=== PATIENT | male | born 1950 | race Caucasian/White ===

== ENCOUNTER 2023-02-21 09:41 | Outpatient (OUT) | payer MEDICARE, SELFPAY ==
--- NOTE | 2023-02-21 09:57 | CT_ITS ---
[address] [address] Patient Name: BLU KUO MRN: [id number] date: 1950 Sex: M Assigned Patient Location: CT Current Patient Location: Accession/Order Number: [id number] Exam Date: 02/21/2023 10:05 Report Date: 02/22/2023 01:35 At the request of: KATALINA VAUGHAN Procedure: CT lung screening low-dose EXAMINATION: CT lung screening low-dose HISTORY: Nicotine Dependence F17.210 COMPARISON: CT chest 10/20/2021 TECHNIQUE: Axial, Coronal, and Sagittal images were created without the administration of IV contrast material. Dose reduction techniques were achieved by using automated exposure control and/or adjustment of mA and/or kV according to patient size and/or use of iterative reconstruction technique. FINDINGS: LUNGS: No visible pulmonary disease. PLEURA: No mass, effusion, or pneumothorax. VASCULATURE: No abnormality. FRANCISCO: No mass or pathologic adenopathy. MEDIASTINUM: No mass or pathologic adenopathy. CARDIAC: No enlargement, pericardial thickening, or significant calcification. AORTA: No aneurysm or dissection. CHEST WALL: No mass or axillary adenopathy BONES: No bone lesion or fracture. LIMITED ABDOMEN: No suspicious findings. Limited images of the upper abdomen. OTHER: Negative. CT/CT lung screening low-dose IMPRESSION: 1. Lung-RADS Category 1 Negative. No nodules and definitely benign nodules. Continue annual screening with LDCT in 12 months. Electronically authenticated by: JACKLYN LUIS Date: 02/22/2023 01:35
[2023-02-21 10:28] LABS: Basophils Absolute Auto 0.1 10^3/uL (0.0-0.1); Basophils Percent Auto 0.9 % (0.2-2.0); Eosinophils Absolute Auto 0.5 10^3/uL (0.0-0.7); Eosinophils Percent Auto 7.2 % (0.9-7.0); Hematocrit 45.5 % (42.0-54.0); Hemoglobin 15.7 g/dL (14.0-18.0); Immature Granulocytes Abs Auto 0.01 10^3/uL (0.00-0.03); Immature Granulocytes Pct Auto 0.2 % (0.0-0.5); Lymphocytes Absolute Auto 2.2 10^3/uL (1.2-3.8); Mean Corpuscular HGB Conc 34.5 g/dL (29.9-35.2); Mean Corpuscular Hemoglobin 34.7 pg (25.9-34.0); Mean Corpuscular Volume 100.4 fL (80.0-94.0); Mean Platelet Volume 8.3 fL (9.5-13.5); Monocytes Absolute Auto 0.4 10^3/uL (0.3-0.8); Monocytes Percent Auto 6.6 % (1.7-12.0); Neutrophils Absolute Auto 3.5 10^3/uL (1.4-6.5); Neutrophils Percent Auto 52.1 % (43.0-75.0); Platelet Count 277 10^3/uL (150-450); Red Blood Count 4.53 10^6/uL (4.70-6.10); Red Cell Distribution Width 13.4 % (11.0-15.0); White Blood Count 6.6 10^3/uL (4.0-11.0)
[2023-02-21 10:50] LABS: Alanine Aminotransferase 27 U/L (16-63); Anion Gap 12.6; BUN Creatinine Ratio 10.9; Calcium 9.2 mg/dL (8.5-10.1); Carbon Dioxide 29.9 mmol/L (21.0-32.0); Chloride 100 mmol/L (98-107); Chol HDL Ratio 2.6; Cholesterol 181 mg/dL (<=200); Estimated GFR (African America >60 (>=60); Estimated GFR (Non-African Ame >60 (>=60); Glucose 84 mg/dL (74-106); HDL Cholesterol 70 mg/dL (40-60); Potassium 4.5 mmol/L (3.5-5.1); Sodium 138 mmol/L (136-145); Triglycerides 73 mg/dL (<=150); VLDL CHOLESTEROL 14.6 mg/dL
== END 2023-02-21 09:42 | disposition home or self-care (01) ==
PROVIDERS: PCP Internal Medicine; Visit Provider Internal Medicine
DX: F17.210 Nicotine dependence, cigarettes, uncomplicated (principal); E78.00 Pure hypercholesterolemia, unspecified; I10 Essential (primary) hypertension; Z79.899 Other long term (current) drug therapy; R97.20 Elevated prostate specific antigen [PSA]
CPT/HCPCS: 36415; 71271; 80048; 80061; 84153; 84460; 85025

== ENCOUNTER 2023-11-30 09:08 | Outpatient (OUT) | payer MEDICARE, SELFPAY ==
[2023-11-30 09:31] LABS: Basophils Percent Auto 0.7 % (0.2-2.0); Eosinophils Absolute Auto 0.3 10^3/uL (0.0-0.7); Eosinophils Percent Auto 6.9 % (0.9-7.0); Hematocrit 45.1 % (42.0-54.0); Hemoglobin 15.6 g/dL (14.0-18.0); Immature Granulocytes Abs Auto 0.01 10^3/uL (0.00-0.03); Immature Granulocytes Pct Auto 0.2 % (0.0-0.5); Lymphocytes Absolute Auto 1.7 10^3/uL (1.2-3.8); Lymphocytes Percent Auto 38.6 % (20.5-60.0); Mean Corpuscular HGB Conc 34.6 g/dL (29.9-35.2); Mean Corpuscular Hemoglobin 33.9 pg (25.9-34.0); Mean Platelet Volume 8.6 fL (9.5-13.5); Monocytes Absolute Auto 0.5 10^3/uL (0.3-0.8); Monocytes Percent Auto 10.3 % (1.7-12.0); Neutrophils Absolute Auto 1.9 10^3/uL (1.4-6.5); Neutrophils Percent Auto 43.3 % (43.0-75.0); Platelet Count 211 10^3/uL (150-450); Red Cell Distribution Width 13.6 % (11.0-15.0); White Blood Count 4.5 10^3/uL (4.0-11.0)
[2023-11-30 10:43] LABS: Alanine Aminotransferase 37 U/L (16-63); Albumin Globulin Ratio 1.2; Albumin Level 3.7 g/dL (3.4-5.0); Alkaline Phosphatase 88 U/L (46-116); Anion Gap 12.8; Aspartate Amino Transferase 26 U/L (15-37); BUN Creatinine Ratio 9.6; Bilirubin Total 1.9 mg/dL (0.2-1.0); Calcium 9.2 mg/dL (8.5-10.1); Carbon Dioxide 28.2 mmol/L (21.0-32.0); Chloride 105 mmol/L (98-107); Chol HDL Ratio 1.8; Cholesterol 120 mg/dL (<=200); Estimated GFR (African America >60 (>=60); Estimated GFR (Non-African Ame >60 (>=60); Glucose 103 mg/dL (74-106); HDL Cholesterol 67 mg/dL (40-60); Sodium 142 mmol/L (136-145); Total Protein 6.7 g/dL (6.4-8.2); Triglycerides 92 mg/dL (<=150); VLDL CHOLESTEROL 18.4 mg/dL
== END 2023-11-30 09:09 | disposition home or self-care (01) ==
LOC: LAB 09:10
PROVIDERS: PCP Internal Medicine; Visit Provider Internal Medicine
DX: I67.2 Cerebral atherosclerosis (principal); I10 Essential (primary) hypertension; E78.00 Pure hypercholesterolemia, unspecified; Z86.73 Personal history of transient ischemic attack (TIA), and cerebral infarction without residual deficits
CPT/HCPCS: 36415; 80053; 80061; 85025

== ENCOUNTER 2024-02-23 09:21 | Outpatient (OUT) | payer MEDICARE, SELFPAY ==
--- NOTE | 2024-02-23 09:23 | CT_ITS ---
[address] [address] Patient Name: BLU KUO MRN: [id number] date: 1950 Sex: M Assigned Patient Location: CT Current Patient Location: Accession/Order Number: [id number] Exam Date: 02/23/2024 09:30 Report Date: 02/26/2024 14:04 At the request of: KATALINA VAUGHAN Procedure: CT lung screening low-dose EXAMINATION: CT lung screening low-dose HISTORY: Nicotine Dependence COMPARISON: 02/21/2023 TECHNIQUE: Axial, Coronal, and Sagittal images were created without the administration of IV contrast material. Dose reduction techniques were achieved by using automated exposure control and/or adjustment of mA and/or kV according to patient size and/or use of iterative reconstruction technique. FINDINGS: LUNGS: Calcified tracheobronchial tree. No new significant pulmonary nodule or mass PLEURA: No mass, effusion, or pneumothorax. VASCULATURE: No abnormality. FRANCISCO: No mass or pathologic adenopathy. MEDIASTINUM: No mass or pathologic adenopathy. CARDIAC: No enlargement or pericardial effusion CORONARY ARTERIES: Coronary calcifications are moderate. AORTA: No aortic aneurysm. Mild calcific atherosclerosis CHEST WALL: No mass or axillary adenopathy BONES: No bone lesion or fracture. LIMITED ABDOMEN: No suspicious findings. Limited images of the upper abdomen. OTHER: Negative. CT/CT lung screening low-dose IMPRESSION: LUNG SCREENING: Lung-RADS Category 1 Negative. No nodules and definitely benign nodules. Continue annual screening with LDCT in 12 months. Electronically authenticated by: MARIUSZ STANLEY Date: 02/26/2024 14:04
--- OUTSIDE RECORDS SUMMARY | 2024-02-23 09:26 | XMS_ITS | CCD ---
Author Organization [facility] Care Team Providers Care Rn First Assistant Name Role Phone DR MITCH VAUGHAN Attending Unavailable BALL, DR DARDEN Consulting Unavailable BALL, DR DARDEN Primary Care Unavailable BALL, DR DARDEN Admitting Unavailable BALL, DR DARDEN Attending Unavailable BALL, DR DARDEN Consulting Unavailable BALL, DR DARDEN Primary Care Unavailable BALL, DR DARDEN Admitting Unavailable ZIEBER, DR JACKLYN Joshua Consulting Unavailable BALL, DR DARDEN Attending Unavailable BALL, DR DARDEN Consulting Unavailable BALL, DR DARDEN Primary Care Unavailable BALL, DR DARDEN Admitting Unavailable NADERER, DR AMIRA Julio Attending Unavailable NADERER, DR AMIRA Julio Consulting Unavailable NADERER, DR AMIRA Julio Admitting Unavailable BALL, DR DARDEN Primary Care Unavailable Deluca, Eim Consulting Unavailable HIWOT, TESSA Consulting Unavailable Mitch Vaughan Unavailable Olelara, Amando Unavailable Tammy Rivas Unavailable DO Mitch Vaughan Primary Care Provider MD Amando Torres Jr Emergency Provider MD Amando Thompson Attending Provider Mitch Vaughan DO Primary Care Provider DO Micth Vaughan Primary Care Provider MD Amando Thompson Attending Provider [phone] Amando Torres Jr Attending Unavailable Amando Torres Jr Admitting Unavailable Mitch Vaughan Primary Care Unavailable Olexa, Amando Attending Unavailable Clement, Mitch Primary Care Unavailable Olexa, Amando Admitting Unavailable Mitch Vaughan Primary Care Unavailable Olexa, Amando Admitting Unavailable Olexa, Amando Attending Unavailable Olexa, Amando Admitting Unavailable Mitch Vaughan Primary Care Unavailable Olexa, Amando Attending Unavailable Olexa, Amando Admitting Unavailable Mitch Vaughan Primary Care Unavailable Olexa, Amando Attending Unavailable Olexa, Amando Attending Unavailable Mitch Vaughan Primary Care Unavailable Olexa, Amando Admitting Unavailable Ball, Mitch Primary Care Unavailable Olexa, Amando Admitting Unavailable Olexa, Amando Attending Unavailable Ball DO, Mitch E Primary Care Provider ARNAV MARTI Attending Unavailable ARNAV MARTI Admitting Unavailable BALL, MITCH E Primary Care Unavailable Ball DO, Mitch E Primary Care Provider BALL, MITCH E Primary Care Unavailable BALL, MITCH E Primary Care Unavailable ENGELER G EVA Referring Unavailable CIEZCOLEMAN, CAIN P Attending Unavailable DARLINE LECHUGA Attending Unavailable BALL, MITCH E Primary Care Unavailable ENGELER G EVA Referring Unavailable BALL, MITCH E Primary Care Unavailable BALL, MITCH E Primary Care Unavailable ENGELER, G EVA Attending Unavailable RAMAKRISHNA MATUTE Referring Unavailable BALL, MITCH E Primary Care Unavailable CIEZKI, CAIN P Referring Unavailable HELGA BUNDY Attending Unavailable CIEZKI, CAIN P Referring Unavailable BALL, MITCH E Primary Care Unavailable CIEZKI, CAIN P Referring Unavailable BALL, MITCH E Primary Care Unavailable CIEZKI, CAIN P Attending Unavailable BALL, MITCH E Primary Care Unavailable CIEZKI, CAIN P Referring Unavailable BALL, MITCH E Primary Care Unavailable ARNAV MARTI Referring Unavailable Allergies Allergy Classification Reported Allergen(s) Allergy Type Date of Onset Reaction(s) Facility (20 sources) Penicillin Drug Allergy Unknown [facility] (1 source) Sulfamethoxazole / Trimethoprim Drug Allergy 11-18-19 21 [facility] (20 sources) Sulfamethoxazole / Trimethoprim Drug Allergy 01-20-20 22 [facility] Other (11 sources) patient allergy list reviewed by nurse or physicia Propensity to adverse reactions 05-28-19 19 Comment:Done [facility] Other (11 sources) Substance with penicillin structure and antibacterial mechanism of action (substance) Drug allergy Unknown [facility] Other (20 sources) Penicillins; Translations: [Penicillins] Propensity to adverse reactions 01-20-20 22 [facility] (19 sources) Sulfamethoxazole; Translations: [sulfamethoxazole] Drug Allergy 11-30-[address] [facility] (19 sources) Trimethoprim; Translations: [trimethoprim] Drug Allergy 11-30-[address] [facility] Medications Current Medications Medication Drug Class(es) Dates Sig (Normalized) Sig (Original) aspirin 81 mg oral tablet (20 sources) Platelet Aggregation Inhibitor, Nonsteroidal Anti-inflammatory Drug Start: 11-29-2022 take 81 mg by mouth once daily Aspirin Active 81 MG PO Daily November 29, 2022 12:00am aspirin, enteric coated (ASPIRIN, ENTERIC COATED) 81 mg EC tablet Take 81 mg by mouth. Active Comment on above: Take 81 mg by mouth. clopidogrel 75 mg oral tablet (20 sources) P2Y12 Platelet Inhibitor Start: 2 take 75 mg by mouth once daily in the morning Clopidogrel Active 75 MG PO Every morning November 29, 2022 12:00am Comment on above: Take 1 tablet by cesilia th once daily. colchicine 0.6 mg oral capsule (20 sources) Start: End: 4 take 0.6 mg by mouth twice daily Colchicine Active 0.6 MG PO Twice daily 14 7 August 09, 2023 10:38am Start: 11-29-2022 End: 08-09-2023 Colchicine Discontinued 0 .R OUTE .COMPLEX November 29, 2022 12:00am August 09, 2023 10:38am take 2 a day if needed for gout colchicine 0.6 m g tablet Take 0.6 mg by mouth. Active Comment on above: Take 0.6 mg by mouth . Nicoderm CQ (20 sources) Nicoderm CQ Acti ve tamsulosin hydrochloride 0.4 mg oral capsule (12 sources) alpha-Adrenergic Dae Start: End: 4 take 2 capsules by mouth once daily at bedtime Tamsulosin (Flomax) 0.4 mg capsule Active 0.8 MG PO Daily at bedtime August 09, 2023 12:00am Comment on above: Take 2 capsules by m outh daily at bedtime. Completed/Discontinued Medications Medication Drug Class(es) Dates Sig (Normalized) Sig (Original) acetaminophen 325 mg / HYDROcodone bitartrate 5 mg oral tablet (20 sources) Opioid Agonist Start: 11-29-2022 take 1 tablet by mouth every four hours as needed for pain HYDROcodone-Aceta minophen 5-325 MG 1 tablet as needed for pain Orally up to every 4 hrs for 5 days JULIO: [id number] Nov, Not-Taking/PRN Start: 05-17-2021 End: 01-22-2024 take 1 tablet by mouth every six hours Hydrocodone-Acetaminophen Discontinued 1 TAB PO Q6H 120 July 17, 2023 August 17, 2023 7:51pm Rx start 07/17/23 Comment on above: Refill(s) 0, 120 EA, TAKE 1 TABLET BY MOUTH EVERY 6 HOURS acetaminophen 325 mg / oxyCODONE hydrochloride 5 mg oral tablet (20 sources) Opioid Agonist Start: End: take 1 tablet by mouth every six hours Oxycodone-Acetaminop hen (Percocet) 5-325 mg tablet Discontinued 1 - 2 TAB PO Every 6 hours 20 07November 29, 2022 November 29, 2022 11:33am Start: 11-29-2022 End: 11-29-2022 take 1 tablet by mouth every six hours Oxycodone-Acetaminophen (Percocet) 5-325 mg tablet Discontinued 1 - 2 TAB PO Every 6 hours 20 07November 29, 2022 November 29, 2022 11:33am Start: 11-29-2022 End: 11-29-2022 take 1 tablet by mouth every six hours Oxycodone-Acetaminophen (Percocet) 5-325 mg tablet Discontinued 1 - 2 TAB PO Every 6 hours 20 07November 29, 2022 November 29, 2022 11:33am Start: 11-29-2022 End: 11-29-2022 take 1 tablet by mouth every six hours Oxycodone-Acetaminophen (Percocet) 5-325 mg tablet Discontinued 1 - 2 TAB PO Every 6 hours 20 07November 29, 2022 November 29, 2022 10:33am Start: 11-29-2022 End: 11-29-2022 take 1 tablet by mouth every six hours Oxycodone-Acetaminophen (Percocet) 5-325 mg tablet Discontinued 1 - 2 TAB PO Every 6 hours 20 07November 29, 2022 November 29, 2022 11:33am Start: 11-29-2022 End: 11-29-2022 take 1 tablet by mouth every six hours Oxycodone-Acetaminophen (Percocet) 5-325 mg tablet Discontinued 1 - 2 TAB PO Every 6 hours 20 07November 29, 2022 November 29, 2022 11:33am Start: 11-29-2022 End: 11-29-2022 take 1 tablet by mouth every six hours Oxycodone-Acetaminophen (Percocet) 5-325 mg tablet Discontinued 1 - 2 TAB PO Every 6 hours 15 November 29, 2022 November 29, 2022 11:33am take 1 tablet by cesilia th every six hours oxyCODONE-Acetaminophen 5-325 MG 1 table t as needed Orally every 6 hrs Not-Taking/PRN amLODIPine 5 mg oral tablet (20 sources) Dihydropyridine Calcium Channel Dae Start: 05-17-2021 End: 01-11-2024 take 5 mg by mouth once daily in the morning Amlodipine Discontinued 5 MG PO Every morning November 29, 2022 12:00am January 11, 2024 2:58pm Comment on above: 30 EA, Take 1 (ONE) tablet by mouth daily, Refills(s) 0 atorvastatin 40 mg oral tablet (20 sources) HMG-CoA Reductase Inhibitor Start: 01-11-2022 End: 08-21-2023 take 40 mg by mouth once daily Atorvastatin Discontinued 40 MG PO Daily November 29, 2022 12:00am August 21, 2023 6:10pm Comment on above: TAKE 1 TABLET DAILY in evening ciprofloxacin 500 mg oral tablet (20 sources) Quinolone Antimicrobial Start: 06-19-2023 End: 07-24-2023 take 1 tablet by mouth twice daily ciprofloxacin HCl (CIPRO) 500 mg tablet Take 1 tablet by mouth two times a day. 20 tablet 0 06/19/2023 07/24/2023 Discontinued (Course of therapy completed) Start: 11-29-2022 take 1 tablet by cesilia th every twelve hours Cipro 500 MG 1 tablet Orally every 12 hrs for 2 days Nov, Not-Taking/PRN Comment on above: Take 1 tablet by cesilia th two times a day. lisinopril 40 mg oral tablet (20 sources) Angiotensin Converting Enzyme Inhibitor Start: End: take 40 mg by mouth once daily Lisinopril Discontinued 40 MG PO Daily November 29, 2022 12:00am January 09, 2024 1:37pm Comment on above: 30 EA, Take 1 (ONE) tablet by mouth daily, Refills(s) 0 Problems Active Problems Problem Classification Problem Date Documented Da te Episodic/Chronic Abdominal hernia (3 sources) Hiatal hernia; Translations: [Diaphragmatic hernia without obstruction or gangrene] 05-17-2022 Episodic Abdominal pain (1 source) Lower abdominal pain, unspecified; Translations: [LOWER ABDOMINAL PAIN UNSPECIFIED] Onset: 2 Episodic Acute cerebrovascular disease (20 sources) Cerebral infarction; Translations: [Cerebral infarction, unspecified] Onset: 4 06-02-2023 Chronic Anxiety disorders (11 sources) Generalized anxiety disorder; Translations: [Generalized anxiety disorder] Chronic Asthma (11 sources) Uncomplicated asthma; Translations: [Unspecified asthma, uncomplicated] Chronic Cancer of prostate (20 sources) Malignant tumor of prostate; Translations: [Malignant neoplasm of prostate] Onset: 3 Chronic Cancer of prostate (1 source) Personal history of malignant neoplasm of prostate; Translations: [Encounter for follow-up surveillance of prostate cancer] Onset: 4 Episodic Chronic obstructive pulmonary disease and bronchiectasis (20 sources) Mucopurulent chronic bronchitis; Translations: [Mucopurulent chronic bronchitis] Onset: 3 Chronic Disorders of lipid metabolism (20 sources) Familial hypercholesterolemia; Translations: [Hypercholesterolemia] Onset: 6 Chronic Disorders of teeth and jaw (3 sources) Tooth disorder; Translations: [Disorder of teeth and supporting structures, unspecified] 05-17-2022 Episodic E Codes: Struck by; against (7 sources) Striking against other object with subsequent fall, initial encounter; Translations: [Fall due to tripping on loose carpet] 12-07-2022 Episodic Esophageal disorders (11 sources) Esophageal disorders; Translations: [Gastro-esophageal reflux disease with esophagitis, without bleeding] Essential hypertension (20 sources) Essential (primary) hypertension; Translations: [Essential hypertension] Onset: 2 Chronic Fluid and electrolyte disorders (1 source) Dehydration; Translations: [DEHYDRATION] Onset: 2 Episodic Fracture of upper limb (13 sources) Other fractures of lower end of left radius, initial encounter for closed fracture; Translations: [Closed fracture of distal end of radius] Episodic Gastrointestinal hemorrhage (20 sources) Gastrointestinal hemorrhage, unspecified; Translations: [Melena] Onset: 2 Episodic Gout and other crystal arthropathies (20 sources) Gout; Translations: [Gout, unspecified] Chronic Hyperplasia of prostate (20 sources) Prostate nodule; Translations: [Nodular prostate without lower urinary tract symptoms] Chronic Immunizations and screening for infectious disease (11 sources) Vaccination given; Translations: [Encounter for immunization] Episodic Late effects of cerebrovascular disease (20 sources) Dysarthria; Translations: [Dysarthria following other cerebrovascular disease] Onset: 9 Chronic Nausea and vomiting (1 source) Nausea with vomiting, unspecified; Translations: [NAUSEA WITH VOMITING UNSPECIFIED] Onset: 2 Episodic Noninfectious gastroenteritis (12 sources) Noninfective gastroenteritis and colitis, unspecified; Translations: [Non-infective enteritis and colitis] Onset: 2 Episodic Osteoporosis (11 sources) Primary osteoporosis; Translations: [Age-related osteoporosis without current pathological fracture] Chronic Other aftercare (1 source) Other clinical informaticist (current) drug therapy; Translations: [OTH INCIDENT COORDINATOR CURRENT DRUG THERAPY] Onset: 2 Episodic Other aftercare (1 source) vending service technician (current) use of antithrombotics/antipl atelets; Translations: [INCIDENT COORDINATOR ANTITHROMBOT/ANTIPLATL ETS] Onset: 2 Episodic Other aftercare (11 sources) Long-term current use of drug therapy; Translations: [Other correction (current) drug therapy] Episodic Other aftercare (2 sources) Drug therapy finding; Translations: [alf (current) use of opiate analgesic] 11-13-2023 Episodic Other aftercare (2 sources) alf (current) use of opiate analgesic; Translations: [Long-term (current) use of other medications] 11-13-2023 Episodic Other aftercare (1 source) History of malignant neoplasm of prostate; Translations: [Encounter for follow-up examination after completed treatment for malignant neoplasm] 01-24-2024 Episodic Other aftercare (1 source) Encounter for follow-up examination after completed treatment for malignant neoplasm; Translations: [Encounter for follow-up surveillance of prostate cancer] Onset: 4 Episodic Other and ill-defined cerebrovascular disease (1 source) Cerebrovascular disease, unspecified; Translations: [CEREBROVASCULAR DISEASE UNSPECIFIED] Onset: 2 Chronic Other and ill-defined cerebrovascular disease (20 sources) Cerebral atherosclerosis; Translations: [Cerebral atherosclerosis] 08-06-2023 Chronic Other and ill-defined cerebrovascular disease (7 sources) Cerebral atherosclerosis; Translations: [Cerebral atherosclerosis] Chronic Other circulatory disease (20 sources) History of cerebrovascular disease; Translations: [Personal history of transient ischemic attack (TIA), and cerebral infarction without residual deficits] 08-08-2023 Episodic Other circulatory disease (6 sources) Personal history of transient ischemic attack (TIA), and cerebral infarction without residual deficits; Translations: [Personal history of transient ischemic attack (TIA), and cerebral infarction without residual deficits] Episodic Other circulatory disease (11 sources) History of cerebrovascular accident without residual deficits; Translations: [Personal history of transient ischemic attack (TIA), and cerebral infarction without residual deficits] Episodic Other ear and sense organ disorders (3 sources) Hearing loss; Translations: [Unspecified hearing loss, unspecified ear] 05-17-2022 Chronic Other ear and sense organ disorders (11 sources) Bilateral tinnitus; Translations: [Tinnitus, bilateral] Episodic Other gastrointestinal disorders (1 source) Personal history of other diseases of the digestive system Episodic Other injuries and conditions due to external causes (11 sources) History of fall; Translations: [History of falling] Episodic Other liver diseases (3 sources) Liver cyst; Translations: [Other specified diseases of liver] 05-17-2022 Chronic Other screening for suspected conditions (not mental disorders or infectious disease) (3 sources) MRI scan abnormal; Translations: [Abnormal findings on diagnostic imaging of other specified body structures] Onset: 2 05-31-2022 Chronic Other screening for suspected conditions (not mental disorders or infectious disease) (12 sources) Encounter for screening for malignant neoplasm of prostate; Translations: [Raised prostate specific antigen] Onset: 2 Episodic Other upper respiratory disease (11 sources) Allergic rhinitis due to pollen; Translations: [Allergic rhinitis due to pollen] Chronic Residual codes; unclassified (20 sources) Tobacco user; Translations: [Tobacco use] Onset: 6 Episodic Residual codes; unclassified (3 sources) Other specified postprocedural states Episodic Residual codes; unclassified (1 source) Other specified postprocedural states; Translations: [Other specified postprocedural states] Onset: 3 Episodic Spondylosis; intervertebral disc disorders; other back problems (20 sources) Lumbar spondylosis; Translations: [Spondylosis without myelopathy or radiculopathy, lumbar region] Chronic Substance-related disorders (20 sources) Nicotine dependence, cigarettes, uncomplicated; Translations: [Nicotine dependence] Onset: 6 Chronic Superficial injury; contusion (7 sources) Abrasion of left knee; Translations: [Abrasion, left knee, initial encounter] 12-07-2022 Episodic Syncope (1 source) Syncope and collapse; Translations: [SYNCOPE AND COLLAPSE] Onset: 2 Episodic Thyroid disorders (11 sources) Hypothyroidism; Translations: [Hypothyroidism, unspecified] Chronic Unclassified (1 source) CONTACT W/AND (SUSP) EXPOS COVID-19; Translations: [CONTACT W/AND (SUSP) EXPOS COVID-19] Onset: 2 Unclassified (11 sources) Long-term current use of drug therapy; Translations: [Long-term (current) use of other medications] Onset: 9 Unclassified (1 source) Other fractures of lower end of left radius, subsequent encounter for closed fracture with routine healing; Translations: [Other fractures of lower end of left radius, subsequent encounter for closed fracture with routine healing] Onset: 3 Unclassified (1 source) Unspecified fracture of the lower end of left radius, initial encounter for closed fracture; Translations: [Unspecified fracture of the lower end of left radius, initial encounter for closed fracture] Onset: 3 Unclassified (1 source) Encounter for preprocedural cardiovascular examination; Translations: [Encounter for preprocedural cardiovascular examination] Onset: 3 Unclassified (1 source) Unspecified injury of left wrist, hand and finger(s), initial encounter; Translations: [Unspecified injury of left wrist, hand and finger(s), initial encounter] Onset: 3 Past or Other Problems Problem Classification Problem Date Documented Da te Episodic/Chronic Acute and unspecified renal failure (11 sources) Acute renal failure syndrome; Translations: [Acute kidney failure, unspecified] Onset: 04-15-2022 Episodic Cardiac dysrhythmias (11 sources) Palpitations; Translations: [Palpitations] Onset: 09-17-2018 Episodic Conditions associated with dizziness or vertigo (11 sources) Labyrinthitis; Translations: [Unspecified labyrinthitis] Onset: 2014 Episodic Genitourinary symptoms and ill-defined conditions (11 sources) Microscopic hematuria; Translations: [Other microscopic hematuria] Onset: 05-17-2021 Episodic Inflammation; infection of eye (except that caused by tuberculosis or sexually transmitteddisease) (11 sources) Acute conjunctivitis; Translations: [Unspecified acute conjunctivitis] Onset: 06-15-2016 Episodic Malaise and fatigue (11 sources) Malaise and fatigue; Translations: [Other malaise and fatigue] Onset: 08-25-2016 Episodic Other aftercare (11 sources) High risk drug monitoring status; Translations: [alf (current) use of opiate analgesic] Onset: 11-29-2017 Episodic Other connective tissue disease (11 sources) Olecranon bursitis; Translations: [Olecranon bursitis] Onset: 04-30-2018 Episodic Other nutritional; endocrine; and metabolic disorders (11 sources) Overweight; Translations: [Overweight] Onset: 09-06-2018 Episodic Other nutritional; endocrine; and metabolic disorders (11 sources) Body mass index 25-29 - overweight; Translations: [Body mass index 26.0-26.9, adult] Onset: 09-06-2018 Episodic Other upper respiratory infections (11 sources) Acute maxillary sinusitis; Translations: [Acute maxillary sinusitis, unspecified] Onset: 06-15-2016 Episodic Screening and history of mental health and substance abuse codes (11 sources) History of tobacco use; Translations: [Personal history of tobacco use, presenting hazards to health] Onset: 07-08-2015 Episodic Viral infection (11 sources) Disease due to Adenovirus; Translations: [Adenovirus infection in conditions classified elsewhere and of unspecified site] Onset: 06-15-2016 Episodic Results Test Name Value Interpretation Reference Range Facility CNOVon 01-24-2024 CNOV Office Visit (RADTMN ) ----- BLU KUO ([id number]) 1950 M Date Time Provider Department 01/24/24 9:00 AM HELGA BUNDY During your visit today, we recorded the following information about you: Pulse Respiration Blood pressure Weight 66/minute 18/minute 148/73 75.1 kg Helga Bundy APRN.NURSERY HELPER 01/24/2024 9:42 AM Signed Radiation Oncology - Follow Up Note PATIENT NAME: Blu Kuo PATIENT DIAGNOSIS: 73 yo gentleman with hx of adenocarcinoma of the prostate, initial PSA of 9.3 ng/mL, Carmela of 3+3=6. Status post I-125 seed implantation on 06/20/2023 INTERVAL HISTORY: Blu presents for routine surveillance of prostate cancer follow-up 6 months after having last been seen. He continues to experience minor LUTS on tamsulosin 2 capsules at dinnertime. He denies any new health issues since his last follow up visit PSA HISTORY: PSA (ng/mL) Date Value 01/17/2024 0.55 ALLERGIES Allergen Reactions Penicillins Unknown Sulfamethoxazole Hives Trimethoprim Hives tamsulosin (FLOMAX) 0.4 mg Take 2 capsules by mouth daily at bedtime. amLODIPine (NORVASC) 5 mg tablet 30 EA, Take 1 (ONE) tablet by mouth daily, Refills(s) 0 aspirin, enteric coated (ASPIRIN, ENTERIC COATED) 81 mg EC tablet Take 81 mg by mouth. atorvastatin (LIPITOR) 40 mg tablet TAKE 1 TABLET DAILY in evening clopidogrel (PLAVIX) 75 mg tablet Take 1 tablet by mouth once daily. colchicine 0.6 mg tablet Take 0.6 mg by mouth. lisinopril (ZESTRIL) 40 mg tablet 30 EA, Take 1 (ONE) tablet by mouth daily, Refills(s) 0 HYDROcodone-acetaminophen (NORCO) 5-325 mg per tablet Refill(s) 0, 120 EA, TAKE 1 TABLET BY MOUTH EVERY 6 HOURS REVIEW OF SYSTEMS: D/N = 5-6/0-1 Hematuria: No Dysuria: Yes Incontinence: No Urgency: mild Catheter use: No Medications to aid urination: Tamsulosin2 - AUA Questionnaire (symptoms within the past 1 month) Incomplete emptyin (not at all) Frequency (within 2 hours): 0 (not at all) Intermittency: 0 (not at all) Urgency: 3 (about half the time) Weak stream: 0 (not at all) Strainin (less than 1 time in 5) Nocturia: 1x per night - Total AUA Score: 5 Bowel movement frequency: 2x/day Bowel movement quality: normal Blood per rectum: No Last colonoscopy: none Sexual activity: Fully potent Androgen deprivation: Never. PHYSICAL EXAM: BP 148/73 Pulse 66 Resp 18 Wt 75.1 kg (165 lb 9.6 oz) SpO2 100% BMI 23.76 kg/m? KPS: 90 General Appearance: Alert and oriented. No acute distress. Rectal exam is deferred. ASSESSMENT Blu continues to experience nocturia 1x minor LUTS on medication. His PSA dropped nicely. I spent a total of 20 minutes on the date of the service which included preparing to see the patient, [id number] patient care, completing clinical documentation, obtaining and/or reviewing separately obtained history, counseling and educating the patient/family/caregiver, ordering medications, tests, or procedures, and communicating results to the patient/family/caregiver. and discussion of his ongoing post radiation follow up. We reviewed current medications for update. We discussed exercise/diet recommendations for increased aerobic fitness and weight control. He does smoke cigarettes and does drink alcohol. All questions answered at this appointment. Parts of Progress Note were copied from Progress note dated 07/24/2023 but woods elements reviewed, confirmed, andor updated by me (Miles Bundy CNP/KASSANDRA ) on January 24, 2024 PLAN: F/U in August 2024 with a PSA Signed by: Helga Bundy APRN.NURSERY HELPER cc: Mitch Vaughan ([facility]) [address] [place] [address] [address] [facility] [id number] Referring Provider: CAIN NOVA [[id number]] Allergies As of Date: 01/24/2024 Noted Allergy Reaction PENICILLINS 03/03/2023 16 - Unknown SULFAMETHOXAZOLE 11/29/2022 4 - Hives TRIMETHOPRIM 11/29/2022 4 - Hives Date Reviewed: 01/24/2024 Reviewed by: Diann Cardoso OCCA - Fully Assessed Reason for Visit: Established Patient [175] Primary Visit Diagnosis:Encounter for follow-up surveillance of prostate cancer [Z08, Z85.46] Order(s):PROSTATE-SPECIFI C ANTIGEN DIAGNOSTIC [SQPSA] Order #: [id number] FUTURE Prescriptions as of 01/24/2024 - tamsulosin (FLOMAX) 0.4 mg Take 2 capsules by mouth daily at bedtime. - amLODIPine (NORVASC) 5 mg tablet 30 EA, Take 1 (ONE) tablet by mouth daily, Refills(s) 0 - aspirin, enteric coated (ASPIRIN, ENTERIC COATED) 81 mg EC tablet Take 81 mg by mouth. - atorvastatin (LIPITOR) 40 mg tablet TAKE 1 TABLET DAILY in evening - clopidogrel (PLAVIX) 75 mg tablet Take 1 tablet by mouth once daily. - colchicine 0.6 mg tablet Take 0.6 mg by mouth. - lisinopril (ZESTRIL) 40 mg tablet 30 EA, Take 1 (ONE) tablet by mouth daily, Refills(s) (more content not included)... Normal [facility] No Panel Informationon 01-16 Prostate Specific Antigen 0.55 ng/mL <2.60 [facility] Comment on above: Total PSA test metho dology used is the Electrochemiluminescence Immunoassay by [employer]. Total PSA values by differing methodologies cannot be interchanged. PSA SerPl-mCncon 01-17-2024 Prostate specific Ag [Mass/Vol] 0.55 ng/mL Normal <2.60 [facility] Comment on above: Order Comment: Speci men Type: BLOOD SPECIMENOrdering Facility: [facility] Address: [address] [place] [address] Result Comment: Tota l PSA test methodology used is the Electrochemiluminescence Immunoassay by [employer]. Total PSA values by differing methodologies cannot be interchanged. Performed By: #### 2 [id number] ####[facility] LABCLIA [id number] [place] [address] [place] Basophils Auto (Bld) [#/Vol] on 11-30-2023 Basophils (Bld) [#/Vol] 0.0 10 3/uL 0.0-0.1 [facility] Basophils/100 WBC Auto (Bld) on 11-30-2023 Basophils/100 WBC (Bld) 0.7 % 0.2-2.0 [facility] Cholesterol in LDL Calc [Mas s/Vol]on 11-30-2023 Cholesterol in LDL [Mass/Vol] 35.0 mg/dL [facility] Comment on above: <100 mg/dl [id number] 0-129 mg/dl NEAR OR ABOVE [id number] mg/dl BORDERLINE [id number] mg/dl HIGH>190 mg/dl VERY HIGH Cholesterol in VLDL Calc [Ma ss/Vol]on 11-30-2023 Cholesterol in VLDL [Mass/Vol] 18.4 mg/dL [facility] Eosinophils/100 WBC Auto (Bl d)on 11-30-2023 Eosinophils/100 WBC (Bld) 6.9 % 0.9-7.0 [facility] Erythrocyte distribution wid th Auto (RBC) [Ratio]on 11-30-2023 Erythrocyte distribution width (RBC) [Ratio] 13.6 % 11.0-15.0 [facility] Estimated glomerular filtrat ion rate (GFR) non- Americanon 11-30-2023 GFR/1.73 sq M.predicted among non-blacks MDRD (S/P/Bld) [Vol rate/Area] mL/min/{1.73_m2} >=60 [facility] Globulin Calc (S) [Mass/Vol] on 11-30-2023 Globulin (S) [Mass/Vol] 3.0 g/dL [facility] Hematocrit Auto (Bld) [Volum e fraction]on 11-30-2023 Hematocrit (Bld) [Volume fraction] 45.1 % 42.0-54.0 [facility] Hemoglobin [Mass/volume] in Bloodon 11-30-2023 Hemoglobin (Bld) [Mass/Vol] 15.6 g/dL 14.0-18.0 [facility] Laboratory - Chemistry and C hemistry - challengeon 11-30-2023 Albumin [Mass/Vol] 3.7 g/dL 3.4-5.0 [facility] ALP [Catalytic activity/Vol] 88 U/L 46-116 [facility] ALT [Catalytic activity/Vol] 37 U/L 16-63 [facility] AST [Catalytic activity/Vol] 26 U/L 15-37 [facility] Bilirubin [Mass/Vol] 1.9 mg/dL High 0.2-1.0 [facility] Calcium [Mass/Vol] 9.2 mg/dL 8.5-10.1 [facility] Chloride [Moles/Vol] 105 mmol/L 98-107 [facility] Cholesterol [Mass/Vol] 120 mg/dL <=200 [facility] Cholesterol in HDL [Mass/Vol] 67 mg/dL High 40-60 [facility] Comment on above: > or =60 mg/dl - LOW CARDIOVASCULAR RISK<40 mg/dl - HIGH CARDIOVASCULAR RISK CO2 [Moles/Vol] 28.2 mmol/L 21.0-32.0 [facility] Creatinine [Mass/Vol] 0.94 mg/dL 0.70-1.30 [facility] GFR/1.73 sq M.predicted MDRD (S/P/Bld) [Vol rate/Area] mL/min/{1.73_m2} >=60 [facility] Glucose [Mass/Vol] 103 mg/dL 74-106 [facility] Potassium [Moles/Vol] 4.0 mmol/L 3.5-5.1 [facility] Protein [Mass/Vol] 6.7 g/dL 6.4-8.2 [facility] Sodium [Moles/Vol] 142 mmol/L 136-145 [facility] Triglyceride [Mass/Vol] 92 mg/dL <=150 [facility] Urea nitrogen [Mass/Vol] 9.0 mg/dL 7.0-18.0 [facility] Urea nitrogen/Creatinine [Mass ratio] 9.6 mg/mg [facility] Laboratory - Hematology and Cell countson 11-30-2023 Immature granulocytes/100 WBC (Bld) 0.2 % 0.0-0.5 [facility] Leukocytes [#/volume] correc alok for nucleated erythrocytes in Blood by Automated counon 11-30-2023 WBC corrected for nucl RBC Auto (Bld) [#/Vol] 4.5 10 3/uL 4.0-11.0 [facility] Lymphocytes Auto (Bld) [#/Vo l]on 11-30-2023 Lymphocytes (Bld) [#/Vol] 1.7 10 3/uL 1.2-3.8 [facility] Lymphocytes/100 WBC Auto (Bl d)on 11-30-2023 Lymphocytes/100 WBC (Bld) 38.6 % 20.5-60.0 [facility] MCH Auto (RBC) [Entitic mass ]on 11-30-2023 MCH (RBC) [Entitic mass] 33.9 pg 25.9-34.0 [facility] MCHC Auto (RBC) [Mass/Vol]on 11-30-2023 MCHC (RBC) [Mass/Vol] 34.6 g/dL 29.9-35.2 [facility] MCV Auto (RBC) [Entitic vol] on 11-30-2023 MCV (RBC) [Entitic vol] 98.0 fL High 80.0-94.0 [facility] Monocytes Auto (Bld) [#/Vol] on 11-30-2023 Monocytes (Bld) [#/Vol] 0.5 10 3/uL 0.3-0.8 [facility] Monocytes/100 WBC Auto (Bld) on 11-30-2023 Monocytes/100 WBC (Bld) 10.3 % 1.7-12.0 [facility] Neutrophils Auto (Bld) [#/Vo l]on 11-30-2023 Neutrophils (Bld) [#/Vol] 1.9 10 3/uL 1.4-6.5 [facility] Neutrophils/100 WBC Auto (Bl d)on 11-30-2023 Neutrophils/100 WBC (Bld) 43.3 % 43.0-75.0 [facility] No Panel Informationon 11-29 Eosinophils # (Auto) 0.3 10 3/uL 0.0-0.7 [facility] Immature Granulocyte # (Auto) 0.01 10 3/uL 0.00-0.03 [facility] Platelet mean volume Auto (B ld) [Entitic vol]on 11-30-2023 Platelet mean volume (Bld) [Entitic vol] 8.6 fL Low 9.5-13.5 [facility] Platelets Auto (Bld) [#/Vol] on 11-30-2023 Platelets (Bld) [#/Vol] 211 10 3/uL 150-450 [facility] RBC Auto (Bld) [#/Vol]on RBC (Bld) [#/Vol] 4.60 10 6/uL Low 4.70-6.10 [facility] Serum or plasma albumin/glob ulin mass ratioon 11-30-2023 Albumin/Globulin [Mass ratio] 1.2 {ratio} [facility] Serum or plasma anion gap de terminationon 11-30-2023 Anion gap [Moles/Vol] 12.8 mmol/L [facility] Serum or plasma total choles terol/high density lipoprotein (HDL) cholesterol mass sarah beth 11-30-2023 Cholesterol.total/Chol esterol in HDL [Mass ratio] 1.8 {ratio} [facility] Comment on above: 3.3 - 4.4 LOW RISK4. 4 - 7.1 AVERAGE RISK7.1 - 11.0 MODERATE RISK>11.0 HIGH RISK CNOVon 07-24-2023 CNOV Office Visit (RADTMN ) ----- BLU KUO ([id number]) 1950 M Date Time Provider Department 07/24/23 9:45 AM CAIN NOVA RADMONY During your visit today, we recorded the following information about you: Pulse Respiration Blood pressure Weight 74/minute 16/minute 137/75 73.5 kg Cain Nova MD 07/24/2023 9:57 AM Signed [facility] CLINICAL NOTE Radiation Oncology PATIENT NAME: Blu Kuo CLINIC NO.: [id number] ATTENDING PHYSICIAN: Cain Nova M.D. DATE OF SERVICE: July 24, 2023 HPI: Blu Kuo is a gentleman with adenocarcinoma of the prostate, initial PSA of 9.3 ng/mL, Carmela of 3+3=6. Status post I-125 seed implantation on 06/20/2023. D/N = 15-20/5-6 (started gout medication 2 weeks ago); bowel movements 1-2 per day; mild dysuria ; no hematuria; no hematochezia ; variable force of stream; he is potent. Physical exam of the prostate deferred, however, examination of his postoperative CAT scan demonstrates adequate seed positioning without evidence for periprostatic abscess formation or urinary retention. ASSESSMENT: Expected toxicity. PLAN: Please schedule F/U with Miles Bundy CNP in 6 months for survivorship visit, and with Dr. Leonard in 1 year, with PSA prior to each visit. This note has been electronically signed. July 24, 2023 Cain Nova M.D. cc: Mitch Vaughan, [address] [facility] [address] Referring Provider: CAIN NOVA [[id number]] Allergies As of Date: 07/24/2023 Noted Allergy Reaction PENICILLINS 03/03/2023 16 - Unknown SULFAMETHOXAZOLE 11/29/2022 4 - Hives TRIMETHOPRIM 11/29/2022 4 - Hives Date Reviewed: 07/24/2023 Reviewed by: Josy Abdi MA - Fully Assessed Reason for Visit: Established Patient [175] Primary Visit Diagnosis:Prostate cancer (HCC) [C61] Order(s):PSA/PROSTSPECAG DIAG [SQPSA] Order #: [id number] STANDING Prescriptions as of 07/24/2023 - tamsulosin (FLOMAX) 0.4 mg Take 2 capsules by mouth daily at bedtime. - amLODIPine (NORVASC) 5 mg tablet 30 EA, Take 1 (ONE) tablet by mouth daily, Refills(s) 0 - aspirin, enteric coated (ASPIRIN, ENTERIC COATED) 81 mg EC tablet Take 81 mg by mouth. - atorvastatin (LIPITOR) 40 mg tablet TAKE 1 TABLET DAILY in evening - clopidogrel (PLAVIX) 75 mg tablet Take 1 tablet by mouth once daily. - colchicine 0.6 mg tablet Take 0.6 mg by mouth. - lisinopril (ZESTRIL) 40 mg tablet 30 EA, Take 1 (ONE) tablet by mouth daily, Refills(s) 0 - HYDROcodone-acetaminophen (NORCO) 5-325 mg per tablet Refill(s) 0, 120 EA, TAKE 1 TABLET BY MOUTH EVERY 6 HOURS Problem List As Of Date 07/24/2023 Noted Resolved Mucopurulent chronic bronchitis (HCC) [J41.1] 05/03/2023 HTN (hypertension) [I10] 06/02/2023 Hypercholesteremia [E78.00] 06/02/2023 Stroke (HCC) [I63.9] 06/02/2023 Medications Discontinued During This Encounter Prescriptions - ciprofloxacin HCl (CIPRO) 500 mg tablet (Discontinued) Take 1 tablet by mouth two times a day. Disposition: Return in about 6 months (around 01/24/2024) for survivirship visit. Follow-up and Disposition History for Encounter Date Provider Department Center 07/24/2023 [id number] [place] Bldg Encounter Status:Closed by CAIN NOVA on 07/24/23 [facility] 06-20-2023 ALLIED HEALTH HNO ID: [id number] Author: VALENTINA HALL RT(R) Service: Radiology Author Type: Technologist Type: Allied Health Filed: 06/20/2023 13:34 Note Text: Radiology Service Progress Note PATIENT NAME: Blu Kuo DATE OF SERVICE: June 20, 2023 TIME: 1:34 PM PATIENT IDENTITY VERIFICATION COMPLETED USING TWO (2) IDENTIFIERS: Name and Date of confirmed by patient verbally. FALL SCREENING: Has the patient had 2 falls in the last year or 1 fall with injury or currently using an Ambulatory Assistive Device (Walker, Cane, Wheelchair, Crutches, etc.)? No PATIENT GENDER DATA: Male PATIENT RELEVANT IMPLANT DATA REVIEWED: Not Applicable PATIENT PRESENTS WITH AN IMPLANTABLE OR ATTACHED DIRECTOR OF SALES AND MARKETING: No RADIOLOGY DEPARTMENT: General X-ray: Exam(s) Completed: Pelvis X-Ray: Pelvis General AP PERIPHERAL IV DATA: Not applicable SIGNED BY: RT Mary(R) June 20, 2023 1:34 PM [facility] ANES POSTPROC EVALon 024 ANES POSTPROC EVAL HNO ID: [id number] Author: CHERIE PETERSEN MD Service: Critical Care Author Type: Anesthesiologist Type: Anesthesia Postprocedure Evaluation Filed: 06/20/2023 14:15 Note Text: POST ANESTHESIA EVALUATION NOTE : 1950 Procedure Summary Date: 06/20/23 Room / Location: OR01 / SP OR Anesthesia Start: 1218 Anesthesia Stop: 1318 Procedures: INSERTION TRANSPERINEAL NEEDLES OR CATHETERS PROSTATE FOR INTERSTITIAL RADIOELEMENT APPLICATION (Prostate) ULTRASOUND TRANSRECTAL PROSTATE (Prostate) APPLICATION INTERSTITIAL RADIATION SOURCE COMPLEX (Prostate) ULTRASONIC GUIDANCE FOR INTERSTITIAL RADIO ELEMENT APPLICATION (Prostate) Diagnosis: Malignant neoplasm of prostate (HCC) (Malignant neoplasm of prostate (HCC) [C61]) Surgeons: Arnav Marti MD Responsible Provider: Cherie Petersen MD Anesthesia Type: general ASA Status: 3 Anesthesia Type: general Airway Type: LMA Last Vitals Vitals Value Taken Time BP 125/73 06/20/23 1345 Temp 36.6 ?C (97.9 ?F) 06/20/23 1330 HR SpO2 65 06/20/23 1357 Resp 17 06/20/23 1357 SpO2 97 % 06/20/23 1357 Vitals shown include unfiled device data. Post Anesthesia Patient Status Patient Evaluation: PACU. Anticipated Disposition: phase 2 then home. Pulmonary Status: breathing comfortably on room air Airway Control: returned to baseline unsupported. Cardiovascular Status: stable. Pain Management: clinically adequate Postoperative Hydration: acceptable. Intraoperative Events: no significant anesthesia events Post Operative Nausea/Vomiting Status: no significant post operative nausea or vomiting Recommendation: continue current plan of care and further care per PACU/ICU/floor team. Anesthesia Observations No Documentation SIGNATURE: Cherie Petersen MD, MD PATIENT NAME: Blu Kuo DATE: June 20, 2023 TIME: 2:15 PM CSN: [id number] [facility] ANES PRE-OPon 06-20-2023 ANES PRE-OP HNO ID: [id number] Author: CHERIE PETERSEN MD Service: Critical Care Author Type: Anesthesiologist Type: Anesthesia Preprocedure Evaluation Filed: 06/20/2023 11:59 Note Text: ANESTHESIOLOGY DAY OF SURGERY NOTE : 1950 Procedure Information Date/Time: 06/20/23 1205 Procedures: INSERTION TRANSPERINEAL NEEDLES OR CATHETERS PROSTATE FOR INTERSTITIAL RADIOELEMENT APPLICATION (Pelvis) ULTRASOUND TRANSRECTAL PROSTATE (Pelvis) CYSTOSCOPY FLEXIBLE (Pelvis) APPLICATION INTERSTITIAL RADIATION SOURCE COMPLEX (Pelvis) ULTRASONIC GUIDANCE FOR INTERSTITIAL RADIO ELEMENT APPLICATION (Pelvis) Location: SP OR01 / SP OR Surgeons: Arnav Marti MD Estimated body mass index is 23.39 kg/m? as calculated from the following: Height as of this encounter: 177.8 cm (5' 10 ). Weight as of this encounter: 73.9 kg (163 lb). Most recent hematocrit and potassium results: No results found for this basename: HCT,HEMATOCRIT,K,POTASSIU M Relevant Problems CARDIO (+) HTN (hypertension) NEURO-PSYCH (+) Stroke (HCC) PULMONARY (+) Mucopurulent chronic bronchitis (HCC) I - PHYSICAL EVALUATION AIRWAY Patient intubated: No. Tracheostomy tube not present Mallampati: II. TM distance: >3 FB. Neck ROM: full ROM without neurological symptoms. Mouth opening: adequate. Short neck: no. Thick neck: no Ramesh present: no DENTAL Dental findings: poor dentition and missing tooth/teeth. II - ANESTHESIA PLAN ASA Score: 3 Anesthetic Plan: general Airway type: LMA The patient is not a current smoker. NPO Status: adequate Beta Dae Administration of chronic beta dae medication not planned. Reasons for not administering beta dae perioperatively: other Monitoring Plan Monitoring plan: standard ASA. Post Procedure Analgesic Plan Postoperative analgesic plan: multimodal analgesia. Informed Consent Anesthetic risks, benefits, alternatives, personnel and consent discussed: yes. Patient / Responsible Constitution Party agrees to proceed: yes Patient / Surrogate agrees to blood products: Yes DNR status not reviewed with patient and/or family prior to surgery. Significant changes in the patient condition since the History and Physical, not otherwise documented in primary service progress note: no. Potential Anesthesia issues that may suggest increased risk of complications or contraindication to planned procedure: none. Vitals Value Taken Time BP 174/89 06/20/23 1052 Pulse 72 06/20/23 1052 Resp 16 06/20/23 1052 Temp 36.8 ?C (98.2 ?F) 06/20/23 1052 SpO2 98 % 06/20/23 1052 Facility-Administered Medications as of 06/20/2023 Medication Dose Route Frequency - lidocaine 10 mg/mL (1 %) 1-2 mg injection (XYLOCAINE) 0.1-0.2 mL INTRADERMAL PRN - lactated ringers iv infusion 5-30 mL/hr INTRAVENOUS CONTINUOUS - NaCl 0.9% iv flush bag 20 mL INTRAVENOUS PRN - clindamycin iv piggyback 900 mg in D5W 50 mL (CLEOCIN) 900 mg INTRAVENOUS Pre-Op Once - sodium phosphate-sodium bisphosphate 133 mL enema (FLEET) 133 mL RECTAL ONCE Outpatient Medications as of 06/20/2023 Medication Sig - amLODIPine (NORVASC) 5 mg tablet 30 EA, Take 1 (ONE) tablet by mouth daily, Refills(s) 0 - aspirin, enteric coated (ASPIRIN, ENTERIC COATED) 81 mg EC tablet Take 81 mg by mouth. - atorvastatin (LIPITOR) 40 mg tablet TAKE 1 TABLET DAILY in evening - clopidogrel (PLAVIX) 75 mg tablet Take 1 tablet by mouth once daily. - colchicine 0.6 mg tablet Take 0.6 mg by mouth. - lisinopril (ZESTRIL) 40 mg tablet 30 EA, Take 1 (ONE) tablet by mouth daily, Refills(s) 0 - HYDROcodone-acetaminophen (NORCO) 5-325 mg per tablet Refill(s) 0, 120 EA, TAKE 1 TABLET BY MOUTH EVERY 6 HOURS I have interviewed and examined the patient. I have reviewed the medical record and/or the pre-anesthesia evaluation, pertinent labs, and test results. This contains updated information obtained within 48 hours of Surgery/Procedure. SIGNATURE: Cherie Petersen MD, MD PATIENT NAME: Bul Kuo DATE: June 20, 2023 TIME: 11:58 AM CSN: [id number] [facility] HISTORY PHYSICALon HISTORY PHYSICAL HNO ID: [id number] Author: LIU HILL PA-C Service: Urology Author Type: Physician Supervisor Road Administrator Type: H&P Filed: 06/20/2023 10:56 Note Text: UPDATED HISTORY AND PHYSICAL EXAMINATION SERVICE DATE: 06/20/2023 SERVICE TIME: 10:18 AM SERVICE: Urology PHYSICAL EXAM MUST BE COMPLETED ON ADMISSION The History and Physical (completed in the past 30 days) has been reviewed and the patient has been examined. The contents accurately reflect the patient's condition with the following additions or revisions since the HANDP was completed. Patient denies any changes to health since last examination. Planned procedure for today is NSERTION TRANSPERINEAL NEEDLES OR CATHETERS PROSTATE FOR INTERSTITIAL RADIOELEMENT APPLICATION Medication reconciliation list reviewed in [facility]. Past medical history, past surgical history, social history and family history reviewed and updated in [facility]. ALLERGIES Allergen Reactions Penicillins Unknown Sulfamethoxazole Hives Trimethoprim Hives BP 174/89 Pulse 72 Temp 36.8 ?C (98.2 ?F) (Temporal Artery) Resp 16 Ht 177.8 cm (5' 10 ) Wt 73.9 kg (163 lb) SpO2 98% BMI 23.39 kg/m? Examination indicates no changes. On examination today: Lungs: Clear to auscultation bilaterally. Heart: RRR, Normal S1/S2, No murmurs, rubs, gallops or thrills appreciated. Abdomen: BS+ in all quadrants, abdomen is soft, non tender, and without guarding. Assessment: Malignant neoplasm of prostate HCC C61 Plan: INSERTION TRANSPERINEAL NEEDLES OR CATHETERS PROSTATE FOR INTERSTITIAL RADIOELEMENT APPLICATION This HANDP can be found in the Electronic Medical Record dated 06/02/2023 Nataliya Leija PA SIGNATURE: Liu Hill PA-C PATIENT NAME: Blu Kuo DATE: June 20, 2023 TIME: 10:18 AM [facility] OPERATIVE NOon 06-20-2023 OPERATIVE NO HNO ID: [id number] Author: CAIN NOVA MD Service: Radiation Oncology Author Type: Physician Type: Operative Report Filed: 06/20/2023 13:05 Note Text: [place] [address] [place] OUTPATIENT OPERATIVE REPORT NAME: Blu Kuo [facility] #: [id number] DATE: June 20, 2023 AGE: [age] year old SURGEON 1: Cain Nova M.D. SURGEON 2: Arnav Marti M.D. START TIME: 1228 FINISH TIME: 1:03 PM OPERATION: I-125 seed implant of the prostate. ANESTHESIA: General PREOPERATIVE DIAGNOSIS: Adenocarcinoma of the prostate, initial PSA of 9.3 ng/mL, [place] of 3+3=6. POSTOPERATIVE DIAGNOSIS: same OPERATIVE INDICATIONS: Prostate Cancer OPERATIVE FINDINGS: Proper anatomy exists for the execution of the implant. OPERATIVE PROCEDURE: Patient was brought to the operating room and general anesthesia was induced. Following this, the patient was placed in exaggerated dorsal lithotomy position, the scrotum was retracted from the perineal skin using foam tape, the perineal skin was shaved, the rectum was irrigated with sterile saline, 20 cc of ultrasound-conducting gel was given as a rectal suppository, and the perineal skin was prepared using iodine scrub solution. Following this, the patient received a transrectal ultrasound probe transrectally and satisfactory images of the prostate were obtained. These images were then imported into a treatment-planning computer and a customized treatment plan was generated, calling for 92 sources (16 were loose and 76 were linked/stranded). These sources that were loaded into needles according to the treatment plan were then inserted and deployed with urology participation. Total activity in the patient was, therefore, 38.18 U. Following insertion of sources, the patient was not noted to require a cystoscopy. He was therefore taken out of exaggerated dorsal lithotomy position to the recovery room in satisfactory condition. Considerable time and effort was spent to accomplish the above described procedure. Based on published results from our institution (Int J Radiat Oncol Biol Phys, 2000 Nov 1:48(4):1241-4) that there is a significant improvement in dose coverage of the prostate when both the ultrasound study and treatment planning are combined in the same procedure as opposed to the traditional approach of pre-planning followed several weeks by seed implantation, I elected to perform the single step method. This method required coordination and substantial interaction among myself, the urologist, physicist and special procedure brachytherapy waste handling technician for: volume determination, needle placement, treatment planning, seed preparation (stranded and single) and seed insertion. ESTIMATED BLOOD LOSS: 10 cc. DRAINS: None. SPECIMENS: None. COMPLICATIONS: None. ATTESTATION: I was present and involved in all aspects of the treatment planning and execution of the treatment plan. Electronically signed on June 20, 2023 at 1:04 PM by Cain Nova M.D. [facility] OPERATIVE NO HNO ID: [id number] Author: ARNAV MARTI MD Service: Urology Author Type: Physician Type: Operative Report Filed: 06/20/2023 13:12 Note Text: June 20, 2023 Preoperative diagnosis: Prostate cancer Postop diagnosis: Same Operation: Prostate brachytherapy with I-125 seeds under ultrasound guidance Surgeon:Arnav Marti MD Radiation oncologist:Dr. Nova General anesthesia Estimated blood loss: minimal Operative procedure: After the timeout was performed Mr..Gary Rosita Kuo was placed in lithotomy position where his genitalia and perineum were prepped and draped in usual manner. An ultrasound probe was inserted transrectally ultrasound picture of the prostate gland was taken and transmitted to the computer where the radiation oncologist and radiation waste handling technician calculated location of each seed within the prostate gland. I assisted the radiation oncologist in placing the needles and seeds. Ultrasound probe was removed the patient tolerated the procedure well and left the operating in satisfactory condition. [facility] XR PELVIS 1V APon 06-20-2023 XR PELVIS 1V AP * * *Final Report* * * DATE OF EXAM: Jun 20 2023 1:33PM [facility] [id number] - XR PELVIS 1V AP / PROCEDURE REASON: Post-operative / post-procedure assessment * * * * Physician Interpretation * * * * RESULT: EXAMINATION: XR PELVIS 1V AP HISTORY: PACU PORT POST BRACHYTHERAPY Post-operative / post-procedure assessment. TECHNIQUE: XR PELVIS 1V AP Laterality: NOT APPLICABLE Number of different views (projections): 1 M: XB_1 RESULT: There are multiple prostate brachytherapy seeds, which appear confined to the prostate gland. Phleboliths are seen within the pelvis. Hip and sacroiliac joint spaces are grossly preserved. IMPRESSION: Prostate brachytherapy seeds. Transcribed Using Voice Recognition Transcribe Date/Time: Jun 20 2023 1:43P Dictated by: NYLA ZHANG MD This examination was interpreted and the report reviewed and electronically signed by: NYLA ZHANG MD on Jun 20 2023 1:44PM EST [id number] [facility] HISTORY PHYSICALon HISTORY PHYSICAL HNO ID: [id number] Author: NATALIYA LEIJA PA Service: ? Author Type: Physician Supervisor Road Administrator Type: H&P Filed: 06/05/2023 09:24 Note Text: HISTORY AND PHYSICAL EXAMINATION SERVICE DATE: 06/02/2023 SERVICE TIME: 9:24 AM PRIMARY CARE PHYSICIAN: Mitch Vaughan DO Assessment Patient has the following medical conditions which may affect clau-operative course: Hypercholesteremia Assessment: Takes Lipitor, Plavix, and aspirin. Follows with his PCP. H/o stroke in 2019. H/o smoking. HTN (hypertension) Assessment: BP 148/76 in PACC. Takes amlodipine and lisinopril. Follows with his PCP. Stroke (HCC) Assessment: h/o stroke in 2019. Evaluated by neurology in the past, now only follows with his PCP. Takes Plavix, aspirin and Lipitor. No carotid bruits on exam. Mucopurulent chronic bronchitis (HCC) Assessment: Smokes daily. Denies CP, SOB, or cough. Does not use inhalers. [place]in[place]re Activity Status Index: METS: Climb a flight of stairs or walk up a hill (5.50 METs) DASI Score: 5.5 Patient denies any chest pain or undue shortness of breath with the above physical activity. STOP-Bang Score: Patient over 50 years old Male patient Denies snoring loudly Denies feeling tired, fatigued, or sleepy during the daytime Has not been observed to stop breathing or choking/gasping during sleep Denies having high blood pressure BMI less than or equal to 35 kg/m2 STOP-Bang Score: 2 [id number] Score: Age: 65-74 Sex: male CHF history: No Hypertension history: Yes Stroke/TIA/thromboembolis m history: Yes Vascular disease history: No Diabetes history: No [id number] Score: 4 ARISCAT Score: Age: 51-80 Preoperative SpO2: >=96% Respiratory infection in the last month: No Preoperative anemia: Yes Surgical incision: peripheral Duration of surgery: <2 hrs Emergency procedure: No ARISCAT Score: 14 ANESTHESIA FINDINGS: Intubation History: No history of difficult intubation Significant Anesthesia Considerations: none Airway History: No history of difficult airway I - PHYSICAL EVALUATION AIRWAY Patient intubated: No. Tracheostomy tube not present Mallampati: II. TM distance: >3 FB. Neck ROM: full ROM without neurological symptoms. Mouth opening: adequate. Short neck: no. Thick neck: no Ramesh present: no Upper lip bite test: unable to perform. Microretrognathia/Microna gthia/Recessed Chin: No DENTAL Dental findings: missing tooth/teeth. II - ANESTHESIA PLAN Anesthetic plan additional comments: *PACC/TCI - anesthesia choice. Beta Dae Monitoring Plan Post Procedure Analgesic Plan Prepared for Surgery: optimally prepared for surgery. Letter sent to patient's PCP for OK to hold Plavix 5 days prior to surgery. Advised pt to continue aspirin as he has h/o stroke in 2019. Addendum 06/05/23: OK to hold Plavix 5 days prior to surgery per letter from Dr. Vaughan. Called patient and left a VM informing him of these instructions. CONSULTS: Patient does not require consults for optimization at this time Planned Anesthetic: anesthesia choice The Following Tests/Procedures Have Been Initiated: No orders of the defined types were placed in this encounter. LABS AND EKG not indicated per PACC protocol. REASON FOR VISIT: Blu Kuo is a 72 year old male who is scheduled for Procedure(s): INSERTION TRANSPERINEAL NEEDLES OR CATHETERS PROSTATE FOR INTERSTITIAL RADIOELEMENT APPLICATION (N/A) ULTRASOUND TRANSRECTAL PROSTATE (N/A) CYSTOSCOPY FLEXIBLE (N/A) APPLICATION INTERSTITIAL RADIATION SOURCE COMPLEX (N/A) ULTRASONIC GUIDANCE FOR INTERSTITIAL RADIO ELEMENT APPLICATION (N/A) at the request of Dr. Arnav Marti for consultation. My final recommendation will be communicated back to the requesting physician by way of shared medical record or letter. Subjective The patient has the following: ACTIVE PROBLEM LIST Mucopurulent Chronic Bronchitis (Hcc) Htn (Hypertension) Hypercholesteremia Stroke (Hcc) COVID-19 Immunization Status Overdue - Covid-19 Vaccine (1) Never done No completion, postpone, frequency change, or communication history exists for this topic. CHIEF COMPLAINT: Pre-anesthesia consultation HPI: 72 year old year old male presents today for a pre-anesthesia consultation for the above procedure. Patient was diagnosed with prostate cancer and is scheduled for surgery. He denies any dysuria, gross hematuria, fever, or chills. REVIEW OF SYSTEMS: General: No weight loss, malaise or fevers. Neurological: Positive for: strokes. Patient's stroke is without residual deficits. Negative for: seizures. Respiratory: Chronic bronchitis Positive for: COPD. Negative for: current cough and dyspnea. Cardiovascular: Positive for: hyperlipidemia and hypertension Negative for: angina. GI: No history of GI symptoms or problems. No history of esophageal varices, recent ascites, or ETOH greater than 2 drinks per day. : (more content not included)... Normal [facility] OUTSIDE SURG PATH SLIDE REVI EWon 06-02-2023 CASE REPORT Normal [facility] Comment on above: Order Comment: Speci men Type: FORMALIN-FIXED PARAFFIN-EMBEDDED TISSUE SPECIMENOrdering Facility: AP Outside Review Address: , , Result Comment: Surg ica Pathology Report Case: [id number] Authorizing Provider: Cain Nova MD Collected: 06/02/2023 04:29 PM Ordering Location: [facility] Received: 06/02/2023 04:28 PM [facility] Pathologist: Cliff Geronimo MD Specimen: SLIDE(S), 78 SLIDES, [id number] Performed By: #### L [id number] ####[facility] [id number] DIAGNOSIS COMMENT Parts C, F, I, K, an d L were reviewed with Dr. Favio Pierce, who concurs. Normal [facility] Comment on above: Order Comment: Speci men Type: FORMALIN-FIXED PARAFFIN-EMBEDDED TISSUE SPECIMENOrdering Facility: AP Outside Review Address: , , Performed By: #### L [id number] ####[facility] [id number] FINAL DIAGNOSIS Normal [facility] Comment on above: Order Comment: Speci men Type: FORMALIN-FIXED PARAFFIN-EMBEDDED TISSUE SPECIMENOrdering Facility: AP Outside Review Address: , , Result Comment: A. P rostate, left lateral base, biopsy ([id number], 05/31/2022, 1A): - Benign prostatic tissue. B. Prostate, left lateral mid, biopsy (2A): - Atypical intraductal proliferation. C. Prostate, left lateral apex, biopsy (3A): - Intraductal carcinoma of the prostate. D. Prostate, left medial base, biopsy (4A): - High-grade prostatic intraepithelial neoplasia. E. Prostate, left medial mid, biopsy (5A): - Small focus of atypical glands (atypical small acinar proliferation). F. Prostate, left medial apex, biopsy (6A): - Prostatic adenocarcinoma, Carmela score 3+3=6 (Grade Group 1), involving 1 of 1 core (5%, less than 1 mm). G. Prostate, right medial base, biopsy (7A): - Benign prostatic tissue. H. Prostate, right medial mid, biopsy (8A): - Benign prostatic tissue. I. Prostate, right medial apex, biopsy (9A): - Small focus of atypical glands (atypical small acinar proliferation). J. Prostate, right lateral base, biopsy (10 A): - Benign prostatic tissue. K. Prostate, right lateral mid, biopsy (11 A): - Prostatic adenocarcinoma, Rusk score 3+3=6 (Grade Group 1), involving 1 of 1 core (discontinuous 60%, 4 mm). L. Prostate, right lateral apex, biopsy (12 A): - Benign prostatic tissue. M. Prostate, LXPZpl, biopsy (13 A, 13 B): - Small focus of atypical glands (atypical small acinar proliferation). - Separate high-grade prostatic intraepithelial neoplasia. Prostate Cancer Biopsy Summary Number of cores examined: 16 Number of cores positive: 2 Highest Grade Group: 1 Highest % of core involvement: Discontinuous 60% (4 mm) Unfavorable histology: Present (26-50%) Borderline histology: Not applicable Large cribriform pattern 4: Present Intraductal carcinoma: Present Block for additional biomarkers/molecular studies: F1 Performed By: #### L [id number] ####[facility] LABCLIA [id number] [place] [address] [place] FINAL PERFORMING LAB Normal [facility] Comment on above: Order Comment: Speci men Type: FORMALIN-FIXED PARAFFIN-EMBEDDED TISSUE SPECIMENOrdering Facility: Outside Review Address: , , Result Comment: Diag nostic interpretation performed at [facility], [facility] [place] [address] CLIA# [id number] Long Term Care Pharmacist: Elton Mccarty M.D. Performed By: #### L [id number] ####[facility] LABCLIA [id number] [place] [address] [place] CNOVon 05-03-2023 CNOV Office Visit (NONIMN ) ----- BLU KUO ([id number]) 1950 M Date Time Provider Department 05/03/23 3:00 PM CAIN NOVA During your visit today, we recorded the following information about you: Pulse Blood pressure Weight Height 78/minute 154/89 72.9 kg 1.778 m Cain Nova MD 06/12/2023 1:40 PM Addendum PROSTATE CANCER INITIAL VISIT SERVICE DATE: May 03, 2023 PRIMARY CARE PROVIDER: Mitch Vaughan DO REFERRING PROVIDER: Kerri Leonard [address] [place] [address] [place] [id number] Consult requested for an opinion regarding the evaluation and treatment of prostate cancer. My final impression and recommendations will be communicated back to the requesting physician by way of the shared medical record or letter via US mail. I spent 60 minutes in the visit, with more than 50% of the total dkbs-df-zhiz time of the visit in counseling / coordination of care. SUBJECTIVE HISTORY OF PRESENT ILLNESS: Mr. Kuo is a 72 year old and presents alone. CaP on with PSA progression (PSA was 6.81 ng/mL in 10/2021). NCCN CRITERIA VALUES Clinical Stage (AJCC 7th Edition) T1c, N0, M0 = stage I [cT1a-c/T2a, N0, M0, PSA <10, GG 1] (AJCC 8th ed.) Previous PSA Score(s) (PSA Should Be Within 3 Months of Biopsy) Outside Result: 9.3 ng/mL Result Date: February 21, 2023 Date of Biopsy May 31, 2022 Type of Biopsy MR Targeted Biopsy Rusk/ISUP Group 3 + 3 = 6 (Grade Group 1) Total # of Biopsy Cores 16 Total # of Positive Biopsy Cores 2 Greatest % Cancer in Any Single Core 60% PSA Density Result: 0.31 2016 NCCN Risk Group Low Risk Group PERTINENT HISTORY: Urinary frequency (D/N): 6-8/0 Dysuria: No Incontinence: No Hematuria: No Baseline Urinary Function: 1- No pads AUA QUESTIONNAIRE (Symptoms Prior to Biopsy): Incomplete Emptyin (not at all) Frequency (within 2 hours of previous void): 0 (not at all) Intermittency: 0 (not at all) Urgency (difficulty postponing urination): 1 (less than 1 time in 5) Weak Stream: 1 (less than 1 time in 5) Strainin (not at all) Nocturia: 0 (none) - Total AUA Score: 2 BASELINE ERECTILE FUNCTION: 2- Diminished but usually satisfactory for intercourse PREVIOUS TREATMENTS: None TESTING TO DATE: MR Results: PIRADS 4 lesion, 30 cc prostate. GENOMIC TESTING: None PAST MEDICAL HISTORY Diagnosis Date HTN (hypertension) Hypercholesteremia Stroke (HCC) 2018 PAST SURGICAL HISTORY Procedure Laterality Date CATARACT EXTRACTION HX Bilateral HERNIA REPAIR HX umbilical PAST SURGICAL HISTORY OF Left wrist d/t fall PAST SURGICAL HISTORY OF lumbar spine-ruptured disc PAST SURGICAL HISTORY OF Left foot-plantar fasciaitis FAMILY HISTORY Problem Relation Age of Onset Cancer Brother Cancer Brother KNOWN FAMILIAL HISTORY: None Social History Tobacco Use Smoking status: Every Day Packs/day: 1.50 Years: 50.00 Additional pack years: 0.00 Total pack years: 75.00 Types: Cigarettes Smokeless tobacco: Never Substance Use Topics Alcohol use: Yes Comment: occ Drug use: Not Currently ALLERGIES Allergen Reactions Penicillins Unknown Sulfamethoxazole Hives Trimethoprim Hives MEDICATIONS: amLODIPine (NORVASC) 5 mg tablet 30 EA, Take 1 (ONE) tablet by mouth daily, Refills(s) 0 aspirin, enteric coated (ASPIRIN, ENTERIC COATED) 81 mg EC tablet Take 81 mg by mouth. atorvastatin (LIPITOR) 40 mg tablet TAKE 1 TABLET DAILY in evening clopidogrel (PLAVIX) 75 mg tablet Take 1 tablet by mouth once daily. colchicine 0.6 mg tablet Take 0.6 mg by mouth. lisinopril (ZESTRIL) 40 mg tablet 30 EA, Take 1 (ONE) tablet by mouth daily, Refills(s) 0 HYDROcodone-acetaminophen (NORCO) 5-325 mg per tablet Refill(s) 0, 120 EA, TAKE 1 TABLET BY MOUTH EVERY 6 HOURS OBJECTIVE REVIEW OF SYSTEMS: GENERAL: Negative for fevers, chills, or night sweats. HEENT: Negative for sudden vision or hearing changes. RESPIRATORY: Negative for cough or shortness of breath. CARDIAC: Negative for chest pain, palpitations, murmurs, or syncopal episodes. GASTROINTESTINAL: Negative for diarrhea, constipation, abdominal pain and poor appetite. GENITOURINARY: See HPI. MUSCULOSKELETAL: See HPI. NEUROLOGIC: Negative for dizziness, headache, weakness or numbness. HEMATOLOGIC: Negative for bleeding or easy bruising. SKIN: Negative for rashes or other skin changes. LYMPHATIC: No masses noted. EXTREMITIES: No swelling of extremities. ASSESSMENT PHYSICAL EXAM: There were no vitals taken for this visit. [facility]: 0- Fully active, able to carry on all pre-disease performance w/o restriction. GENERAL APPEARANCE: Alert and oriented. NECK: Normal ROM. No palpable cervical or supraclavicular adenopathy. LUNGS: Normal breath sounds, no wheezes or crackles. CARDIAC: Regular rate and rhythm. ABDOMEN: Soft, non (more content not included)... Normal [facility] 04-13-2023 [facility] Telephone ([facility]) ----- BLU KUO ([id number]) 1950 Date Time Provider Department 04/13/23 Kerri LEONARD During your visit today, we recorded the following information about you: Roxi Dye LPN 04/13/2023 4:01 PM Signed lBu called stating he has decided he would like to have radiation seed implant. He states he was referred for a surgical opinion but was told patients with a carmela score of 6 don't typically have a prostatectomy. He would like to know if Dr. Leonard can treat him with prostate seed implant. I explained that Dr. Leonard does treat prostate cancer with radiation seeds. I notified Blu that one of the local urologists assist with the seed implant. He said he is a former patient of Dr. Stahl's with [facility] but does not want to work that group of physicians. Blu said he will just work with [facility] and the team in [place] to have a seed implant scheduled. 04/04/23 He saw Darline Lechuga CNP, [facility] urology, who referred patient to Dr. Neves to discuss RALP. MRI prostate order also placed. Blu has a consult with Dr. Neves 05/02/23. He denies further questions at this time. I encouraged him to call back if he needs help facilitating future appointments. DANE Templeton Ariana, LPN 04/20/2023 2:07 PM Signed Lyly: Will you please schedule a consult with Dr. Nova for prostate brachytherapy per previous message? Dr. Leonard rad onc consult pending your approval. Thanks DANE Templeton Tiffany 04/20/2023 2:13 PM Signed Can anyone help with getting him scheduled? Or direct me in the right direction. Lyly Johns 04/20/2023 2:55 PM Signed Hi, thank you! Patient Is scheduled 05/03 I called left message and mailed appt to patient. Allergies As of Date: 04/13/2023 Noted Allergy Reaction PENICILLINS 03/03/2023 16 - Unknown SULFAMETHOXAZOLE 11/29/2022 4 - Hives TRIMETHOPRIM 11/29/2022 4 - Hives Date Reviewed: 04/04/2023 Reviewed by: Haim Cordova MA - Fully Assessed Reason for Visit: Patient Update [1234] Primary Visit Diagnosis:Prostate cancer (HCC) [C61] Order(s):RAD/ONC CONSULT [9037] Order #: [id number]: 1 FUTURE Prescriptions as of 04/20/2023 - amLODIPine (NORVASC) 5 mg tablet 30 EA, Take 1 (ONE) tablet by mouth daily, Refills(s) 0 - aspirin, enteric coated (ASPIRIN, ENTERIC COATED) 81 mg EC tablet Take 81 mg by mouth. - atorvastatin (LIPITOR) 40 mg tablet TAKE 1 TABLET DAILY in evening - clopidogrel (PLAVIX) 75 mg tablet Take 1 tablet by mouth once daily. - colchicine 0.6 mg tablet Take 0.6 mg by mouth. - lisinopril (ZESTRIL) 40 mg tablet 30 EA, Take 1 (ONE) tablet by mouth daily, Refills(s) 0 - HYDROcodone-acetaminophen (NORCO) 5-325 mg per tablet Refill(s) 0, 120 EA, TAKE 1 TABLET BY MOUTH EVERY 6 HOURS Problem List As Of Date: 04/13/2023 (None) Encounter Status:Closed by Kerri LEONARD on 04/20/23 [facility] CNOVon 04-04-2023 CNOV Office Visit (UROLCC ) ----- BLU KUO ([id number]) 1950 M Date Time Provider Department 04/04/23 1:00 PM DARLINE LECHUGA UROLCC During your visit today, we recorded the following information about you: Pulse Weight 83/minute 72.3 kg Darline Lechuga, BALE STACKER.NURSERY HELPER 04/04/2023 5:27 PM Signed [facility] NEW PATIENT HISTORY AND PHYSICAL EXAM PATIENT INFO: Blu Kuo REFERRING M.D.: Kerri Leonard [address] [place] [address] [place] [id number] PCP: Mitch Vaughan, DO Consultation requested by Kerri Leonard and my final recommendations will be communicated back to the requesting physician by way of shared medical record or letter via US mail. CHIEF COMPLAINT: Adenocarcinoma of Prostate HPI This is a 72 year old male here for adenocarcinoma of the prostate he is followed by [facility] in [place] thru the [facility] system. He met with rad/onc locally. :Pt was most concerned that he would not be able to hold his bladder during the treatments and canceled the simulation to move forward. Feels that he wants to have radical prostatectomy. He has not met with a surgeon and wants to hear the risks. BMI 22 hx of HTN and CVA 4 yrs ago- completed speech tx remains on daily ASA and Plavix. . active daily smoker x 42 yrs. +lap umbilical hernia repair ~20 yrs ago no fam hx of CAP. +hx of CAD prostate adenocarcinoma, initial PSA 9.3, biopsy Carmela score 3 + 3 = 6 (grade group 1), clinical stage T1c, N0, M0, stage I [pT2, N0, M0, PSA <10, GG 1] (AJCC 8th ed.), s/p TRUS Random and MR Targeted biopsy. PSA history: 02/21/2023 9.3. 10/27 6.81 10/26 5.58 03/28 4.92 MRI 02/28/2022 30 cc gland, PI-RADS 4 lesion measuring 1.2 cm in the left peripheral zone apex, no definite extracapsular extension. Prostate fusion biopsy on May 31, 2022 28.3 cc volume. Rusk 6 (3, 3) involving left lateral apex left medial mid left medial apex right medial apex right lateral mid and right lateral apex cores. High-grade PIN and minute focus of atypical small acini suspicious for prostatic carcinoma from the region of interest. Total # of positive biopsy cores: 6 Total # of biopsy cores sampled: 13 Greatest % cancer in any single core: 25-50% International Prostate Symptom Score (I-PSS) In the last month: Incomplete Emptying -How often have you had the sensation of not emptying your bladder? 0 Frequency -How often have you had to urinate less than every two hours? 3 Intermittency -How often have you found you stopped and started again several times when you urinated? 1 Urgency -How often have you found it difficult to postpone urination? 3 Weak Stream -How often have you had a weak urinary stream? 1 Straining -How often have you had to strain to start urination? 0 Nocturia -How many times did you typically get up at night to urinate? 0 Final Score: 1-7 Mild Quality of Life Due to Urinary Symptoms- 1- Pleased ED: The IIEF-5 Questionnaire (ERNA) Over the past 6 months: How do you rate your confidence that you can get and keep an erection? Moderate - 3 When you had erections with sexual stimulation, how often where your erections hard enough for penetration? Almost always or always - 5 During sexual intercourse, how often were you able to maintain your erection after you penetrated your partner? Most times (much more than half the time) - 4 During sexual intercourse, how difficult was it to maintain your erection to completion of intercourse? Slightly difficult - 4 When you attempted sexual intercourse, how often was it satisfactory for you? Not difficult - 5 Total Score: 22-25: No ED ALLERGIES: ALLERGIES Allergen Reactions Penicillins Unknown MEDICATIONS: Current Outpatient Medications Medication Sig amLODIPine (NORVASC) 5 mg tablet 30 EA, Take 1 (ONE) tablet by mouth daily, Refills(s) 0 aspirin, enteric coated (ASPIRIN, ENTERIC COATED) 81 mg EC tablet Take 81 mg by mouth. atorvastatin (LIPITOR) 40 mg tablet TAKE 1 TABLET DAILY in evening clopidogrel (PLAVIX) 75 mg tablet Take 1 tablet by mouth once daily. colchicine 0.6 mg tablet Take 0.6 mg by mouth. lisinopril (ZESTRIL) 40 mg tablet 30 EA, Take 1 (ONE) tablet by mouth daily, Refills(s) 0 HYDROcodone-acetaminophen (NORCO) 5-325 mg per tablet Refill(s) 0, 120 EA, TAKE 1 TABLET BY MOUTH EVERY 6 HOURS No current facility-administered medications for this visit. HISTORIES PAST MEDICAL HISTORY Diagnosis Date HTN (hypertension) Hypercholesteremia Stroke (HCC) 2018 PAST SURGICAL HISTORY Procedure Laterality Date CATARACT EXTRACTION HX Bilateral HERNIA REPAIR HX umbilical PAST SURGICAL HISTORY OF Left wrist d/t fall PAST SURGICAL HISTORY OF lumbar spine-ruptured disc PAST SURGICAL HISTORY OF Left foot-plantar fasciaitis Social History Tobacco Use (more content not included)... Normal [facility] XR wrist LT 2Von 03-14-2023 XR wrist LT 2V [facility] [address] [place] [address] XRay Report Signed Patient: Blu Kuo MR#: [id number] 1 : 1950 Acct:[id number] Age/Sex: 72 / M ADM Date: 03/14/23 Loc: [facility] [place] Room: Type: [facility] Attending Dr: Amando Thompson MD Copies to: Amando Thompson MD Ordering Provider: Amando Thompson MD Date of Service: 03/14/23 XR/XR wrist LT 2V: Other fractures of lower end of left radius, subsequent enco 2 views left wrist plain film COMPARISON: 01/24/2023 HISTORY: Status post ORIF left distal radius fracture ACUTE FINDINGS: Healing fractures. Stable alignment. DEGENERATIVE CHANGE: Unremarkable SOFT TISSUE FINDINGS: Unremarkable JOINT EFFUSION: None POSTOP CHANGES: Stable hardware BONE MINERALIZATION: Adequate XR/XR wrist LT 2V IMPRESSION: Healing of fractures with stable alignment and intact hardware. Impression dictated by: Arnav Cleveland M.D.03/14/2023 2:19 PM Dictation Location: [facility]--12 Transcribed By: SILVINO 03/14/231418 Dictated By: Arnav Cleveland DO 03/14/231416 Signed By: 03/14/23 [facility] C[facility] Tele[facility] ([facility]) ----- BLU KUO ([id number]) 1950 M Date Time Provider Department 03/07/23 Kerri LEONARD During your visit today, we recorded the following information about you: Roxi Dye LPN 03/07/2023 9:53 AM Signed Blu called stating he would like to cancel his SIM appointment and has decided to have prostatectomy instead. He has not had a surgical consult and is wondering if Dr. Leonard will make the referral. Blu would like to see a local surgeon if possible. Please advise. Lyly: Please cancel Blu's upcoming SIM appt's. Thanks DANE Templeton, Lyly 03/07/2023 10:02 AM Signed Cxed appts Roxi Dye LPN 03/08/2023 2:15 PM Signed I notified Blu that Dr. Leonard recommends he talk with Dr. Matute to see who he recommends. Blu said he is not happy with Dr. Matute and doesn't want anything to do with him. He would like to stay within [facility]. Lyly will you please schedule a consult with [facility] urology-as close to [place] as possible? Dr. Leonard: Please sign pended order. Thanks DANE Templeton, Lyly 03/13/2023 9:45 AM Signed Sent message to cancer answer line for scheduling patient, thank you. Peng Lyly Harris 03/13/2023 10:48 AM Signed Hemanth Velarde Tiffany I left a message with the patient and gave him both the main campus number and the regional number. Thanks, Hemanth Peng Lyly Harris 03/13/2023 1:48 PM Signed Patient is called and scheduled for 04/04 for Urology. Allergies As of Date: 03/07/2023 Noted Allergy Reaction PENICILLINS 03/03/2023 16 - Unknown Date Reviewed: 03/03/2023 Reviewed by: Roxi Dye LPN - Fully Assessed Reason for Visit: Appointment [186] Patient Update [1234] Primary Visit Diagnosis:Prostate cancer (HCC) [C61] Order(s):CONSULT TO UROLOGY [9041] Order #: [id number]: 1 FUTURE Prescriptions as of 03/15/2023 - amLODIPine (NORVASC) 5 mg tablet 30 EA, Take 1 (ONE) tablet by mouth daily, Refills(s) 0 - aspirin, enteric coated (ASPIRIN, ENTERIC COATED) 81 mg EC tablet Take 81 mg by mouth. - atorvastatin (LIPITOR) 40 mg tablet TAKE 1 TABLET DAILY in evening - clopidogrel (PLAVIX) 75 mg tablet Take 1 tablet by mouth once daily. - colchicine 0.6 mg tablet Take 0.6 mg by mouth. - lisinopril (ZESTRIL) 40 mg tablet 30 EA, Take 1 (ONE) tablet by mouth daily, Refills(s) 0 - HYDROcodone-acetaminophen (NORCO) 5-325 mg per tablet Refill(s) 0, 120 EA, TAKE 1 TABLET BY MOUTH EVERY 6 HOURS Problem List As Of Date: 03/07/2023 (None) Encounter Status:Closed by ROXI DYE on 03/15/23 [facility] CNSamir 03-03-2023 CNOV Office Visit (RADTSA ) ----- BLU KUO ([id number]) 1950 M Date Time Provider Department 03/03/23 9:00 AM Kerri LEONARD During your visit today, we recorded the following information about you: Temperature Pulse Respiration Blood pressure 98 degrees 64/minute 16/minute 162/82 Weight Height 70.3 kg 1.778 m Roxi Dye LPN 03/08/2023 2:17 PM Signed AUA= 4 Kerri Leonard MD 03/08/2023 2:17 PM Signed Radiation Oncology - Prostate Cancer New Patient/Consult Note PATIENT NAME: Blu Kuo PATIENT REQUESTING PROVIDER: Dr. Matute DIAGNOSIS: 72 year old male with prostate adenocarcinoma, initial PSA 9.3, biopsy Carmela score 3 + 3 = 6 (grade group 1), clinical stage T1c, N0, M0, stage I [pT2, N0, M0, PSA <10, GG 1] (AJCC 8th ed.), s/p TRUS Random and MR Targeted biopsy. HPI: 72 year old male with prostate adenocarcinoma who presents for an opinion regarding the role of radiation therapy in the management of the patient's disease. Final recommendations will be communicated back to the requesting physician by way of the shared medical record, or letter to requesting physician via US mail. The patient was diagnosed with prostate cancer and comes in today to discuss treatment options. Patient presented with an elevated PSA . Most recent PSA 02/21/2023 9.3. PSA history: 10/26 5.58 03/28 4.92 10/27 6.81 Patient underwent MRI 02/28/2022 demonstrating 30 cc gland, PI-RADS 4 lesion measuring 1.2 cm in the left peripheral zone apex, no definite extracapsular extension. Prostate fusion biopsy on May 31, 2022 revealed: 28.3 cc volume. Pathology demonstrating adenocarcinoma, Carmela 6 (3, 3) involving left lateral apex left medial mid left medial apex right medial apex right lateral mid and right lateral apex cores. High-grade PIN and minute focus of atypical small acini suspicious for prostatic carcinoma from the region of interest. Total # of positive biopsy cores: 6 Total # of biopsy cores sampled: 13 Greatest % cancer in any single core: 25-50% Staging Studies: MR Results: See HPI CAT Scan Results: CT screening lung 02/21/2023 no nodules or other suspicious areas CT abdomen and pelvis 03/31/2022 thickening along the splenic flexure of the colon. No evidence of suspicious adenopathy or other findings Previous Treatment for Prostate Cancer: None Genomic Testing: Prolaris Results: 10-year metastasis risk 2.6% with active treatment, single modal treatment category The patient reports the following pertinent history: Urinary frequency (D/N): 4-6/1-2 Dysuria: No Incontinence: 1- No pads Hematuria: No - Total AUA Score: 4 Bowel Movement Frequency: 1/day Bowel Movement Quality: Normal Blood per Rectum: No Last Colonoscopy: na Androgen Deprivation: none Prior Radiation Therapy, Collagen Vascular Disease, or Inflammatory Bowel Disease: No Any implanted or external electric devices? No Currently on Anticoagulation: No History of Hip Replacement: No History of Prior TURP: No ALLERGIES Allergen Reactions Penicillins Unknown amLODIPine (NORVASC) 5 mg tablet 30 EA, Take 1 (ONE) tablet by mouth daily, Refills(s) 0 aspirin, enteric coated (ASPIRIN, ENTERIC COATED) 81 mg EC tablet Take 81 mg by mouth. atorvastatin (LIPITOR) 40 mg tablet TAKE 1 TABLET DAILY in evening clopidogrel (PLAVIX) 75 mg tablet Take 1 tablet by mouth once daily. colchicine 0.6 mg tablet Take 0.6 mg by mouth. lisinopril (ZESTRIL) 40 mg tablet 30 EA, Take 1 (ONE) tablet by mouth daily, Refills(s) 0 HYDROcodone-acetaminophen (NORCO) 5-325 mg per tablet Refill(s) 0, 120 EA, TAKE 1 TABLET BY MOUTH EVERY 6 HOURS PAST MEDICAL HISTORY Diagnosis Date HTN (hypertension) Hypercholesteremia Stroke (HCC) 2018 PAST SURGICAL HISTORY Procedure Laterality Date CATARACT EXTRACTION HX Bilateral HERNIA REPAIR HX umbilical PAST SURGICAL HISTORY OF Left wrist d/t fall PAST SURGICAL HISTORY OF lumbar spine-ruptured disc PAST SURGICAL HISTORY OF Left foot-plantar fasciaitis FAMILY HISTORY Problem Relation Age of Onset Cancer Brother Cancer Brother Social History Tobacco Use Smoking status: Every Day Packs/day: 1.50 Years: 50.00 Additional pack years: 0.00 Total pack years: 75.00 Types: Cigarettes Smokeless tobacco: Never Substance Use Topics Alcohol use: Yes Comment: occ Drug use: Not Currently REVIEW OF SYSTEMS: GENERAL: feeling well without fatigue, no recent change in weight NECK: denies swelling or pain in neck RESPIRATORY: no cough, no wheezing or shortness of breath MUSCULOSKELETAL: denies any painful or swollen joints, no muscle aches SKIN: no rash NEURO: no numbness or paresthesias and no weakness of the extremities As noted in HPI PHYSICAL EXAM: VS: BP 162/82 Pulse 64 Temp 36.7 ?C (98 ?F) Resp 16 Ht 177.8 (more content not included)... Normal [facility] XR wrist LT 2Von 01-24-2023 XR wrist LT 2V [facility] [place] [address] XRay Report Signed Patient: Blu Kuo MR#: [id number] 1 : 1950 Acct:[id number] Age/Sex: 72 / M ADM Date: 01/24/23 Loc: [facility] [place] Room: Type: [facility] Attending Dr: Amando Thompson MD Copies to: Amando Thompson MD Ordering Provider: Amando Thompson MD Date of Service: 01/24/23 XR/XR wrist LT 2V: Other fractures of lower end of left radius, subsequent enco XR wrist LT 2V 01/24/2023 10:03 AM SIGNS AND SYMPTOMS: Other fractures of lower end of left radius, subsequent enco PROTOCOL: Frontal and lateral radiograph of the left wrist COMPARISON: 01/03/2023 FINDINGS: There is volar plate and screw fixation of a distal radius fracture. There is also a transversely oriented minimally displaced ulnar side fracture. No hardware complication or malalignment. Healing remains incomplete. There is diffuse osteopenia. XR/XR wrist LT 2V IMPRESSION: Unchanged volar plate and screw fixation of a distal radius fracture. Unchanged distal radius and ulnar fractures with healing. Impression dictated by: Jam Osorio M.D.01/24/2023 1:42 PM Dictation Location: [place] [address] Transcribed By: [facility] 01/24/23 1342 Dictated By: Jam Osorio II, MD 01/24/23 1341 Signed By: 01/24/23 1342 [facility] XR wrist LT 2V [facility] [employer] Other XR wrist LT 2V [facility] [employer] Other XR wrist LT [address]V [address] [place] [address] [employer] Other XR wrist LT 2[place] [address] No rt [employer] Other XR wrist LT 2V XRay Report [email or web address] Other XR wrist LT 2V Signed [employer] Other XR wrist LT 2V Patient: Blu Kuo MR#: [id number] [employer] Other XR wrist LT 2V 1 [employer] Other XR wrist LT 2V : 1950 Acct:[id number] [employer] Other XR wrist LT 2V Age/Sex: 72 / M ADM Date: 01/24/23 [employer] Other XR wrist LT 2V Loc: [facility] [place] Room: Type : [facility] [employer] Other XR wrist LT 2V Attending Dr: Amando Thompson MD [employer] Other XR wrist LT 2V Copies to: Amando Thompson MD [employer] Other XR wrist LT 2V Ordering Provider: Bridgette Thompson MD [employer] Other XR wrist LT 2V Date of Service: 01/24/23 [employer] Other XR wrist LT 2V XR/XR wrist LT 2V: Other fractures of lower end of left radius, [employer] Other XR wrist LT 2V subsequent enco [employer] Other XR wrist LT 2V XR wrist LT 2V 2022 10:03 AM [employer] Other XR wrist LT 2V SIGNS AND SYMPTOMS: N [facility] [employer] Other XR wrist LT 2V Other fractures of l ower end of left radius, subsequent enco [employer] Other XR wrist LT 2V PROTOCOL: Frontal an d lateral radiograph of the left wrist [employer] Other XR wrist LT 2V COMPARISON: 01/03/2023 [employer] Other XR wrist LT 2V FINDINGS: [employer] Other XR wrist LT 2V There is volar plate and screw fixation of a distal radius fracture. There is also a transversely [employer] Other XR wrist LT 2V oriented minimally displaced ulnar side fracture. No hardware complication or malalignment. Healing [employer] Other XR wrist LT 2V remains incomplete. There is diffuse osteopenia. [employer] Other XR wrist LT 2V X R/XR wrist LT 2V [employer] Other XR wrist LT 2V IMPRESSION: [email or web address] Other XR wrist LT 2V Unchanged volar plat e and screw fixation of a distal radius fracture. [employer] Other XR wrist LT 2V Unchanged distal rad ius and ulnar fractures with healing. [employer] Other XR wrist LT 2V Impression dictated by: Jam Osorio M.D.01/24/2023 1:42 PM [employer] Other XR wrist LT 2V Dictation Location: [place] [address] [employer] Other XR wrist LT 2V Transcribed By: SILVINO 01/24/23 1342 [employer] Other XR wrist LT 2V Dictated By: Jam Osorio II, MD 01/24/23 1341 [employer] Other XR wrist LT 2V Signed By: [facility] [employer] Other XR wrist LT 2V 01/24/23 1342 [employer] Other XR wrist LT 2Von 01-03-2023 XR wrist LT 2V [facility] [place] [address] [address] XRay Report Signed Patient: Blu Kuo MR#: [id number] 1 : 1950 Acct:[id number] Age/Sex: 72 / M ADM Date: 01/03/23 Loc: [facility] [place] [facility]: [facility] Attending Dr: Amando Thompson MD Copies to: Amando Thompson MD Ordering Provider: Amando Thompson MD Date of Service: 01/03/23 XR/XR wrist LT 2V: Other specified postprocedural states 2 views left wrist plain film COMPARISON: 12/08/2022 HISTORY: Status post ORIF left distal radius fracture ACUTE FINDINGS: Continued healing. Unchanged bony alignment DEGENERATIVE CHANGE: Unremarkable SOFT TISSUE FINDINGS: Unremarkable JOINT EFFUSION: None POSTOP CHANGES: No hardware failure loosening. BONE MINERALIZATION: Decreased bony mineralization XR/XR wrist LT 2V IMPRESSION: Healing fracture. No hardware failure. Impression dictated by: Arnav Cleveland M.D.01/03/2023 2:46 PM Dictation Location: [place] [address] Transcribed By: [facility] 01/03/23 1446 Dictated By: Arnav Cleveland DO 01/03/23 1442 Signed By: 01/03/23 1446 Normal [facility] XR wrist LT 2Von 12-08-2022 XR wrist LT 2V [address] [address] XRay Report Signed Patient: Blu Kuo MR#: [id number] 1 : 1950 Acct:[id number] Age/Sex: 72 / M ADM Date: 12/08/22 Loc: [facility] [place] Room: Type: REG [facility] Attending Dr: Amando Thompson MD Copies to: Amando Thompson MD Ordering Provider: Amando Thompson MD Date of Service: 12/08/22 XR/XR wrist LT 2V: Other specified postprocedural states LEFT WRIST - 2 views CLINICAL HISTORY: ORIF distal radius follow-up COMPARISON: Left wrist 11/29/2022 FINDINGS: Hardware fixation of distal radius without evidence of hardware complication. Periosteal reaction is noted suggestive of healing response. Splint material is in place. XR/XR wrist LT 2V IMPRESSION: HEALING DISTAL RADIUS FRACTURE. Impression dictated by: Bienvenido Moe Jr., D.OSoto12/08/2022 12:18 PM Dictation Location: [place] [address] Transcribed By: [facility] 12/08/22 1218 Dictated By: Bienvenido Moe Jr, DO 12/08/22 1217 Signed By: 12/08/22 1218 Normal [facility] XR wrist LT min 3V*on 2022 XR wrist LT min 3V* [facility] [place] [address] XRay Report Signed Patient: Blu Kuo MR#: [id number] 1 : 1950 Acct:[id number] Age/Sex: 72 / M ADM Date: 11/30/22 Loc: [place] Room: Type: [facility] Attending Dr: Amando Thompson MD Copies to: Amando Thompson MD Ordering Provider: Amando Thompson MD Date of Service: 11/30/22 XR/XR wrist LT min 3V*: OR XR wrist LT min 3V* 11/30/2022 11:30 AM SIGNS AND SYMPTOMS: Hardware fixation of left wrist PROTOCOL: Intraoperative views of the left wrist COMPARISON: 11/29/2022 FINDINGS: Intraoperative views demonstrate volar plate and screw fixation of left distal radius. Cumulative [employer] Kerma in mGy: 1.66 mGy XR/XR wrist LT min 3V* IMPRESSION: Intraoperative views demonstrate volar plate and screw fixation of left distal radius. Impression dictated by: Jam Osorio M.D.11/30/2022 1:58 PM Dictation Location: [place] [address] Transcribed By: [facility] 11/30/22 1358 Dictated By: Jam Osorio II, MD 11/30/22 1357 Signed By: 11/30/22 1358 [facility] Basic Metabolic Panelon 07- Anion gap [Moles/Vol] 11.9 mmol/L Normal 6.0-15.0 [facility] Comment on above: Performed By: #### B MP, CBC #### [facility] [address] [place] [address] Calcium [Mass/Vol] 9.7 mg/dL Normal 8.6-10.3 [facility] Comment on above: Result Comment: PERF ORMED BY: [place] [address] PATHOLOGIST [employer] JULIANA BUI M.D. Performed By: #### B MP, CBC #### [facility] [address] [place] [address] Chloride [Moles/Vol] 102 mmol/L Normal 98-107 [facility] Comment on above: Performed By: #### B MP, CBC #### [facility] [address] [place] [address] [place] CO2 [Moles/Vol] 28.3 mmol/L Normal 21.0-31.0 [facility] Comment on above: Performed By: #### B MP, CBC #### [facility] [address] [place] [address] [place] Creatinine [Mass/Vol] 0.83 mg/dL Normal 0.70-1.30 [facility] Comment on above: Performed By: #### B MP, CBC #### [facility] [address] [place] [address] [place] GFR/1.73 sq M.predicted MDRD (S/P/Bld) [Vol rate/Area] mL/min/{1.73_m2} [facility] Comment on above: Performed By: #### B MP, CBC #### [place] [address] [place] Glucose [Mass/Vol] 98 mg/dL Normal 70-100 [facility] Comment on above: Result Comment: [facility] Glucose Reference Range is dependent on time and content of last meal. Glucose of more than 200 mg/dL in a nonstressed, ambulatory subject supports the diagnosis of Diabetes Mellitus. ADA recommended reference range Performed By: #### B MP, CBC #### [facility] [address] Potassium [Moles/Vol] 4.2 mmol/L Normal 3.5-5.1 [facility] Comment on above: Performed By: #### B MP, CBC #### [facility] [address] Sodium [Moles/Vol] 138 mmol/L Normal 136-145 [facility] Comment on above: Performed By: #### B MP, CBC #### [facility] [address] [place] [address] [place] Urea nitrogen [Mass/Vol] 10 mg/dL Normal 7-25 [facility] Comment on above: Performed By: #### B MP, CBC #### [facility] [address] [place] [address] [place] Basophils Auto (Bld) [#/Vol] Ordered By: Amando Thompson on 11-29-2022 Basophils (Bld) [#/Vol] 0.0 10*3/uL 0.0-0.2 [facility] Basophils/100 WBC Auto (Bld) Ordered By: Amando Thompson on 11-29-2022 Basophils/100 WBC (Bld) 0.3 % . [facility] Calcium [Mass/volume] in Ser um or PlasmaOrdered By: Amando Thompson on 11-29-2022 Calcium [Mass/Vol] 9.7 mg/dL 8.6-10.3 [facility] Carbon dioxide, total [Moles /volume] in Serum or PlasmaOrdered By: Amando Thompson on 11-29-2022 CO2 [Moles/Vol] 28.3 mmol/L 21.0-31.0 [facility] Chloride [Moles/volume] in S holley or PlasmaOrdered By: Amando Thompson on 11-29-2022 Chloride [Moles/Vol] 102 mmol/L 98-107 [facility] Complete Blood Count Auto Di ffon 11-29-2022 Basophils (Bld) [#/Vol] 0.0 10*3/uL Normal 0.0-0.2 [facility] Comment on above: Result Comment: PERF ORMED BY: [place] [address] PATHOLOGIST [employer] JULIANA BUI M.D. Performed By: #### B MP, CBC #### [address] Basophils/100 WBC (Bld) 0.3 % Normal . [facility] Comment on above: Performed By: #### B MP, CBC #### [facility] [address] Eosinophils (Bld) [#/Vol] 0.1 10*3/uL Normal 0.0-0.45 [facility] Comment on above: Performed By: #### B MP, CBC #### [facility] [address] Eosinophils/100 WBC (Bld) 0.7 % Normal . [facility] Comment on above: Performed By: #### B MP, CBC #### [facility] [address] [place] [address] Erythrocyte distribution width (RBC) [Ratio] 14.8 % Normal 12.0-14.8 [facility] Comment on above: Performed By: #### B MP, CBC #### [place] [address] [place] Hematocrit (Bld) [Volume fraction] 43.1 % Normal 38.8-50.0 [facility] Comment on above: Performed By: #### B MP, CBC #### [facility] [address] Hemoglobin (Bld) [Mass/Vol] 14.7 g/dL Normal 13.0-17.0 [facility] Comment on above: Performed By: #### B MP, CBC #### [facility] [address] [place] [address] [place] Lymphocytes (Bld) [#/Vol] 1.5 10*3/uL Normal 1.00-4.8 [facility] Comment on above: Performed By: #### B MP, CBC #### [facility] [address] Lymphocytes/100 WBC (Bld) 16.6 % Normal . [facility] Comment on above: Performed By: #### B MP, CBC #### [facility] [address] [place] [address] [place] MCH (RBC) [Entitic mass] 35.2 pg Normal 27.5-35.2 [facility] Comment on above: Performed By: #### B MP, CBC #### [address] MCV (RBC) [Entitic vol] 102.8 fL High 83.5-101 [facility] Comment on above: Performed By: #### B MP, CBC #### [address] Mean Corpuscular HGB Conc 34.2 g/dL Normal 32.5-35.6 [facility] Comment on above: Performed By: #### B MP, CBC #### [place] [address] [place] Monocytes (Bld) [#/Vol] 0.6 10*3/uL Normal 0.0-0.8 [facility] Comment on above: Performed By: #### B MP, CBC #### [place] [address] [place] Monocytes/100 WBC (Bld) 7.2 % Normal . [facility] Comment on above: Performed By: #### B MP, CBC #### [facility] [address] [place] [address] [place] Neutrophils (Bld) [#/Vol] 6.6 10*3/uL Normal 1.8-7.7 [facility] Comment on above: Performed By: #### B MP, CBC #### [address] [place] [address] [place] Neutrophils/100 WBC (Bld) 75.2 % Normal . [facility] Comment on above: Performed By: #### B MP, CBC #### [facility] [address] NRBC% 0.0 /100{WBC} Normal 0-0.5 [facility] Comment on above: Performed By: #### B MP, CBC #### [facility] [address] Platelet mean volume (Bld) [Entitic vol] 7.1 fL Normal 6.6-10.1 [facility] Comment on above: Performed By: #### B MP, CBC #### [address] Platelets (Bld) [#/Vol] 237 10*3/uL Normal 150-450 [facility] Comment on above: Performed By: #### B MP, CBC #### [address] RBC (Bld) [#/Vol] 4.19 10*6/uL Normal 3.90-5.60 [facility] Comment on above: Performed By: #### B MP, CBC #### [address] WBC (Bld) [#/Vol] 8.8 10*3/uL Normal 4.1-10.5 [facility] Comment on above: Performed By: #### B MP, CBC #### [address] Creatinine [Mass/volume] in Serum or PlasmaOrdered By: Amando Thompson on 11-29-2022 Creatinine [Mass/Vol] 0.83 mg/dL 0.70-1.30 [facility] ECG 12 lead ECGon 11-29-2022 ECG 12 lead ECG [facility] [place] [address] [place] [address] Electrocardiograph Report Signed Patient: Blu Kuo MR#: [id number] 1 : 1950 Acct:[id number] Age/Sex: 72 / M ADM Date: 11/29/22 Loc: [place] Room: Type: [facility] Attending Dr: Amando Thompson MD Ordering Provider: Amando Thompson MD Date of Service: 11/29/22 ECG/ECG 12 lead ECG: Pre op Copies to: Test Reason : Blood Pressure : / mmHG Vent. Rate : 066 BPM Atrial Rate : 066 BPM P-R Int : 172 ms QRS Dur : 078 ms QT Int : 390 ms P-R-T Axes : 077 066 058 degrees QTc Int : 408 ms Normal sinus rhythm Normal ECG When compared with ECG of 14-DEC-2015 02:32, No significant change was found Confirmed by COLE SIMPSON FACMAYCOL ([id number]) on 12/01/2022 11:54:09 AM Referred By: DR THOMPSON Electronically Signed By:MAYCOL MEDRANO MD FAC Transcribed By: MUS Signed By Ang Medrano MD 12/01/22 1154 Normal [facility] Eosinophils Auto (Bld) [#/Vo l]Ordered By: Amando Thompson on 11-29-2022 Eosinophils (Bld) [#/Vol] 0.1 10*3/uL 0.0-0.45 [facility] Eosinophils/100 WBC Auto (Bl d)Ordered By: Amando Thompson on 11-29-2022 Eosinophils/100 WBC (Bld) 0.7 % . [facility] Erythrocyte distribution wid th Auto (RBC) [Ratio]Ordered By: Amando Thompson on 11-29-2022 Erythrocyte distribution width (RBC) [Ratio] 14.8 % 12.0-14.8 [facility] Glucose [Mass/volume] in Ser um or PlasmaOrdered By: Amando Thompson on 11-29-2022 Glucose [Mass/Vol] 98 mg/dL 70-100 [facility] Comment on above: ADA recommended refe rence rangeRandom Glucose Reference Range is dependent on time and content of last meal. Glucose of more than 200 mg/dL in a nonstressed, ambulatory subject supports the diagnosis of Diabetes Mellitus. Hematocrit Auto (Bld) [Volum e fraction]Ordered By: Amando Thompson on 11-29-2022 Hematocrit (Bld) [Volume fraction] 43.1 % 38.8-50.0 [facility] Hemoglobin [Mass/volume] in BloodOrdered By: Amando Thompson on 11-29-2022 Hemoglobin (Bld) [Mass/Vol] 14.7 g/dL 13.0-17.0 [facility] Leukocytes [#/volume] correc alok for nucleated erythrocytes in Blood by Automated counOrdered By: Amando Thompson on 11-29-2022 WBC corrected for nucl RBC Auto (Bld) [#/Vol] 8.8 10*3/uL 4.1-10.5 [facility] Lymphocytes Auto (Bld) [#/Vo l]Ordered By: Amando Thompson on 11-29-2022 Lymphocytes (Bld) [#/Vol] 1.5 10*3/uL 1.00-4.8 [facility] Lymphocytes/100 WBC Auto (Bl d)Ordered By: Amando Thompson on 11-29-2022 Lymphocytes/100 WBC (Bld) 16.6 % . [facility] MCH Auto (RBC) [Entitic mass ]Ordered By: Amando Thompson on 11-29-2022 MCH (RBC) [Entitic mass] 35.2 pg 27.5-35.2 [facility] MCHC Auto (RBC) [Mass/Vol]Or dered By: Amando Thompson on 11-29-2022 MCHC (RBC) [Mass/Vol] 34.2 g/dL 32.5-35.6 [facility] MCV Auto (RBC) [Entitic vol] Ordered By: Amando Thompson on 11-29-2022 MCV (RBC) [Entitic vol] 102.8 fL 83.5-101 [facility] Monocytes Auto (Bld) [#/Vol] Ordered By: Amando Thompson on 11-29-2022 Monocytes (Bld) [#/Vol] 0.6 10*3/uL 0.0-0.8 [facility] Monocytes/100 WBC Auto (Bld) Ordered By: Amando Thompson on 11-29-2022 Monocytes/100 WBC (Bld) 7.2 % . [facility] Neutrophils Auto (Bld) [#/Vo l]Ordered By: Amando Thompson on 11-29-2022 Neutrophils (Bld) [#/Vol] 6.6 10*3/uL 1.8-7.7 [facility] Neutrophils/100 WBC Auto (Bl d)Ordered By: Amando Thompson on 11-29-2022 Neutrophils/100 WBC (Bld) 75.2 % . [facility] No Panel InformationOrdered By: Amando Thompson on 11-29-2022 Estimated GFR (CKD-EPI) > 60.0 mL/Min [facility] Creatinine Clearance (Chem N/A [facility] Nucleated erythrocytes [Pres ence] in Blood by Automated countOrdered By: Amando Thompson on 11-29-2022 Nucleated RBC Auto Ql (Bld) 0.0 /100{WBC} 0-0.5 [facility] Platelet mean volume Auto (B ld) [Entitic vol]Ordered By: Amando Thompson on 11-29-2022 Platelet mean volume (Bld) [Entitic vol] 7.1 fL 6.6-10.1 [facility] Platelets Auto (Bld) [#/Vol] Ordered By: Amando Thompson on 11-29-2022 Platelets (Bld) [#/Vol] 237 10*3/uL 150-450 [facility] Potassium [Moles/volume] in Serum or PlasmaOrdered By: Amando Thompson on 11-29-2022 Potassium [Moles/Vol] 4.2 mmol/L 3.5-5.1 [facility] RBC Auto (Bld) [#/Vol]Ordere d By: Amando Thompson on 11-29-2022 RBC (Bld) [#/Vol] 4.19 10*6/uL 3.90-5.60 [facility] Serum or plasma anion gap de terminationOrdered By: Amando Thompson on 11-29-2022 Anion gap [Moles/Vol] 11.9 mmol/L 6.0-15.0 [facility] Sodium [Moles/volume] in Ser um or PlasmaOrdered By: Amando Thompson on 11-29-2022 Sodium [Moles/Vol] 138 mmol/L 136-145 [facility] Urea nitrogen [Mass/volume] in Serum or PlasmaOrdered By: Amando Thompson on 11-29-2022 Urea nitrogen [Mass/Vol] 10 mg/dL 11-29 [facility] WBC Auto (Bld) [#/Vol]Ordere d By: Amando Thompson on 11-29-2022 WBC (Bld) [#/Vol] 8.8 10*3/uL 4.1-10.5 [facility] XR wrist LT min 3V*on 2022 XR wrist LT min 3V* [facility] [place] [address] XRay Report Signed Patient: Blu Kuo MR#: [id number] 1 : 1950 Acct:[id number] Age/Sex: 72 / M ADM Date: 11/29/22 Loc: ER Room: Type: [facility] ER Attending Dr: Copies to: Amando Torres Jr, MD Ordering Provider: Amando Torres Jr, MD Date of Service: 11/29/22 XR/XR wrist LT min 3V*: Fall 3 views left wrist plain film COMPARISON: None HISTORY: Left wrist pain with deformity. ACUTE FINDINGS: Ulnar styloid fracture. Palmar apex angulation of distal radius fracture. DEGENERATIVE CHANGE: Unremarkable SOFT TISSUE FINDINGS: Unremarkable JOINT EFFUSION: None POSTOP CHANGES: None BONE MINERALIZATION: Adequate XR/XR wrist LT min 3V* IMPRESSION: Distal radius and ulnar styloid fracture. Impression dictated by: Arnav Cleveland M.D.11/29/2022 9:39 AM Dictation Location: [place] [address] Transcribed By: [facility] 11/29/2239 Dictated By: Arnav Cleveland DO 11/29/22 0938 Signed By: 11/29/22 0939 Normal [facility] CBC AUTO DIFFon 04-15-2022 BASO # 0.0 103/ul Normal 0.0-0.1 [facility] Comment on above: Performed By: #### B MP, ALT, LIPID #### [facility] [address] [place] [address] [address] Marco Antonio Pedroza Basophils/100 WBC (Bld) 0.6 % Normal 0.2-2.0 [facility] Comment on above: Performed By: #### B MP, ALT, LIPID #### [facility] [address] [place] [address] Dr. Marco Antonio Pedroza EO # 0.4 103/ul Normal 0.0-0.7 [facility] Comment on above: Performed By: #### B MP, ALT, LIPID #### [facility] [address] [place] [address] Dr. Marco Antonio Pedroza Eosinophils/100 WBC (Bld) 7.4 % Critically high 0.9-7.0 [facility] Comment on above: Performed By: #### B MP, ALT, LIPID #### [facility] [address] [place] [address] Dr. Marco Antonio Pedroza Erythrocyte distribution width (RBC) [Ratio] 12.6 % Normal 11.0-15.0 [facility] Comment on above: Performed By: #### B MP, ALT, LIPID #### [facility] [address] [place] [address] Dr. Marco Antonio Pedroza Hematocrit (Bld) [Volume fraction] 39.4 % Critically low 42.0-54.0 [facility] Comment on above: Performed By: #### B MP, ALT, LIPID #### [facility] [address] [place] [address] Dr. Marco Antonio Pedroza Hemoglobin (Bld) [Mass/Vol] 13.8 g/dL Critically low 14.0-18.0 [facility] Comment on above: Performed By: #### B MP, ALT, LIPID #### [facility] [address] [place] [address] Dr. Marco Antonio Pedroza IG # 0.01 10e3/ul Normal 0.00-0.03 [facility] Comment on above: Performed By: #### B MP, ALT, LIPID #### [facility] [address] [place] [address] Dr. Marco Antonio Pedroza IG % 0.2 % Normal 0.0-0.5 [facility] Comment on above: Performed By: #### B MP, ALT, LIPID #### [facility] [address] [place] [address] Dr. Marco Antonio Pedroza LYMPH # 2.1 103/ul Normal 1.2-3.8 [facility] Comment on above: Performed By: #### B MP, ALT, LIPID #### [facility] [address] [place] [address] Dr. Marco Antonio Pedroza Lymphocytes/100 WBC (Bld) 44.3 % Normal 20.5-60.0 [facility] Comment on above: Performed By: #### B MP, ALT, LIPID #### [facility] [address] [place] [address] Dr. Marco Antonio Pedroza MANUAL DIFF REQ NO Normal [facility] Comment on above: Performed By: #### B MP, ALT, LIPID #### [facility] [address] [place] [address] Dr. Marco Antonio Pedroza MCH (RBC) [Entitic mass] 34.0 pg Normal 25.9-34.0 [facility] Comment on above: Performed By: #### B MP, ALT, LIPID #### [facility] [address] [place] [address] Dr. Marco Antonio Pedroza MCHC (RBC) [Mass/Vol] 35.0 g/dL Normal 29.9-35.2 [facility] Comment on above: Performed By: #### B MP, ALT, LIPID #### [facility] [address] [place] [address] Dr. Marco Antonio Pedroza MCV (RBC) [Entitic vol] 97.0 fL Critically high 80.0-94.0 [facility] Comment on above: Performed By: #### B MP, ALT, LIPID #### [facility] [address] [place] [address] Dr. Marco Antonio Pedroza MONO # 0.6 103/ul Normal 0.3-0.8 [facility] Comment on above: Performed By: #### B MP, ALT, LIPID #### [facility] [address] [place] [address] Dr. Marco Antonio Pedroza Monocytes/100 WBC (Bld) 12.0 % Normal 1.7-12.0 [facility] Comment on above: Performed By: #### B MP, ALT, LIPID #### [facility] [address] [address] [address] Marco Antonio Pedroza NEUT # 1.7 103/ul Normal 1.4-6.5 [facility] Comment on above: Performed By: #### B MP, ALT, LIPID #### [facility] [address] [address] [address] Marco Antonio Pedroza Neutrophils/100 WBC (Bld) 35.5 % Critically low 43.0-75.0 [facility] Comment on above: Performed By: #### B MP, ALT, LIPID #### [facility] [address] [place] [address] Dr. Marco Antonio Pedroza Platelet mean volume (Bld) [Entitic vol] 8.7 fL Critically low 9.5-13.5 [facility] Comment on above: Performed By: #### B MP, ALT, LIPID #### [facility] [address] [place] [address] Dr. Marco Antonio Pedroza PLT 310 103/ul Normal 150-450 [facility] Comment on above: Performed By: #### B MP, ALT, LIPID #### [facility] [address] [place] [address] Dr. Marco Antonio Pedroza RBC 4.06 106/ul Critically low 4.70-6.[address] [facility] Comment on above: Performed By: #### B MP, ALT, LIPID #### [facility] [address] [place] [address] Dr. Marco Antonio Pedroza WBC 4.8 103/ul Normal 4.0-11.0 [facility] Comment on above: Performed By: #### B MP, ALT, LIPID #### [facility] [address] [place] [address] Dr. Marco Antonio Pedroza PROF CHEM 8 (BAS METB)on Anion gap [Moles/Vol] 12.7 mmol/L Normal [facility] Comment on above: Performed By: #### B MP, ALT, LIPID #### [facility] [address] [place] [address] Dr. Marco Antonio Pedroza Calcium [Mass/Vol] 9.3 mg/dL Normal 8.5-10.1 [facility] Comment on above: Performed By: #### B MP, ALT, LIPID #### [facility] [address] [address] [address] Marco Antonio Pedroza Chloride [Moles/Vol] 104 mmol/L Normal 98-107 [facility] Comment on above: Performed By: #### B MP, ALT, LIPID #### [facility] [address] [place] [address] [address] Marco Antonio Pedroza CO2 [Moles/Vol] 26.0 mmol/L Normal 21.0-32.0 [facility] Comment on above: Performed By: #### B MP, ALT, LIPID #### [facility] [address] [place] [address] Dr. Marco Antonio Pedroza Creatinine [Mass/Vol] 1.60 mg/dL Critically high 0.70-1.30 [facility] Comment on above: Performed By: #### B MP, ALT, LIPID #### [facility] [address] [place] [address] Dr. Marco Antonio Pedroza EGFR-AF UKRAINIAN 52 mL/min/1.73m2 Critically low >=60 [facility] Comment on above: Performed By: #### B MP, ALT, LIPID #### [facility] [address] [place] [address] Dr. Marco Antonio Pedroza EGFR-NON AF UKRAINIAN 43 mL/min/1.73m2 Critically low >=60 [facility] Comment on above: Performed By: #### B MP, ALT, LIPID #### [facility] [address] [place] [address] Dr. Marco Antonio Pedroza Glucose [Mass/Vol] 105 mg/dL Normal 74-106 [facility] Comment on above: Performed By: #### B MP, ALT, LIPID #### [facility] [address] [place] [address] Dr. Marco Antonio Pedroza Potassium [Moles/Vol] 4.7 mmol/L Normal 3.5-5.1 [facility] Comment on above: Performed By: #### B MP, ALT, LIPID #### [facility] [address] [place] [address] Dr. Marco Antonio Pedroza Sodium [Moles/Vol] 138 mmol/L Normal 136-145 [facility] Comment on above: Performed By: #### B MP, ALT, LIPID #### [facility] [address] [place] [address] Dr. Marco Antonio Pedroza Urea nitrogen [Mass/Vol] 21.0 mg/dL Critically high 7.0-18.0 [facility] Comment on above: Performed By: #### B MP, ALT, LIPID #### [facility] [address] [place] [address] Dr. Marco Antonio Pedroza Urea nitrogen/Creatinine [Mass ratio] 13.1 mg/mg Normal [facility] Comment on above: Performed By: #### B MP, ALT, LIPID #### [facility] [address] [place] [address] Dr. Marco Antonio Pedroza CBC AUTO DIFFon 04-01-2022 BASO # 0.0 103/ul Normal 0.0-0.1 [facility] Comment on above: Performed By: #### C BC #### [facility] [address] [place] [address] Dr. Marco Antonio Pedroza Basophils/100 WBC (Bld) 0.2 % Normal 0.2-2.0 [facility] Comment on above: Performed By: #### C BC #### [facility] [address] [place] [address] Dr. Marco Antonio Pedroza EO # 0.2 103/ul Normal 0.0-0.7 [facility] Comment on above: Performed By: #### C BC #### [facility] [address] [place] [address] Dr. Marco Antonio Pedroza Eosinophils/100 WBC (Bld) 2.3 % Normal 0.9-7.0 [facility] Comment on above: Performed By: #### C BC #### [facility] [address] [place] [address] Dr. Marco Antonio Pedroza Erythrocyte distribution width (RBC) [Ratio] 13.2 % Normal 11.0-15.0 [facility] Comment on above: Performed By: #### C BC #### [facility] [address] [place] [address] Dr. Marco Antonio Pedroza Hematocrit (Bld) [Volume fraction] 39.4 % Critically low 42.0-54.0 [facility] Comment on above: Performed By: #### C BC #### [facility] [address] [place] [address] Dr. Marco Antonio Pedroza Hemoglobin (Bld) [Mass/Vol] 13.7 g/dL Critically low 14.0-18.0 [facility] Comment on above: Performed By: #### C BC #### [facility] [address] [place] [address] Dr. Marco Antonio Pedroza IG # 0.03 10e3/ul Normal 0.00-0.03 [facility] Comment on above: Performed By: #### C BC #### [facility] [address] [place] [address] Dr. Marco Antonio Pedroza IG % 0.3 % Normal 0.0-0.5 [facility] Comment on above: Performed By: #### C BC #### [facility] [address] [place] [address] Dr. Marco Antonio Pedroza LYMPH # 1.9 103/ul Normal 1.2-3.8 [facility] Comment on above: Performed By: #### C BC #### [facility] [address] [place] [address] Dr. Marco Antonio Pedroza Lymphocytes/100 WBC (Bld) 20.6 % Normal 20.5-60.0 [facility] Comment on above: Performed By: #### C BC #### [facility] [address] [place] [address] Dr. Marco Antonio Pedroza MANUAL DIFF REQ NO Normal [facility] Comment on above: Performed By: #### C BC #### [facility] [address] [place] [address] Dr. Marco Antonio Pedroza MCH (RBC) [Entitic mass] 34.3 pg Critically high 25.9-34.0 [facility] Comment on above: Performed By: #### C BC #### [facility] [address] [address] [address] Marco Antonio Pedroza MCHC (RBC) [Mass/Vol] 34.8 g/dL Normal 29.9-35.2 [facility] Comment on above: Performed By: #### C BC #### [facility] [address] [address] [address] Marco Antonio Pedroza MCV (RBC) [Entitic vol] 98.5 fL Critically high 80.0-94.0 [facility] Comment on above: Performed By: #### C BC #### [facility] [address] [address] [address] Marco Antonio Pedroza MONO # 0.6 103/ul Normal 0.3-0.8 [facility] Comment on above: Performed By: #### C BC #### [facility] [address] [place] [address] Dr. Marco Antonio Pedroza Monocytes/100 WBC (Bld) 6.8 % Normal 1.7-12.0 [facility] Comment on above: Performed By: #### C BC #### [facility] [address] [address] [address] Marco Antonio Pedroza NEUT # 6.5 103/ul Normal 1.4-6.5 [facility] Comment on above: Performed By: #### C BC #### [facility] [address] [address] [address] Marco Antonio Pedroza Neutrophils/100 WBC (Bld) 69.8 % Normal 43.0-75.0 [facility] Comment on above: Performed By: #### C BC #### [facility] [address] [address] [address] Marco Antonio Pedroza Platelet mean volume (Bld) [Entitic vol] 8.9 fL Critically low 9.5-13.5 [facility] Comment on above: Performed By: #### C BC #### [facility] [address] [address] [address] Marco Antonio Pedroza PLT 171 103/ul Normal 150-450 [facility] Comment on above: Performed By: #### C BC #### [facility] [address] [address] [address] Marco Antonio Pedroza RBC 4.00 106/ul Critically low 4.70-6.10 [facility] Comment on above: Performed By: #### C BC #### [facility] [address] [address] [address] Marco Antonio Pedroza WBC 9.3 103/ul Normal 4.0-11.0 [facility] Comment on above: Performed By: #### C BC #### [facility] [address] [place] [address] Dr. Marco Antonio Pedroza PROF 14(COMP METB)on 022 Albumin [Mass/Vol] 2.3 g/dL Critically low 3.4-5.0 [facility] Comment on above: Performed By: #### B MP, ALT, LIPID #### [facility] [address] [place] [address] Dr. Marco Antonio Pedroza Albumin/Globulin [Mass ratio] 0.6 {ratio} Normal [facility] Comment on above: Performed By: #### B MP, ALT, LIPID #### [facility] [address] [place] [address] Dr. Marco Antonio Pedroza ALP [Catalytic activity/Vol] 73 U/L Normal 46-116 [facility] Comment on above: Performed By: #### B MP, ALT, LIPID #### [facility] [address] [place] [address] Dr. Marco Antonio Pedroza ALT [Catalytic activity/Vol] 15 U/L Critically low 16-63 [facility] Comment on above: Performed By: #### B MP, ALT, LIPID #### [facility] [address] [place] [address] Dr. Marco Antonio Pedroza Anion gap [Moles/Vol] 9.2 mmol/L Normal [facility] Comment on above: Performed By: #### B MP, ALT, LIPID #### [facility] [address] [place] [address] Dr. Marco Antonio Pedroza AST [Catalytic activity/Vol] 15 U/L Normal 15-37 [facility] Comment on above: Performed By: #### B MP, ALT, LIPID #### [facility] [address] [address] [address] Marco Antonio Pedroza Bilirubin [Mass/Vol] 1.7 mg/dL Critically high 0.2-1.0 [facility] Comment on above: Performed By: #### B MP, ALT, LIPID #### [facility] [address] [place] [address] Dr. Marco Antonio Pedroza Calcium [Mass/Vol] 8.6 mg/dL Normal 8.5-10.1 [facility] Comment on above: Performed By: #### B MP, ALT, LIPID #### [facility] [address] [place] [address] Dr. Marco Antonio Pedroza Chloride [Moles/Vol] 104 mmol/L Normal 98-107 [facility] Comment on above: Performed By: #### B MP, ALT, LIPID #### [facility] [address] [place] [address] Dr. Marco Antonio Pedroza CO2 [Moles/Vol] 27.4 mmol/L Normal 21.0-32.[address] [facility] Comment on above: Performed By: #### B MP, ALT, LIPID #### [facility] [address] [place] [address] Dr. Marco Antonio Pedroza Creatinine [Mass/Vol] 0.86 mg/dL Normal 0.70-1.30 [facility] Comment on above: Performed By: #### B MP, ALT, LIPID #### [facility] [address] [place] [address] Dr. Marco Antonio Pedroza EGFR-AF UKRAINIAN >60 Normal >=60 [facility] Comment on above: Performed By: #### B MP, ALT, LIPID #### [facility] [address] [place] [address] Dr. Marco Antonio Pedroza EGFR-NON AF UKRAINIAN >60 Normal >=60 [facility] Comment on above: Performed By: #### B MP, ALT, LIPID #### [facility] [address] [place] [address] Dr. Marco Antonio Pedroza Globulin (S) [Mass/Vol] 3.6 g/dL Normal [facility] Comment on above: Performed By: #### B MP, ALT, LIPID #### [facility] [address] [place] [address] Dr. Marco Antonio Pedroza Glucose [Mass/Vol] 99 mg/dL Normal 74-106 [facility] Comment on above: Performed By: #### B MP, ALT, LIPID #### [facility] [address] [place] [address] Dr. Marco Antonio Pedroza Potassium [Moles/Vol] 3.6 mmol/L Normal 3.5-5.1 [facility] Comment on above: Performed By: #### B MP, ALT, LIPID #### [facility] [address] [place] [address] Dr. Marco Antonio Pedroza Protein [Mass/Vol] 5.9 g/dL Critically low 6.4-8.2 [facility] Comment on above: Performed By: #### B MP, ALT, LIPID #### [facility] [address] [place] [address] Dr. Marco Antonio Pedroza Sodium [Moles/Vol] 137 mmol/L Normal 136-145 [facility] Comment on above: Performed By: #### B MP, ALT, LIPID #### [facility] [address] [place] [address] Dr. Marco Antonio Pedroza Urea nitrogen [Mass/Vol] 10.0 mg/dL Normal 7.0-18.0 [facility] Comment on above: Performed By: #### B MP, ALT, LIPID #### [facility] [address] [place] [address] Dr. Marco Antonio Pedroza Urea nitrogen/Creatinine [Mass ratio] 11.6 mg/mg Normal [facility] Comment on above: Performed By: #### B MP, ALT, LIPID #### [facility] [address] [place] [address] Dr. Marco Antonio Pedroza BNPon 03-31-2022 Natriuretic peptide B (Bld) [Mass/Vol] 302.0 pg/mL Normal <=900.0 [facility] Comment on above: Performed By: #### C MP, CMADM, BNP #### [facility] [address] [place] [address] Dr. Marco Antonio Pedroza CARDIAC AJM ADMITon 022 CK [Catalytic activity/Vol] 177 U/L Normal 39-308 [facility] Comment on above: Performed By: #### C MP, CMADM, BNP #### [facility] [address] [place] [address] Dr. Marco Antonio Pedroza CK.MB [Mass/Vol] 2.10 ng/mL Normal <=3.60 [facility] Comment on above: Performed By: #### C MP, CMADM, BNP #### [facility] [address] [place] [address] Dr. Marco Antonio Pedroza HSTROP 8.1 pg/mL Normal 4.0-76.1 [facility] Comment on above: Result Comment: CUT- OFF POINTS HAVE BEEN ESTABLISHED BASED ON THE FOURTH UNIVERSAL DEFINITIONS OF MYOCARDIAL INFARCTION. THE UPPER REFERENCE LIMIT (URL) OF TROPONIN, DEFINED THE 99TH PERCENTILE OF cTnI DISTRIBUTION IN A REFERENCE POPULATION, HAS BEEN CONFIRMED THE DECISION THRESHOLD FOR ND DIAGNOSIS. Performed By: #### C MP, CMADM, BNP #### [facility] [address] [place] [address] Dr. Marco Antonio Pedroza VICENTE 97 ng/mL Critically high 16-96 [facility] Comment on above: Performed By: #### C MP, CMADM, BNP #### [facility] [address] [place] [address] Dr. Marco Antonio Pedroza CBC AUTO DIFFon 03-31-2022 BASO # 0.1 103/ul Normal 0.0-0.1 [facility] Comment on above: Performed By: #### C BC #### [facility] [address] [place] [address] Dr. Marco Antonio Pedroza Basophils/100 WBC (Bld) 0.4 % Normal 0.2-2.0 [facility] Comment on above: Performed By: #### C BC #### [facility] [address] [place] [address] Dr. Marco Antonio Pedroza EO # 0.1 103/ul Normal 0.0-0.7 [facility] Comment on above: Performed By: #### C BC #### [facility] [address] [place] [address] Dr. Marco Antonio Pedroza Eosinophils/100 WBC (Bld) 0.8 % Critically low 0.9-7.0 [facility] Comment on above: Performed By: #### C BC #### [facility] [address] [place] [address] Dr. Marco Antonio Pedroza Erythrocyte distribution width (RBC) [Ratio] 13.2 % Normal 11.0-15.0 [facility] Comment on above: Performed By: #### C BC #### [facility] [address] [place] [address] Dr. Marco Antonio Pedroza Hematocrit (Bld) [Volume fraction] 46.4 % Normal 42.0-54.0 [facility] Comment on above: Performed By: #### C BC #### [facility] [address] [place] [address] Dr. Marco Antonio Pedroza Hemoglobin (Bld) [Mass/Vol] 16.4 g/dL Normal 14.0-18.0 [facility] Comment on above: Performed By: #### C BC #### [facility] [address] [place] [address] Dr. Marco Antonio Pedroza IG # 0.04 10e3/ul Critically high 0.00-0.03 [facility] Comment on above: Performed By: #### C BC #### [facility] [address] [place] [address] Dr. Marco Antonio Pedroza IG % 0.3 % Normal 0.0-0.5 [facility] Comment on above: Performed By: #### C BC #### [facility] [address] [place] [address] Dr. Marco Antonio Pedroza LYMPH # 2.4 103/ul Normal 1.2-3.8 [facility] Comment on above: Performed By: #### C BC #### [facility] [address] [place] [address] Dr. Marco Antonio Pedroza Lymphocytes/100 WBC (Bld) 19.6 % Critically low 20.5-60.0 [facility] Comment on above: Performed By: #### C BC #### [facility] [address] [place] [address] Dr. Marco Antonio Pedroza MANUAL DIFF REQ NO Normal [facility] Comment on above: Performed By: #### C BC #### [facility] [address] [place] [address] Dr. Marco Antonio Pedroza MCH (RBC) [Entitic mass] 34.4 pg Critically high 25.9-34.0 [facility] Comment on above: Performed By: #### C BC #### [facility] [address] [place] [address] Dr. Marco Antonio Pedroza MCHC (RBC) [Mass/Vol] 35.3 g/dL Critically high 29.9-35.2 [facility] Comment on above: Performed By: #### C BC #### [facility] [address] [place] [address] Dr. Marco Antonio Pedroza MCV (RBC) [Entitic vol] 97.3 fL Critically high 80.0-94.0 [facility] Comment on above: Performed By: #### C BC #### [facility] [address] [place] [address] Dr. Marco Antonio Pedroza MONO # 0.9 103/ul Critically high 0.3-0.[address] [facility] Comment on above: Performed By: #### C BC #### [facility] [address] [place] [address] Dr. Marco Antonio Pedroza Monocytes/100 WBC (Bld) 7.3 % Normal 1.7-12.0 [facility] Comment on above: Performed By: #### C BC #### [facility] [address] [place] [address] Dr. Marco Antonio Pedroza NEUT # 8.8 103/ul Critically high 1.4-6.[address] [facility] Comment on above: Performed By: #### C BC #### [facility] [address] [place] [address] Dr. Marco Antonio Pedroza Neutrophils/100 WBC (Bld) 71.6 % Normal 43.0-75.0 [facility] Comment on above: Performed By: #### C BC #### [facility] [address] [place], [place] [address] Dr. Marco Antonio Pedroza Platelet mean volume (Bld) [Entitic vol] 9.2 fL Critically low 9.5-13.5 [facility] Comment on above: Performed By: #### C BC #### [facility] [address] [id number] Marco Antonio Pedroza PLT 220 103/ul Normal 150-450 [facility] Comment on above: Performed By: #### C BC #### [facility] [address] [address] [address] Marco Antonio Pedroza RBC 4.77 106/ul Normal 4.70-6.10 [facility] Comment on above: Performed By: #### C BC #### [facility] [address] [id number] Marco Antonio Pedroza WBC 12.3 103/ul Critically high 4.0-11.0 [facility] Comment on above: Performed By: #### C BC #### [facility] [address] [address] [address] Marco Antonio Pedroza CT ABD/PELVIS WO CONon 03-31 CT ABD/PELVIS WO CON EXAMINATION: CT ABD/PELVIS WO CON, 03/31/2022 1:27 PM EST HISTORY: GENERALIZED ABDOMINAL PAIN abdominal pain with blood in stool intermittently. COMPARISON: Abdominal x-ray 03/31/2022. TECHNIQUE: CT scan of the abdomen and pelvis was performed without IV contrast. CT dose reduction technique was used, including Automated Exposure Control. FINDINGS: LUNG BASES: Visualized lung bases appear clear. No pleural effusion is identified. LYMPH NODES: No retroperitoneal, mesenteric or pelvic lymphadenopathy. ABDOMINAL AORTA: No aortic aneurysm identified. Mild to moderate calcific plaque. LIVER: Liver contour appears smooth. Oval cyst in the left hepatic lobe measures 3.3 cm. BILIARY TREE AND GALLBLADDER: No intrahepatic or extrahepatic bile duct dilatation. Gallbladder is fluid distended without calcified gallstones. PANCREAS: Normal in size without masses or ductal dilatation. No peripancreatic inflammatory changes. SPLEEN: Normal in size without focal lesions. ADRENAL GLANDS: Normal bilaterally, without nodules. KIDNEYS/URINARY BLADDER: The kidneys appear symmetric in size. No parenchymal lesions identified. No KUB stones or hydronephrosis identified. The urinary bladder appears unremarkable. GASTROINTESTINAL TRACT: Long segment wall thickening of the colon at the level the splenic flexure extending along the length of the descending colon measuring up to 9 mm with adjacent plantar stranding. No pneumatosis or portal venous gas. Small to moderate hiatal hernia. Duodenum appears unremarkable. Appendix appears normal. PERITONEAL CAVITY AND SURFACES: No free fluid. No free intraperitoneal air. REPRODUCTIVE ORGANS: Prostate gland measures 4.3 cm. ABDOMINAL WALL: There is prior herniorrhaphy repair at the umbilicus. OSSEOUS STRUCTURES: No aggressive appearing osseous lesions. No compression fracture is identified. Severe disc space narrowing and plate spur at L5-S1. IMPRESSION: 1. Long segment wall thickening involving the colon at the splenic flexure and along the length of the descending colon. Differential includes infectious, inflammatory or ischemic colitis. Recommend correlation with lactic acid level. No bowel dissection. 2. Normal CT appearance of the appendix. 3. Prior herniorrhaphy at the umbilicus. 4. Lyxtv-af-fvvieisb hiatal hernia. Electronically authenticated by: EMI DELUCA Date: 2022-03-31 14:42 Normal [facility] Covid-19 PCR ([facility])on 03-09 SARS-CoV-2 (COVID-19) RNA DEMETRICE+probe Ql (Unsp spec) Not detected Normal NOT DETECTED [facility] Comment on above: Result Comment: When diagnostic testing is negative, the possibility of a false negative should be considered in the context of a patient's recent exposures and the presence of clinical signs and symptoms consistent with SARS-CoV-2. This test is not yet approved or cleared by the [place] FDA. When there are no FDA-approved or cleared tests available, and other criteria are met, FDA can make tests available under an emergency access mechanism called an Emergency Use Authorization (EUA). The EUA for this test is supported by the Investor of Health and Human Service's declaration that circumstances exist to justify the emergency use of in vitro diagnostics for the detection and/or diagnosis of the virus that causes COVID-19. This EUA will remain in effect for the duration of the COVID-19 declaration justifying emergency of IVDs, unless it is terminated or revoked by the FDA (after which the test may no longer be used). Performed By: #### C [facility] #### [facility] [address] [place] [address] Dr. Marco Antonio Pedroza LACTATE/LACTIC ACIDon 2021 Lactate [Moles/Vol] 0.9 mmol/L Normal 0.4-1.9 [facility] Comment on above: Performed By: #### B MP, ALT, LIPID #### [facility] [address] [place] [address] Dr. Marco Antonio Pedroza Lactate [Moles/Vol] 1.3 mmol/L Normal 0.4-1.9 [facility] Comment on above: Performed By: #### B MP, ALT, LIPID #### [facility] [address] [place] [address] Dr. Marco Antonio Pedroza OCC BLD IMMUNO SCREENon 03-09 OCCULT BLOOD Positive Abnormal NEGATIVE [facility] Comment on above: Performed By: #### B MP, ALT, LIPID #### [facility] [address] [place] [address] Dr. Marco Antonio Pedroza PROF 14(COMP METB)on 022 Albumin [Mass/Vol] 4.1 g/dL Normal 3.4-5.0 [facility] Comment on above: Performed By: #### C MP, CMADM, BNP #### [facility] [address] [place] [address] Dr. Marco Antonio Pedroza Albumin/Globulin [Mass ratio] 1.2 {ratio} Normal [facility] Comment on above: Performed By: #### C MP, CMADM, BNP #### [facility] [address] [place] [address] Dr. Marco Antonio Pedroza ALP [Catalytic activity/Vol] 94 U/L Normal 46-116 [facility] Comment on above: Performed By: #### C MP, CMADM, BNP #### [facility] [address] [place] [address] Dr. Marco Antonio Pedroza ALT [Catalytic activity/Vol] 20 U/L Normal 16-63 [facility] Comment on above: Performed By: #### C MP, CMADM, BNP #### [facility] [address] [place] [address] Dr. Marco Antonio Pedroza Anion gap [Moles/Vol] 12.1 mmol/L Normal [facility] Comment on above: Performed By: #### C MP, CMADM, BNP #### [facility] [address] [address] [address] Marco Antonio Pedroza AST [Catalytic activity/Vol] 17 U/L Normal 15-37 [facility] Comment on above: Performed By: #### C MP, CMADM, BNP #### [facility] [address] [address] [address] Marco Antonio Pedroza Bilirubin [Mass/Vol] 1.9 mg/dL Critically high 0.2-1.0 [facility] Comment on above: Performed By: #### C MP, CMADM, BNP #### [facility] [address] [place] [address] Dr. Marco Antonio Pedroza Calcium [Mass/Vol] 9.5 mg/dL Normal 8.5-10.1 [facility] Comment on above: Performed By: #### C MP, CMADM, BNP #### [facility] [address] [address] [address] Marco Antonio Pedroza Chloride [Moles/Vol] 99 mmol/L Normal 98-107 [facility] Comment on above: Performed By: #### C MP, CMADM, BNP #### [facility] [address] [place] [address] Dr. Marco Antonio Pedroza CO2 [Moles/Vol] 28.5 mmol/L Normal 21.0-32.[address] [facility] Comment on above: Performed By: #### C MP, CMADM, BNP #### [facility] [address] [address] [address] Marco Antonio Pedroza Creatinine [Mass/Vol] 1.09 mg/dL Normal 0.70-1.30 [facility] Comment on above: Performed By: #### C MP, CMADM, BNP #### [facility] [address] [address] [address] Marco Antonio Pedroza EGFR-AF UKRAINIAN >60 Normal >=60 [facility] Comment on above: Performed By: #### C MP, CMADM, BNP #### [facility] [address] [address] [address] Marco Antonio Pedroza EGFR-NON AF UKRAINIAN >60 Normal >=60 [facility] Comment on above: Performed By: #### C MP, CMADM, BNP #### [facility] [address] [address] [address] Marco Antonio Pedroza Globulin (S) [Mass/Vol] 3.5 g/dL Normal [facility] Comment on above: Performed By: #### C MP, CMADM, BNP #### [facility] [address] [address] [address] Marco Antonio Pedroza Glucose [Mass/Vol] 107 mg/dL Critically high 74-106 [facility] Comment on above: Performed By: #### C MP, CMADM, BNP #### [facility] [address] [place] [address] Dr. Marco Antonio Pedroza Potassium [Moles/Vol] 3.6 mmol/L Normal 3.5-5.1 [facility] Comment on above: Performed By: #### C MP, CMADM, BNP #### [facility] [address] [address] [address] Marco Antonio Pedroza Protein [Mass/Vol] 7.6 g/dL Normal 6.4-8.2 [facility] Comment on above: Performed By: #### C MP, CMADM, BNP #### [facility] [address] [address] [address] Marco Antonio Pedroza Sodium [Moles/Vol] 136 mmol/L Normal 136-145 [facility] Comment on above: Performed By: #### C MP, CMADM, BNP #### [facility] [address] [address] [address] Marco Antonio Pedroza Urea nitrogen [Mass/Vol] 14.0 mg/dL Normal 7.0-18.0 [facility] Comment on above: Performed By: #### C MP, CMADM, BNP #### [facility] [address] [address] [address] Marco Antonio Pedroza Urea nitrogen/Creatinine [Mass ratio] 12.8 mg/mg Normal [facility] Comment on above: Performed By: #### C MP, CMADM, BNP #### [facility] [address] [place] [address] Dr. Marco Antonio Pedroza PROTIMEon 03-31-2022 INR Coag (PPP) [Relative time] 0.96 {INR} Normal [facility] Comment on above: Performed By: #### B MP, ALT, LIPID #### [facility] [address] [place] [address] Dr. Marco Antonio Pedroza INR GUIDELINES SEE BELOW Normal [facility] Comment on above: Result Comment: EDER RED INR: 2.0 - 3.0 CONDITIONS NOT LISTED BELOW 2.5 - 3.5 FOR PROSTHETIC HEART VALVE REPLACEMENT 2.5 - 3.5 RECURRENT THROMBOSIS Performed By: #### B MP, ALT, LIPID #### [facility] [address] [place] [address] Dr. Marco Antonio Pedroza PT Coag (PPP) [Time] 10.4 s Normal 9.0-11.6 [facility] Comment on above: Performed By: #### B MP, ALT, LIPID #### [facility] [address] [place] [address] Dr. Marco Antonio Pedroza PTTon 03-31-2022 aPTT Coag (Bld) [Time] 27.7 s Normal 22.3-36.2 [facility] Comment on above: Performed By: #### B MP, ALT, LIPID #### [facility] [address] [place] [address] Dr. Marco Antonio Pedroza TYPE AND SCREENon 03-31-2022 TYPE AND SCREEN Negative Normal [facility] Comment on above: Performed By: #### B MP, ALT, LIPID #### [facility] [address] [place] [address] Dr. Marco Antonio Pedroza XR ABD FLAT UP_PA Charisse 03-31 XR ABD FLAT UP_PA CH EXAM: XR ABD FLAT U P_PA CH HISTORY: CHEST PAIN, UNSPECIFIED abdominal pain with blood in stool, intermittent. COMPARISON: CT chest 10/20/2021. CT abdomen/pelvis 03/31/2022. TECHNIQUE: AP chest x-ray with upright and KUB views of the abdomen. FINDINGS: Cardiac size appears within normal limits. Trachea is midline. No mediastinal widening. Lungs are hyperinflated. No pneumothorax or effusion identified. There is scattered gas throughout nondilated small and large bowel loops. No air-fluid levels. No free air beneath the diaphragm. No pathologic-appearing abdominal calcifications. Osseous structures appear intact. IMPRESSION: 1. Pulmonary hyperinflation suggesting COPD. No acute cardiopulmonary process identified. 2. No bowel obstruction or free air. Electronically authenticated by: EMI DELUCA Date: 2022-03-31 14:00 Normal [facility] CBC AUTO DIFFon 10-23-2021 BASO # 0.0 103/ul Normal 0.0-0.1 [facility] Comment on above: Performed By: #### C BC #### [facility] [address] [address] [address] Marco Antonio Pedroza Basophils/100 WBC (Bld) 0.5 % Normal 0.2-2.0 [facility] Comment on above: Performed By: #### C BC #### [facility] [address] [address] [address] Marco Antonio Pedroza EO # 0.2 103/ul Normal 0.0-0.7 [facility] Comment on above: Performed By: #### C BC #### [facility] [address] [address] [address] Marco Antonio Pedroza Eosinophils/100 WBC (Bld) 4.4 % Normal 0.9-7.0 [facility] Comment on above: Performed By: #### C BC #### [facility] [address] [address] [address] Marco Antonio Pedroza Erythrocyte distribution width (RBC) [Ratio] 14.9 % Normal 11.0-15.0 [facility] Comment on above: Performed By: #### C BC #### [facility] [address] [address] [address] Marco Antonio Pedroza Hematocrit (Bld) [Volume fraction] 42.5 % Normal 42.0-54.0 [facility] Comment on above: Performed By: #### C BC #### [facility] [address] [place] [address] Dr. Marco Antonio Pedroza Hemoglobin (Bld) [Mass/Vol] 14.6 g/dL Normal 14.0-18.0 [facility] Comment on above: Performed By: #### C BC #### [facility] [address] [place] [address] Dr. Marco Antonio Pedroza IG # 0.01 10e3/ul Normal 0.00-0.03 [facility] Comment on above: Performed By: #### C BC #### [facility] [address] [place] [address] Dr. Marco Antonio Pedroza IG % 0.2 % Normal 0.0-0.5 [facility] Comment on above: Performed By: #### C BC #### [facility] [address] [place] [address] Dr. Marco Antonio Pedroza LYMPH # 2.0 103/ul Normal 1.2-3.8 [facility] Comment on above: Performed By: #### C BC #### [facility] [address] [place] [address] Dr. Marco Antonio Pedroza Lymphocytes/100 WBC (Bld) 36.3 % Normal 20.5-60.0 [facility] Comment on above: Performed By: #### C BC #### [facility] [address] [place] [address] Dr. Marco Antonio Pedroza MANUAL DIFF REQ NO Normal [facility] Comment on above: Performed By: #### C BC #### [facility] [address] [place] [address] Dr. Marco Antonio Pedroza MCH (RBC) [Entitic mass] 35.0 pg Critically high 25.9-34.0 [facility] Comment on above: Performed By: #### C BC #### [facility] [address] [place] [address] Dr. Marco Antonio Pedroza MCHC (RBC) [Mass/Vol] 34.4 g/dL Normal 29.9-35.2 [facility] Comment on above: Performed By: #### C BC #### [facility] [address] [place] [address] Dr. Marco Antonio Pedroza MCV (RBC) [Entitic vol] 101.9 fL Critically high 80.0-94.0 [facility] Comment on above: Performed By: #### C BC #### [facility] [address] [place] [address] Dr. Marco Antonio Pedroza MONO # 0.5 103/ul Normal 0.3-0.8 [facility] Comment on above: Performed By: #### C BC #### [facility] [address] [address] [address] Marco Antonio Pedroza Monocytes/100 WBC (Bld) 9.3 % Normal 1.7-12.0 [facility] Comment on above: Performed By: #### C BC #### [facility] [address] [place] [address] Dr. Marco Antonio Pedroza NEUT # 2.7 103/ul Normal 1.4-6.5 [facility] Comment on above: Performed By: #### C BC #### [facility] [address] [place] [address] Dr. Marco Antonio Pedroza Neutrophils/100 WBC (Bld) 49.3 % Normal 43.0-75.0 [facility] Comment on above: Performed By: #### C BC #### [facility] [address] [place] [address] Dr. Marco Antonio Pedroza Platelet mean volume (Bld) [Entitic vol] 9.0 fL Critically low 9.5-13.5 [facility] Comment on above: Performed By: #### C BC #### [facility] [address] [place] [address] Dr. Marco Antonio Pedroza PLT 213 103/ul Normal 150-450 [facility] Comment on above: Performed By: #### C BC #### [facility] [address] [place] [address] Dr. Marco Antonio Pedroza RBC 4.17 106/ul Critically low 4.70-6.[address] [facility] Comment on above: Performed By: #### C BC #### [facility] [address] [place] [address] Dr. Marco Antonio Pedroza WBC 5.5 103/ul Normal 4.0-11.0 [facility] Comment on above: Performed By: #### C BC #### [facility] [address] [address] [address] Marco Antonio Pedroza LIPID PROFILEon 10-23-2021 CHOL-HDL RATIO NORM SEE BELOW Normal [facility] Comment on above: Result Comment: 3.3 - 4.4 LOW RISK 4.4 - 7.1 AVERAGE RISK 7.1 - 11.0 MODERATE RISK >11.0 HIGH RISK Performed By: #### B MP, ALT, LIPID #### [facility] [address] [address] [address] Marco Antonio Pedroza Cholesterol [Mass/Vol] 140 mg/dL Normal <=200 [facility] Comment on above: Performed By: #### B MP, ALT, LIPID #### [facility] [address] [address] [address] Marco Antonio Pedroza Cholesterol in HDL [Mass/Vol] 84 mg/dL Critically high 40-60 [facility] Comment on above: Performed By: #### B MP, ALT, LIPID #### [facility] [address] [address] [address] Marco Antonio Pedroza Cholesterol in LDL [Mass/Vol] 49.2 mg/dL Normal [facility] Comment on above: Performed By: #### B MP, ALT, LIPID #### [facility] [address] [place], [place] [address] Dr. Marco Antonio Pedroza Cholesterol.total/Chol esterol in HDL [Mass ratio] 1.7 {ratio} Normal [facility] Comment on above: Performed By: #### B MP, ALT, LIPID #### [facility] [address] [place], [place] [address] Dr. Marco Antonio Pedroza HDL NORMAL > or = 60 mg/dl - LO W CARDIOVASCULAR RISK <40 mg/dl - HIGH CARDIOVASCULAR RISK Normal [facility] Comment on above: Performed By: #### B MP, ALT, LIPID #### [facility] [address] [address] [address] Marco Antonio Pedroza LDL CALC NORMAL SEE BELOW Normal [facility] Comment on above: Result Comment: <100 mg/dl OPTIMAL 100 - 129 mg/dl NEAR OR ABOVE OPTIMAL 130 - 159 mg/dl BORDERLINE HIGH 160 - 189 mg/dl HIGH >190 mg/dl VERY HIGH Performed By: #### B MP, ALT, LIPID #### [facility] [address] [place] [address] Dr. Marco Antonio Pedroza Triglyceride [Mass/Vol] 34 mg/dL Normal <=150 [facility] Comment on above: Performed By: #### B MP, ALT, LIPID #### [facility] [address] [place] [address] Dr. Marco Antonio Pedroza VLDL CALC 6.8 mg/dL Normal [facility] Comment on above: Performed By: #### B MP, ALT, LIPID #### [facility] [address] [place] [address] Dr. Marco Antonio Pedroza PROF CHEM 8 (BAS METB)on Anion gap [Moles/Vol] 7.6 mmol/L Normal [facility] Comment on above: Performed By: #### B MP, ALT, LIPID #### [facility] [address] [place] [address] Dr. Marco Antonio Pedroza Calcium [Mass/Vol] 9.1 mg/dL Normal 8.5-10.1 [facility] Comment on above: Performed By: #### B MP, ALT, LIPID #### [facility] [address] [place] [address] Dr. Marco Antonio Pedroza Chloride [Moles/Vol] 104 mmol/L Normal 98-107 [facility] Comment on above: Performed By: #### B MP, ALT, LIPID #### [facility] [address] [place] [address] Dr. Marco Antonio Pedroza CO2 [Moles/Vol] 31.4 mmol/L Normal 21.0-32.[address] [facility] Comment on above: Performed By: #### B MP, ALT, LIPID #### [facility] [address] [place] [address] Dr. Marco Antonio Pedroza Creatinine [Mass/Vol] 0.77 mg/dL Normal 0.70-1.30 [facility] Comment on above: Performed By: #### B MP, ALT, LIPID #### [facility] [address] [address] [address] Marco Antonio Pedroza EGFR-AF UKRAINIAN >60 Normal >=[address] [facility] Comment on above: Performed By: #### B MP, ALT, LIPID #### [facility] [address] [address] [address] Marco Antonio Pedroza EGFR-NON AF UKRAINIAN >60 Normal >=60 [facility] Comment on above: Performed By: #### B MP, ALT, LIPID #### [facility] [address] [address] [address] Marco Antonio Pedroza Glucose [Mass/Vol] 97 mg/dL Normal 74-106 [facility] Comment on above: Performed By: #### B MP, ALT, LIPID #### [facility] [address] [address] [address] Marco Antonio Pedroza Potassium [Moles/Vol] 4.0 mmol/L Normal 3.5-5.1 [facility] Comment on above: Performed By: #### B MP, ALT, LIPID #### [facility] [address] [place] [address] Dr. Marco Antonio Pedroza Sodium [Moles/Vol] 139 mmol/L Normal 136-145 [facility] Comment on above: Performed By: #### B MP, ALT, LIPID #### [facility] [address] [place] [address] Dr. Marco Antonio Pedroza Urea nitrogen [Mass/Vol] 7.0 mg/dL Normal 7.0-18.0 [facility] Comment on above: Performed By: #### B MP, ALT, LIPID #### [facility] [address] [place] [address] Dr. Marco Antonio Pedroza Urea nitrogen/Creatinine [Mass ratio] 9.1 mg/mg Normal [facility] Comment on above: Performed By: #### B MP, ALT, LIPID #### [facility] [address] [place] [address] Dr. Marco Antonio Pedroza [facility] 10-23-2021 ALT [Catalytic activity/Vol] 45 U/L Normal 16-63 [facility] Comment on above: Performed By: #### B MP, ALT, LIPID #### [facility] [address] [address] [address] Marco Antonio Pedroza CT LUNG CANCER SCREENINGon 0 10-20-2021 CT LUNG CANCER SCREENING EXAMINATION: CT LUNG CANCER SCREENING HISTORY: Tobacco dependence caused by cigarettes COMPARISON: CT lung cancer screening 10/13/2020 TECHNIQUE: Axial, Coronal, and Sagittal images were created without the administration of IV contrast material. Dose reduction techniques were achieved by using automated exposure control and/or adjustment of mA and/or kV according to patient size and/or use of iterative reconstruction technique. FINDINGS: LUNGS: No visible pulmonary disease. PLEURA: No mass, effusion, or pneumothorax. VASCULATURE: No abnormality. FRANCISCO: No mass or pathologic adenopathy. MEDIASTINUM: No mass or pathologic adenopathy. CARDIAC: No enlargement, pericardial thickening, or significant calcification. AORTA: No aneurysm or dissection. CHEST WALL: No mass or axillary adenopathy BONES: No bone lesion or fracture. LIMITED ABDOMEN: No suspicious findings. Limited images of the upper abdomen. OTHER: Negative. IMPRESSION: 1. LUNG SCREENING: Lung-RADS Category 1 Negative. No nodules and definitely benign nodules. Continue annual screening with LDCT in 12 months. Electronically authenticated by: JACKLYN LUIS Date: 2021-10-20 16:04 Normal [facility] Patient Correspondenceon Patient Correspondence [id number] Normal [facility] [place] Provider Letteron 08-09-2021 Provider Letter (Inserted Image. Iman ble to display) August 09, 2021 BLU KUO [address] [place] [address] BLU KUO 1950 Dear Mr. Kuo, This letter is to inform you that the providers of [facility] [employer] [facility] will no longer be responsible for your routine medical care. Emergency care only will be provided for the thirty (30) days following this letter. During this time period we suggest that you find another physician for your medical needs. A listing of area physicians can be found on [facility]'s website at [email or web address] or you may contact your health plan. We will be glad to forward your records to your new physician as long as we receive a signed release of records form. Sincerely, Dr. Victorino Stalh [address] [place] [id number] Normal [facility] [place] [facility] Fish and Urine Cyt o ([facility])on 05-26-2021 UVFISH & UC Diagnosis Info Invalid Interpretation Code [facility] [place] Comment on above: Result Comment: A:Ur ine,Urine:Voided Diagnosis Summary - Diagnosis Summary - The [facility] FISH study detected normal copy numbers for chromosomes 3, 7, 17, and 9p21. No evidence of aneuploidy for chromosomes 3, 7, or 17 or deletion of the 9p21 locus was found in cells present in this specimen. 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 Electronically signed by : on: 05/26/2021 13:09:07 Performed By: #### 1 [id number] #### [facility] [address] [place] [id number] Physician Referralon 022 Physician Referral [id number] Normal [facility] Ambulatory Clinical Summaryo n 05-17-2021 Ambulatory Clinical Summary {[id number] Normal [facility] Patient Educationon 05-17-19 22 Patient Education Nutrition BMI for Adults Body mass index (BMI) is a number that is calculated from a person's weight and height. BMI may help to estimate how much of a person's weight is composed of fat. BMI can help identify those who may be at higher risk for certain medical problems. How is BMI used with adults? BMI is used as a screening tool to identify possible weight problems. It is used to check whether a person is obese, overweight, healthy weight, or underweight. How is BMI calculated? BMI measures your weight and compares it to your height. This can be done either in [place] ([place] or metric measurements. Note that charts are available to help you find your BMI quickly and easily without having to do these calculations yourself. To calculate your BMI in [place] ([place] measurements, your health care provider will: 1. Measure your weight in pounds (lb). 2. Multiply the number of pounds by 703. ? For example, for a person who weighs 180 lb, multiply that number by 703, which equals 126,540. 3. Measure your height in inches (in). Then multiply that number by itself to get a measurement called inches squared. ? For example, for a person who is 70 in tall, the inches squared measurement is 70 in x 70 in, which equals 4900 inches squared. 4. Divide the total from Step 2 (number of lb x 703) by the total from Step 3 (inches squared): 126,540 ? 4900 = 25.8. This is your BMI. To calculate your BMI in metric measurements, your health care provider will: 1. Measure your weight in kilograms (kg). 2. Measure your height in meters (m). Then multiply that number by itself to get a measurement called meters squared. ? For example, for a person who is 1.75 m tall, the meters squared measurement is 1.75 m x 1.75 m, which is equal to 3.1 meters squared. 3. Divide the number of kilograms (your weight) by the meters squared number. In this example: 70 ? 3.1 = 22.6. This is your BMI. How is BMI interpreted? To interpret your results, your health care provider will use BMI charts to identify whether you are underweight, normal weight, overweight, or obese. The following guidelines will be used: ? Underweight: BMI less than 18.5. ? Normal weight: BMI between 18.5 and 24.9. ? Overweight: BMI between 25 and 29.9. ? Obese: BMI of 30 and above. Please note: ? Weight includes both fat and muscle, so someone with a muscular build, such as an athlete, may have a BMI that is higher than 24.9. In cases like these, BMI is not an accurate measure of body fat. ? To determine if excess body fat is the cause of a BMI of 25 or higher, further assessments may need to be done by a health care provider. ? BMI is usually interpreted in the same way for men and women. Why is BMI a useful tool? BMI is useful in two ways: ? Identifying a weight problem that may be related to a medical condition, or that may increase the risk for medical problems. ? Promoting lifestyle and diet changes in order to reach a healthy weight. Summary ? Body mass index (BMI) is a number that is calculated from a person's weight and height. ? BMI may help to estimate how much of a person's weight is composed of fat. BMI can help identify those who may be at higher risk for certain medical problems. ? BMI can be measured using Lebanese measurements or metric measurements. ? To interpret your results, your health care provider will use BMI charts to identify whether you are underweight, normal weight, overweight, or obese. This information is not intended to replace advice given to you by your health care provider. Make sure you discuss any questions you have with your health care provider. Document Released: 01/03/2005 Document Revised: 04/06/2018 Document Reviewed: 03/07/2018 [employer] Patient Education ? 2020 [employer]. Urology Benign Prostatic Hyperplasia Benign prostatic hyperplasia (BPH) is an enlarged prostate gland that is caused by the normal aging process and not by cancer. The prostate is a walnut-sized gland that is involved in the production of semen. It is located in front of the rectum and below the bladder. The bladder stores urine and the urethra is the tube that carries the urine out of the body. The prostate may get bigger as a man gets older. An enlarged prostate can press on the urethra. This can make it harder to pass urine. The build-up of urine in the bladder can cause infection. Back pressure and infection may progress to bladder damage and kidney (renal) failure. What are the causes? This condition is part of a normal aging process. However, not all men develop problems from this condition. If the prostate enlarges away from the urethra, urine flow will not be blocked. If it enlarges toward the urethra and compresses it, there will be problems passing urine. What increases the risk? This condition is more likely to develop in men over the age of 50 years. What are the signs or symp (more content not included)... Normal [facility] Fish and Urine Cyt o ([facility])on 05-17-2021 [facility] Method of Extraction Voided Normal [facility] Comment on above: Performed By: #### 1 [id number] #### [facility] [address] [facility] [place] [address] [facility] Number of Jars 1 Invalid Interpretation Code [facility] Comment on above: Performed By: #### 1 [id number] #### [facility] [address] [facility] [place] [address] [facility] Specimen Urine Normal [facility] Comment on above: Performed By: #### 1 [id number] #### [facility] [address] [facility] [place] [address] [facility] Type of Service Global Normal [facility] Comment on above: Performed By: #### 1 [id number] #### [facility] [address] [facility] [place] [address] Urology Office/Clinic Noteon 05-17-2021 Urology Office/Clinic Note Chief Complaint Patient in office for elevated PSA This patient is a 70-year-old male with a history of an elevated and fluctuating PSA. He also has microscopic hematuria. He is a cigarette smoker and is on Plavix because of a previous CVA. He is here today to establish urologic care. [facility] Staff New patient in office due to elevated PSA. Patient was referred by Dr. Vaughan. States Dr. Vaughan was previously monitoring his PSA levels. Patient had PSA done 10/26/20 w/a result of 5.58, and PSA done 03/24/21 w/a result of 4.92. States he has not had any recent PSA labs done. States he is taking water pills, unsure of the name of medication. States he was put on water pills after having a stroke about 3 years ago. States he does have urgency and frequency but this is mostly from the water pill. Dysuria: denies Incomplete bladder emptying: denies Hematuria: denies Frequency: admits, due to water pill Urgency: admits, due to water pill Nocturia: denies Stream: steady Leaking: denies Post void dripping: denies Wearing pads/ Depends: denies Urge incontinence: denies Stress incontinence: denies Incontinence without Sensory Awareness: denies Abdominal pain: denies Flank pain: denies Sexual complaints: _ History of Present Illness Tests Reviewed: Reviewed UA/PSA I have reviewed the previous health record information and history for this patient from Dr. Vaughan I have reviewed and verified the staff HPI to be accurate for this encounter. There have been no associated fever, chills, flank pain, or blood in the urine. Denies any urinary infections since last encounter. Review of Systems PHQ Score Initial Depression Screen Score: 0 ROS - Provider Constitutional: denies weight loss, denies hot flashes. Eyes: denies eye problems. Gastrointestinal: denies nausea, denies vomiting. Cardiovascular: denies chest pain or angina. Integumentary: no dryness Musculoskeletal: denies musculoskeletal symptoms. ENMT: denies otolaryngeal symptoms. Respiratory: no shortness of breath. Heme/Lymph: denies easy bleeding tendency, denies easy bruising tendency. Psychiatric: no confusion, no anxiety. Genitourinary: denies dysuria, denies hematuria, denies discharge, denies urinary frequency, denies urinary hesitancy, denies nocturia, denies incontinence, denies genital sores, denies decreased libido, and denies erectile dysfunction. Physical Exam Vitals & Measurements HR: 73(Peripheral) BP: 152/88 WT: 75.0 kg WT: 75 kg General Appearance: alert, no distress, well nourished, well developed male. Head: normocephalic . Eyes: normal orbit and globe. ENMT: normal examination of external ears. Chest: Lungs CTA, respirations non labored. Cardiovascular: regular rate and rhythm. Abdomen: soft, non distended, no tenderness, no mass or organomegaly, no hernia. Genitourinary: normal scrotum, normal testes, normal urethra, normal epididymis, normal vas deferens/spermatic cord. Flank Pain: none. Bladder: nonpalpable. Penis: normal shaft, normal glans. Prostate: normal prostate, estimated weight 40 gms, no hard nodule observed. Lymph Nodes: unremarkable palpation of the cervical area. Skin: warm, dry, no bruising. Psychiatric: cooperative, affect appropriate for age, normal judgement, euthymic mood. Assessment/Plan The patient has a history of an elevated PSA blood test. He has been scheduled for transrectal ultrasound of the prostate with ultrasound-guided needle biopsy. Also he has a history of microscopic hematuria. He is a cigarette smoker and has been scheduled for cystoscopic examination, CT scan with contrast and urine for cytology. The procedures, risk, alternatives and potential complications have been discussed with the patient. Preop antibiotics have been ordered. Informed consent has been obtained. 1. Elevated PSA (R97.20: Elevated prostate specific antigen [PSA]) New patient referred by Dr. Vaughan. PSA levels have been 5.58, 3.8 and 11.8% and 4.92. No known family hx of prostate cancer. Will schedule TRUS of Prostate with Biopsy. The procedural risks, benefits, details, and treatment alternatives have been discussed with the patient. These include minimal to severe bleeding, infection, blood in the semen, inability to urinate, and severe infection requiring hospitalization and IV antibiotics, among others. Full informed consent has been obtained. Will order Local anesthesia. Ordered: Urnls Dip Stick Auto w/o Microscopy POC 00396 2. BPH without urinary obstruction (N40.0: Benign prostatic hyperplasia without lower urinary tract symptoms) Mild frequency Denies nocturia Patient not on any medications for BPH at this time. No infection. POLO is 40 gms and benign 3. Asymptomatic microscopic hematuria (R31.21: Asymptomatic microscopic hematuria) Today's UA has small blood He is taking Plavix daily. No witnessed urine Will send for FISH/CYTOL Will order CT scan A/P The risks and benefits for cystoscopy have bee (more content not included)... Normal [facility] Comment on above: Result Comment: Elec tronically Signed By: Victorino Stahl Jr., MD\.br\Date and Time Signed: 05/17/21 08:48 EST\.br\Electronically Co-Signed By: Claire Vaughan MA\.br\Date and Time Co-Signed: 05/17/21 08:45 EST Vital Signs Date Time Vital Sign Value Performing Clinician Facility 02-12-2024 09:47-0400 Body height 177.8 cm [facility] 02-12-2024 09:47-0400 Body mass index (BMI) [Ratio] 23.7 kg/m2 [facility] 02-12-2024 09:47-0400 Body weight 75.06 kg [facility] 02-12-2024 09:47-0400 Diastolic blood pressure 74 mm[Hg] [facility] 02-12-2024 09:47-0400 Heart rate 65 /min [facility] 02-12-2024 09:47-0400 Respiratory rate 12 /min [facility] 02-12-2024 09:47-0400 Systolic blood pressure 120 mm[Hg] [facility] 01-24-2024 09:09-0400 Body mass index (BMI) [Ratio] 23.76 kg/m2 Helga Thousand [employer]ALE STACKER.NURSERY HELPER Work Phone: [facility] 01-24-2024 09:09-0400 Body weight 75.12 kg Helga Thousand [employer]ALE STACKER.NURSERY HELPER Work Phone: [facility] 01-24-2024 09:09-0400 Diastolic blood pressure 73 mm[Hg] Helga Thousand BALE STACKER.NURSERY HELPER Work Phone: [facility] 01-24-2024 09:09-0400 Heart rate 66 /min Helga Thousand BALE STACKER.NURSERY HELPER Work Phone: [facility] 01-24-2024 09:09-0400 Respiratory rate 18 /min Helga Thousand BALE STACKER.NURSERY HELPER Work Phone: [facility] 01-24-2024 09:09-0400 SaO2% (BldA) [Mass fraction] 100 % Helga Thousand BALE STACKER.NURSERY HELPER Work Phone: [facility] 01-24-2024 09:09-0400 Systolic blood pressure 148 mm[Hg] Helga Thousand BALE STACKER.NURSERY HELPER Work Phone: [facility] 11-13-2023 09:29-0400 Body height 177.8 cm [facility] 11-13-2023 09:29-0400 Body mass index (BMI) [Ratio] 24.2 kg/m2 [facility] 11-13-2023 09:29-0400 Body weight 76.65 kg [facility] 11-13-2023 09:29-0400 Diastolic blood pressure 77 mm[Hg] [facility] 11-13-2023 09:29-0400 Heart rate 66 /min [facility] 11-13-2023 09:29-0400 Respiratory rate 12 /min [facility] 11-13-2023 09:29-0400 Systolic blood pressure 129 mm[Hg] [facility] 08-09-2023 10:00-0400 Body height 177.8 cm [facility] 08-09-2023 10:00-0400 Body mass index (BMI) [Ratio] 24.2 kg/m2 [facility] 08-09-2023 10:00-0400 Body weight 76.65 kg [facility] 08-09-2023 10:00-0400 Diastolic blood pressure 76 mm[Hg] [facility] 08-09-2023 10:00-0400 Heart rate 68 /min [facility] 08-09-2023 10:00-0400 Respiratory rate 12 /min [facility] 08-09-2023 10:00-0400 Systolic blood pressure 144 mm[Hg] [facility] 07-24-2023 09:40-0400 Body weight 73.48 kg Cain Nova MD Work Phone: [facility] 07-24-2023 09:40-0400 Diastolic blood pressure 75 mm[Hg] Cain Nova MD Work Phone: [facility] 07-24-2023 09:40-0400 Heart rate 74 /min Cain Nova MD Work Phone: [facility] 07-24-2023 09:40-0400 Respiratory rate 16 /min Cain Nova MD Work Phone: [facility] 07-24-2023 09:40-0400 SaO2% (BldA) [Mass fraction] 100 % Cain Nova MD Work Phone: [facility] 07-24-2023 09:40-0400 Systolic blood pressure 137 mm[Hg] Cain Nova MD Work Phone: [facility] 05-10-2023 10:00-0500 Body height 177.8 cm Mitch Ball Other [employer] Other 05-10-2023 10:00-0500 Body mass index (BMI) [Ratio] 23.16 kg/m2 Mitch Ball Other [employer] Other 05-10-2023 10:00-0500 Body weight 73.21 kg Mitch Ball Other [employer] Other 05-10-2023 10:00-0500 Diastolic blood pressure 88 mm[Hg] Mitch Ball Other [employer] Other 05-10-2023 10:00-0500 Respiratory rate 12 /min Mitch Ball Other [employer] Other 05-10-2023 10:00-0500 Systolic blood pressure 139 mm[Hg] Mitch Ball Other [employer] Other 02-07-2023 10:30-0400 Body height 177.8 cm Mitch Ball Other [employer] Other 02-07-2023 10:30-0400 Body mass index (BMI) [Ratio] 22.01 kg/m2 Mitch Ball Other [employer] Other 02-07-2023 10:30-0400 Body weight 69.58 kg Mitch Ball Other [employer] Other 02-07-2023 10:30-0400 Diastolic blood pressure 74 mm[Hg] Mitch Ball Other [employer] Other 02-07-2023 10:30-0400 Respiratory rate 12 /min Mitch Ball Other [employer] Other 02-07-2023 10:30-0400 Systolic blood pressure 119 mm[Hg] Mitch Ball Other [facility] Other 12-08-2022 09:45-0400 Body height 177.8 cm Tammy Rivas Other [employer] Other 12-08-2022 09:45-0400 Body mass index (BMI) [Ratio] 22.24 kg/m2 Tammy Rivas Other [employer] Other 12-08-2022 09:45-0400 Body weight 70.31 kg Tammy Rivas Other [employer] Other 12-01-2022 13:55-0400 Body height 177.8 cm DO Mitch Ball Work Phone: [facility] 12-01-2022 13:55-0400 Body mass index (BMI) [Ratio] 22 kg/m2 DO Mitch Ball Work Phone: [facility] 12-01-2022 13:55-0400 Body weight 69.7 kg DO Mitch Ball Work Phone: [facility] 11-30-2022 13:27-0400 Diastolic blood pressure 84 mm[Hg] DO Mitch Ball Work Phone: [facility] 11-30-2022 13:27-0400 Heart rate 73 /min DO Mitch Ball Work Phone: [facility] 11-30-2022 13:27-0400 Respiratory rate 14 /min DO Mitch Ball Work Phone: [facility] 11-30-2022 13:27-0400 SaO2% (BldA) [Mass fraction] 90 % DO Mitch Ball Work Phone: [facility] 11-30-2022 13:27-0400 Systolic blood pressure 135 mm[Hg] DO Mitch Ball Work Phone: [facility] 11-30-2022 12:04-0400 Body temperature 98 [degF] DO Mitch Ball Work Phone: [facility] 11-30-2022 11:34-0400 Inhaled oxygen flow rate 3 L/min DO Mitch Ball Work Phone: [facility] 11-29-2022 08:30-0400 Body height 177.8 cm Amando Olexa Other [facility] Other 11-29-2022 06:18-0400 Diastolic blood pressure 77 mm[Hg] DO Mitch Ball Work Phone: [facility] 11-29-2022 06:18-0400 Heart rate 71 /min DO Mitch Ball Work Phone: [facility] 11-29-2022 06:18-0400 Respiratory rate 21 /min DO Mitch Ball Work Phone: [facility] 11-29-2022 06:18-0400 SaO2% (BldA) [Mass fraction] 99 % DO Mitch Ball Work Phone: [facility] 11-29-2022 06:18-0400 Systolic blood pressure 128 mm[Hg] DO Mitch Ball Work Phone: [facility] 11-29-2022 03:05-0400 Body height 182.88 cm DO Mitch Ball Work Phone: [facility] 11-29-2022 03:05-0400 Body temperature 97.4 [degF] DO Mitch Ball Work Phone: [facility] 11-29-2022 03:05-0400 Body weight 69 kg DO Mitch Ball Work Phone: [facility] 08-08-2022 10:30-0400 Body height 177.8 cm Mitch Ball Other [facility] Other 04-03-2023 10:30-0400 Body mass index (BMI) [Ratio] 22.87 kg/m2 Mitch Ball Other [employer] Other 08-08-2022 10:30-0400 Body weight 72.3 kg Mitch Ball Other [employer] Other 08-08-2022 10:30-0400 Diastolic blood pressure 74 mm[Hg] Mitch Ball Other [employer] Other 08-08-2022 10:30-0400 Respiratory rate 12 /min Mitch Ball Other [employer] Other 08-08-2022 10:30-0400 Systolic blood pressure 122 mm[Hg] Mitch Ball Other [employer] Other 05-10-2022 16:00-0500 Body height 177.8 cm Mitch Ball Other [employer] Other 05-10-2022 16:00-0500 Body mass index (BMI) [Ratio] 22.61 kg/m2 Mitch Ball Other [employer] Other 05-10-2022 16:00-0500 Body weight 71.49 kg Mitch Ball Other [employer] Other 05-10-2022 16:00-0500 Diastolic blood pressure 78 mm[Hg] Mitch Ball Other [employer] Other 05-10-2022 16:00-0500 Respiratory rate 12 /min Mitch Ball Other [employer] Other 05-10-2022 16:00-0500 Systolic blood pressure 122 mm[Hg] Mitch Ball Other [employer] Other Encounters Encounter Date Encounter Type Care Provider Facility Start: 02-12-2024 End: 02-12-2024 ambulatory [facility] Work Phone: Start: 02-12-2024 End: 02-12-2024 Patient encounter procedure [facility] Work Phone: Start: 01-24-2024 End: 01-24-2024 ambulatory MITCH VAUGHAN Facility:[facility] Start: 01-24-2024 End: 01-24-2024 Patient encounter procedure Helga Bundy KASSANDRASotoNURSERY HELPER Work Phone: Radiation Oncology Comment on above: Encounter for follow -up surveillance of prostate cancer (Primary Dx) Start: 01-17-2024 End: 01-17-2024 ambulatory CAIN NOVA Facility:[facility] Start: 01-17-2024 Non-patient / Non-visit [facility] Work Phone: Start: 01-15-2024 End: 01-15-2024 Orders Only Cain Nova MD Work Phone: Radiation Oncology Comment on above: Prostate cancer (HCC ) (Primary Dx) Start: 11-30-2023 Non-patient / Non-visit [facility] Work Phone: Start: 11-13-2023 End: 11-13-2023 ambulatory [facility] Work Phone: Start: 11-13-2023 End: 11-13-2023 Patient encounter procedure [facility] Work Phone: Start: 08-09-2023 End: 08-09-2023 ambulatory [facility] Work Phone: Start: 08-09-2023 End: 08-09-2023 Patient encounter procedure [facility] Work Phone: Start: 07-24-2023 End: 07-24-2023 Patient encounter procedure Cain Nova MD Work Phone: Radiation Oncology Comment on above: Prostate cancer (HCC ) (Primary Dx) Start: 07-24-2023 Radiation Oncology Note Cain Nova MD Work Phone: Radiation Oncology Comment on above: Simulation Note Start: 07-24-2023 End: 07-24-2023 ambulatory CAIN NOVA Facility:[facility] Start: 07-17-2023 Non-patient / Non-visit [facility] Work Phone: Start: 06-20-2023 Patient encounter procedure Cain Nova MD Work Phone: [facility] Start: 06-20-2023 Radiation Oncology Note Cain Nova MD Work Phone: Radiation Oncology Comment on above: Simulation Note Completion Note Treatment Planning Start: 06-20-2023 Telephone encounter Darryl perez MD Work Phone: [facility] Start: 06-20-2023 End: 06-20-2023 ambulatory ARNAV MARTI [facility] Start: 06-19-2023 Orders Only Cain Laguna Work Phone: Radiation Oncology Comment on above: Prostate cancer (HCC ) (Primary Dx) Start: 06-15-2023 Telephone encounter Darryl perez MD Work Phone: [facility] Start: 06-02-2023 End: 06-02-2023 ambulatory MITCH VAUGHAN Facility:[facility] Start: 05-15-2023 End: 05-15-2023 ambulatory Mitch Vaughan Other [employer] Other Start: 05-15-2023 Telephone encounter Mitch EDWARD [facility] Start: 05-10-2023 End: 05-10-2023 ambulatory Mitch Vaughan Other [employer] Other Start: 05-10-2023 Office outpatient vi sit 25 minutes Mitch Vaughan [facility] Start: 05-03-2023 End: 05-03-2023 ambulatory MITCH VAUGHAN Facility:[facility] Start: 04-13-2023 End: 04-13-2023 ambulatory Mitch Vuaghan Other [employer] Other Start: 04-13-2023 Telephone encounter Mitch Vaughan [facility] Comment on above: Patient Update Start: 04-04-2023 End: 04-04-2023 ambulatory DARLINE LECHUGA Facility:[facility] Start: 03-20-2023 End: 03-20-2023 ambulatory Mitch Vaughan Other [employer] Other Start: 03-20-2023 Telephone encounter Mitch Vaughan [facility] Start: 03-14-2023 End: 03-14-2023 ambulatory Amando Thompson Facility:[facility] Start: 03-14-2023 End: 03-14-2023 ambulatory DO Mitch Vaughan Work Phone: [facility] Work Phone: Start: 03-14-2023 End: 03-14-2023 Patient encounter procedure DO Mitch Vaughan Work Phone: [facility] Start: 03-13-2023 End: 03-13-2023 ambulatory Mitch Vaughan Other [employer] Other Start: 03-13-2023 Telephone encounter Mitch Vaughan [facility] Start: 03-03-2023 End: 03-06-2023 ambulatory Roxi Dye LPN Radiation Oncology Comment on above: Patient Education Start: 02-22-2023 End: 02-22-2023 ambulatory Mitch Vaughan Other [employer] Other Start: 02-22-2023 Telephone encounter Mitch EDWARD [facility] Start: 02-21-2023 End: 02-21-2023 ambulatory Mitch Vaughan Other [employer] Other Start: 02-21-2023 Telephone encounter Mitch Vaughan [facility] Start: 02-09-2023 End: 02-09-2023 ambulatory Mitch Ball Other [employer] Other Start: 02-09-2023 Telephone encounter Mitch Ball [facility] Start: 02-07-2023 End: 02-07-2023 ambulatory Mitch Ball Other [employer] Other Start: 02-07-2023 Office outpatient vi sit 25 minutes Mitch Ball [facility] Start: 02-07-2023 Telephone encounter Mitch Ball [facility] Start: 01-24-2023 Postop follow up vis it related to original px Tammy Mahnomen [facility] Start: 01-24-2023 End: 01-24-2023 ambulatory DO Mitch Ball Work Phone: [facility] Work Phone: Start: 01-24-2023 End: 01-24-2023 Patient encounter procedure DO Mitch Ball Work Phone: [facility] [place] [facility] Start: 01-19-2023 End: 01-19-2023 ambulatory Mitch Ball Other [employer] Other Start: 01-19-2023 Telephone encounter Mitch Ball [facility] Start: 01-10-2023 End: 01-10-2023 ambulatory Mitch Ball Other [employer] Other Start: 01-10-2023 Telephone encounter Mitch Ball [facility] Start: 01-03-2023 Postop follow up vis it related to original px Amando Thompson [facility] Start: 01-03-2023 End: 01-03-2023 ambulatory DO Mitch Ball Work Phone: [employer] Other Start: 01-03-2023 End: 01-03-2023 Patient encounter procedure DO Mitch Ball Work Phone: [facility] [place] [facility] Start: 12-26-2022 End: 12-26-2022 ambulatory Amando Sotoxa Other [employer] Other Start: 12-26-2022 Telephone encounter Amando Thompson [facility] Start: 12-19-2022 End: 12-19-2022 ambulatory Amando Sotoxa Other [employer] Other Start: 12-19-2022 Telephone encounter Amando Thompson [facility] Start: 12-09-2022 End: 12-09-2022 ambulatory Mitch Vaughan Other [employer] Other Start: 12-09-2022 Telephone encounter Mitch Vaughan [facility] Start: 12-08-2022 Postop follow up vis it related to original px Tammy Rivas [facility] Start: 12-08-2022 End: 12-08-2022 ambulatory DO Mitch Vaughan Work Phone: [facility] Work Phone: Start: 12-08-2022 End: 12-08-2022 Patient encounter procedure DO Mitch Vaughan Work Phone: [facility] [place] [facility] Start: 12-01-2022 End: 12-01-2022 ambulatory Amando Sotolara Other [employer] Other Start: 12-01-2022 Telephone encounter Amando Thompson [facility] Start: 11-30-2022 End: 11-30-2022 ambulatory Mitch Vaughan Facility:[facility] Start: 11-30-2022 End: 11-30-2022 Admission to same day surgery center DO Mitch Vaughan Work Phone: [facility] [place] Start: 11-29-2022 Encounter for other preprocedural examination Amando Thompson [facility] Start: 11-29-2022 Office outpatient ne w 45 minutes Amando Thompson [facility] Start: 11-29-2022 End: 11-29-2022 ambulatory Amando Sotoxa [employer] Other Start: 11-29-2022 End: 11-29-2022 Patient encounter procedure DO Mitch Ball Work Phone: [id number] Work Phone: Start: 11-29-2022 End: 11-29-2022 Emergency department patient visit Amando Torres Jr Facility:[facility] Start: 11-29-2022 End: 11-29-2022 Emergency department patient visit DO Mitch Ball Work Phone: [facility] Work Phone: Start: 10-06-2022 End: 10-06-2022 ambulatory Mitch Ball Other [employer] Other Start: 10-06-2022 Telephone encounter Mitch Ball [facility] Start: 09-05-2022 End: 09-05-2022 ambulatory Mitch Ball Other [employer] Other Start: 09-05-2022 Telephone encounter Mitch Ball [facility] Start: 08-08-2022 End: 08-08-2022 ambulatory Mitch Ball Other [employer] Other Start: 08-08-2022 Office outpatient vi sit 25 minutes Mitch Ball [facility] Start: 08-04-2022 End: 08-04-2022 ambulatory Mitch Ball Other [employer] Other Start: 08-04-2022 Telephone encounter Mitch Ball [facility] Start: 07-27-2022 End: 07-27-2022 ambulatory Mitch Ball Other [employer] Other Start: 07-27-2022 Telephone encounter Mitch Ball [facility] Start: 06-20-2022 End: 06-20-2022 ambulatory Mitch Ball Other [employer] Other Start: 06-20-2022 Telephone encounter Mitch Vaughan [facility] Start: 06-03-2022 End: 06-03-2022 ambulatory Mitch Vaughan Other [employer] Other Start: 06-03-2022 Telephone encounter Mitch Vaughan [facility] Start: 05-31-2022 End: 05-31-2022 ambulatory Mitch Vaughan Other [employer] Other Start: 05-31-2022 Telephone encounter Mitch Vaughan [facility] Start: 05-23-2022 End: 05-23-2022 ambulatory Mitch Clement Other [employer] Other Start: 05-23-2022 Telephone encounter Mitch Clement [facility] Start: 05-10-2022 End: 05-10-2022 ambulatory Mitch Vaughan Other [employer] Other Start: 05-10-2022 Office outpatient vi sit 25 minutes Mitch Vaughan [facility] Start: 04-15-2022 End: 04-16-[address] MITCH VAUGHAN Facility:[facility] Start: 03-31-2022 End: 04-01-[address] AMIRA GRULLON Facility:[facility] Start: 10-23-2021 End: 10-24-[address] MITCH VAUGHAN Facility:[facility] Start: 10-20-2021 End: 10-21-[address] MITCH VAUGHAN Facility:[facility] Start: 10-08-2021 Adult health examination Scott chris Sotoxa Other [employer] Other Procedures Date Procedure Procedure Detail Performing Clinician Start: 03-14-2023 Plain X-ray of left wrist DO Mitch Ball Work Phone: Start: 01-24-2023 Plain X-ray of left wrist DO Mitch Ball Work Phone: Start: 01-03-2023 Plain X-ray of left wrist DO Mitch Ball Work Phone: Start: 12-08-2022 Plain X-ray of left wrist DO Mitch Vaughan Work Phone: Start: 11-30-2022 Open reduction of fr acture with internal fixation DO Mitch Vaughan Work Phone: Start: 11-29-2022 End: 11-30-2022 Plain X-ray of left wrist DO Mitch butler Work Phone: Start: 10-23-[address] CARRILLO IN [place] Comment on above: Performed By: #### B MP, ALT, LIPID #### [facility] [address] [place] [address] Dr. Marco Antonio Pedroza Start: 08-25-2016 Screening for malign ant neoplasm of colon Amando Olexa Other Depression screening Amando Olexa Other Hyperlipidemia screening Tho mas [employer] Other Screening for malign ant neoplasm of prostate Amando Olexa Other Screening for malign ant neoplasm of prostate Amando Olexa Other Plan of Treatment Date Care Activity Detail Author Start: 11-29-2032 Urine microalbumin profile DTaP,Tdap,Td Vaccine (3 - Td or Tdap) [facility] Start: 05-17-2025 Diabetes Screening Diabetes Screenin [facility] Start: 01-13-2025 Screening for malign ant neoplasm of colon [facility] Start: 06-08-2024 End: 09-07-2024 Prostate specific Ag [Mass/volume] in Serum or Plasma PROSTATE-SPECIFIC ANTIGEN DIAGNOSTIC Lab Routine Encounter for follow-up surveillance of prostate cancer Expected: 06/08/2024, Expires: 09/07/2024 [facility] Work Phone: Comment on above: Expected: 06/08/2024 , Expires: 09/07/2024 Start: 02-02-2024 Tobacco Counseling Tobacco Counselin [facility] Start: 01-24-2024 End: 01-24-2024 Patient encounter procedure 01/24/2024 9:00 AM EDT Office Visit Radiation Oncology [address] [address] Helga Bundy APRN.NURSERY HELPER [address] [place] [address] [facility] Comment on above: [facility] Start: 01-17-2024 End: 01-17-2024 ambulatory 01/17/2024 1:00 PM EDT Results Only [facility] [address] [place] [address] PSA [facility] Comment on above: PSA Start: 01-07-2024 Covid-19 Vaccine ( season) Covid-19 Vaccine () [facility] Start: 01-07-2024 Influenza vaccination Influenza Vacc ine (#1) [facility] Start: 11-29-2023 Adult BMI Screening Adult BMI Screen ing [facility] Start: 11-29-2023 Tobacco Screening Tobacco Screening [facility] Start: 05-08-2023 Advance Directive Discussion Advance Directive Discussion [facility] Start: 05-08-2023 Depression Assessment Depression Ass essment [facility] Start: 01-06-2023 Covid-19 Vaccine ( season) Covid-19 Vaccine () [facility] Start: 01-06-2023 Influenza vaccination C [facility] Start: 11-30-2022 [facility] Start: 05-08-2022 Advance Directive Discussion Advance Directive Discussion [facility] Start: 05-08-2022 Depression Assessment Depression Ass essment [facility] Start: 2017 Fall Risk Screening Fall Risk Screen ing [facility] Start: 2012 RSV Vaccine (1 - 1-d ose 60+ series) RSV Vaccine (1 - 1-dose 60+ series) [facility] Start: 2002 Influenza vaccination Lung Cancer Sc reening [facility] Start: 2002 Screening for malign ant neoplasm of lung Lung Cancer Screening [facility] Start: 2002 Shingrix Vaccine (1 of 2) Shingrix Vaccine (1 of 2) [facility] Start: 1997 Cologuard (FIT-DNA) Cologuard (FIT-D NA) [facility] Start: 1997 Colonoscopy Colonoscopy [facility] Start: 1997 Colorectal Cancer Screening Colorectal Cancer Screening [facility] Start: [address] Colonography [facility] Start: 1997 Diabetes Screening Diabetes Screenin g [facility] Start: 1997 Fecal Occult Blood Fecal Occult Bloo d [facility] Start: 1997 Screening for malign ant neoplasm of colon [facility] Start: 1997 Sigmoidoscopy Sigmoidoscopy [facility] Start: 1987 Lipid 1996 panel - S holley or Plasma Lipid Screening [facility] Start: 1987 Lipid panel Lipid Screening [facility] Start: 1971 Administration of varicella zoster vaccine Zoster (Shingles) Vaccine (1 of 2) [facility] Start: 1971 DTaP,Tdap and Td Vaccines (1 - Tdap) DTaP,Tdap and Td Vaccines (1 - Tdap) [facility] Start: 1970 Annual PCP Team Hygiene Assistant fantasma Disease Visit Annual PCP Team Chronic Disease Visit [facility] Start: 1970 Anxiety Screening Anxiety Screening [facility] Start: 1970 BP Controlled (<130/80) BP Controlle d (<130/80) [facility] Start: 1970 Depression Screening Depression Scre ening [facility] Start: 1970 Hepatitis C Screening Hepatitis C [facility] Start: 1970 Hepatitis C screening Hepatitis C [facility] Start: 1964 Depression Screening Depression Scre ening [facility] Start: 1952 Covid-19 Vaccine (#1) Covid-19 Vacci ne (#1) [facility] Start: 1952 Abdominal Aortic Aneurysm Screening Abdominal Aortic Aneurysm Screening [facility] Start: 1952 Abdominal aortic aneurysm screening Abdominal Aortic Aneurysm Screening [facility] Start: 1952 Medicare Annual Well ness Visit Medicare Annual Wellness Visit [facility] Comprehensive metabo lic 2000 panel - Serum or Plasma [facility] Patient Education Skin Abrasions Forearm and Wrist Fractures ED Splint Care ED [facility] Work Phone: Patient referral [facility] Work Phone: End: 07-23-2024 Prostate specific Ag [Mass/volume] in Serum or Plasma PSA/PROSTSPECAG DIAG Lab Routine Prostate cancer (HCC) Every 6 months for 30 Occurrences starting 07/24/2023 until 07/23/2024 [facility] Work Phone: Comment on above: Every 6 months for 3 0 Occurrences starting 07/24/2023 until 07/23/2024 [facility] Immunizations Immunization Date Immunization Notes Care Provider Fa cil[facility]orge 05-10-2023 influenza virus vaccine, unspecified formulation [facility] 05-10-2023 influenza, high dose seasonal, preservative-free Mitch Vaughan Other [employer] [facility] [employer] Other 11-29-2022 tetanus toxoid, redu tanmay diphtheria toxoid, and acellular pertussis vaccine, adsorbed DO Mitch Vaughan Work Phone: [facility] 04-08-2020 influenza virus vaccine, split virus (incl. purified surface antigen) Amando Olexa Other [employer] [facility] [employer] Other 04-08-2020 influenza virus vaccine, unspecified formulation Roxi Dye LPN [facility] 01-26-2020 pneumococcal polysaccharide vaccine, 23 valent Amando Olexa Other [facility] 01-08-2020 pneumococcal polysaccharide vaccine, 23 valent Amando Olexa Other [facility] 10-04-2018 pneumococcal conjuga te vaccine, 13 valent Amando Olexa Other [facility] 10-04-2018 pneumococcal Conjuga te, unspecified formulation; Translations: [Need for prophylactic vaccination against Streptococcus pneumoniae (pneumococcus)] Amando Olexa Other [employer] [facility] [employer] Other 09-04-2017 diphtheria, tetanus toxoids and acellular pertussis vaccine, unspecified formulation Amando Olexa Other [facility] Payers Date Payer Category Payer Self-pay 2010 Medicare [id number] 1959 Medicare [id number] 1950 Unknown [id number] [id number] [id number] 1950 Unknown [id number] 2.16.84 [id number] 1952 Unknown [id number] 2.16.84 [id number] 1950 Unknown [id number] 2.16.84 [id number] Medicare Medicare Outpatient [id number] 96 [id number] Unknown [id number] 2.16.8 [id number] Unknown [id number] 2.16.8 [id number] Unknown [id number] 2.16.8 [id number] Unknown [id number] 2.16.8 [id number] Unknown [id number] 2.16.8 [id number] Unknown [id number] 2.16.8 [id number] Unknown [id number] 2.16.8 [id number] Social History Date Type Detail Facility Start: 03-03-2023 End: 05-03-2023 Sex Assigned At [employer] Other Start: 12-01-2022 End: 12-01-2022 Tobacco smoking status NHIS Smoker (finding) [facility] Start: 1950 Sex Assigned At Male [facility] Start: 05-17-2022 End: 03-03-2023 Tobacco smoking status NHIS Smokes tobacco daily [facility] History of tobacco use Cigarette Smoker [facility] Start: 03-03-2023 End: 05-03-2023 Cigarettes smoked current (pack per day) - Reported 1.5 [facility] Start: 05-17-2022 End: 03-03-2023 Tobacco use and exposure Smokeless tobacco non-user [facility] Start: 03-03-2023 End: 01-24-2024 Alcohol intake Current drinker of alcohol (finding) [facility] National Score (1-100), lower number is lower risk 96 [facility] Start: 03-03-2023 Alcohol Comment occ [facility] Start: 1950 Sex Assigned At Not on file [facility] Start: 05-31-2022 Alcohol Comment occcassionally [employer] [facility] Start: 06-02-2023 Alcohol Comment couple drinks a week. [facility] Medical Equipment Procedure Code Equipment Code Equipment Origin al Text Equipment Identifier Dates ORIF, fracture, wrist Orthopaedic fixation plate, non-bioabsorbable, sterile ()[id number] FDA Start: 11-30-2022 ORIF, fracture, wrist Orthopaedic bone screw, non-bioabsorbable, non-sterile ()[id number] FDA Start: 11-30-2022 ORIF, fracture, wrist Orthopaedic bone screw, non-bioabsorbable, non-sterile ()[id number] FDA Start: 11-30-2022 ORIF, fracture, wrist Orthopaedic bone screw, non-bioabsorbable, non-sterile ()[id number] FDA Start: 11-30-2022 ORIF, fracture, wrist Orthopaedic bone wire ()[id number] FDA Start: 11-30-2022 Seed Brachysourc e Iodine-125 Brachytherapy Loose Prostate - [id number] Start: 06-20-2023 Comment on above: Description: Sources : [address] [place]: 28 Goals Date Patient Goal Desired Activity /State Clinical Notes 05-10-2022 to 01-24-2024 Helga Bundy APRN.01/24/2024 9:00 AM Cain Timmons MD - 07/24/2023 9:45 AM Cain Timmons MD - 07/24/2023 12:00 AM Cain Timmons MD - 06/20/2023 12:00 AM EST Note Date & Type Note Facility 01-24-2024 History of Presen t illness Narrative Radiation Oncology - Follow Up Note PATIENT NAME: Blu Kuo PATIENT DIAGNOSIS: 73 yo gentleman with hx of adenocarcinoma of the prostate, initial PSA of 9.3 ng/mL, Carmela of 3+3=6. Status post I-125 seed implantation on 06/20/2023 INTERVAL HISTORY: Blu presents for routine surveillance of prostate cancer follow-up 6 months after having last been seen. He continues to experience minor LUTS on tamsulosin 2 capsules at dinnertime. He denies any new health issues since his last follow up visit PSA HISTORY: PSA (ng/mL) Date Value 01/17/2024 0.55 ALLERGIES Allergen Reactions Penicillins Unknown Sulfamethoxazole Hives Trimethoprim Hives tamsulosin (FLOMAX) 0.4 mg Take 2 capsules by mouth daily at bedtime. amLODIPine (NORVASC) 5 mg tablet 30 EA, Take 1 (ONE) tablet by mouth daily, Refills(s) 0 aspirin, enteric coated (ASPIRIN, ENTERIC COATED) 81 mg EC tablet Take 81 mg by mouth. atorvastatin (LIPITOR) 40 mg tablet TAKE 1 TABLET DAILY in evening clopidogrel (PLAVIX) 75 mg tablet Take 1 tablet by mouth once daily. colchicine 0.6 mg tablet Take 0.6 mg by mouth. lisinopril (ZESTRIL) 40 mg tablet 30 EA, Take 1 (ONE) tablet by mouth daily, Refills(s) 0 HYDROcodone-acetaminophen (NORCO) 5-325 mg per tablet Refill(s) 0, 120 EA, TAKE 1 TABLET BY MOUTH EVERY 6 HOURS REVIEW OF SYSTEMS: D/N = 5-6/0-1 Hematuria: No Dysuria: Yes Incontinence: No Urgency: mild Catheter use: No Medications to aid urination: Tamsulosin\2 - AUA Questionnaire (symptoms within the past 1 month) Incomplete emptyin (not at all) Frequency (within 2 hours): 0 (not at all) Intermittency: 0 (not at all) Urgency: 3 (about half the time) Weak stream: 0 (not at all) Strainin (less than 1 time in 5) Nocturia: 1x per night - Total AUA Score: 5 Bowel movement frequency: 2x/day Bowel movement quality: normal Blood per rectum: No Last colonoscopy: none Sexual activity: Fully potent Androgen deprivation: Never. PHYSICAL EXAM: BP 148/73 Pulse 66 Resp 18 Wt 75.1 kg (165 lb 9.6 oz) SpO2 100% BMI 23.76 kg/m KPS: 90 General Appearance: Alert and oriented. No acute distress. Rectal exam is deferred. ASSESSMENT Blu continues to experience nocturia 1x minor LUTS on medication. His PSA dropped nicely. I spent a total of 20 minutes on the date of the service which included preparing to see the patient, [id number] patient care, completing clinical documentation, obtaining and/or reviewing separately obtained history, counseling and educating the patient/family/caregiver, ordering medications, tests, or procedures, and communicating results to the patient/family/caregiver. and discussion of his ongoing post radiation follow up. We reviewed current medications for update. We discussed exercise/diet recommendations for increased aerobic fitness and weight control. He does smoke cigarettes and does drink alcohol. All questions answered at this appointment. Parts of Progress Note were copied from Progress note dated 07/24/2023 but woods elements reviewed, confirmed, and\or updated by me (Miles Bundy CNP/KASSANDRA ) on January 24, 2024 PLAN: F/U in August 2024 with a PSA Signed by: Helga Bundy APRN.TAPAN cc: Mitch Vaughan () [address] [place] [address] Cain Nova [address] [facility] [address] documented in this encounter [facility] 01-24-2024 Note HNO ID: [id number] Author: HELGA BUNDY APRN.CNP Service: ? Author Type: Nurse Practitioner Type: Progress Notes Filed: 01/24/2024 09:42 Note Text: Radiation Oncology - Follow Up Note PATIENT NAME: Blu Kuo PATIENT DIAGNOSIS: 73 yo gentleman with hx of adenocarcinoma of the prostate, initial PSA of 9.3 ng/mL, [place] of 3+3=6. Status post I-125 seed implantation on 06/20/2023 INTERVAL HISTORY: Blu presents for routine surveillance of prostate cancer follow-up 6 months after having last been seen. He continues to experience minor LUTS on tamsulosin 2 capsules at dinnertime. He denies any new health issues since his last follow up visit PSA HISTORY: PSA (ng/mL) Date Value 01/17/2024 0.55 ALLERGIES Allergen Reactions Penicillins Unknown Sulfamethoxazole Hives Trimethoprim Hives tamsulosin (FLOMAX) 0.4 mg Take 2 capsules by mouth daily at bedtime. amLODIPine (NORVASC) 5 mg tablet 30 EA, Take 1 (ONE) tablet by mouth daily, Refills(s) 0 aspirin, enteric coated (ASPIRIN, ENTERIC COATED) 81 mg EC tablet Take 81 mg by mouth. atorvastatin (LIPITOR) 40 mg tablet TAKE 1 TABLET DAILY in evening clopidogrel (PLAVIX) 75 mg tablet Take 1 tablet by mouth once daily. colchicine 0.6 mg tablet Take 0.6 mg by mouth. lisinopril (ZESTRIL) 40 mg tablet 30 EA, Take 1 (ONE) tablet by mouth daily, Refills(s) 0 HYDROcodone-acetaminophen (NORCO) 5-325 mg per tablet Refill(s) 0, 120 EA, TAKE 1 TABLET BY MOUTH EVERY 6 HOURS REVIEW OF SYSTEMS: D/N = 5-6/0-1 Hematuria: No Dysuria: Yes Incontinence: No Urgency: mild Catheter use: No Medications to aid urination: Tamsulosin2 - AUA Questionnaire (symptoms within the past 1 month) Incomplete emptyin (not at all) Frequency (within 2 hours): 0 (not at all) Intermittency: 0 (not at all) Urgency: 3 (about half the time) Weak stream: 0 (not at all) Strainin (less than 1 time in 5) Nocturia: 1x per night - Total AUA Score: 5 Bowel movement frequency: 2x/day Bowel movement quality: normal Blood per rectum: No Last colonoscopy: none Sexual activity: Fully potent Androgen deprivation: Never. PHYSICAL EXAM: BP 148/73 Pulse 66 Resp 18 Wt 75.1 kg (165 lb 9.6 oz) SpO2 100% BMI 23.76 kg/m? KPS: 90 General Appearance: Alert and oriented. No acute distress. Rectal exam is deferred. ASSESSMENT Blu continues to experience nocturia 1x minor LUTS on medication. His PSA dropped nicely. I spent a total of 20 minutes on the date of the service which included preparing to see the patient, [id number] patient care, completing clinical documentation, obtaining and/or reviewing separately obtained history, counseling and educating the patient/family/caregiver, ordering medications, tests, or procedures, and communicating results to the patient/family/caregiver. and discussion of his ongoing post radiation follow up. We reviewed current medications for update. We discussed exercise/diet recommendations for increased aerobic fitness and weight control. He does smoke cigarettes and does drink alcohol. All questions answered at this appointment. Parts of Progress Note were copied from Progress note dated 07/24/2023 but woods elements reviewed, confirmed, andor updated by me (Miles Bundy CNP/KASSANDRA ) on January 24, 2024 PLAN: F/U in August 2024 with a PSA Signed by: Helga Bundy APRN.NURSERY HELPER cc: Mitch Vaughan ([facility]) [address] [id number] Cain Nova [address] [facility] [address] [facility] 07-24-2023 History of Presen t illness Narrative [facility] CLINICAL NOTE Radiation Oncology PATIENT NAME: Blu Kuo CLINIC NO.: [id number] ATTENDING PHYSICIAN: Cain Nova M.D. DATE OF SERVICE: July 24, 2023 HPI: Blu Kuo is a gentleman with adenocarcinoma of the prostate, initial PSA of 9.3 ng/mL, [place] of 3+3=6. Status post I-125 seed implantation on 06/20/2023. D/N = 15-20/5-6 (started gout medication 2 weeks ago); bowel movements 1-2 per day; mild dysuria ; no hematuria; no hematochezia ; variable force of stream; he is potent. Physical exam of the prostate deferred, however, examination of his postoperative CAT scan demonstrates adequate seed positioning without evidence for periprostatic abscess formation or urinary retention. ASSESSMENT: Expected toxicity. PLAN: Please schedule F/U with Miles Bundy CNP in 6 months for survivorship visit, and with Dr. Leonard in 1 year, with PSA prior to each visit. This note has been electronically signed. July 24, 2023 Cain Nova M.D. cc: Mitch Vaughan, [address] [id number] documented in this encounter [facility] 07-24-2023 Note HNO ID: [id number] Author: CAIN NOVA MD Service: ? Author Type: Physician Type: Progress Notes Filed: 07/24/2023 09:57 Note Text: [facility] CLINICAL NOTE Radiation Oncology PATIENT NAME: Blu Kuo CLINIC NO.: [id number] ATTENDING PHYSICIAN: Cain Nova M.D. DATE OF SERVICE: July 24, 2023 HPI: Blu Kuo is a gentleman with adenocarcinoma of the prostate, initial PSA of 9.3 ng/mL, Carmela of 3+3=6. Status post I-125 seed implantation on 06/20/2023. D/N = 15-20/5-6 (started gout medication 2 weeks ago); bowel movements 1-2 per day; mild dysuria ; no hematuria; no hematochezia ; variable force of stream; he is potent. Physical exam of the prostate deferred, however, examination of his postoperative CAT scan demonstrates adequate seed positioning without evidence for periprostatic abscess formation or urinary retention. ASSESSMENT: Expected toxicity. PLAN: Please schedule F/U with Miels Bundy CNP in 6 months for survivorship visit, and with Dr. Leonard in 1 year, with PSA prior to each visit. This note has been electronically signed. July 24, 2023 Cain Nova M.D. cc: Mitch Vaughan DO [address] [facility] [address] [facility] 07-24-2023 History of Presen t illness Narrative Patient: Blu Kuo Date:07/24/2023 [facility] Department of Radiation Oncology [facility] RADIATION ONCOLOGY POST SEED IMPLANT SIMULATION NOTE DATE OF SIMULATION: 07/24/2023 MACHINE: CT Simulator AREA: Prostate cancer s/p brachytherapy. PATIENT POSITION: Supine. CONTRAST: None PROTOCOL: None FIXATION DEVICE: None PROCEDURE: Patient was simulated on the CT scanner and CT images of the patient's pelvis were obtained. ASSESSMENT/PLAN: Patient tolerated simulation procedure well. CT images were obtained on the CT simulator for prostate post-brachytherapy seed implant planning. ict quality assurance engineer planning for the permanent seed prostate brachytherapy procedure will commence following simulation. documented in this encounter [facility] 07-24-2023 Note HNO ID: [id number] Author: CAIN NOVA MD Service: Radiation Oncology Author Type: Physician Type: Progress Notes Filed: 07/24/2023 09:43 Note Text: Patient: Blu Kuo Date:07/24/2023 [facility] Department of Radiation Oncology [facility] RADIATION ONCOLOGY POST SEED IMPLANT SIMULATION NOTE DATE OF SIMULATION: 07/24/2023 MACHINE: CT Simulator AREA: Prostate cancer s/p brachytherapy. PATIENT POSITION: Supine. CONTRAST: None PROTOCOL: None FIXATION DEVICE: None PROCEDURE: Patient was simulated on the CT scanner and CT images of the patient's pelvis were obtained. ASSESSMENT/PLAN: Patient tolerated simulation procedure well. CT images were obtained on the CT simulator for prostate post-brachytherapy seed implant planning. ict quality assurance engineer planning for the permanent seed prostate brachytherapy procedure will commence following simulation. Electronically Signed CAIN NOVA M.D. 49:43 AM [facility] 06-20-2023 Miscellaneous Notes Excellent. Thank you for your work. w All Conversations on this Encounter Alycia Toth LPN routed conversation to You; JOSELIN VelásquezA18 minutes ago (4:12 PM) ELIAS Ibarra8 minutes ago (4:12 PM) Pt returned called. All points below were addressed. Pt states the [facility] is who he sees now. I read pt the note from Dr. Francis MD, verbatim and he states at this time, he agrees, he does not need to be seen by our office. He also states if this changes he will call and let us know. Pt will inform [facility] that there is no need to forward any copies of reports to our office at this time. He states he apologizes for any confusion and appreciates the attention to this matter. documented in this encounter [facility] 06-20-2023 Telephone encounter Note Excellent. Thank you for your work. w All Conversations on this Encounter Alycia Toth LPN routed conversation to You; Marcia Rabago, RMA18 minutes ago (4:12 PM) Alycia Toth LPN18 minutes ago (4:12 PM) SH Pt returned called. All points below were addressed. Pt states the [facility] is who he sees now. I read pt the note from Dr. Francis MD, verbatim and he states at this time, he agrees, he does not need to be seen by our office. He also states if this changes he will call and let us know. Pt will inform [facility] that there is no need to forward any copies of reports to our office at this time. He states he apologizes for any confusion and appreciates the attention to this matter. [facility] 06-20-2023 Note HNO ID: [id number] Author: CAIN NOVA MD Service: Radiation Oncology Author Type: Physician Type: Progress Notes Filed: 06/20/2023 13:06 Note Text: [facility] CLINICAL NOTE Radiation Oncology PATIENT NAME: Blu Kuo [facility] NO.: [id number] ATTENDING PHYSICIAN: Cain Nova M.D. DATE OF SERVICE: June 20, 2023 FINISH NOTE SITE: Prostate. ISOTOPE: I-125. DISEASE: Adenocarcinoma of the prostate, initial PSA of 9.3 ng/mL, Rusk of 3+3=6. DELIVERED DOSE: The prostate, through an Amertek template technique, received a total of 144 Gy utilizing 92 sources with a total activity of 38.18 U. TOLERANCE: The patient tolerated the procedure well. REMARKS: Patient to follow up in about 1 month to assess acute radiation toxicity. In addition, he will receive a CT scan of the pelvis in about 1 month to assess the position of the implanted sources. Of note is that the implant required a total of 28 needles, and the prostate measured 4.0 cm long, 4.6 cm wide, and 2.8 cm tall. Survey Meter readings (mR/hr): Contact - 6.1 10 cm - 1.7 1 m - 0.05 background - 0.007 Cain Nova M.D. This note has been electronically signed. 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 and patient sedated or unresponsive Staffing Resident: Kwaku Casillas DO Indications and Patient Condition Indications for airway management: anesthesia Preoxygenated: yes anesthesia circuit Patient position: sniffing Method: asleep Cricoid Pressure: No Manual In-Line Stabilization: No Difficult Mask: No Final Airway Details Final airway type: supraglottic airway Number of attempts at approach: 1 Final Supraglottic Airway: i-gel Size 5 Seal Adequate: yes Failed airway: no Unrecognized esophageal intubation: no Airway not difficult SIGNATURE: Kwaku Casillas DO PATIENT NAME: Blu Kuo DATE: June 20, 2023 TIME: 12:30 PM CSN: [id number] [facility] 06-20-2023 Note HNO ID: [id number] Author: WILLA SANTACRUZ RN Service: ? Author Type: Registered Nurse Type: Nursing Progress Note Filed: 06/20/2023 10:56 Note Text: Other: patient did enema at home prior to arrival. [facility] 06-20-2023 Miscellaneous Notes Please contact the patient and do the followin. Review with him that he had previously been under care of Dr. Ramakrishna Matute at our office 2. Review that Dr. Ramakrishna Matute and his partner Dr. Jorgensen were sent copies of prostate biopsy performed at [facility], which demonstrated additional prostate cancer 3. Record review indicates patient has no further appointment scheduled through our office but does have appointment scheduled at [facility]. 4. Please confirm with patient that he is now getting his follow-up care at [facility] and therefore we do not need to schedule him for any further follow-ups at our office. We are certainly happy to help as desired, and that is obviously fine if he wants to get his care at [facility], but we just want to make sure he is getting the follow through he needs and that we do not have any responsibility for scheduling any further appointments through our office. Also, if that is the case, he could tell the [facility] it no longer needs to send us copies of his reports, because it does prompt us to question whether we need to get the patient back here for further care. Thank you. Left message to return call Pt returned called. All points below were addressed. Pt states the [facility] is who he sees now. I read pt the note from Dr. Francis MD, verbatim and he states at this time, he agrees, he does not need to be seen by our office. He also states if this changes he will call and let us know. Pt will inform [facility] that there is no need to forward any copies of reports to our office at this time. He states he apologizes for any confusion and appreciates the attention to this matter. documented in this encounter [facility] 06-20-2023 Telephone encounter Note Please contact the patient and do the followin. Review with him that he had previously been under care of Dr. Ramakrishna Matute at our office 2. Review that Dr. Ramakrishna Matute and his partner Dr. Jorgensen were sent copies of prostate biopsy performed at [facility], which demonstrated additional prostate cancer 3. Record review indicates patient has no further appointment scheduled through our office but does have appointment scheduled at [facility]. 4. Please confirm with patient that he is now getting his follow-up care at [facility] and therefore we do not need to schedule him for any further follow-ups at our office. We are certainly happy to help as desired, and that is obviously fine if he wants to get his care at [facility], but we just want to make sure he is getting the follow through he needs and that we do not have any responsibility for scheduling any further appointments through our office. Also, if that is the case, he could tell the [facility] it no longer needs to send us copies of his reports, because it does prompt us to question whether we need to get the patient back here for further care. Thank you. [facility] 06-20-2023 Telephone encounter Note Left message to return call [facility] 06-20-2023 Telephone encounter Note Pt returned called. All points below were addressed. Pt states the [facility] is who he sees now. I read pt the note from Dr. Francis MD, verbatim and he states at this time, he agrees, he does not need to be seen by our office. He also states if this changes he will call and let us know. Pt will inform [facility] that there is no need to forward any copies of reports to our office at this time. He states he apologizes for any confusion and appreciates the attention to this matter. [facility] 06-20-2023 History of Presen t illness Narrative BLU KUO Rosita [id number] 06/20/2023 [facility] Department of Radiation Oncology [facility] RADIATION ONCOLOGY SIMULATION NOTE DATE OF SIMULATION: 06/20/2023 MACHINE: [employer] Diagnosis: C61 (Prostate Gland) AREA:prostate PATIENT POSITION: Supine. CONTRAST: None PROTOCOL: None CONCURRENT THERAPY: None FIXATION DEVICE: SurePoint UTS Stabilization device by [employer]. PROCEDURE: Patient was simulated in the OR in exaggerated dorsal lithotomy position. Serial images of the prostate were taken using TRUS. Color flow Doppler UTS was also reviewed. These images were imported into a [employer] treatment planning system where a plan was generated. ASSESSMENT/PLAN: Patient tolerated simulation procedure well. Electronically Signed Cain Nova M.D. / 41:07 PM documented in this encounter [facility] 06-20-2023 History of Presen t illness Narrative KUO, BLU L. [id number] 06/20/2023 [facility] Department of Radiation Oncology [facility] RADIATION ONCOLOGY - COMPLETION NOTE PATIENT NAME: Blu Kuo [facility] NO.: [id number] ATTENDING PHYSICIAN: Cain Nova M.D. DATE OF SERVICE: June 20, 2023 FINISH NOTE SITE: Prostate. ISOTOPE: I-125. DISEASE: Adenocarcinoma of the prostate, initial PSA of 9.3 ng/mL, Carmela of 3+3=6. DELIVERED DOSE: The prostate, through an Modus[employer] template technique, received a total of 144 Gy utilizing 92 sources with a total activity of 38.18 U. TOLERANCE: The patient tolerated the procedure well. REMARKS: Patient to follow up in about 1 month to assess acute radiation toxicity. In addition, he will receive a CT scan of the pelvis in about 1 month to assess the position of the implanted sources. Of note is that the implant required a total of 28 needles, and the prostate measured 4.0 cm long, 4.6 cm wide, and 2.8 cm tall. Survey Meter readings (mR/hr): Contact - 6.1 10 cm - 1.7 1 m - 0.05 background - 0.007 Cain Nova M.D. This note has been electronically signed. June 20, 2023 cc: Mitch Vaughan DO documented in this encounter [facility] 06-20-2023 History of Presen t illness Narrative BLU KUO [id number] 06/20/2023 [facility] Department of Radiation Oncology [facility] RADIATION ONCOLOGY BRACHYTHERAPY TREATMENT PLANNING NOTE For reasons stated in the consult note, BLU KUO is a candidate for definitive radiation. Based on review and interpretation of the relevant diagnostic studies together with the exam findings, BLU KUO was simulated on 06/20/2023 and the target volume to be treated as well as the critical normal structure(s) were delineated as indicated in the simulation note. I personally reviewed the TRUS and was able to create contours of the volume to be treated and the normal critical structures to be spared. In this particular case, the rectum was deemed to be a critical structure. Special consideration of this was given in light of the potential for increased toxicity if the rectum receives too much radiation dose. After participating in the treatment planning process with medical physics, I approved the best plan to deliver my prescribed course of radiation. The target tissue was planned using intraoperative pre- planning to allow for the best isodose distribution to deliver a minimum dose of 144 Gy to the prostate. The dose to normal tissue (rectum) and target tissue was confirmed upon review of the calculated dose superimposed on the TRUS images containing the target tissue and the rectum. A completed summary of this plan dated 06/20/2023 incorporated herein by reference includes dose, energy, isodose distribution and DVH. Electronically Signed Cain Nova M.D. / 41:07 PM documented in this encounter [facility] 06-20-2023 Note HNO ID: [id number] Author: CAIN NOVA MD Service: Radiation Oncology Author Type: Physician Type: Progress Notes Filed: 06/20/2023 13:06 Note Text: BLU KUO [id number] 06/20/2023 [facility] Department of Radiation Oncology [facility] RADIATION ONCOLOGY - COMPLETION NOTE PATIENT NAME: Blu Kuo CLINIC NO.: [id number] ATTENDING PHYSICIAN: Cain Nova M.D. DATE OF SERVICE: June 20, 2023 FINISH NOTE SITE: Prostate. ISOTOPE: I-125. DISEASE: Adenocarcinoma of the prostate, initial PSA of 9.3 ng/mL, Rusk of 3+3=6. DELIVERED DOSE: The prostate, through an Amertek template technique, received a total of 144 Gy utilizing 92 sources with a total activity of 38.18 U. TOLERANCE: The patient tolerated the procedure well. REMARKS: Patient to follow up in about 1 month to assess acute radiation toxicity. In addition, he will receive a CT scan of the pelvis in about 1 month to assess the position of the implanted sources. Of note is that the implant required a total of 28 needles, and the prostate measured 4.0 cm long, 4.6 cm wide, and 2.8 cm tall. Survey Meter readings (mR/hr): Contact - 6.1 10 cm - 1.7 1 m - 0.05 background - 0.007 Cain Nova M.D. This note has been electronically signed. June 20, 2023 cc: Mitch Vaughan DO [facility] 06-20-2023 Note HNO ID: [id number] Author: CAIN NOVA MD Service: Radiation Oncology Author Type: Physician Type: Progress Notes Filed: 06/20/2023 13:07 Note Text: BLU KUO [id number] 06/20/2023 [facility] Department of Radiation Oncology [facility] RADIATION ONCOLOGY BRACHYTHERAPY TREATMENT PLANNING NOTE For reasons stated in the consult note, BLU KUO is a candidate for definitive radiation. Based on review and interpretation of the relevant diagnostic studies together with the exam findings, BLU KUO was simulated on 06/20/2023 and the target volume to be treated as well as the critical normal structure(s) were delineated as indicated in the simulation note. I personally reviewed the TRUS and was able to create contours of the volume to be treated and the normal critical structures to be spared. In this particular case, the rectum was deemed to be a critical structure. Special consideration of this was given in light of the potential for increased toxicity if the rectum receives too much radiation dose. After participating in the treatment planning process with medical physics, I approved the best plan to deliver my prescribed course of radiation. The target tissue was planned using intraoperative pre- planning to allow for the best isodose distribution to deliver a minimum dose of 144 Gy to the prostate. The dose to normal tissue (rectum) and target tissue was confirmed upon review of the calculated dose superimposed on the TRUS images containing the target tissue and the rectum. A completed summary of this plan dated 06/20/2023 incorporated herein by reference includes dose, energy, isodose distribution and DVH. Electronically Signed Cain Nova M.D. / :07 PM [facility] 06-20-2023 Note HNO ID: [id number] Author: CAIN NOVA MD Service: Radiation Oncology Author Type: Physician Type: Progress Notes Filed: 06/20/2023 13:07 Note Text: BLU KUO Rosita [id number] 06/20/2023 [facility] Department of Radiation Oncology [facility] RADIATION ONCOLOGY SIMULATION NOTE DATE OF SIMULATION: 06/20/2023 MACHINE: [employer] Diagnosis: C61 (Prostate Gland) AREA:prostate PATIENT POSITION: Supine. CONTRAST: None PROTOCOL: None CONCURRENT THERAPY: None FIXATION DEVICE: Ritot UTS Stabilization device by [employer]. PROCEDURE: Patient was simulated in the OR in exaggerated dorsal lithotomy position. Serial images of the prostate were taken using TRUS. Color flow Doppler UTS was also reviewed. These images were imported into a [employer] treatment planning system where a plan was generated. ASSESSMENT/PLAN: Patient tolerated simulation procedure well. Electronically Signed Cain Nova M.D. / :07 PM [facility] 06-15-2023 Miscellaneous Notes Patient is prostate biopsy results apparently from [facility] sent to me. Patient is known to you. Looks like he might be following up at [facility], but I am not sure. I agree, Looks like his care is at [facility] documented in this encounter [facility] 06-15-2023 Telephone encounter Note Patient is prostate biopsy results apparently from [facility] sent to me. Patient is known to you. Looks like he might be following up at [facility], but I am not sure. 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 They are also encouraged to continue exercise to achieve/maintain a normal BMI. Patient is instructed on home BP measurements: - rest for 5 minutes w/o talking- positioned w/ feet on floor and arm supported- average best 2/3 readings w/ goal < 135/85 Keep log of home BP readings and bring to OV May, Elevated cholesterol (ICD-10 - E78.00) Instructed on diet and exercise with continued statin therapy.Discussed the beneficial effects of lowering cholesterol in reducing the risk for cerebrovascular and cardiovascular disease. May, Cigarette nicotine dependence without complication (ICD-10 - F17.210) LDCT: 10/2021 This patient has been encouraged to quit tobacco use immediately. They are aware of the hazards associated with tobacco use, including but not limited to respiratory infections, vascular disease and cancers. May, Prostate cancer (ICD-10 - C61) 06/2022: Carmela 3+3, group 1 Grp 1 w/ carmela score 3 + 3 Has been counseled w/ treatment options by , radiation oncology. He recently self referred to [facility] and is scheduled for brachytherapy. 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 They are to use intermittent heat and ice as needed. They may schedule a massage or gentle manipulation. They may safely use Tylenol as needed. May, Personal history of transient ischemic attack (TIA), and cerebral infarction without residual deficits (ICD-10 - Z86.73) Instructed on stroke symptoms. He was instructed to seek evaluation urgently for any suspicious symptoms. Instructed to continue secondary prevention measures. [employer] Other 12-27-2023 NoteHNO ID: [id number] Author: CAIN NOVA MD Service: ? Author Type: Physician Type: Progress Notes Filed: 06/12/2023 13:40 Note Text: PROSTATE CANCER INITIAL VISIT SERVICE DATE: May 03, 2023 PRIMARY CARE PROVIDER: Mitch aVughan DO REFERRING PROVIDER: Kerri Leonard [address] [place] [address] [place] [id number] Consult requested for an opinion regarding the evaluation and treatment of prostate cancer. My final impression and recommendations will be communicated back to the requesting physician by way of the shared medical record or letter via US mail. I spent 60 minutes in the visit, with more than 50% of the total [id number] time of the visit in counseling / coordination of care. SUBJECTIVE HISTORY OF PRESENT ILLNESS: Mr. Kuo is a 72 year old and presents alone. CaP on with PSA progression (PSA was 6.81 ng/mL in 10/2021). NCCN CRITERIA VALUES Clinical Stage (AJCC 7th Edition) T1c, N0, M0 = stage I [cT1a-c/T2a, N0, M0, PSA <10, GG 1] (AJCC 8th ed.) Previous PSA Score(s) (PSA Should Be Within 3 Months of Biopsy) Outside Result: 9.3 ng/mL Result Date: February 21, 2023 Date of Biopsy May 31, 2022 Type of Biopsy MR Targeted Biopsy Rusk/ISUP Group 3 + 3 = 6 (Grade Group 1) Total # of Biopsy Cores 16 Total # of Positive Biopsy Cores 2 Greatest % Cancer in Any Single Core 60% PSA Density Result: 0.31 2016 NCCN Risk Group Low Risk Group PERTINENT HISTORY: Urinary frequency (D/N): 6-8/0 Dysuria: No Incontinence: No Hematuria: No Baseline Urinary Function: 1- No pads AUA QUESTIONNAIRE (Symptoms Prior to Biopsy): Incomplete Emptyin (not at all) Frequency (within 2 hours of previous void): 0 (not at all) Intermittency: 0 (not at all) Urgency (difficulty postponing urination): 1 (less than 1 time in 5) Weak Stream: 1 (less than 1 time in 5) Strainin (not at all) Nocturia: 0 (none) - Total AUA Score: 2 BASELINE ERECTILE FUNCTION: 2- Diminished but usually satisfactory for intercourse PREVIOUS TREATMENTS: None TESTING TO DATE: MR Results: PIRADS 4 lesion, 30 cc prostate. GENOMIC TESTING: None PAST MEDICAL HISTORY Diagnosis Date HTN (hypertension) Hypercholesteremia Stroke (HCC) 2018 PAST SURGICAL HISTORY Procedure Laterality Date CATARACT EXTRACTION HX Bilateral HERNIA REPAIR HX umbilical PAST SURGICAL HISTORY OF Left wrist d/t fall PAST SURGICAL HISTORY OF lumbar spine-ruptured disc PAST SURGICAL HISTORY OF Left foot-plantar fasciaitis FAMILY HISTORY Problem Relation Age of Onset Cancer Brother Cancer Brother KNOWN FAMILIAL HISTORY: None Social History Tobacco Use Smoking status: Every Day Packs/day: 1.50 Years: 50.00 Additional pack years: 0.00 Total pack years: 75.00 Types: Cigarettes Smokeless tobacco: Never Substance Use Topics Alcohol use: Yes Comment: occ Drug use: Not Currently ALLERGIES Allergen Reactions Penicillins Unknown Sulfamethoxazole Hives Trimethoprim Hives MEDICATIONS: amLODIPine (NORVASC) 5 mg tablet 30 EA, Take 1 (ONE) tablet by mouth daily, Refills(s) 0 aspirin, enteric coated (ASPIRIN, ENTERIC COATED) 81 mg EC tablet Take 81 mg by mouth. atorvastatin (LIPITOR) 40 mg tablet TAKE 1 TABLET DAILY in evening clopidogrel (PLAVIX) 75 mg tablet Take 1 tablet by mouth once daily. colchicine 0.6 mg tablet Take 0.6 mg by mouth. lisinopril (ZESTRIL) 40 mg tablet 30 EA, Take 1 (ONE) tablet by mouth daily, Refills(s) 0 HYDROcodone-acetaminophen (NORCO) 5-325 mg per tablet Refill(s) 0, 120 EA, TAKE 1 TABLET BY MOUTH EVERY 6 HOURS OBJECTIVE REVIEW OF SYSTEMS: GENERAL: Negative for fevers, chills, or night sweats. HEENT: Negative for sudden vision or hearing changes. RESPIRATORY: Negative for cough or shortness of breath. CARDIAC: Negative for chest pain, palpitations, murmurs, or syncopal episodes. GASTROINTESTINAL: Negative for diarrhea, constipation, abdominal pain and poor appetite. GENITOURINARY: See HPI. MUSCULOSKELETAL: See HPI. NEUROLOGIC: Negative for dizziness, headache, weakness or numbness. HEMATOLOGIC: Negative for bleeding or easy bruising. SKIN: Negative for rashes or other skin changes. LYMPHATIC: No masses noted. EXTREMITIES: No swelling of extremities. ASSESSMENT PHYSICAL EXAM: There were no vitals taken for this visit. [facility]: 0- Fully active, able to carry on all pre-disease performance w/o restriction. GENERAL APPEARANCE: Alert and oriented. NECK: Normal ROM. No palpable cervical or supraclavicular adenopathy. LUNGS: Normal breath sounds, no wheezes or crackles. CARDIAC: Regular rate and rhythm. ABDOMEN: Soft, non-tender, no rigidity. MUSCULOSKELETAL: No edema. Normal ROM in extremities. No bone or spine tenderness. NEUROLOGIC: Strength intact and symmetric. Sensation intact. CN II-XII intact. Gait normal. No focal deficits. SKIN: Skin color, texture, turgor carmenza (more content not included)...[facility]12-14-2023 Miscellaneous Notes* Telephone Encounter - Lyly Johns - 04/20/2023 2:55 PM EST Hi, thank you! Patient Is scheduled 05/03 I called left message and mailed appt to patient. * Telephone Encounter - Lyly Johns - 04/20/2023 2:12 PM EST Can anyone help with getting him scheduled? Or direct me in the right direction. * Telephone Encounter - Roxi Dye LPN - 04/20/2023 2:03 PM EST Lyly: Will you please schedule a consult with Dr. Nova for prostate brachytherapy per previousmessage? Dr. Leonard rad onc consult pending your approval. Thanks Roxi Dye RN * Telephone Encounter - Roxi Dye LPN - 04/13/2023 3:51 PM EST Blu called stating he has decided he would like to have radiation seed implant. He states he was referred for a surgical opinion but was told patients with a carmela score of 6 don't typically have a prostatectomy. He would like to know if Dr. Leonard can treat him with prostate seed implant. I explained that Dr. Leonard does treat prostate cancer with radiation seeds. I notified Blu that one of the local urologists assist with the seed implant. He said he is a former patient of Dr. Stahl's with [facility] but does not want to work that group of physicians. Blu said esdras just work with [facility] and the team in [place] to have a seed implant scheduled. 04/04/23 He saw Darline Lechuga CNP, [facility], who referred patient to Dr. Neves to discuss RALP. MRI prostate order also placed. Blu has a consult with Dr. Neves 05/02/23. He denies further questions at this time. I encouraged him to call back if he needs help facilitating future appointments. Roxi Dye RN [facility]* Encounter Date Diagnosis Assessment Notes Treatment Notes Treatment Clinical Notes Apr, Spondylosis of lumba r region without myelopathy or radiculopathy (ICD-10 - M47.816) [facility] Other 11-28-2023 NoteHNO ID: [id number] Author: Darline Lechuga APRN.NURSERY HELPER Service: ? Author Type: Nurse Practitioner Type: Progress Notes Filed: 04/04/2023 5:27 PM Note Text: [facility] NEW PATIENT HISTORY AND PHYSICAL EXAM PATIENT INFO: Blu Kuo REFERRING M.Jase.: Kerri Leonard [address] [place] [address] [place] [id number] PCP: Mitch Vaughan, DO Consultation requested by Kerri Leonard and my final recommendations will be communicated back to the requesting physician by way of shared medical record or letter via US mail. CHIEF COMPLAINT: Adenocarcinoma of Prostate HPI This is a 72 year old male here for adenocarcinoma of the prostate he is followed by [facility] in [place] thru the [facility] system. He met with rad/onc locally. :Pt was most concerned that he would not be able to hold his bladder during the treatments and canceled the simulation to move forward. Feels that he wants to have radical prostatectomy. He has not met with a surgeon and wants to hear the risks. BMI 22 hx of HTN and CVA 4 yrs ago- completed speech tx remains on daily ASA and Plavix. . active daily smoker x 42 yrs. +lap umbilical hernia repair ~20 yrs ago no fam hx of CAP. +hx of CAD prostate adenocarcinoma, initial PSA 9.3, biopsy Rusk score 3 + 3 = 6 (grade group 1), clinical stage T1c, N0, M0, stage I [pT2, N0, M0, PSA <10, GG 1] (AJCC 8th ed.), s/p TRUS Random and MR Targeted biopsy. PSA history: 02/21/2023 9.3. 10/27 6.81 10/26 5.58 03/28 4.92 MRI 02/28/2022 30 cc gland, PI-RADS 4 lesion measuring 1.2 cm in the left peripheral zone apex, no definite extracapsular extension. Prostate fusion biopsy on May 31, 2022 28.3 cc volume. Carmela 6 (3, 3) involving left lateral apex left medial mid left medial apex right medial apex right lateral mid and right lateral apex cores. High-grade PIN and minute focus of atypical small acini suspicious for prostatic carcinoma from the region of interest. Total # of positive biopsy cores: 6 Total # of biopsy cores sampled: 13 Greatest % cancer in any single core: 25-50% International Prostate Symptom Score (I-PSS) In the last month: Incomplete Emptying -How often have you had the sensation of not emptying your bladder? 0 Frequency -How often have you had to urinate less than every two hours? 3 Intermittency -How often have you found you stopped and started again several times when you urinated? 1 Urgency -How often have you found it difficult to postpone urination? 3 Weak Stream -How often have you had a weak urinary stream? 1 Straining -How often have you had to strain to start urination? 0 Nocturia -How many times did you typically get up at night to urinate? 0 Final Score: 1-7 Mild Quality of Life Due to Urinary Symptoms- 1- Pleased ED: The IIEF-5 Questionnaire (ERNA) Over the past 6 months: How do you rate your confidence that you can get and keep an erection? Moderate - 3 When you had erections with sexual stimulation, how often where your erections hard enough for penetration? Almost always or always - 5 During sexual intercourse, how often were you able to maintain your erection after you penetrated your partner? Most times (much more than half the time) - 4 During sexual intercourse, how difficult was it to maintain your erection to completion of intercourse? Slightly difficult - 4 When you attempted sexual intercourse, how often was it satisfactory for you? Not difficult - 5 Total Score: 22-25: No ED ALLERGIES: ALLERGIES Allergen Reactions Penicillins Unknown MEDICATIONS: Current Outpatient Medications Medication Sig amLODIPine (NORVASC) 5 mg tablet 30 EA, Take 1 (ONE) tablet by mouth daily, Refills(s) 0 aspirin, enteric coated (ASPIRIN, ENTERIC COATED) 81 mg EC tablet Take 81 mg by mouth. atorvastatin (LIPITOR) 40 mg tablet TAKE 1 TABLET DAILY in evening clopidogrel (PLAVIX) 75 mg tablet Take 1 tablet by mouth once daily. colchicine 0.6 mg tablet Take 0.6 mg by mouth. lisinopril (ZESTRIL) 40 mg tablet 30 EA, Take 1 (ONE) tablet by mouth daily, Refills(s) 0 HYDROcodone-acetaminophen (NORCO) 5-325 mg per tablet Refill(s) 0, 120 EA, TAKE 1 TABLET BY MOUTH EVERY 6 HOURS No current facility-administered medications for this visit. HISTORIES PAST MEDICAL HISTORY Diagnosis Date HTN (hypertension) Hypercholesteremia Stroke (HCC) 2019 PAST SURGICAL HISTORY Procedure Laterality Date CATARACT EXTRACTION HX Bilateral HERNIA REPAIR HX umbilical PAST SURGICAL HISTORY OF Left wrist d/t fall PAST SURGICAL HISTORY OF lumbar spine-ruptured disc PAST SURGICAL HISTORY OF Left foot-plantar fasciaitis Social History Tobacco Use Smoking status: Every Day Packs/day: 1.50 Years: 50.00 Additional pack years: 0.00 Total pack years: 75.00 Types: Cigarettes Smokeless tobacco: Never Substance Use Topics Alcohol use: Yes Commen (more content not included)...[facility]11-13-2023 Evaluation note* Encounter Date Diagnosis Assessment Notes Treatment Notes Treatment Clinical Notes Mar, Cerebral atherosclerosis (ICD-10 - I67.2) [facility] Other 11-06-2023 Evaluation note* Encounter Date Diagnosis Assessment Notes Treatment Notes Treatment Clinical Notes Mar, Spondylosis of lumba r region without myelopathy or radiculopathy (ICD-10 - M47.816) [facility] Other 10-27-2023 Nurse Note* Roxi Dye LPN - 03/03/2023 10:10 AM EDT Radiation Therapy - Patient Education Note PATIENT NAME: Blu Kuo PATIENT March 03, 2023 [facility] FACILITY/LOCATION: [facility] READINESS TO LEARN Cognitive Ability: Alert and oriented Motivation to learn: Interested Family Support: Unable to assess - Family not present Instruction provide to: Patient Patient learns best by: Multiple Methods Factors effecting learning: None Physical limitations effecting learning: None LEARNING RESPONSE Diagnosis: Pt scheduled for simulation for radiation therapy to pelvis. Education Topic/Teaching Points: Radiation therapy, Side effects, and OTV: Method of instruction: Written instruction - handouts Verbal instruction Patient /Family response: Patient verbalized understanding of radiation treatments, side effects, OTV, and transportation. Follow-up plan: Recommend - Recommend continued instruction and follow up as directed Supplemental material: Informational handouts on Bladder function, Diarrhea, Fatigue, Pelvic handout, and patient education binder. Referral (recommendation): None, Pt denied need for social work, van service, and private chef. Was approved? No Signed by: Roxi Dye LPN documented [facility]10-27-[facility]23 NoteHNO ID: [id number] Author: Kerri Leonard MD Service: ? Author Type: Physician Type: Progress Notes Filed: 03/08/2023 2:17 PM Note Text: Radiation Oncology - Prostate Cancer New Patient/Consult Note PATIENT NAME: Blu Kuo PATIENT REQUESTING PROVIDER: Dr. Matute DIAGNOSIS: 72 year old male with prostate adenocarcinoma, initial PSA 9.3, biopsy Carmela score 3 + 3 = 6 (grade group 1), clinical stage T1c, N0, M0, stage I [pT2, N0, M0, PSA <10, GG 1] (AJCC 8th ed.), s/p TRUS Random and MR Targeted biopsy. HPI: 72 year old male with prostate adenocarcinoma who presents for an opinion regarding the role of radiation therapy in the management of the patient's disease. Final recommendations will be communicated back to the requesting physician by way of the shared medical record, or letter to requesting physician via [place] mail. The patient was diagnosed with prostate cancer and comes in today to discuss treatment options. Patient presented with an elevated PSA . Most recent PSA 02/21/2023 9.3. PSA history: 10/26 5.58 03/28 4.92 10/27 6.81 Patient underwent MRI 02/28/2022 demonstrating 30 cc gland, PI-RADS 4 lesion measuring 1.2 cm in the left peripheral zone apex, no definite extracapsular extension. Prostate fusion biopsy on May 31, 2022 revealed: 28.3 cc volume. Pathology demonstrating adenocarcinoma, Rusk 6 (3, 3) involving left lateral apex left medial mid left medial apex right medial apex right lateral mid and right lateral apex cores. High-grade PIN and minute focus of atypical small acini suspicious for prostatic carcinoma from the region of interest. Total # of positive biopsy cores: 6 Total # of biopsy cores sampled: 13 Greatest % cancer in any single core: 25-50% Staging Studies: MR Results: See HPI CAT Scan Results: CT screening lung 02/21/2023 no nodules or other suspicious areas CT abdomen and pelvis 03/31/2022 thickening along the splenic flexure of the colon. No evidence of suspicious adenopathy or other findings Previous Treatment for Prostate Cancer: None Genomic Testing: Prolaris Results: 10-year metastasis risk 2.6% with active treatment, single modal treatment category The patient reports the following pertinent history: Urinary frequency (D/N): 4-6/1-2 Dysuria: No Incontinence: 1- No pads Hematuria: No - Total AUA Score: 4 Bowel Movement Frequency: 1/day Bowel Movement Quality: Normal Blood per Rectum: No Last Colonoscopy: na Androgen Deprivation: none Prior Radiation Therapy, Collagen Vascular Disease, or Inflammatory Bowel Disease: No Any implanted or external electric devices? No Currently on Anticoagulation: No History of Hip Replacement: No History of Prior TURP: No ALLERGIES Allergen Reactions Penicillins Unknown amLODIPine (NORVASC) 5 mg tablet 30 EA, Take 1 (ONE) tablet by mouth daily, Refills(s) 0 aspirin, enteric coated (ASPIRIN, ENTERIC COATED) 81 mg EC tablet Take 81 mg by mouth. atorvastatin (LIPITOR) 40 mg tablet TAKE 1 TABLET DAILY in evening clopidogrel (PLAVIX) 75 mg tablet Take 1 tablet by mouth once daily. colchicine 0.6 mg tablet Take 0.6 mg by mouth. lisinopril (ZESTRIL) 40 mg tablet 30 EA, Take 1 (ONE) tablet by mouth daily, Refills(s) 0 HYDROcodone-acetaminophen (NORCO) 5-325 mg per tablet Refill(s) 0, 120 EA, TAKE 1 TABLET BY MOUTH EVERY 6 HOURS PAST MEDICAL HISTORY Diagnosis Date HTN (hypertension) Hypercholesteremia Stroke (HCC) 2018 PAST SURGICAL HISTORY Procedure Laterality Date CATARACT EXTRACTION HX Bilateral HERNIA REPAIR HX umbilical PAST SURGICAL HISTORY OF Left wrist d/t fall PAST SURGICAL HISTORY OF lumbar spine-ruptured disc PAST SURGICAL HISTORY OF Left foot-plantar fasciaitis FAMILY HISTORY Problem Relation Age of Onset Cancer Brother Cancer Brother Social History Tobacco Use Smoking status: Every Day Packs/day: 1.50 Years: 50.00 Additional pack years: 0.00 Total pack years: 75.00 Types: Cigarettes Smokeless tobacco: Never Substance Use Topics Alcohol use: Yes Comment: occ Drug use: Not Currently REVIEW OF SYSTEMS: GENERAL: feeling well without fatigue, no recent change in weight NECK: denies swelling or pain in neck RESPIRATORY: no cough, no wheezing or shortness of breath MUSCULOSKELETAL: denies any painful or swollen joints, no muscle aches SKIN: no rash NEURO: no numbness or paresthesias and no weakness of the extremities As noted in HPI PHYSICAL EXAM: VS: BP 162/82 Pulse 64 Temp 36.7 ?C (98 ?F) Resp 16 Ht 177.8 cm (5' 10 ) Wt 70.3 kg (155 lb) SpO2 99% BMI 22.24 kg/m? KARNOFSKY PERFORMANCE STATUS: 100 General Appearance: Alert and oriented. No acute distress. HEENT: NCAT. Sclera anicteric. PERRL. EOMI. Neck: Normal ROM. No palpable cervical or supraclavicular adenopathy. Chest: No respiratory distress. Lungs clear to auscultation bilaterally. Heart: Regular (more content not included)...[facility] 03-03-2023 NoteEducation (GWENDOLYN) AYAANBLU Rosita ([id number]) 1950 M Date Time Provider Department 03/03/23 ROXI DYE Reason for Visit: Patient Education [91] Visit Notes: >> Roxi Dye LPN MonMar 03, 2023 10:10 AM Status: Signed Radiation Therapy - Patient Education Note PATIENT NAME: Blu Kuo PATIENT March 03, 2023 [facility] FACILITY/LOCATION: [facility] READINESS TO LEARN Cognitive Ability: Alert and oriented Motivation to learn: Interested Family Support: Unable to assess - Family not present Instruction provide to: Patient Patient learns best by: Multiple Methods Factors effecting learning: None Physical limitations effecting learning: None LEARNING RESPONSE Diagnosis: Pt scheduled for simulation for radiation therapy to pelvis. Education Topic/Teaching Points: Radiation therapy, Side effects, and OTV: Method of instruction: Written instruction - handouts Verbal instruction Patient /Family response: Patient verbalized understanding of radiation treatments, side effects, OTV, and transportation. Follow-up plan: Recommend - Recommend continued instruction and follow up as directed Supplemental material: Informational handouts on Bladder function, Diarrhea, Fatigue, Pelvic handout, and patient education binder. Referral (recommendation): None, Pt denied need for social work, van service, and private chef. Was approved? No Signed by: Roxi Dye LPN During your visit today, we recorded the following information about you: Allergies As of Date: 03/03/2023 Noted Allergy Reaction PENICILLINS 03/03/2023 16 - Unknown Date Reviewed: 03/03/2023 Reviewed by: Roxi Dye LPN - Fully Assessed Prescriptions as of 03/03/2023 - amLODIPine (NORVASC) 5 mg tablet 30 EA, Take 1 (ONE) tablet by mouth daily, Refills(s) 0 - aspirin, enteric coated (ASPIRIN, ENTERIC COATED) 81 mg EC tablet Take 81 mg by mouth. - atorvastatin (LIPITOR) 40 mg tablet TAKE 1 TABLET DAILY in evening - clopidogrel (PLAVIX) 75 mg tablet Take 1 tablet by mouth once daily. - colchicine 0.6 mg tablet Take 0.6 mg by mouth. 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 Feb, Primary hypertension (ICD-10 - I10) This patient is instructed to consume a healthy, low-fat, low-salt diet. They are also encouraged to continue exercise to achieve/maintain a normal BMI. Feb, Mucopurulent chronic bronchitis (ICD-10 - J41.1) Denies ER/hosp visits for AE COPD. He is not using inhalers. Feb, Cigarette nicotine dependence without complication (ICD-10 - F17.210) LDCT: 10/2021 This patient has been encouraged to quit tobacco use immediately. They are aware of the hazards associated with tobacco use, including but not limited to respiratory infections, vascular disease and cancers. 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 They are to use intermittent heat and ice as needed. They may schedule a massage or gentle manipulation. They may safely use Tylenol as needed. Feb, Cerebral atherosclerosis (ICD-10 - I67.2) No new focal neurologic deficits. Feb, Prostate cancer (ICD-10 - C61) 06/2022: Carmela 3+3, group 1 Known cancer w/ increased risk of progression. Recommended radiation therapy over active Surveillance. He is instructed to reschedule his appt w/ Radiation Onc [facility] Other 09-19-2023 Evaluation note* Encounter Date Diagnosis Assessment Notes Treatment Notes Treatment Clinical Notes Jan, Other specified postprocedural states (ICD-10 - Z98.890) Jan, Other fractures of lower end of left radius, subsequent encounter for closed fracture with routine healing (ICD-10 - S52.592D) Instructed on gentle motion exercises. Formal therapy order provided. Progress as tolerated. Call with questions/concer ns. Examination and assessment of this patient was performed by Tammy Rivas NP and patient will continue with the treatment plan per , who initiated this treatment plan. Dr. Thompson is present in the office today and providing supervision. 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 Instructed on progressive motion exercises. Stressed the importance of moving the hand and fingers, start passively if not able to actively yet. May consider formal therapy at next appt if needed. Instructed on application of moisturizer and massage of the incision to help soften. 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 Use of intraoperative fluoroscopy. Patient is progressing and healing routinely. Incision site remains clean and dry, no signs of erythema or infection noted. Patient placed in wrist splint today and advised to ice and elevate. He may use pain medication as needed. We will follow up in 4 weeks time. Patient voices understanding and is agreeable to treatment plan. Examination and assessment of this patient was performed by Tammy Rivas NP and patient will continue with the treatment plan per Dr. Thompson who initiated this treatment plan. Dr. Thompson is present in the office today and providing supervision. [facility] Other 07-25-2023 Evaluation note* Encounter Date Diagnosis Assessment Notes Treatment Notes Treatment Clinical Notes Nov, Other closed fracture of distal end of left radius, initial encounter (ICD-10 - S52.592A) The patient has suffered a displaced fracture involving the distal radius. Due to fracture displacement we are recommending surgical treatment to improve anatomic alignment. We discussed the importance of icing and elevation of the arm above the heart to prevent swelling. We discussed that this injury will most likely cause pain for many months and potentially cause correction pain and stiffness. We have discussed the many potential complications of surgery including respiratory, cardiac, and patient positioning during anesthesia. The risks of DVT, scarring, correction pain, nonunion, hardware failure, development of arthritis and need for future surgery were all discussed. Patient is aware and would like to proceed. Post op prescriptions provided with instructions on use. 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 They are also encouraged to continue exercise to achieve/maintain a normal BMI. Aug, Cerebral atherosclerosis (ICD-10 - I67.2) Continue secondary prevention measures. - antiplatelent therapy - control BP and LDL - smoking cessation reviewed and encouraged Aug, Elevated cholesterol (ICD-10 - E78.00) Diet and exercise with continued statin therapy. Aug, Cigarette nicotine dependence without complication (ICD-10 - F17.210) This patient has been encouraged to quit tobacco use immediately. They are aware of the hazards associated with tobacco use, including but not limited to respiratory infections, vascular disease and cancers. Aug, Prostate cancer (ICD-10 - C61) 06/2022: Carmela 3+3, group 1 Referral to Radiation Oncologist. 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 They are to use intermittent heat and ice as needed. They may schedule a massage or gentle manipulation. They may safely use Tylenol as needed. Aug, Personal history of transient ischemic attack (TIA), and cerebral infarction without residual deficits (ICD-10 - Z86.73) No s/s recurrence. Aug, Hx of diverticulitis of colon (ICD-10 - Z87.19) Recommend colonoscopy this year. Postponed at this time due to prostate cancer dx. 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) [employer] Other 03-22-2023 Evaluation note* Encounter Date Diagnosis Assessment Notes Treatment Notes Treatment Clinical Notes Jul, Pure hypercholestero lemia (ICD-10 - E78.00) [employer] Other 02-13-2023 Evaluation note* Encounter Date Diagnosis Assessment Notes Treatment Notes Treatment Clinical Notes Jun, Prostate cancer (ICD-10 - C61) 06/2022: Carmela 3+3, group 1 [employer] Other 01-27-2023 Evaluation note* Encounter Date Diagnosis Assessment Notes Treatment Notes Treatment Clinical Notes May, 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 They are also encouraged to continue exercise to achieve/maintain a normal BMI. May, Pure hypercholestero lemia (ICD-10 - E78.00) Diet and exercise with continued statin therapy. May, Prostate nodule (ICD -10 - N40.2) Encouraged to f/u w/ Urology and reschedule MRI guided bx if needed. Stressed importance of obtaining accurate dx for ongoing treatment May, Acute lower gastrointestinal bleeding (ICD-10 - K92.2) No s/s ongoing bleeding. Plan colonoscopy in near future. May, Cerebral atheroscler osis (ICD-10 - I67.2) Continue secondary prevention: - control BP, Lipids and stressed smoking cessation May, Cigarette nicotine dependence without complication (ICD-10 - F17.210) This patient has been encouraged to quit tobacco use immediately. They are aware of the hazards associated with tobacco use, including but not limited to respiratory infections, vascular disease and cancers. 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 Continued use of opiates to continue w/ ADL and sleep May, Personal history of transient ischemic attack (TIA), and cerebral infarction without residual deficits (ICD-10 - Z86.73) No s/s recurrent focal neurologic deficits [employer] Other [facility]No [facility] Other Evaluation noteNo assessment information available [facility] Work Phone: Evaluation note* Diagnosis Prostate cancer (HCC)- Primary Malignant neoplasm of prostate documented in this encounter [facility] note* Diagnosis Prostate cancer (HCC)- Primary Malignant neoplasm of prostate Malignant neoplasm of prostate (HCC) Malignant neoplasm of prostate documented in this encounter [facility] note* Diagnosis Prostate cancer (HCC)- Primary Malignant neoplasm of prostate documented in this encounter [facility] note* Diagnosis Onset Date Resolution Status Cerebral atherosclerosis acu te High cholesterol acute HTN (hypertension) acute Hx of TIA (transient ischemic attack) and stroke acute Lumbar spondylosis acute Nicotine dependence acute Prostate cancer acute [facility] Work Phone: Evaluation note* Diagnosis Onset Date Resolution Status Cerebral atherosclerosis acu te High cholesterol acute HTN (hypertension) acute Hx of TIA (transient ischemic attack) and stroke acute Lumbar spondylosis acute Nicotine dependence acute Opiate analgesic use agreement exists acute Prostate cancer acute Medicare annual wellness visit, subsequent noneactive [facility] Work Phone: Evaluation note* Diagnosis Pre-op evaluation- Primary Preoperative examination, unspecified Primary hypertension Unspecified essential hypertension Hypercholesteremia Pure hypercholesterolemia Cerebrovascular accident (CVA), unspecified mechanism (HCC) Mucopurulent chronic bronchitis (HCC) Mucopurulent chronic bronchitis Prostate cancer (HCC)- Primary Malignant neoplasm of prostate documented in this encounter [facility] note* Diagnosis Pre-op evaluation- Primary Preoperative examination, unspecified Primary hypertension Unspecified essential hypertension Hypercholesteremia Pure hypercholesterolemia Cerebrovascular accident (CVA), unspecified mechanism (HCC) Mucopurulent chronic bronchitis (HCC) Mucopurulent chronic bronchitis Encounter for follow-up surveillance of prostate cancer- Primary Unspecified follow-up examination documented in this encounter [facility] note* Diagnosis Onset Date Resolution Status Cerebral atherosclerosis acu te High cholesterol acute HTN (hypertension) acute Hx of TIA (transient ischemic attack) and stroke acute Lumbar spondylosis acute Nicotine dependence acute Opiate analgesic use agreement exists acute Prostate cancer acute 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 Medical History Bronchitis, mucopurulent recurre nt Medical History Hyperlipidemia type II Medical History Asymptomatic stenosis of intracr anial artery Medical History Essential hypertension Medical History Acute gouty arthritis Medical History Benign localized hyp erplasia of prostate with urinary retention Medical History Acute allergic rhinitis due to p ollen Medical History H/O: stroke Surgical History plantar fascia release, left fo ot 1999 Surgical History lumbar laminectomy/discectomy L 5S1 2003 Surgical History umbilical hernia repair 2007 Surgical History bilateral cataract removal 01.2 017 Surgical History MRI fusion prostate biopsy 05/31 Hospitalization History see surgical history [employer] Other [facility] general Narrative - Reported* Type Description Date Medical History Acute kidney injury Medical History Cigarette nicotine dependence Medical History Prostate nodule Medical History 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 Medical History Bronchitis, mucopurulent recurre nt Medical History Hyperlipidemia type II Medical History Asymptomatic stenosis of intracr anial artery Medical History Essential hypertension Medical History Acute gouty arthritis Medical History Benign localized hyp erplasia of prostate with urinary retention Medical History Acute allergic rhinitis due to p ollen Medical History H/O: stroke Surgical History plantar fascia release, left fo ot 1999 Surgical History lumbar laminectomy/discectomy L 5S1 2002 Surgical History umbilical hernia repair 2007 Surgical History bilateral cataract removal 01.2 017 Surgical History MRI fusion prostate biopsy 05/31 Surgical History ORIF left distal radial fractur e 11/2022 Hospitalization History see surgical history [employer] Other InstructionsNot on filedocumented in this encounter [employer] SystemInstructionsNot on filedocumented in this encounter [employer] SystemInstructionsNot on filedocumented in this encounter [employer] [facility] Summary Purpose Family History Relationship Condition 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 Not Specified Renal failure Unknown father Cerebrovascular accident (CVA) Unknown Relationship Condition 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 Not Specified Renal failure Unknown father Cerebrovascular accident (CVA) Unknown father History of stroke Unknown Relationship Condition 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 mother Renal failure Unknown father Cerebrovascular accident (CVA) Unknown father History of stroke Unknown Advance Directives Advance Directive Response Recorded Date/ Time Advance Directives No November 29 3:50am Advance Directive Response Recorded Date/ Time Advance Directives No November 29 2:50am Chief Complaint and Reason for Visit Chief Complaint wrist injury Fracture Fracture Chief Complaint wrist injury Fracture Fracture Z98.890 Chief Complaint wrist injury Fracture Fracture Z98.890 Z98.890 Chief Complaint Z98.890 S52.592D Chief Complaint Amb Documentation 3 month Reason for Visit Cerebral atheroscler osis High cholesterol HTN (hypertension) Hx of TIA (transient ischemic attack) and stroke Lumbar spondylosis Nicotine dependence Prostate cancer Chief Complaint Medicare Wellness Reason for Visit Cerebral atheroscler osis High cholesterol HTN (hypertension) Hx of TIA (transient ischemic attack) and stroke Lumbar spondylosis Nicotine dependence Opiate analgesic use agreement exists Prostate cancer Medicare annual wellness visit, subsequent Chief Complaint 3 month f/u Reason for Visit Cerebral atheroscler osis High cholesterol HTN (hypertension) Hx of TIA (transient ischemic attack) and stroke Lumbar spondylosis Nicotine dependence Opiate analgesic use agreement exists Prostate cancer Reason for Referral Specialty Diagnoses / Procedures Referred By Contac t Referred To Contact Radiation Oncology Diagnoses Prostate cancer (HCC) Procedures RAD/ONC CONSULT OFFICE/OUTPATIENT [facility] 60-74 MINUTES Kerri Leonard MD [address] [place] [address] [place] [address] Referral ID Status Reason Start Date Expiration Date Visits Requested Visits Authorized [id number] Authorized PCP Requested Referral 3 04/19/2024 1 1 Additional Source Comments (unrecognized sect ion and content) No Status Records FoundNo Status Records FoundNo Status Records FoundNo Status Records FoundNo Status Records Found INFORMATION SOURCE (unrecogn ized section and content) DATE CREATED AUTHOR 10/27/2021 Jorge [facility] DATE CREATED AUTHOR AUTHOR'S ORGANIZ ATION 04/27/2022 [facility] DATE CREATED AUTHOR AUTHOR'S ORGANIZ ATION 03/19/2023 [facility] DATE CREATED AUTHOR AUTHOR'S ORGANIZ ATION 06/21/2023 [facility] DATE CREATED AUTHOR AUTHOR'S ORGANIZ ATION 01/26/2024 [facility] REASON FOR VISIT (unrecogniz ed section and content) Reason Comments Patient Education Reason Comments Patient Update Reason Comments Established Patient Care Teams (unrecognized sec tion and content) Team Status: Active Member Role Status Dates Mitch Vaughan , Primary Care Provider Active Team Status: Active Member Role Status Dates Mitch Vaughan DO Primary Care Provide r, Attending Provider Active Start: November 30, 2023 Team Status: Active Member Role Status Dates Mitch Vaughan DO Primary Care Provider Active Start: January 17, 2024 Cain Nova Attending Provider Active Start: pt2023 Team Status: Inactive Member Role Status Dates Mitch Vaughan DO Primary Care Provide r, Attending Provider Active Start: February 12, 2024 End: February 12, 2024 Team Status: Active Member Role Status Dates Mitch Vaughan , Primary Care Provider Active Team Status: Inactive Member Role Status Dates Mitch Vaughan DO Primary Care Provide r, Attending Provider Active Start: November 13, 2023 End: November 13, 2023 Team Status: Active Member Role Status Dates Mitch Vaughan DO Primary Care Provider Active Start: July 17, 2023 SUNSHINE Sesay Attending Provider Active Start : July 17, 2023 Team Status: Inactive Member Role Status Dates Mitch Vaughan DO Primary Care Provide r, Attending Provider Active Start: August 09, 2023 End: August 09, 2023 Team Status: Inactive Member Role Status Dates Mitch Vaughan DO Primary Care Provider Active Amando Torres Jr, MD Emergency Provider Active Team Status: Inactive Member Role Status Dates Mitch Vaughan DO Primary Care Provider Active Amando Thompson MD Attending Provider Active Rn First Assistant Relationship Specialty Start Date End Date Mitch Vaughan DO [address] [place] [address] PCP - General Internal Medicine 03/03/23 Rn First Assistant Relationship Specialty Start Date End Date Mitch Vaughan DO [address] [place] [address] PCP - General Internal Medicine 03/03/23 Rn First Assistant Relationship Specialty Start Date End Date Mitch Vaughan DO [address] [place] [address] PCP - General Internal Medicine 11/24/21 Rn First Assistant Relationship Specialty Start Date End Date Mitch Vuaghan DO [address] [place] [facility] [place] [address] PCP - General Internal Medicine 03/03/23 Rn First Assistant Relationship Specialty Start Date End Date Mitch Vaughan DO [address] [place] [facility] [place] [address] PCP - General Internal Medicine 11/24/21 Rn First Assistant Relationship Specialty Start Date End Date Mitch Vaughan DO [address] [place] [facility] [address] PCP - General Internal Medicine 11/24/21 Rn First Assistant Relationship Specialty Start Date End Date Mitch Vaughan DO [address] [place] [facility] [place] [address] PCP - General Internal Medicine 03/03/23 Rn First Assistant Relationship Specialty Start Date End Date Mitch Vaughan DO [address] [place] [facility] [place] [address] PCP - General Internal Medicine 03/03/23 Rn First Assistant Relationship Specialty Start Date End Date Mitch Vaughan DO [address] [place] [facility] [place] [address] PCP - General Internal Medicine 03/03/23 Rn First Assistant Relationship Specialty Start Date End Date Mitch Vaughan DO [address] [place] [facility] [place] [address] PCP - General Internal Medicine 03/03/23 Rn First Assistant Relationship Specialty Start Date End Date Mitch Vaughan DO [address] [place] [facility] [place] [address] PCP - General Internal Medicine 10/27/23 Team Status: Active Member Role Status Dates Mitch Vaughan , DO Primary Care Provide r, Attending Provider Active Start: November 30, 2023 Team Status: Active Member Role Status Dates Mitch Vaughan , DO Primary Care Provider Active Start: January 17, 2024 Cain Nova Attending Provider Active Start: [email or web address] Team Status: Inactive Member Role Status Dates Mitch Vaughan , DO Primary Care Provide r, Attending Provider Active Start: February 12, 2024 End: February 12, 2024 Source Comments (unrecognize d section and content) In the event this informatio n is protected by the Federal Confidentiality of Alcohol and Drug Abuse Patient Records regulations: The Federal rules restrict any use of the information to criminally investigate or prosecute any alcohol or drug abuse patient.[facility] the event this information is protected by the Federal Confidentiality of Alcohol and Drug Abuse Patient Records regulations: The Federal rules restrict any use of the information to criminally investigate or prosecute any alcohol or drug abuse patient.[facility] HospitalIn the event this information is protected by the Federal Confidentiality of Alcohol and Drug Abuse Patient Records regulations: The Federal rules restrict any use of the information to criminally investigate or prosecute any alcohol or drug abuse patient.[facility] Hospital[facility] the event this information is protected by the Federal Confidentiality of Alcohol and Drug Abuse Patient Records regulations: The Federal rules restrict any use of the information to criminally investigate or prosecute any alcohol or drug abuse patient.[facility] HospitalIn the event this information is protected by the Federal Confidentiality of Alcohol and Drug Abuse Patient Records regulations: The Federal rules restrict any use of the information to criminally investigate or prosecute any alcohol or drug abuse patient.[facility] HospitalIn the event this information is protected by the Federal Confidentiality of Alcohol and Drug Abuse Patient Records regulations: The Federal rules restrict any use of the information to criminally investigate or prosecute any alcohol or drug abuse patient.[facility] HospitalIn the event this information is protected by the Federal Confidentiality of Alcohol and Drug Abuse Patient Records regulations: The Federal rules restrict any use of the information to criminally investigate or prosecute any alcohol or drug abuse patient.[facility] HospitalIn the event this information is protected by the Federal Confidentiality of Alcohol and Drug Abuse Patient Records regulations: The Federal rules restrict any use of the information to criminally investigate or prosecute any alcohol or drug abuse patient.[facility] HospitalIn the event this information is protected by the Federal Confidentiality of Alcohol and Drug Abuse Patient Records regulations: The Federal rules restrict any use of the information to criminally investigate or prosecute any alcohol or drug abuse patient.[facility] HospitalIn the event this information is protected by the Federal Confidentiality of Alcohol and Drug Abuse Patient Records regulations: The Federal rules restrict any use of the information to criminally investigate or prosecute any alcohol or drug abuse patient.[facility] Goals (unrecognized section and content) Goals may be documented in a n alternate section FOR RECORDS PERTAINING TO PATIENTS WHO ARE OR HAVE BEEN ENROLLED IN A CHEMICAL DEPENDENCY/SUBSTANCEABUSE PROGRAM, SOME INFORMATION MAY BE OMITTED. This clinical summary was aggregated from multiple sources. Caution should be exercised in using it in the provision of clinical care. This summary normalizes information from multiple sources, and as a consequence, information in this document may materially change the coding, format and clinical context of patient data. In addition, data may be omitted in some cases. CLINICAL DECISIONS SHOULD BE BASED ON THE PRIMARY CLINICAL RECORDS. [facility] [employer] [facility]. provides no warranty or guarantee of the accuracy or completeness of information in this document.
== END 2024-02-23 09:22 | disposition home or self-care (01) ==
LOC: CT 09:21
PROVIDERS: PCP Internal Medicine; Visit Provider Internal Medicine
DX: F17.210 Nicotine dependence, cigarettes, uncomplicated (principal)
CPT/HCPCS: 71271

== ENCOUNTER 2024-12-03 08:48 | Outpatient (OUT) | payer MEDICARE, SELFPAY ==
--- OUTSIDE RECORDS SUMMARY | 2024-12-03 08:53 | XMS_ITS | Clinical Summary ---
Author Organization [facility] Address [address] [place] [address] Care Team Providers Care Plisse Machine Operator Name Role Phone Unavailable Primary Care Provider Unavailabl e Social History Tobacco Use Types Packs/Day Years Used Date Smoking Tobacco: Never Assessed Sex and Gender Information Value Date Recorded Sex Assigned at Not on file Legal Sex Male 8:12 PM EDT Gender Identity Not on file Sexual Orientation Not on file Plan of Treatment Not on [place] [phone]
--- OUTSIDE RECORDS SUMMARY | 2024-12-03 08:53 | XMS_ITS | Clinical Summary ---
Author Organization [facility] Address [address] [place] [address] Care Team Providers Care Electric Motor Controls Assembler Name Role Phone Unavailable Primary Care Provider Unavailabl e Social History Tobacco Use Types Packs/Day Years Used Date Smoking Tobacco: Never Assessed Sex and Gender Information Value Date Recorded Sex Assigned at Not on file Legal Sex Male 12:14 AM EDT Gender Identity Not on file Sexual Orientation Not on file Plan of Treatment Not on file
--- OUTSIDE RECORDS SUMMARY | 2024-12-03 08:53 | XMS_ITS | Encounter Summary ---
Author Organization [facility] Address [address] [place] [id number] Care Team Providers Care Bottom Liner Name Role Phone Mitch Perez DO Primary Care Provider [phone] Source Comments In the event this information is protected by the Federal Confidentiality of Alcohol and Drug AbusePatient Records regulations: The Federal rules restrict any use of the information to criminally investigate or prosecute any alcohol or drug abuse patient.[facility] Reason for Visit * Reason Comments [facility] [facility] - Other Encounter Details Date Type Department Care Team (Late st Contact Info) Description 01/15/2024 Telephone Radiation Oncology [address] [id number] Cain Duff MD [address] [place] [address] [facility] - Other Social History Tobacco Use Types Packs/Day Years Used Date Smoking Tobacco: Every Day Cigarettes 1.5 50 Smokeless Tobacco: Never Alcohol Use Standard Drinks/Week Comments Yes 0 (1 standard drink = 0.6 oz pur e alcohol) couple drinks a week. Area Deprivation Index Answer Date Edi rded National Score (1-100), lower number is lower ri sk 96 05/03/2023 State Score (1-10), lower number is lower risk 9 05/03/2023 Data from: https://www.neighborhoodatlas.medicine.[facility]/. Last address used for calculation [address] 05/03/2023 Sex and Gender Information Value Date Recorded Sex Assigned at Not on file Legal Sex Male 9:26 AM EST Gender Identity Not on file Sexual Orientation Not on file documented as of this encounter Miscellaneous Notes * Telephone Encounter - Kim Kamara - 01/15/2024 10:32 AM EDT Name of Caller:Nishant Relationship to Patient:Self Callback Reason for Call: Patient called and stated that as of 01/16 he will be out of his prescription of Flomax and has no refills left. He is wondering if this is something Dr. Duff would like him to stoptaking, or if he would be able to write another script for it. He has an appointment on 01/23 but bythen will have gone a week without the medication. IF a new script is filled he would like it sent to the [facility]. documented in this encounter Plan of Treatment Not on file documented as of this encounter Visit Diagnoses Not on filedocumented in this encounter Care Teams Bottom Liner Relationship Specialty Start Date End Date Mitch Perez DO [address] [place] [address] PCP - General Internal Medicine 03/03/23 documented as of this encounter
--- OUTSIDE RECORDS SUMMARY | 2024-12-03 08:53 | XMS_ITS | Clinical Summary ---
Author Organization [facility] Address [address] [place] [address] Care Team Providers Care Truck Striker Name Role Phone Mitch Perez DO Primary Care Provider [phone] Allergies Active Allergy Reactions Criticality Noted Date Comments Penicillins Unknown 03/03/2023 Sulfamethoxazole Hives 11/29/2022 Trimethoprim Hives 11/29/2022 Medications amLODIPine (NORVASC) 5 mg tablet 30 EA, Take 1 (ONE) tablet by mouth daily, Refills(s) 0 05/17/2021 Active aspirin, enteric coated (ASPIRIN, ENTERIC COATED) 81 mg EC tablet Take 81 mg by mouth. Active atorvastatin (LIPITOR) 40 mg tablet TAKE 1 TABLET DAILY in evening 01/11/2022 Active clopidogrel (PLAVIX) 75 mg tablet Take 1 tablet by mouth once daily. 01/11/2022 Active colchicine 0.6 mg tablet Take 0.6 mg by mouth. Active lisinopril (ZESTRIL) 40 mg tablet 30 EA, Take 1 (ONE) tablet by mouth daily, Refills(s) 0 05/17/2021 Active HYDROcodone-mahi taminophen (NORCO) 5-325 mg per tablet Refill(s) 0, 120 EA, TAKE 1 TABLET BY MOUTH EVERY 6 HOURS 05/17/2021 Active tamsulosin (FLOMAX) 0.4 mg Take 2 capsules by mouth daily at bedtime. 60 capsule 6 08/05/2024 Active Active Problems Problem Noted Date Diagnosed Date HTN (hypertension) 06/02/2023 Assessment & Plan (06/02/2023 9:56 AM EST): Assessment: BP 148/76 in PACC. Takes amlodipine and lisinopril. Follows with his PCP. Hypercholesteremia 06/02/2023 Assessment & Plan (06/02/2023 9:56 AM EST): Assessment: Takes Lipitor, Plavix, and aspirin. Follows with his PCP. H/o stroke in 2019. H/o smoking. Stroke 06/02/2023 Assessment & Plan (06/02/2023 9:55 AM EST): Assessment: h/o stroke in 2019. Evaluated by neurology in the past, now only follows with his PCP. Takes Plavix, aspirin and Lipitor. No carotid bruits on exam. Mucopurulent chronic bronchitis 05/03/2023 Assessment & Plan (06/02/2023 9:55 AM EST): Assessment: Smokes daily. Denies CP, SOB, or cough. Does not use inhalers. Family History Medical History Relation Comments Cancer Brother 1 Cancer Brother 2 Anesthesia Problems No Family History Malig Hyperthermia No Family History Relation Status Comments Brother 1 Brother 2 Social History Tobacco Use Types Packs/Day Years Used Date Smoking Tobacco: Every Day Cigarettes 1.5 50 Smokeless Tobacco: Never Alcohol Use Standard Drinks/Week Comments Yes 0 (1 standard drink = 0.6 oz pur e alcohol) couple drinks a week. PHQ-2 Answer Date Recorded PHQ-2 score 0 01/24/2024 Area Deprivation Index Answer Date Edi rded National Score (1-100), lower number is lower ri sk 96 05/03/2023 State Score (1-10), lower number is lower risk 9 05/03/2023 Data from: https://www.neighborhoodatlas.medicine.[facility].edu/. Last address used for calculation [address] 05/03/2023 Sex and Gender Information Value Date Recorded Sex Assigned at Not on file Legal Sex Male 9:26 AM EST Gender Identity Not on file Sexual Orientation Not on file Last Filed Vital Signs Vital Sign Reading Time Taken Comments Blood Pressure 148/73 01/24/2024 9:09 AM EDT Pulse 66 01/24/2024 9:09 AM EDT Temperature 36.6 C (97.9 F) 06/20/2023 1:30 PM EST Respiratory Rate 18 01/24/2024 9:09 AM EDT Oxygen Saturation 100% 01/24/2024 9:09 AM EDT Inhaled Oxygen Concentration - - Weight 75.1 kg (165 lb 9.6 oz) 01/24/2024 9:09 A M EDT Height 177.8 cm (5' 10 ) 06/20/2023 10:52 AM EST Body Mass Index 23.76 06/20/2023 10:52 AM EST Plan of Treatment Health Maintenance Due Date Last Done Comments Abdominal Aortic Aneurysm Screening 1952 Annual PCP Team Chronic Disease Visit 1970 Anxiety Screening 1970 Depression Screening 1970 Hepatitis C Screening [address] Colonography 1997 Colonoscopy 1997 Fecal Occult Blood 1997 Sigmoidoscopy 1997 Lung Cancer Screening 2002 Shingrix Vaccine (1 of 2) 2002 Medicare Annual Wellness Visit 11/05/2010 Covid-19 Vaccine ( - season) 2024 Advance Directive Discussion 05/08/2024 Influenza Vaccine (#1) 2025 05/10/2023, 2019 Cologuard (FIT-DNA) 01/13/2025 01/13/2022 Colorectal Cancer Screening 01/13/2025 Diabetes Screening 05/17/2025 05/17/2022 RSV Vaccine (1 - 1-dose 75+ series) 2027 DTaP,Tdap,Td Vaccine (3 - Td or Tdap) 11/29/2032, 09/04/2017 Pneumococcal Vaccine: 50+ Completed 2019, 01/08/2020, 10/04/2018 Medical Devices Implanted Type Area Non Destructive Evaluation Specialist Device Identifier Shelf Expiration Date Model / Serial / Lot Seed Brachysource Iodine-125 Brachytherapy Loose Prostate - [id number] Implanted:Qty: 92 on 06/20/2023 by Cain Duff MD at [facility] Implant [employer] [id number] / / Description:Sources: 92 Mcbee: 28 Insurance MEDICARE MEDICARE RAILROAD Care Teams Truck Striker Relationship Specialty Start Date End Date Mitch Perez DO [address] [place] [address] PCP - General Internal Medicine 03/03/23
--- OUTSIDE RECORDS SUMMARY | 2024-12-03 08:53 | XMS_ITS | Encounter Summary ---
Author Organization [facility] Address [address] [place] [address] Care Team Providers Care Insurance Consultant Name Role Phone Mitch Perez DO Primary Care Provider [phone] Source Comments In the event this information is protected by the Federal Confidentiality of Alcohol and Drug AbusePatient Records regulations: The Federal rules restrict any use of the information to criminally investigate or prosecute any alcohol or drug abuse patient.[facility] Encounter Details Date Type Department Care Team (Late st Contact Info) Description 06/02/2023 Lab Requisition [facility] [address] [place] [address] Cain Duff MD [address] [id number] Person encountering health services to consult on behalf of another person Social History Tobacco Use Types Packs/Day Years [...] is lower risk 9 05/03/2023 Data from: https://www.neighborhoodatlas.medicine.[facility]/. Last address used for calculation [address] 05/03/2023 Sex and Gender Information Value Date Recorded Sex Assigned at Not on file Legal Sex Male 9:26 AM EST Gender Identity Not on file Sexual Orientation Not on file documented as of this encounter Plan of Treatment Not on file documented as of this encounter Procedures Procedure Name Priority Date/Time Associated Diagnosis Comments OUTSIDE SURG PATH SLIDE REVIEW Routine 06/02/2023 4:29 PM EST Person encountering health services to consult on behalf of another person documented in this encounter Results * OUTSIDE SURG PATH SLIDE REVIEW (06/02/2023 4:29 PM EST) Case Report Surgical Pathology Report Case: [id number] Authorizing Provider: Cain Duff MD Collected: 06/02/2023 04:29 PM Ordering Location: [facility] Received: 06/02/2023 04:28 PM [facility] Pathologist: Cliff Geronimo MD Specimen: SLIDE(S), 78 SLIDES, [id number] 06/12/2023 1:27 PM EST [facility] FINAL DIAGNOSIS A. Prostate, left lateral base, biopsy ([id number], 05/31/2022, 1A): - Benign prostatic tissue. B. [...] mid, biopsy (11 A): - Prostatic adenocarcinoma, Carmela score 3+3=6 (Grade [...] Present Intraductal carcinoma: Present Block for additional biomarkers/molecul ar studies: F1 06/12/2023 1:27 PM EST [facility] at 1327 EST Diagnosis Comment Parts C, F, I, K, and L were reviewed with Dr. Favio Pierce, who concurs. 06/12/2023 1:27 PM EST [facility] Performing Lab Diagnostic interpretation performed at [facility], [address] [place], [place] [address]IA# [id number] Director Of Audiology: Elton Mccarty M.D. 06/12/2023 1:27 PM EST [facility] Blocks or Slides MICROSCOPE SLIDE / Unknown 06/02/2023 4:29 PM EST 06/02/2023 4:28 PM EST us Cain Duff MD SURGICAL PATHOLOGY Final Result [facility] [address] [place] [address] documented in this encounter Visit Diagnoses Diagnosis Person encountering health services to consult on behalf of another person Other person consulting on behalf of another person documented in this encounter Care Teams Insurance Consultant Relationship Specialty Start Date End Date Mitch Perez DO [address] [place] [address] PCP - General Internal Medicine 03/03/23 documented as of this encounter
--- OUTSIDE RECORDS SUMMARY | 2024-12-03 08:53 | XMS_ITS | Encounter Summary ---
Author Organization [employer] Address [id number] [address] [place] [address] Care Team Providers Care K 9 Police Officer Name Role Phone Mitch Perez DO Primary Care Provider Encounter Details Date Type Department Care Team (Late st Contact Info) Description 07/05/2022 Orders Only [facility] [address] [place] [id number] Claire Miner Prostate cancer ([facility]) Social History Tobacco Use Types Packs/Day Years Used Date Smoking Tobacco: Every Day Cigarettes 1 42 Smokeless Tobacco: Never Alcohol Use Standard Drinks/Week Comments Yes 2 (1 standard drink = 0.6 oz pur e alcohol) occcassionally Sex and Gender Information Value Date Recorded Sex Assigned at Not on file Legal Sex Male 9:23 AM EDT Gender Identity Not on file Sexual Orientation Not on file COVID-19 Exposure Response Date Recorded In the last month, have you been in contact with someone who was confirmed or suspected to have Coronavirus / COVID-19? No / Unsure 06/20/2022 11:58 AM EST documented as of this encounter Plan of Treatment Not on file documented as of this encounter Procedures Procedure Name Priority Date/Time Associated Diagnosis Comments UNLISTED LAB TEST Routine 06/29/2022 Prostate cancer ([facility]) documented in this encounter Results * Unlisted Lab Test(Not for Covid-19 Testing), (06/29/2022) 06/29/2022 us Zac Stevenson MD LAB BLOOD ORDERABLES Final R esult [facility] documented in this encounter Visit Diagnoses Diagnosis Prostate cancer (CMS-HCC) Malignant neoplasm of prostate documented in this encounter Care Teams K 9 Police Officer Relationship Specialty Start Date End Date Mitch Perez DO [address] [place] [address] PCP - General Internal Medicine 11/24/21 documented as of this encounter
--- OUTSIDE RECORDS SUMMARY | 2024-12-03 08:53 | XMS_ITS | Clinical Summary ---
Author Organization [employer] Address [id number] [address] [place] [address] Care Team Providers Care Ply Bander Name Role Phone Mitch Perez DO Primary Care Provider [phone] Allergies Active Allergy Reactions Criticality Noted Date Comments Penicillins Rash Low 01/19/2022 Sulfamethoxazole-Trimethoprim Rash Low 2021 Medications amLODIPine (NORVASC) 5 mg tablet 30 EA, Take 1 (ONE) tablet by mouth daily, Refills(s) 0 05/17/2021 Active atorvastatin (LIPITOR) 40 mg tablet TAKE 1 TABLET DAILY in evening 01/11/2022 Active clopidogreL (PLAVIX) 75 mg tablet Take 1 (ONE) tablet by mouth daily 01/11/2022 Active HYDROcodone-mahi taminophen (NORCO) 5-325 mg per tablet Refill(s) 0, 120 EA, TAKE 1 TABLET BY MOUTH EVERY 6 HOURS 05/17/2021 Active lisinopriL (PRINIVIL,ZESTR IL) 40 mg tablet 30 EA, Take 1 (ONE) tablet by mouth daily, Refills(s) 0 05/17/2021 Active colchicine (COLCRYS) 0.6 mg tablet Take 1 tablet (0.6 mg total) by mouth in the morning. Active aspirin 81 mg Take 1 tablet (81 mg total) by mouth in the morning. stroke. Active Active Problems Problem Noted Date Diagnosed Date Abnormal MRI 03/15/2022 Overview (03/15/2022): Added automatically from request for surgery [id number] Prostate cancer Overview (11/28/2022): Hypertension, smoker, had stroke now on plavix. ==== 11/28/2022 ==== has not seen XRT therapist yet. ==== 08/01/2022 ==== Prolaris test places him in the single modal treatment. Name and date of confirmed. Copy report given to patient. HIghest Carmela Grade: Tobyhanna 3+3=6. Grade group 1. # of cores Positive: 6:13 Laterality: bilateral Patient's PSA is: 6.81 Prostate Volume is: 30cc PSA density is: 0.2 Clinical stage is: ct1c NCCN clinical risk group is: Low risk Based on social security life tables patient is predicted life expectancy is: 14.59 Baseline urinary function is: No difficulties Baseline sexual function is: Weaker erections but can have intercourse. Comorbidities: Hypertension, smoker, had stroke now on plavix. ==== 02/28/2022 ==== #### MRI PIRADS 4 ==== 01/19/2022 ==== no family history prostate carcinoma. For my records PSA MarchOctober 2020 5.58. March 2021 4.92. October of 2021 6.81. We did discuss then then utility of obtaining an MRI of the prostate to see if he would benefit from a targeted biopsy versus standard biopsy. He does understand the false negative rate of MRI as well Assessment & Plan (06/20/2022 12:37 PM EST): I reviewed the report of the prostate biopsy, which demonstrated an adenocarcinoma of the prostate. If applicable, I advised studies to evaluate for metastatic involvement. We reviewed the NCCN guidelines in general and specifically that which is appropriate for the patient. A copy of the guidelines were given to the patient as well as his pathology report. Additional information including the 100 questions book regarding prostate cancer as well as information printed from the Internet from accepted Cancer Society sources. Patient was made aware of potential treatment options including da Kait or open radical prostatectomy, IMRT, brachytherapy, cryoablation, hormonal therapy, active surveillance, and nonintervention were reviewed. Discussion was held, and questions were answered. As this was the 1st discussion with the patient we will see him back in the office after he has had time to review the material presented to him and generate further questions so we can solidify his treatment choice going forward. We discussed obtaining a Prolaris test as active surveillance appears to be 1 of the preferred methods of following the patient's prostate carcinoma. Assessment & Plan (02/28/2022 12:19 PM EDT): Fusion guided biopsy prostate. Under anesthetic. Pt has held his plavix in the past. Needs to hold. rx for levaquin. Assessment & Plan (01/19/2022 1:41 PM EDT): The etiologies of elevated PSA including prostate cancer, BPH, natural variation, laboratory error, recent ejaculation, instrumentation, clinical or subclinical infection were reviewed. Options of ultrasound prostate biopsy, active surveillance, repeating the test, or non-intervention were discussed. We discussed the lack of evidence supporting empiric antibiotics. Discussed risk finding prostate cancer in 1:3 men with a PSA above 4 and 1:4 men with a PSA above 3. Pt understands that disease volume and grade are not necessarily correlated with PSA values (especially with PSA less than 10) and that patients can harbor significant /life- threatening disease within this PSA range Risks of biopsy including bleeding, infection, urinary retention, and false- negative results were reviewed. questions were answered. Hypertension COPD (chronic obstructive pulmonary disease) Overview (05/17/2022): noted on Xray 05/31/21 Dental disease Overview (05/17/2022): missing teeth Liver cyst Overview (05/17/2022): 3.3 cm oval cyst in left hepatic lobe, noted on CT abdomen 03/31/22 HL (hearing loss) Hiatal hernia Overview (05/17/2022): small to moderate per CT abd 03/31/22 Other hyperlipidemia Family History Medical History Relation Name Comments Cancer Brother 1 vivian Cancer Brother 2 Stroke Father Kidney disease Mother Dementia Sister Prostate cancer Neg Hx Relation Name Status Comments Brother 1 vivian Brother 2 Father Mother Sister Alive Social History Tobacco Use Types Packs/Day Years Used Date Smoking Tobacco: Every Day Cigarettes 1 42 Smokeless Tobacco: Never Tobacco Cessation:Ready to Q uit: No; Counseling Given: Yes Alcohol Use Standard Drinks/Week Comments Yes 2 (1 standard drink = 0.6 oz pur e alcohol) occcassionally Hunger Screening Answer Date Recorded Within the past 12 months we worried whether our food would run out before we got money to buy more. Never True 08/01/2022 Within the past 12 months th e food we bought just didn't last and we didn't have money to get more. Never True 08/01/2022 Sex and Gender Information Value Date Recorded Sex Assigned at Not on file Legal Sex Male 9:23 AM EDT Gender Identity Not on file Sexual Orientation Not on file Last Filed Vital Signs Vital Sign Reading Time Taken Comments Blood Pressure 126/81 11/28/2022 2:18 PM EDT Pulse 62 11/28/2022 2:18 PM EDT Temperature 36.5 C (97.7 F) 05/31/2022 10:15 AM EST Respiratory Rate 16 08/01/2022 12:14 PM EDT Oxygen Saturation 100% 05/31/2022 10:15 AM EST Inhaled Oxygen Concentration - - Weight 70.3 kg (155 lb) 11/28/2022 2:18 PM EDT Height 177.8 cm (5' 10 ) 11/28/2022 2:18 PM EDT Body Mass Index 22.24 11/28/2022 2:18 PM EDT Plan of Treatment Health Maintenance Due Date Last Done Comments Depression Screening 1964 DTaP,Tdap and Td Vaccines (1 - Tdap) 1971 Zoster (Shingles) Vaccine (1 of 2) 1971 Abdominal Aortic Aneurysm (AAA) Screen 2017 Fall Risk Screening 2017 Adult BMI Screening 11/29/2023 11/28/2022 Tobacco Screening 11/29/2023 11/28/2022 Influenza Vaccine 01/06/2025 04/08/2020 Medical Devices Not on file Insurance MEDICARE Care Teams Ply Bander Relationship Specialty Start Date End Date Mitch Perez DO [address] [place] [address] PCP - General Internal Medicine 11/24/21
[2024-12-03 09:07] LABS: Hematocrit 45.5 % (42.0-54.0); Hemoglobin 15.7 g/dL (14.0-18.0); Immature Granulocytes Abs Auto 0.01 10^3/uL (0.00-0.03); Immature Granulocytes Pct Auto 0.2 % (0.0-0.5); Lymphocytes Absolute Auto 1.8 10^3/uL (1.2-3.8); Mean Corpuscular HGB Conc 34.5 g/dL (29.9-35.2); Mean Corpuscular Hemoglobin 34.1 pg (25.9-34.0); Mean Corpuscular Volume 98.7 fL (80.0-94.0); Platelet Count 216 10^3/uL (150-450); Red Blood Count 4.61 10^6/uL (4.70-6.10); White Blood Count 5.7 10^3/uL (4.0-11.0)
[2024-12-03 10:47] LABS: Alanine Aminotransferase 40 U/L (16-63); Albumin Globulin Ratio 1.2; Albumin Level 3.9 g/dL (3.4-5.0); Alkaline Phosphatase 102 U/L (46-116); Anion Gap 10.3; Aspartate Amino Transferase 25 U/L (15-37); Blood Urea Nitrogen 12.0 mg/dL (7.0-18.0); Calcium 9.5 mg/dL (8.5-10.1); Carbon Dioxide 30.8 mmol/L (21.0-32.0); Chloride 103 mmol/L (98-107); Cholesterol 132 mg/dL (<=200); Estimated GFR (African America >60 (>=60 mL/min/1.73m^2); Estimated GFR (Non-African Ame >60 (>=60 mL/min/1.73m^2); Globulin 3.2 g/dL; Glucose 106 mg/dL (74-106); HDL Cholesterol 90 mg/dL (40-60); Potassium 4.1 mmol/L (3.5-5.1); Sodium 140 mmol/L (136-145); Total Protein 7.1 g/dL (6.4-8.2); Triglycerides 91 mg/dL (<=150); VLDL CHOLESTEROL 18.2 mg/dL
== END 2024-12-03 08:49 | disposition home or self-care (01) ==
LOC: LAB 08:51
PROVIDERS: PCP Internal Medicine; Visit Provider Internal Medicine
DX: I67.2 Cerebral atherosclerosis (principal); E78.00 Pure hypercholesterolemia, unspecified; I10 Essential (primary) hypertension
CPT/HCPCS: 36415; 80053; 80061; 85025

== ENCOUNTER 2025-02-28 13:36 | Outpatient (OUT) | payer MEDICARE, SELFPAY ==
--- OUTSIDE RECORDS SUMMARY | 2025-02-25 07:37 | XMS_ITS | Continuity of Care Document ---
Author Organization [facility] Address [address] [place] [address] Phone Care Team Providers Care Hand Stamper Name Role Phone Mitch Perez DO Primary Care Provider [phone] Mitch Perez DO Attending Provider [phone] Provider, Outside Attending Provider Unavailable Care Teams Patient Care Team Team Status: Active Member Role/Relationship Status Dates Mitch Perez DO Primary Care Provider Active Patient Care Team Team Status: Active Member Role/Relationship Status Dates Mitch Perez DO Primary Care Provider Active Start: December 03, 2024 Mitch Perez DOAttending ProviderActiveStart: December 03, 2024 Patient Care Team Team Status: Active Member Role/Relationship Status Dates Mitch Perez DO Primary Care Provider Active Start: January 21, 2025 Outside ProviderAttending ProviderActiveStart: January 21, 2025 Patient Care Team Team Status: Inactive Member Role/Relationship Status Dates Mitch Perez DO Primary Care Provider Active Start: February 25, 2025 End: February 25enlori Perez DOAttending ProviderActiveStart: February 25, 2025 End: February 25, 2025 Chief Complaint and Reason for Visit Chief Complaint Admit Date 3 mo f/u February 25, 2025 1 0:48am Reason for Visit Admit Date Cerebral atherosclerosis February 25, 2 025 10:48am Gout February 25, 2025 1 0:48am HTN (hypertension) February 25, 2025 1 0:48am Hx of TIA (transient ischemic attack) an d stroke February 25, 2025 10:48am Hypercholesterolemia February 25, 2025 10:48am Lumbar spondylosis February 25, 2025 1 0:48am Nicotine dependence February 25, 2025 1 0:48am Opiate analgesic use agreement exists Oc tober 2024 10:48am Prostate cancer February 25, 2025 1 0:48am Allergies, Adverse Reactions, Alerts Allergen Type Severity Reaction Last Updated Verified Status Penicillins Allergy Unknown Hives February 25, 2025 10:57am Y es Active sulfamethoxazole Allergy Unknown Hives February 25, 2025 10:5 7am Yes Active trimethoprim Allergy Unknown Hives February 25, 2025 10:57am Yes Active Social History Smoking Status Status Start Date End Date Date of Observa tion Smokes tobacco daily (finding) December 01, 2022 1:55pm Observation Status Observation Response Date of Response Legal Sex Male (finding) [facility] Family History Relationship Condition 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 mother Renal failure Unknown fatherCerebrovascular accident (CVA)UnknownfatherHistory of strokeUnknown Problems Active Problems Problem Diagnosis/Recorded Date Onset Date Status C omments Asymptomatic stenosis of intracranial artery August 08, 2023 1:28pm Unknown Active Personal history of transient ischemic attack (TIA), and cerebral infarction without residual deficitsApril 2023 1:28pmUnknownActiveNicotine dependence August 06, 2023 7:43pmUnknownActiveLDCT: no suspicious nodules - 02/2023, 02/2024Spondylosis of lumbar region without myelopathy or radiculopathyApril 2023 1:28pmUnknownActiveProstate cancerJuly 2022 3:06amUnknownActive Dx: 05/2022, s/p brachytherapyPSA: 0.55 - 01/2024,GoutApril 2024 10:30am UnknownActiveOpiate analgesic use agreement existsJuly 2023 9:52amUnknown ActiveCerebral atherosclerosisMarch 2023 7:45pmUnknownActive HypercholesterolemiaJuly 2024 10:36amUnknownActiveBenign localized hyperplasia of prostate with urinary retentionApril 2023 1:28pmUnknown ActiveDermatitis, dyshidroticApril 2024 10:41amUnknownActiveHx of TIA (transient ischemic attack) and strokeMarch 2023 7:45pmUnknownActiveHTN (hypertension)November 29, 2022 3:06amUnknownActiveLumbar spondylosisMarch 2023 12:37pmUnknownActiveInactive/Resolved Problems Problem Diagnosis/Recorded Date Onset Date Status C omments Fall due to tripping on loos e carpet November 29, 2022 6:22am Unknown Resolved Prostate noduleApril 2023 1:28pmUnknownResolvedClosed fracture of left distal radiusJuly 2022 6:22amUnknownResolvedProblem List clean-up per request of Phys. EHR CmteAbrasion of left kneeJuly 2022 6:22amUnknown Resolved Medications Medication Status Dose Units Route Directions Qty Days Refills S tart Date Stop Date End Date Reason(s) Instructions Adherence Hydrocodone-Acetaminophen 5- 325 mg tablet Discontinued 1 TAB PO Q6H as needed for Pain 120 30 0 August 17, 2023 September 18, 2023 1:24pmSpondylosis of lumbar spine Spondylosis without myelopathy or radiculopathy, lumbar regionRx start 07/17/23 Atorvastatin 40 mg okgtbiJaotancqcxdn81MFEVFoinf88423Tklnr 2023 6:10pm August 15, 2024 2:01pmHydrocodone-Acetaminophen 5-325 mg mtqviaWreopqqjqnwr4GYG POQ6H as needed for [id number] 2023June 2023 1:52pmSpondylosis of lumbar spine Spondylosis without myelopathy or radiculopathy, lumbar regionRx start 09/17 Hydrocodone-Acetaminophen 5-325 mg sfspjwKxltqcptjeai5UMEZMM6M as needed for Qilw180908Zhao 2023July 2023 11:00amSpondylosis of lumbar spine Spondylosis without myelopathy or radiculopathy, lumbar regionRx start 10/18 Hydrocodone-Acetaminophen 5-325 mg emutciJcrqythfdzxy7TTSSUE8N as needed for Jqcr861836Sxqz 2023 8:41pmSpondylosis of lumbar spine Spondylosis without myelopathy or radiculopathy, lumbar regionHydrocodone- Acetaminophen 5-325 mg ahdavyFwcvdxjyazvk3KHLPPF6B as needed for Tpus457751 [place] 2023 9:05pmSpondylosis of lumbar spine Spondylosis without myelopathy or radiculopathy, lumbar regionHydrocodone- Acetaminophen 5-325 mg tqqmmtWcvzgqelvnaa7SNCBXHhbqu 6 hours as needed for pain [id number] 2023 9:07pmSpondylosis of lumbar spine Spondylosis without myelopathy or radiculopathy, lumbar regionHydrocodone- Acetaminophen 5-325 mg jpkdlgFukriytkuxjo5CWGZVRcbzu 6 hours as needed for pain [id number] 2023 9:10pmSpondylosis of lumbar spine Spondylosis without myelopathy or radiculopathy, lumbar regionHydrocodone- Acetaminophen 5-325 mg jzzzseVgqksjadjjdj5JKEGXKcczz 6 hours as needed for pain [id number] 2023September 2023 8:30pmSpondylosis of lumbar spine Spondylosis without myelopathy or radiculopathy, lumbar regionLisinopril 40 mg nokeogRyunsiccytdz34EQWEIxsye55409Bovbkzxbn 2023 1:37pmSeptember 2024 9:32amAmlodipine 5 mg sujnzbZbzbtcbvfczj2CKHQKnaov zzgvgwb65383Yqpuvmgji 2023 2:57pmSeptember 2024 9:32amHydrocodone-Acetaminophen 5-325 mg tablet Fxwszuweagnq1AABNGOtxrb 6 hours as needed for cbmx871294Yuhtiqnho 2023February 22, 2024 11:40amSpondylosis of lumbar spine Spondylosis without myelopathy or radiculopathy, lumbar regionstart 01/21 Hydrocodone-Acetaminophen 5-325 mg bhwkegGxfoisbnnkda3KTJXIWcpoa 6 hours as needed for lrtw113884Kqkzmoy 2023November 2023 1:59pmSpondylosis of lumbar spine Spondylosis without myelopathy or radiculopathy, lumbar regionClopidogrel 75 mg tabletActive0.ROUTE.VFTGCFD5690Ujrprkse 2023 9:45pmTAKE 1 TABLET BY MOUTH EVERY DAYComplies with drug therapyHydrocodone-Acetaminophen 5-325 mg tablet Vtbednbpzfmx9EBLXZCyrkh 6 hours as needed for ehim873218Lzupzbdt 2023April 25, 2024 2:13pmSpondylosis of lumbar spine Spondylosis without myelopathy or radiculopathy, lumbar regionHydrocodone- Acetaminophen 5-325 mg jrfimfIizgvzdlltib4QSSNFRpylt 6 hours as needed for pain [id number] 2023January 2024 8:21pmSpondylosis of lumbar spine Spondylosis without myelopathy or radiculopathy, lumbar regionHydrocodone- Acetaminophen 5-325 mg gerhidUhtesunfvuyu1JTRAPTkiwo 6 hours as needed for pain 017736Hnignoc 2024February 2024 12:27pmSpondylosis of lumbar spine Spondylosis without myelopathy or radiculopathy, lumbar regionHydrocodone- Acetaminophen 5-325 mg gmrgjpHcouoiioicyr2CJMFMEivlq 6 hours as needed for pain [id number] 2024March 2024 12:05pmSpondylosis of lumbar spine Spondylosis without myelopathy or radiculopathy, lumbar regionHydrocodone- Acetaminophen 5-325 mg ejitvmHjzfydicqvhv8USZEUZrvph 6 hours as needed for pain 239380Vfqfr pril 2024 10:21amSpondylosis of lumbar spine Spondylosis without myelopathy or radiculopathy, lumbar regionAtorvastatin 40 mg epspfjAoczbu86WNRLYatsg11955Qteuk 2024 2:00pmComplies with drug therapy Hydrocodone-Acetaminophen 5-325 mg yxxxaqPjjuzdlecavj6NVULFSongd 6 hours as needed for nyxv377838Poe 2024June 2024 10:14amSpondylosis of lumbar spine Spondylosis without myelopathy or radiculopathy, lumbar regionHydrocodone- Acetaminophen 5-325 mg mubfolBmzqsjrbciqi7BAPQOWsvys 6 hours as needed for pain 525842Qdmw 2024July 2024 12:24pmSpondylosis of lumbar spine Spondylosis without myelopathy or radiculopathy, lumbar regionHydrocodone- Acetaminophen 5-325 mg ganrvgBvppxkrvijtq7RLOWJHeelh 6 hours as needed for pain 145199Vvrj ugust 2024 9:28amSpondylosis of lumbar spine Spondylosis without myelopathy or radiculopathy, lumbar regionHydrocodone- Acetaminophen 5-325 mg ivbaonOpglcbjcgcjr0ZGBFVJnwwm 6 hours as needed for pain 439254Swzujs 2024September 2024 12:51pmSpondylosis of lumbar spine Spondylosis without myelopathy or radiculopathy, lumbar regionAmlodipine 5 mg nlgeumAvqrxp1VHEFOjnsi kghgirq24036Jnkwtwllf 2024 9:31amComplies with drug therapyLisinopril 40 mg fdynqyZbypuq97OROHCfbys35891Uubytyvov 5th, 2025 9:32am Complies with drug therapyHydrocodone-Acetaminophen 5-325 mg tokbhvEkvrhb8VPKGX Every 6 hours as needed for idlb472983Fozyuusyh 2024Spondylosis of lumbar spine Spondylosis without myelopathy or radiculopathy, lumbar regionComplies with drug therapyOxycodone-Acetaminophen (Percocet) 5-325 mg tabletDiscontinued1 - 2TABPO Every 6 hours as needed for ewgy6490Ehbj 2022July 2022 11:33am Fracture of distal end of radiusAtorvastatin 40 mg shktkuKdisdzdqbtuk36MSKBIocav Xin 2022 12:00amApril 2023 6:10pmHydrocodone-Acetaminophen 5-325 mg bmsideAouwmlkzzxts2SBEKJQ4G as needed for PainJuly 2022 12:00amMarch 2023 12:37pmClopidogrel 75 mg zdcojkOhxwbcyirqbc42MTPAAbnmi morningJuly 2022 12:00amNovember 2023 9:45pmAmlodipine 5 mg uxfeepOtvkwuxoukak8DNZR Every morningJuly 2022 12:00amSeptember 2023 2:58pmLisinopril 40 mg andfzlTduyvzbfjawb97YZNJNdcdeAaqp 2022 12:00amSeptember 2023 1:37pm Colchicine 0.6 mg CapsuleDiscontinued0.ROUTE.COMPLEXJuly 2022 12:00amApril 2023 10:38amtake 2 a day if needed for goutAspirin 81 mg Capsule Sknmpmpcwmhh92SKKKRwxowQadv 2022 12:00amJanuary 2024 10:51am Tamsulosin (Flomax) 0.4 mg capsuleActive0.8MGPODaily at bedtimeApril 2023 12:00amComplies with drug therapyColchicine 0.6 mg capsuleDiscontinued0.6MGPO Twice dailyApril 2023 10:38amApril 2023 10:39amColchicine 0.6 mg capsuleActive0.6MGPOTwice daily as needed for gout qltarc9021Qryuy 2023 10:38amComplies with drug therapyHydrocodone-Acetaminophen 5-325 mg tablet Vyoowviiyotd1XVQFAI2E as needed for Iqbh265520Akvwe pril 2023 7:51pmSpondylosis of lumbar spine Spondylosis without myelopathy or radiculopathy, lumbar regionRx start 07/17/23 Hydrocodone-Acetaminophen 5-325 mg cpemniHmoejxpyzmts8HOUGOVgboc 6 hours as needed for lcei572044Axykt 2024May 2024 8:36amSpondylosis of lumbar spine Spondylosis without myelopathy or radiculopathy, lumbar regionTriamcinolone Acetonide 0.1 % sbiifXqrgpb4HXHYTOYXNYTCDAhqnk oabga21307Jubsj 2024 12:00amComplies with drug therapy Immunizations Immunization Event Date Not Given Reason Dose Number Operating System Designer Lot Number Reason(s) Given Vaccine Information Statement (VIS) Detail Administration Location DTap, unspecified September 04, 2017 influenza, unspecified formulationDecember 2019influenza, unspecified formulationJanuary neumococcal Conjugate Vaccine, 13 valentMay 2018Pneumococcal Polysacc. Vaccine, 23 valentSeptember 2019Pneumococcal Polysacc. Vaccine, 23 valentSeptember 2019Tetanus, Diphtheria, Pertussis (Tdap)November [id number] [facility] [place] [facility] Device Date Implanted Device Details Orthopaedic fixation plate, non-bioabsorbable, sterile November 30, 2022 TATYANA: ()[id number] Issuing Agency: [facility] Device Id: [id number] bone screw, non-bioabsorbable, non-sterile November 30, 2022UDI: ()[id number] Issuing Agency: [facility] Device Id: [id number] bone screw, non-bioabsorbable, non-sterile November 30, 2022UDI: ()[id number] Issuing Agency: [facility] Device Id: [id number] bone screw, non-bioabsorbable, non-sterile November 30, 2022UDI: ()[id number] Issuing Agency: [facility] Device Id: [id number] bone screw, non-bioabsorbable, non-sterile November 30, 2022UDI: ()[id number] Issuing Agency: [facility] Device Id: [id number] bone screw, non-bioabsorbable, non-sterile November 30, 2022UDI: ()[id number] Issuing Agency: [facility] Device Id: [id number] bone wireJuly 2022UDI: ()[id number] Issuing Agency: [facility] Device Id: [id number] bone wireJuly 2022UDI: ()[id number] Issuing Agency: [facility] Device Id: [id number] Relevant Diagnostic Tests and/or Laboratory Data Laboratory Results Test Collection Date/Time Result Date/Time Result Interpretation Reference Range Result Comment Performing Site Cholesterol/HDL Ratio December 03, 2024 9:01am December 03 9:01am 1.5 3.3 - 4.4 LOW RISK4.4 - 7.1 AVERAGE RISK7.1 - 11.0 MODERATE RISK>11.0 HIGH RISK Anion GapJuly 2024 9:01amJuly 2024 9:01am10.3Basophils # (Auto)December 03, 2024 9:01amJuly 2024 9:01am0.0 10 3/uL0.0-0.1Prostate Specific AntigenSeptember 2024 10:15amSeptember 2024 10:15am0.25 ng/mL<2.60 Total PSA test methodology used is the Electrochemiluminescence Immunoassay by [employer]. Total PSA values by differing methodologies cannot be interchanged.Cholesterol LevelJuly 2024 9:01amJuly 2024 9:57tm621 mg/dL<=200Albumin/Globulin RatioJuly 2024 9:01amJuly 2024 9:01am1.2 Basophils (%) (Auto)December 03, 2024 9:01amJuly 2024 9:01am0.7 %0.2-2.0HDL CholesterolJuly 2024 9:01amJuly 2024 9:01am90 mg/dLAbove high normal 40-60> or =60 mg/dl - LOW CARDIOVASCULAR RISK<40 mg/dl - HIGH CARDIOVASCULAR RISKAlbuminJuly 2024 9:01amJuly 2024 9:01am3.9 g/dL3.4-5.0 Eosinophils # (Auto)December 03, 2024 9:01amJuly 2024 9:01am0.4 10 3/uL 0.0-0.7LDL Cholesterol, CalculatedJuly 2024 9:01amJuly 2024 9:01am 24.0 mg/dL<100 mg/dl UJZEOSF066-148 mg/dl NEAR OR ABOVE PGOIAXQ565-847 mg/dl BORDERLINE QFNC127-093 mg/dl HIGH>190 mg/dl VERY HIGHAlkaline PhosphataseJuly 2024 9:01amJuly 2024 9:64ey505 U/X40-182Cspqtscgisa (%) (Auto)December 03, 2024 9:01amJuly 2024 9:01am6.3 %0.9-7.0Triglycerides LevelJuly 2024 9:01amJuly 2024 9:01am91 mg/dL<=150Alanine Aminotransferase (ALT/SGPT)December 03, 2024 9:01amJuly 2024 9:01am40 U/E35-54CzbhdsxhwcDklz 2024 9:01amJuly 2024 9:01am45.5 %42.0-54.0VLDL CholesterolJuly 2024 9:01amJuly 2024 9:01am18.2 mg/dLAspartate Amino Transf (AST/SGOT)December 03, 2024 9:01amJuly 2024 9:01am25 U/C11-29QgebmneiusVubz 2024 9:01amJuly 2024 9:01am15.7 g/dL14.0-18.0BUN/Creatinine RatioJuly 2024 9:01amJuly 2024 9:01am14.1Immature Granulocyte # (Auto)December 03, 2024 9:01amJuly 2024 9:01am0.01 10 3/uL0.00-0.03Blood Urea NitrogenJuly 2024 9:01amJuly 2024 9:01am12.0 mg/dL7.0-18.0Immature Granulocyte % (Auto)December 03, 2024 9:01amJuly 2024 9:01am0.2 %0.0-0.5Calcium LevelJuly 2024 9:01amJuly 2024 9:01am9.5 mg/dL8.5-10.1Lymphocytes # (Auto)December 03, 2024 9:01amJuly 2024 9:01am1.8 10 3/uL1.2-3.8Chloride LevelJuly 2024 9:01amJuly 2024 9:36tn240 mmol/F96-665Pycldqaxaqf (%) (Auto) December 03, 2024 9:01amJuly 2024 9:01am31.1 %20.5-60.0Carbon Dioxide Level December 03, 2024 9:01amJuly 2024 9:01am30.8 mmol/L21.0-32.0Mean Corpuscular HemoglobinJuly 2024 9:01amJuly 2024 9:01am34.1 pgAbove high normal 25.9-34.0CreatinineJuly 2024 9:01amJuly 2024 9:01am0.85 mg/dL 0.70-1.30Mean Corpuscular Hemoglobin ConcentJuly 2024 9:01amJuly 2024 9:01am34.5 g/dL29.9-35.2Estimated GFR ()December 03, 2024 9:01amJuly 2024 9:01am>60>=60 mL/min/1.73m 2Mean Corpuscular VolumeJuly 2024 9:01amJuly 2024 9:01am98.7 fLAbove high .0-94.0 Estimated GFR (Non- AmericanJuly 2024 9:01amJuly 2024 9:01am >60>=60 mL/min/1.73m 2Monocytes # (Auto)December 03, 2024 9:01amJuly 2024 9:01am0.5 10 3/uL0.3-0.8GlobulinJuly 2024 9:01amJuly 2024 9:01am3.2 g/dLMonocytes (%) (Auto)December 03, 2024 9:01amJuly 2024 9:01am8.8 % 1.7-12.0Glucose LevelJuly 2024 9:01amJuly 2024 9:63xz492 mg/sN34-145 Mean Platelet VolumeJuly 2024 9:01amJuly 2024 9:01am8.7 fLBelow low normal9.5-13.5Potassium LevelJuly 2024 9:01amJuly 2024 9:01am4.1 mmol/L3.5-5.1Neutrophils # (Auto)December 03, 2024 9:01amJuly 2024 9:01am3.0 10 3/uL1.4-6.5Sodium LevelJuly 2024 9:01amJuly 2024 9:37hh204 mmol/L 136-145Neutrophils (%) (Auto)December 03, 2024 9:01amJuly 2024 9:01am52.9 % 43.0-75.0Total BilirubinJuly 2024 9:01amJuly 2024 9:01am1.8 mg/dL Above high normal0.2-1.0Platelet CountJuly 2024 9:01amJuly 2024 9:80in987 10 3/qQ620-747Jvuci ProteinJuly 2024 9:01amJuly 2024 9:01am7.1 g/dL6.4-8.2Red Blood CountJuly 2024 9:01amJuly 2024 9:01am 4.61 10 6/uLBelow low normal4.70-6.10Red Cell Distribution WidthJuly 2024 9:01amJuly 2024 9:01am14.0 %11.0-15.0Corrected White Blood CountJuly 2024 9:01amJuly 2024 9:01am5.7 10 3/uL4.0-11.0 Vital Signs Vital Reading Result Reference Range Collection Date/Time Height 70 [in_i] February 25, 2025 11:36xgOegdaa21.20 kgOct2024 11:14amHeart Rate58 /ikv67-723Wbwpxss 21st, 2025 11:14amRespiratory rate12 /uzz56-41Zmawtwj 21st, 2025 11:14amBP Emcqrvqe608 mm[Hg]100-140Oct2024 11:14amBP Ilflfvmiy86 mm[Hg]60-100Oct2024 11:14amBMI (Body Mass Index)24.0 kg/l5Oprlvss2024 11:14am Advance Directives Advance Directive Response Recorded Date/ Time Advance Directives No November 29 3:50am Insurance Providers Guarantor Nishant Mars Address [address] [facility] [address]Injfjcb Info.Home Phone: Payer Group Member ID Coverage Type Subscriber Relationship to Subscriber Effective Date Expiration Date Medicare [id number] L Butler Id: [id number] [address] [facility] [address] Home Phone: SelfMedicare [employer] [id number] L Butler Id: [id number] [address] [facility] [address] Home Phone: Self Encounters Encounter Location(s) Arrival/Admit Date Discharge/Departure Date Discharge/Departure Disposition Provider(s) Non-patient / Non-visit -[facility] J susan 2024 9:01am Jorge Manzo-patient / [facility]September 2024 10:15amOutside ProviderDeparted Physician/Provider [facility] 2024 11:35am Discharged to home care or self care (routine discharge)Mitch Perez DO Recent Diagnosis Onset Date Admit Date Cerebral atherosclerosis Unknown February 25, 2025 10:48am Gout Unknown February 25 10:48am HTN (hypertension) Unknown February 25, 2025 10:48am Hx of TIA (transient ischemi c attack) and stroke Unknown February 25, 2025 10:48am Hypercholesterolemia Unknown February 10:48am Lumbar spondylosis Unknown February 25, 2025 10:48am Nicotine dependence Unknown February 10:48am Opiate analgesic use agreement exists Unknown February 25, 2025 10:48am Prostate cancer Unknown February 25 10:48am Assessments Diagnosis Onset Date Resolution Status Admit Date Cerebral atherosclerosis acuteOctober 2024 10:48amGoutacuteOctober 2024 10:48amHTN (hypertension)acuteOctober 2024 10:48amHx of TIA (transient ischemic attack) and strokeacuteOct[facility] 2024 10:48amHypercholesterolemiaacute February 25, 2025 10:48amLumbar spondylosisacuteOctober 2024 10:48am Nicotine dependenceacuteOctober 2024 10:48amOpiate analgesic use agreement existsacuteOctnorton hospital 2024 10:48amProstate canceracuteOctnorton hospital 2024 10:48am Plan of Treatment Author [facility] Perez [facility] 11:34amI have instructed this patient to consume a healthy, low-fat, low-salt diet. I have also encouraged them to continue exercise with weight loss to achieve/maintain a BMI < 30. I have instructed this patient on the correct procedure for obtaining home BP measurements:? - rest for 5 minutes w/o talking. - positioned w/ feet on floor and arms supported. - average best 2/3 readings w/ goal < 135/85. - update office w/ home readings in 2 weeks. Continue Amlodipine and Lisinopril without interruption This patient has been encouraged to quit tobacco use immediately. They are aware of the hazards associated with tobacco use, including but not limited to respiratory infections, vascular disease and cancers. Scheduled for yearly LDCT chest for lung cancer screening. LDCT: no suspicious nodules 02/2023, 02/2024 Schedule LDCT for lung cancer screening I have instructed this patient on a low fat, high fiber diet and exercise. I have discussed the primary and secondary prevention benefits attributed to lowering LDL cholesterol. I have also discussed the medical treatment of elevated cholesterol, which is based on the 10 year ASCVD risk. Continue Atorvastatin without interruption No s/s of acute, focal neurologic deficits. I have reviewed stroke symptoms and instructed him to go to ER for any suspicious symptoms. Continue secondary preventive measures. Continue Plavix, ASA without interruption I have instructed this patient to avoid bending, twisting or lifting. I have also instructed on use of intermittent heat and ice as needed. They may schedule a massage or gentle manipulation. I instructed them on the safe use of Tylenol, Lidocaine and stretching exercises. I informed them of alternative modes of treatment for severe pain, which may include referral to physical therapy or pain management. 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 - aware of meats and alcohol as triggers Last flare for over a year ago Begin Colchicine bid for 5 days, then decrease to qd for additional 5 days No new or recurrent suspicious symptoms. Continue secondary preventive measures. Instructed to quit tobacco use immediately This patient requires opiate use on a daily basis to control pain. This patient does not exhibit drug-seeking or aberrant behavior. This patient is able to continue with ADL, with an adequate quality of life, that they would not be able to achieve without the prescription pain medication. There has been no surgical treatment recommended for this condition. Use of non- opiate treatment should be continued, such as nonstrenuous and aquatic exercises. This patient has a pain management contract and they have been counseled on safe storage of the medication. They have been counseled on the risks of concomitant use with alcohol or sedating meds. PDMP is being followed and this patient's OARRS report is being monitored every 90 days. Future Tests Future scheduled test information is unavailable Pending Tests Pending diagnostic test information is unavailable Future Visits Future appointment information is unavailable Future Procedures Future procedure information is unavailable Future Medications Future medication information is unavailable Patient Instructions Patient instructions are unavailable
--- NOTE | 2025-02-28 13:40 | CT_ITS ---
The [address] [address] Patient Name: BLU KUO MRN: [id number] date: 1950 Sex: M Assigned Patient Location: CT Current Patient Location: Accession/Order Number: [id number] Exam Date: 02/28/2025 13:48 Report Date: 03/01/2025 09:10 At the request of: KATALINA VAUGHAN DO Procedure: CT lung screening low-dose CT Chest lung screening without contrast TECHNIQUE: Axial imaging with 2-D reconstruction. The CT exam was performed using one or more the following dose reduction techniques: Automated exposure control, adjustment of the MA and/or Kv according to patient size, or use of the iterative reconstruction technique. History: Nicotine dependence COMPARISON: 02/23/2024 THYROID: Unremarkable TRACHEA AND BRONCHI: Patent ESOPHAGUS: Unremarkable. HEART: Within normal limits PERICARDIAL EFFUSION: None CORONARY ARTERY CALCIFICATION: Moderate MEDIASTINUM: No adenopathy. No pneumoperitoneum. No mediastinal hematoma. PULMONARY FRANCISCO: No hilar mass or adenopathy is seen. THORACIC AORTA continued atherosclerosis LUNG NODULE None LUNGS: Lungs are clear PLEURAL EFFUSION: None PNEUMOTHORAX: No pneumothorax seen. CHEST WALL: No abnormality AXILLA:Unremarkable BONY STRUCTURES Intact UPPER ABDOMEN: Images of the upper abdomen are noncontributory. Small hiatal hernia. CT/CT lung screening low-dose IMPRESSION: No visible lung nodule. FINAL ASSESSMENT: Negative. Lung-RADS Version 1.0 Assessment Category: 1 REMARKS: Continued annual screening with LDCT in 12 months is recommended. Impression dictated by: Arnav Cleveland M.D. 03/01/2025 9:10 AM Dictation Location: [employer] Electronically authenticated by: [id number] Y Date: 03/01/2025 09:10
--- OUTSIDE RECORDS SUMMARY | 2025-02-28 13:41 | XMS_ITS | Clinical Summary ---
Author Organization [facility] Address [address] [place] [address] Care Team Providers Care Burnt Lime Drawer Name Role Phone Unavailable Primary Care Provider Unavailabl e Social History Tobacco UseTypesPacks/DayYears UsedDateSmoking Tobacco: Never AssessedSex and Gender InformationValueDate RecordedSex Assigned at BirthNot on fileLegal Sex Male07/20/2022 8:12 PM EDTGender IdentityNot on fileSexual OrientationNot on file Plan of [place] [phone]
--- OUTSIDE RECORDS SUMMARY | 2025-02-28 13:41 | XMS_ITS | Clinical Summary ---
Author Organization [facility] Address [address] [place] [id number] Care Team Providers Care Food And Nutrition Services Supervisor Name Role Phone Mitch Perez Nathan PAZ Primary Care Provider [phone] Allergies Active AllergyReactionsCriticalityNoted PalkTyvrvwkxWgasvcfjudeAenmyiw19/27/2023 UikaadqaibuviodzKzuxj44/25/7785WgaoolrlntliBvekh26/25/2023 Medications MedicationSigDispense QuantityRefillsLast FilledStart DateEnd DateStatus amLODIPine (NORVASC) 5 mg tablet 30 EA, Take 1 (ONE) tablet by mouth daily, Refills(s) ctive aspirin, enteric coated (ASPIRIN, ENTERIC COATED) 81 mg EC tablet Take 81 mg by mouth.Active atorvastatin (LIPITOR) 40 mg tablet TAKE 1 TABLET DAILY in auxxkih5001/11/2022ctive clopidogrel (PLAVIX) 75 mg tablet Take 1 tablet by mouth once daily.01/11/2022ctive colchicine 0.6 mg tablet Take 0.6 mg by mouth.Active lisinopril (ZESTRIL) 40 mg tablet 30 EA, Take 1 (ONE) tablet by mouth daily, Refills(s) ctive HYDROcodone-acetaminophen (NORCO) 5-325 mg per tablet Refill(s) 0, 120 EA, TAKE 1 TABLET BY MOUTH EVERY 6 HOURS05/17/2021ctive tamsulosin (FLOMAX) 0.4 mg Take 2 capsules by mouth daily at bedtime. 60 capsule 60/tive tamsulosin (FLOMAX) 0.4 mg Take 2 capsules by mouth daily at bedtime. 60 capsule 603/31/Discontinued Active Problems ProblemNoted DateDiagnosed DateProstate pzlacn5202/04/2025HTN (hypertension) 06/02/2023 Assessment & Plan (06/02/2023 9:56 AM EST): Assessment: BP 148/76 in PACC. Takes amlodipine and lisinopril. Follows with his PCP. Isphzcnkznoiloqoul71/26/2024 Assessment & Plan (06/02/2023 9:56 AM EST): Assessment: Takes Lipitor, Plavix, and aspirin. Follows with his PCP. H/o stroke in 2019. H/o smoking. Ldmeej7206/02/2023 Assessment & Plan (06/02/2023 9:55 AM EST): Assessment: h/o stroke in 2019. Evaluated by neurology in the past, now only follows with his PCP. Takes Plavix, aspirin and Lipitor. No carotid bruits on exam. Mucopurulent chronic tigbkzsexe13/27/2023 Assessment & Plan (06/02/2023 9:55 AM EST): Assessment: Smokes daily. Denies CP, SOB, or cough. Does not use inhalers. Encounters DateTypeDepartmentCare SihlUxunjtevvrr53/30/2025 10:30 AM EDTOffice Visit Radiation Oncology [address] [place] [address] Bailee Houston APRN.MANAGER SHAREPOINT Encounter for follow-up surveillance of prostate cancer (Primary Dx); Prostate cancer (HCC)01/21/2025Orders Only Radiation Oncology [address] [place] [address] Bailee Houston APRN.MANAGER SHAREPOINT Encounter for follow-up surveillance of prostate cancer (Primary Dx); Prostate cancer (HCC)01/21/2025Travelfrom Last 3 Months Family History Medical HistoryRelationCommentsCancerBrother 1CancerBrother 2Anesthesia Problems No Family HistoryMalig HyperthermiaNo Family HistoryRelationStatusComments Brother 1DeceasedBrother 2Deceased Social History Tobacco UseTypesPacks/DayYears UsedDateSmoking Tobacco: Every DayCigarettes1.550 Smokeless Tobacco: NeverAlcohol UseStandard Drinks/WeekCommentsYes0 (1 standard drink = 0.6 oz pure alcohol)couple drinks a week.PHQ-2AnswerDate RecordedPHQ-2 vgjdj047rea Deprivation IndexAnswerDate RecordedNational Score (1-100), lower number is lower gxkj354005/03/2023State Score (1-10), lower number is lower xllm7693Data from: https://www.neighborhoodatlas.[facility].edu/. Last address used for c[address]05/03/2023Sex and Gender InformationValueDate RecordedSex Assigned at BirthNot on fileLegal SexMale 04/08/2012 9:26 AM ESTGender IdentityNot on fileSexual OrientationNot on file Last Filed Vital Signs Vital SignReadingTime TakenCommentsBlood Igymzugf969/7301/24/2024 9:09 AM EDT Zjjmb421701/24/2024 9:09 AM KJKOoisbsdcdnb00.6 ??C (97.9 ??F)06/20/2023 1:30 PM ESTRespiratory Kvfs502801/24/2024 9:09 AM EDTOxygen Tgdpdmtbyr574%01/24/2024 9:09 AM EDTInhaled Oxygen Concentration--Fvfaoa46.1 kg (165 lb 9.6 oz)01/24/2024 9:09 AM ZBXObxfzu874.8 cm (5' 10 )06/20/2023 10:52 AM ESTBody Mass Index23.76 06/20/2023 10:52 AM EST Plan of Treatment Health MaintenanceDue DateLast DoneCommentsAbdominal Aortic Aneurysm Screening 3Annual PCP Team Chronic Disease Visit1970Anxiety Screening 1970Depression Wdfmyucqv35/17/1971Hepatitis C Nfiafytzh40/17/1971Lipid Hjxohjujd47/17/1988CT Qoijozifrzff59/17/2293Mvykljyrntk18/17/1998Fecal Occult Blood06/24/19977045Tgghtdaygykli32/17/1998Shingrix Vaccine (1 of 2)2002 Medicare Annual Wellness Visit11/05/2010dvance Directive Uuyxztwgfp90/01/2025 Covid-19 Vaccine ( - season)2025Influenza Vaccine (#1)2025 05/10/2023, 04/08/2020Cologuard (FIT-DNA)olorectal Cancer Zaiflvmzq85/08/2025Diabetes Cspnfraqt69RSV Vaccine (1 - 1-dose 75+ series)2027DTaP,Tdap,Td Vaccine (3 - Td or Tdap), 09/04/2017Pneumococcal Vaccine: 50+Xqyzzeicz43/20/2020, 01/08/2020, 10/04/2018 Medical Devices ImplantedTypeAreaManufacturerDevice IdentifierShelf Expiration DateModel / Serial / LotSeed Brachysource Iodine-125 Brachytherapy Loose Prostate - [id number] Implanted:Qty: 92 on 06/20/2023 by [facility] ImplantBARD MEDICAL [id number] / / Description:Sources: 92 [place]: 28 Procedures Procedure NamePriorityDate/TimeAssociated DiagnosisCommentsPSA/PROSTSPECAG DIAG Dqcsvfk1401/21/2025 10:15 AM EDT Encounter for follow-up surveillance of prostate cancer Prostate cancer (HCC) from Last 3 Months Results * PROSTATE-SPECIFIC ANTIGEN DIAGNOSTIC (01/21/2025 10:15 AM EDT)ComponentValue Ref RangeTest MethodAnalysis TimePerformed AtPathologist SignaturePSA0.25<2.60 ng/mL01/22/2025 5:35 AM EDTCLIMA MEMORIAL HOSPITAL LABComment:Total PSA test methodology used is the Electrochemiluminescence Immunoassay by [employer]. Total PSA values by differing methodologies cannot be interchanged.Specimen (Source)Anatomical Location / LateralityCollection Method / VolumeCollection TimeReceived TimeBloodBLOOD SPECIMEN / Unknown Venipuncture / Dgmlxha4501/21/2025 10:15 AM EDT01/21/2025 10:15 AM EDT Narrative Authorizing ProviderResult TypeResult StatusJustjassi Houston APRN.CNPLABORATORYFinal ResultPerforming OrganizationAddressCity/State/ZIP CodePhone Number [facility] [address] [facility] [address] [place] [address], [place] from Last 3 Months Insurance Care Teams Team MemberRelationshipSpecialtyStart DateEnd Date Mitch Perez DO [address] [place] [address] PCP - GeneralInternal Qhyfzrob09/27/23
--- OUTSIDE RECORDS SUMMARY | 2025-02-28 13:41 | XMS_ITS | Clinical Summary ---
Author Organization [facility] Address [id number] [place] [address] Care Team Providers Care General Office Associate Name Role Phone Mitch Perez DO Primary Care Provider [phone] Allergies Active AllergyReactionsCriticalityNoted GjuoRsngxhqmQxtoqqxwbdmHtbrGic76/14/2022 Sulfamethoxazole-ZxbwqmtwwuonZnbrCph76/14/2022 Medications MedicationSigDispense QuantityRefillsLast FilledStart DateEnd DateStatus amLODIPine (NORVASC) 5 mg tablet 30 EA, Take 1 (ONE) tablet by mouth daily, Refills(s) ctive atorvastatin (LIPITOR) 40 mg tablet TAKE 1 TABLET DAILY in fgwanmm3101/11/2022ctive clopidogreL (PLAVIX) 75 mg tablet Take 1 (ONE) tablet by mouth daily01/11/2022ctive HYDROcodone-acetaminophen (NORCO) 5-325 mg per tablet Refill(s) 0, 120 EA, TAKE 1 TABLET BY MOUTH EVERY 6 HOURS05/17/2021ctive lisinopriL (PRINIVIL,ZESTRIL) 40 mg tablet 30 EA, Take 1 (ONE) tablet by mouth daily, Refills(s) ctive colchicine (COLCRYS) 0.6 mg tablet Take 1 tablet (0.6 mg total) by mouth in the morning.Active aspirin 81 mg Take 1 tablet (81 mg total) by mouth in the morning. stroke.Active Active Problems ProblemNoted DateDiagnosed DateAbnormal MRI03/15/2022 Overview (03/15/2022): Added automatically from request for surgery [id number] Prostate cancer Overview (11/28/2022): Hypertension, smoker, had stroke now on plavix. ==== 11/28/2022 ==== has not seen XRT therapist yet. ==== 08/01/2022 ==== Prolaris test places him in the single modal treatment. Name and date of confirmed. Copy report given to patient. HIghest Carmela Grade: Carmela 3+3=6. Grade group 1. # of cores [...] biopsy, which demonstrated an adenocarcinoma of the prostate.If applicable, I advised studies to evaluate for [...] was held, and questions were answered. As thiswas the 1st discussion with the patient we will see him back in the office after he has had time toreview the material presented to him and generate [...] his plavix in the past. Needs to hold.rx for levaquin. Assessment & Plan (01/19/2022 1:41 PM EDT): The etiologies of elevated PSA including prostate cancer, BPH, natural variation, laboratory error,recent ejaculation, instrumentation, clinical or subclinical infection were reviewed. Options of ultrasound prostate biopsy, active surveillance, repeating the test, or non-intervention were discussed. We discussed the lack of evidence supporting empiric antibiotics. Discussed risk finding prostatecancer in 1:3 men with a PSA above 4 and 1:4 men with a PSA above 3. Pt understands that disease volume and grade are not necessarily correlated with PSA values (especially with PSA less than 10) andthat patients can harbor significant /life-threatening disease within this PSA range Risks of biopsy including bleeding, infection, urinary retention, and false- negative results were reviewed. questions were answered. HypertensionCOPD (chronic obstructive pulmonary disease) Overview (05/17/2022): noted on Xray 05/31/21 Dental disease Overview (05/17/2022): missing teeth Liver cyst Overview (05/17/2022): 3.3 cm oval cyst in left hepatic lobe, noted on CT abdomen 03/31/22 HL (hearing loss)Hiatal hernia Overview (05/17/2022): small to moderate per CT abd 03/31/22 Other hyperlipidemia Family History Medical HistoryRelationNameCommentsCancerBrother 1johnCancerBrother 2Stroke FatherKidney diseaseMotherDementiaSisterProstate cancerNeg HxRelationNameStatus CommentsBrother 1johnDeceasedBrother 2DeceasedFatherDeceasedMotherDeceasedSister Alive Social History Tobacco UseTypesPacks/DayYears UsedDateSmoking Tobacco: Every IqmSspfoqvyjk462 Smokeless Tobacco: Never Tobacco Cessation:Ready to Q uit: No; Counseling Given: Yes Alcohol UseStandard Drinks/WeekCommentsYes2 (1 standard drink = 0.6 oz pure alcohol)occcassionallyHunger ScreeningAnswerDate RecordedWithin the past 12 months we worried whether our food would run out before we got money to buy more.Never True08/01/2022Within the past 12 months the food we bought just didn't last and we didn't have money to get more.Never True08/01/2022Sex and Gender InformationValueDate RecordedSex Assigned at BirthNot on fileLegal Sex Male11/24/2021 9:23 AM EDTGender IdentityNot on fileSexual OrientationNot on file Last Filed Vital Signs Vital SignReadingTime TakenCommentsBlood Qcmyzdxl137/8111/28/2022 2:18 PM EDT Tpybf0990/24/2023 2:18 PM ZCTIdjqmgaparm89.5 ??C (97.7 ??F)05/31/2022 10:15 AM ESTRespiratory Kkol414408/01/2022 12:14 PM EDTOxygen Mfppyqaosj042%05/31/2022 10:15 AM ESTInhaled Oxygen Concentration--Koqghl26.3 kg (155 lb)11/28/2022 2:18 PM OEFHxcygp705.8 cm (5' 10 )11/28/2022 2:18 PM EDTBody Mass Index22.24 11/28/2022 2:18 PM EDT Plan of Treatment Health MaintenanceDue DateLast DoneCommentsDepression Nzigtenhc82/17/1965Tobacco Xllfgiwjr98/17/1965DTaP,Tdap and Td Vaccines (1 - Tdap)1971Zoster (Shingles) Vaccine (1 of 2)1971Abdominal Aortic Aneurysm (AAA) Screen 2017Fall Risk Adjpduvcs23/17/2018Adult BMI Cuxizcawo84/ Influenza Sagjqve33 Medical Devices Not on file Insurance Care Teams Team MemberRelationshipSpecialtyStart DateEnd Date Mitch Perez DO [address] [place] [address] PCP - GeneralInternal Medicine11/24/21
--- OUTSIDE RECORDS SUMMARY | 2025-02-28 13:41 | XMS_ITS | Clinical Summary ---
Author Organization [facility] Address [address] [place] [address] Care Team Providers Care Cottage Cheese Maker Name Role Phone Unavailable Primary Care Provider Unavailabl e Social History Tobacco UseTypesPacks/DayYears UsedDateSmoking Tobacco: Never AssessedSex and Gender InformationValueDate RecordedSex Assigned at BirthNot on fileLegal Sex Male11/04/2021 12:14 AM EDTGender IdentityNot on fileSexual OrientationNot on file Plan of Treatment Not on file
--- OUTSIDE RECORDS SUMMARY | 2025-02-28 13:42 | XMS_ITS | CCD ---
Author Organization [facility] Care Team Providers Care Bulk Plant Manager Name Role Phone CLEMENT, DR DARDEN Attending Unavailable BALL, DR DARDEN [...] BALL, DR DARDEN Primary Care Unavailable Deluca, Emi Consulting Unavailable HIWOT, TESSA Consulting Unavailable Mitch Vaughan Unavailable Olelara, Amando Unavailable Tammy Rivas Unavailable DO Mitch Vaughan Primary Care Provider MD Amando Torres Jr Emergency Provider MD Amando Thompson Attending Provider Mitch Vaughan DO Primary Care Provider DO Mitch Vaughan Primary Care Provider [phone] MD Amando Thompson Attending Provider Amando Torres Jr Attending Unavailable Amando Torres Jr Admitting Unavailable Mitch Vaughan Primary Care Unavailable Olexa, Amando Attending Unavailable Mitch Vaughan [...] Amando Admitting Unavailable Olexa, Amando Attending Unavailable ARNAV MARTI Attending Unavailable ARNAV MARTI Admitting Unavailable MITCH VAUGHAN E Primary Care Unavailable Mitch Vaughan DO Primary Care Provider Mitch Vaughan DO Primary Care Provider Mitch Vaughna DO Primary Care Provider [phone] Clement PAZ, Mitch Attending Provider [phone] MITCH VAUGHAN Primary Care Unavailable NIHARIKA, HELGA Attending Unavailable NIHARIKA, HELGA Referring Unavailable MITCH VAUGHAN E Primary Care Unavailable NIHARIKA, HELGA Referring Unavailable MITCH VAUGHAN E Primary Care Unavailable Mitch Vaughan DO Primary Care Provider [phone] Clement PAZ, Mitch Attending Provider [phone] Provider, Outside Attending Provider Unavailable Allergies Allergy ClassificationReported Allergen(s)Allergy TypeDate of OnsetReaction(s) Facility (20 sources)PenicillinDrug AllergyUniversity [facility] (1 source)Sulfamethoxazole / TrimethoprimDrug Imoysef30-04-4377Voq[facility] (20 sources)Sulfamethoxazole / TrimethoprimDrug Slbxlse74-49-8036lfjjgKing's Daughters [facility] [place] [employer] Other (11 sources)patient allergy list reviewed by nurse or physiciaPropensity to adverse qxxsawmgf72-35-9317Dcxlgph:[facility] [employer] Other (11 sources)Substance with penicillin structure and antibacterial mechanism of action (substance)Drug allergyUnkNaval Hospital [employer] Other (20 sources)Penicillins; Translations: [Penicillins]Propensity to adverse jlmmqyqry98-40-5754AfanwpbDay[facility] (20 sources)Sulfamethoxazole; Translations: [sulfamethoxazole]Drug Allergy 39-09-1260YrmxeEiududigvOhioHealth Doctors Hospital (20 sources)Trimethoprim; Translations: [trimethoprim]Drug Oxwhcuu28-28-8973 [facility] Medications Current Medications MedicationDrug Class(es)DatesSig (Normalized)Sig (Original)clopidogrel 75 mg oral tablet (20 sources)P2Y12 Platelet InhibitorStart: 85-93-2918xfjn 1 tablet by mouth once dailyClopidogrel 75 mg tablet Active 0 .ROUTE .COMPLEX 30 March 11, 2024 9:45pm TAKE 1 TABLET BY MOUTH EVERY DAY Complies with drug therapyStart: 01-11-2022 End: 56-96-0555zvtm 1 tablet by mouth once daily in the morningClopidogrel 75 mg tablet Discontinued 75 MG PO Every morning November 29, 2022 12:00am March 11, 2024 9:45pmComment on above:Take 1 tablet by mouth once daily.colchicine 0.6 mg oral capsule (20 sources)Start: 08-09-2023 End: 97-57-9515srsn 1 capsule by mouth twice daily as neededColchicine 0.6 mg capsule Active 0.6 MG PO Twice daily as needed for gout attack 14 7 2 August 09, 2023 10:38am Complies with drug therapyStart: 11-29-2022 End: 56-63-8344Odxczjdgab 0.6 mg Capsule Discontinued 0 .ROUTE .COMPLEX November 29, 2022 12:00am August 09, 2023 10:38am take 2 a day if needed for gout colchicine 0.6 mg tablet Take 0.6 mg by mouth. ActiveComment on above:Take 0.6 mg by mouth.Nicoderm CQ (20 sources)Nicoderm CQ Activetamsulosin hydrochloride 0.4 mg oral capsule (19 sources)alpha-Adrenergic BlockerStart: 06-19-2023 End: 52-58-9969eimj 2 capsules by mouth once daily at bedtimeTamsulosin (Flomax) 0.4 mg capsule Active 0.8 MG PO Daily at bedtime August 09, 2023 12:00am Complies with drug therapyComment on above:Take 2 capsules by mouth daily at bedtime.triamcinolone acetonide 1 mg/ml topical cream (3 sources)CorticosteroidStart: 59-90-0926Iozoeminlxeka Acetonide 0.1 % cream Active 1 APPLIC TOPICAL Twice daily August 29, 2024 12:00am Complies with drug therapy Completed/Discontinued Medications MedicationDrug Class(es)DatesSig (Normalized)Sig (Original)acetaminophen 325 mg / HYDROcodone bitartrate 5 mg oral tablet (20 sources)Opioid AgonistStart: 14-48-5429voxw 1 tablet by mouth every four hours as needed for painHYDROcodone-Acetaminophen 5-325 MG 1 tablet as needed for pain Orally up to every 4 hrs for 5 days JULIO: [id number] Nov, Not-Taking/PRNStart: 05-17-2021 End: 70-82-2178cvwm 1 tablet by mouth every six hours as needed for pain Hydrocodone-Acetaminophen 5-325 mg tablet Discontinued 1 TAB PO Every 6 hours as needed for pain 120 30 0 August 29, 2024 October 01, 2024 8:36am Spondylosis of lumbar spine Spondylosis without myelopathy or radiculopathy, lumbar region Comment on above: Refill(s) 0, 120 EA, TAKE 1 TABLET BY MOUTH EVERY 6 HOURSacetaminophen 325 mg / oxyCODONE hydrochloride 5 mg oral tablet (20 sources)Opioid AgonistStart: 11-29-2022 End: 36-81-3482iltz 1 tablet by mouth every six hours as needed for pain Oxycodone-Acetaminophen (Percocet) 5-325 mg tablet Discontinued 1 - 2 TAB PO Every 6 hours as needed for pain 15 3 November 29, 2022 November 29, 2022 11:33am Fracture of distal end of radiusStart: 11-29-2022 End: 14-05-3838cdfl 1 tablet by mouth every six hours as needed for pain Oxycodone-Acetaminophen (Percocet) 5-325 mg tablet Discontinued 1 - 2 TAB PO Every 6 hours as needed for pain 15 November 29, 2022 November 29, 2022 11:33am Start: 11-29-2022 End: 54-75-7920xuls 1 tablet by mouth every six hours as needed for pain Oxycodone-Acetaminophen (Percocet) 5-325 mg tablet Discontinued 1 - 2 TAB PO Every 6 hours as needed for pain 15 November 29, 2022 November 29, 2022 11:33am Start: 11-29-2022 End: 04-15-6509rmtp 1 tablet by mouth every six hours as needed for pain Oxycodone-Acetaminophen (Percocet) 5-325 mg tablet Discontinued 1 - 2 TAB PO Every 6 hours as needed for pain 15 3 November 29, 2022 November 29, 2022 10:33am Start: 11-29-2022 End: 78-86-9951hirm 1 tablet by mouth every six hoursOxycodone-Acetaminophen (Percocet) 5-325 mg tablet Discontinued 1 - 2 TAB PO Every 6 hours 20 07November 29, 2022 November 29, 2022 11:33amStart: 11-29-2022 End: 79-88-6442uyni 1 tablet by mouth every six hoursOxycodone-Acetaminophen (Percocet) 5-325 mg tablet Discontinued 1 - 2 TAB PO Every 6 hours 20 07November 29, 2022 November 29, 2022 11:33amStart: 11-29-2022 End: 11-66-0763brgu 1 tablet by mouth every six hoursOxycodone-Acetaminophen (Percocet) 5-325 mg tablet Discontinued 1 - 2 TAB PO Every 6 hours 20 07November 29, 2022 November 29, 2022 11:33amStart: 11-29-2022 End: 70-12-0049srvb 1 tablet by mouth every six hoursOxycodone-Acetaminophen (Percocet) 5-325 mg tablet Discontinued 1 - 2 TAB PO Every 6 hours 20 07November 29, 2022 November 29, 2022 10:33amStart: 11-29-2022 End: 55-86-3925pmwy 1 tablet by mouth every six hoursOxycodone-Acetaminophen (Percocet) 5-325 mg tablet Discontinued 1 - 2 TAB PO Every 6 hours 20 07November 29, 2022 November 29, 2022 11:33amStart: 11-29-2022 End: 64-69-8989rgya 1 tablet by mouth every six hoursOxycodone-Acetaminophen (Percocet) 5-325 mg tablet Discontinued 1 - 2 TAB PO Every 6 hours 20 07November 29, 2022 November 29, 2022 11:33amStart: 11-29-2022 End: 39-69-5069gbef 1 tablet by mouth every six hoursOxycodone-Acetaminophen (Percocet) 5-325 mg tablet Discontinued 1 - 2 TAB PO Every 6 hours 20 07November 29, 2022 November 29, 2022 11:33amtake 1 tablet by mouth every six hours oxyCODONE-Acetaminophen 5-325 MG 1 tablet as needed Orally every 6 hrs Not-Taking/PRNamLODIPine 5 mg oral tablet (20 sources)Dihydropyridine Calcium Channel BlockerStart: 05-17-2021 End: 90-27-9261tojf 1 tablet by mouth once daily in the morningAmlodipine 5 mg tablet Discontinued 5 MG PO Every morning November 29, 2022 12:00am January 11, 2024 2:58pmComment on above: 30 EA, Take 1 (ONE) tablet by mouth daily, Refills(s) 0aspirin 81 mg oral tablet (20 sources)Platelet Aggregation Inhibitor, Nonsteroidal Anti-inflammatory Drug Start: 11-29-2022 End: 58-20-8585tpjn 1 capsule by mouth once dailyAspirin 81 mg Capsule Discontinued 81 MG PO Daily November 29, 2022 12:00am May 14, 2024 10:51am aspirin, enteric coated (ASPIRIN, ENTERIC COATED) 81 mg EC tablet Take 81 mg by mouth. ActiveComment on above:Take 81 mg by mouth.atorvastatin 40 mg oral tablet (20 sources)HMG-CoA Reductase InhibitorStart: 01-11-2022 End: 22-32-3968ahck 1 tablet by mouth once dailyAtorvastatin 40 mg tablet Discontinued 40 MG PO Daily November 29, 2022 12:00am August 21, 2023 6:10pm Comment on above:TAKE 1 TABLET DAILY in eveningciprofloxacin 500 mg oral tablet (20 sources)Quinolone AntimicrobialStart: 06-19-2023 End: 17-83-2583zwbr 1 tablet by mouth twice dailyciprofloxacin HCl (CIPRO) 500 mg tablet Take 1 tablet by mouth two times a day. 20 tablet 0 06/19/2023 07/24/2023 Discontinued (Course of therapy completed)Start: 28-13-0244nole 1 tablet by mouth every twelve hoursCipro 500 MG 1 tablet Orally every 12 hrs for 2 days Nov, Not-Taking/PRNComment on above:Take 1 tablet by mouth two times a day.lisinopril 40 mg oral tablet (20 sources)Angiotensin Converting Enzyme InhibitorStart: 05-17-2021 End: 38-29-0994nngp 1 tablet by mouth once dailyLisinopril 40 mg tablet Discontinued 40 MG PO Daily November 29, 2022 12:00am January 09, 2024 1:37pm Comment on above: 30 EA, Take 1 (ONE) tablet by mouth daily, Refills(s) 0 Problems Active Problems Problem ClassificationProblemDateDocumented DateEpisodic/ChronicAbdominal pain (1 source)Lower abdominal pain, unspecified; Translations: [LOWER ABDOMINAL PAIN UNSPECIFIED]Onset: 32-21-8329YxaywdorYccyu cerebrovascular disease (20 sources)Cerebral infarction; Translations: [Cerebral infarction, unspecified]Onset: 499205-78-0267OhgxepnBuupvlg disorders (11 sources)Generalized anxiety disorder; Translations: [Generalized anxiety disorder]ChronicAsthma (11 sources)Uncomplicated asthma; Translations: [Unspecified asthma, uncomplicated]ChronicCancer of prostate (20 sources)Malignant tumor of prostate; Translations: [Malignant neoplasm of prostate]Onset: 67-39-7757EnmijyyPalgwer on above:Dx: 05/2022, s/p brachytherapyPSA: 0.55 - 01/2024,Cancer of prostate (1 source)Personal history of malignant neoplasm of prostate; Translations: [Encounter for follow-up surveillance of prostate cancer]Onset: 01-21-2025 EpisodicChronic obstructive pulmonary disease and bronchiectasis (20 sources)Mucopurulent chronic bronchitis; Translations: [Mucopurulent chronic bronchitis]Onset: 17-33-6603GxnctesYeetfembv of lipid metabolism (20 sources)Familial hypercholesterolemia; Translations: [Hypercholesterolemia] Onset: 60-53-5762QpwpuurJ Codes: Struck by; against (11 sources)Striking against other object with subsequent fall, initial encounter; Translations: [Fall due to tripping on loose carpet]12-07-2022 EpisodicEsophageal disorders (11 sources)Esophageal disorders; Translations: [Gastro-esophageal reflux disease with esophagitis, without bleeding]Essential hypertension (20 sources)Essential (primary) hypertension; Translations: [Essential hypertension]Onset: 93-67-0007WvbdewjTvsjj and electrolyte disorders (1 source)Dehydration; Translations: [DEHYDRATION]Onset: 84-58-9029Iadnaivu Fracture of upper limb (17 sources)Other fractures of lower end of left radius, initial encounter for closed fracture; Translations: [Closed fracture of distal end of radius]Episodic Comment on above:Problem List clean-up per request of Phys. EHR Cmte Gastrointestinal hemorrhage (20 sources)Gastrointestinal hemorrhage, unspecified; Translations: [Melena] Onset: 95-65-5421YcecogkuRweo and other crystal arthropathies (20 sources)Gout; Translations: [Gout, unspecified]75-76-7443YytkurjGavzdcvnhwf of prostate (20 sources)Prostate nodule; Translations: [Nodular prostate without lower urinary tract symptoms]ChronicImmunizations and screening for infectious disease (11 sources)Vaccination given; Translations: [Encounter for immunization] EpisodicLate effects of cerebrovascular disease (20 sources)Dysarthria; Translations: [Dysarthria following other cerebrovascular disease]Onset: 36-41-0833YjlmdgpHfscsa and vomiting (1 source)Nausea with vomiting, unspecified; Translations: [NAUSEA WITH VOMITING UNSPECIFIED]Onset: 27-01-9861PrdlfdssGdgffrribtlzp gastroenteritis (12 sources)Noninfective gastroenteritis and colitis, unspecified; Translations: [Non-infective enteritis and colitis]Onset: 32-31-4545YircwtllAgdroaczmmur (11 sources)Primary osteoporosis; Translations: [Age-related osteoporosis without current pathological fracture]ChronicOther aftercare (1 source)Other intermission coordinator (current) drug therapy; Translations: [OTH BOW MAKING MACHINE OPERATOR CURRENT DRUG THERAPY]Onset: 49-97-3911ZdysnkkqOtqoj aftercare (1 source)skilled nursing (current) use of antithrombotics/antiplatelets; Translations: [BOW MAKING MACHINE OPERATOR ANTITHROMBOT/ANTIPLATLETS]Onset: 69-84-1845Bwxsafwl Other aftercare (11 sources)Long-term current use of drug therapy; Translations: [Other intermission coordinator (current) drug therapy]EpisodicOther aftercare (9 sources)Drug therapy finding; Translations: [skilled nursing (current) use of opiate analgesic]20-28-8124QfjwpygvQpkop aftercare (4 sources)extermination inspector (current) use of opiate analgesic; Translations: [Long-term (current) use of other medications]29-94-7977ZyqrciojDozhy aftercare (3 sources)History of malignant neoplasm of prostate; Translations: [Encounter for follow-up examination aftercompleted treatment for malignant neoplasm] 22-01-2850NksocsjnBtjvw aftercare (1 source)Encounter for follow-up examination after completed treatment for malignant neoplasm; Translations:[Encounter for follow-up surveillance of prostate cancer]Onset: 65-63-7135OtxtvbzkMxqbv and ill-defined cerebrovascular disease (1 source)Cerebrovascular disease, unspecified; Translations: [CEREBROVASCULAR DISEASE UNSPECIFIED]Onset: 77-76-3431EjvntyaGvlst and ill-defined cerebrovascular disease (20 sources)Cerebral atherosclerosis; Translations: [Cerebral atherosclerosis] 04-32-3721JgodkdzRmtwp and ill-defined cerebrovascular disease (9 sources)Cerebral atherosclerosis; Translations: [Cerebral atherosclerosis] ChronicOther circulatory disease (20 sources)History of cerebrovascular disease; Translations: [Personal history of transient ischemic attack (TIA), and cerebral infarction without residual deficits]87-67-9985YyremlwqOllrd circulatory disease (8 sources)Personal history of transient ischemic attack (TIA), and cerebral infarction without residual deficits; Translations: [Personal history of transient ischemic attack (TIA), and cerebral infarction without residual deficits]EpisodicOther circulatory disease (11 sources)History of cerebrovascular accident without residual deficits; Translations: [Personal history of transient ischemic attack (TIA), and cerebral infarction without residual deficits]EpisodicOther ear and sense organ disorders (3 sources)Hearing loss; Translations: [Unspecified hearing loss, unspecified ear]73-78-6406JahloofGrbmd ear and sense organ disorders (11 sources)Bilateral tinnitus; Translations: [Tinnitus, bilateral]EpisodicOther gastrointestinal disorders (1 source)Personal history of other diseases of the digestive systemEpisodic Other injuries and conditions due to external causes (11 sources)History of fall; Translations: [History of falling]EpisodicOther liver diseases (3 sources)Liver cyst; Translations: [Other specified diseases of liver] 17-79-8483VukcgddFgwfb screening for suspected conditions (not mental disorders or infectious disease) (3 sources)MRI scan abnormal; Translations: [Abnormal findings on diagnostic imaging of other specified body structures]Onset: 089480-03-1008Jyvgrou Other screening for suspected conditions (not mental disorders or infectious disease) (13 sources)Encounter for screening for malignant neoplasm of prostate; Translations: [Raised prostate specificantigen]Onset: 601571-85-1333 EpisodicOther skin disorders (3 sources)Vesicular eczema; Translations: [Dyshidrosis [pompholyx]]08-29-2024 EpisodicOther upper respiratory disease (11 sources)Allergic rhinitis due to pollen; Translations: [Allergic rhinitis due to pollen]ChronicResidual codes; unclassified (20 sources)Tobacco user; Translations: [Tobacco use]Onset: 27-23-4470Vxiewcve Residual codes; unclassified (3 sources)Other specified postprocedural statesEpisodicResidual codes; unclassified (1 source)Other specified postprocedural states; Translations: [Other specified postprocedural states]Onset: 45-96-8022XwaebjqwRgiuvbxrqgo; intervertebral disc disorders; other back problems (20 sources)Lumbar spondylosis; Translations: [Spondylosis without myelopathy or radiculopathy, lumbar region]ChronicSubstance-related disorders (20 sources)Nicotine dependence, cigarettes, uncomplicated; Translations: [Nicotine dependence]Onset: 70-65-7302RtomaevUjsorce on above:LDCT: no suspicious nodules - 02/2023, 02/2024Superficial injury; contusion (11 sources)Abrasion of left knee; Translations: [Abrasion, left knee, initial encounter]43-77-7398ApozfxddPzknbel (1 source)Syncope and collapse; Translations: [SYNCOPE AND COLLAPSE]Onset: 71-52-3654MmwsmtadNtvwfrj disorders (11 sources)Hypothyroidism; Translations: [Hypothyroidism, unspecified]Chronic Unclassified (1 source)CONTACT W/AND (SUSP) EXPOS COVID-19; Translations: [CONTACT W/AND (SUSP) EXPOS COVID-19]Onset: 95-36-2632Yphrthffrfja (11 sources)Long-term current use of drug therapy; Translations: [Long-term (current) use of other medications]Onset: 94-54-2444Catwqgxzpsyd (1 source)Other fractures of lower end of left radius, subsequent encounter for closed fracture with routine healing; Translations: [Other fractures of lower end of left radius, subsequent encounter for closedfracture with routine healing]Onset: 65-69-4281Erlejnuchivn (1 source)Unspecified fracture of the lower end of left radius, initial encounter for closed fracture; Translations: [Unspecified fracture of the lower end of left radius, initial encounter for closed fracture]Onset: 11-30-2022 Unclassified (1 source)Encounter for preprocedural cardiovascular examination; Translations: [Encounter for preprocedural cardiovascular examination]Onset: 07-25-2023 Unclassified (1 source)Unspecified injury of left wrist, hand and finger(s), initial encounter; Translations: [Unspecifiedinjury of left wrist, hand and finger(s), initial encounter]Onset: 11-29-2022 Past or Other Problems Problem ClassificationProblemDateDocumented DateEpisodic/ChronicAbdominal hernia (3 sources)Hiatal hernia; Translations: [Diaphragmatic hernia without obstruction or gangrene]46-69-5442JomxqgmbGqcku and unspecified renal failure (11 sources)Acute renal failure syndrome; Translations: [Acute kidney failure, unspecified]Onset: 71-59-2634PqtbabbjYgwgzwt dysrhythmias (11 sources)Palpitations; Translations: [Palpitations]Onset: 19-44-2266Hnomfopp Conditions associated with dizziness or vertigo (11 sources)Labyrinthitis; Translations: [Unspecified labyrinthitis]Onset: 27-75-8252AildyfkqYnlvtwxoq of teeth and jaw (3 sources)Tooth disorder; Translations: [Disorder of teeth and supporting structures, unspecified]51-16-6426VyxreilcVckdahlgbummv symptoms and ill-defined conditions (11 sources)Microscopic hematuria; Translations: [Other microscopic hematuria] Onset: 78-45-7929VwfhkldzJuhmwxwegzbw; infection of eye (except that caused by tuberculosis or sexually transmitteddisease) (11 sources)Acute conjunctivitis; Translations: [Unspecified acute conjunctivitis]Onset: 16-31-5657UjozkzvtZqxxhgr and fatigue (11 sources)Malaise and fatigue; Translations: [Other malaise and fatigue]Onset: 77-84-8805YztegqidVhvzf aftercare (11 sources)High risk drug monitoring status; Translations: [skilled nursing (current) use of opiate analgesic]Onset: 81-66-8029BqaxpkfpJaqsa connective tissue disease (11 sources)Olecranon bursitis; Translations: [Olecranon bursitis]Onset: 36-81-4574ThztgeatKfylh nutritional; endocrine; and metabolic disorders (11 sources)Overweight; Translations: [Overweight]Onset: 24-16-2795QqqktbanXwpqt nutritional; endocrine; and metabolic disorders (11 sources)Body mass index 25-29 - overweight; Translations: [Body mass index 26.0-26.9, adult]Onset: 42-86-3280AglotlipBvntg upper respiratory infections (11 sources)Acute maxillary sinusitis; Translations: [Acute maxillary sinusitis, unspecified]Onset: 90-96-1231EtaflzpiNqkzhqwrz and history of mental health and substance abuse codes (11 sources)History of tobacco use; Translations: [Personal history of tobacco use, presenting hazards to health]Onset: 50-71-8530QkhkubkoBlnxj infection (11 sources)Disease due to Adenovirus; Translations: [Adenovirus infection in conditions classified elsewhere and of unspecified site]Onset: 06-15-2016 Episodic Results Test NameValueInterpretationReference RangeFacilityCNOVon 23-10-4340YBCLPtfgdh Visit (BROCK) KUOBLU RODRIGUEZ ([id number]) 1950 M Date Time Provider Department 02/04/25 10:30 AM BAILEE HOUSTON During your visit today, we recorded the following information about you: Bailee Houston APRN.CNP 02/05/2025 4:02 PM Signed DISTANCE HEALTH VISIT I have communicated my name and active licensure. The patient?s identity and physical location were verified at the time of this visit. Blu Kuo or their legal primary care sales representative has been informed of the risks and benefits of -- and alternatives to -- treatment through a remote evaluation and consents to proceed with the evaluation remotely. This visit is a Audio-only encounter which required patient-provider interaction for the medical decision making as documented below. Total Time Spent: 15 minutes on this telephone encounter PATIENT NAME: Blu Kuo PATIENT DIAGNOSIS: 74 yo gentleman with hx of adenocarcinoma of the prostate, initial PSA of 9.3 ng/mL, Lefors of 3+3=6. Status post I-125 seed implantation on 06/20/2023 INTERVAL HISTORY: The patient presents for routine follow-up 6 months after having last been seen. Reports minor LUTS, on tamsulosin 2 capsules. Walking 6 miles per day Watches his diet Down to 165 lbs, intentionally Follows with PCP routinely PSA HISTORY: PSA (ng/mL) Date Value 01/21/2025 0.25 07/22/2024 0.33 01/17/2024 0.55 ALLERGIES Allergen Reactions Penicillins Unknown [...] 6 HOURS REVIEW OF SYSTEMS: D/N = 5-6/2 Hematuria: none Dysuria: none Incontinence: none Urgency: mild Medications to aid urination: tamsulosin 2 capsules Bowel movement frequency: 1-2/day Bowel movement quality: normal Blood per rectum: none Cologard: 2024, never had colonoscopy Sexual activity: Fully potent Video Exam (Examination performed via Video enabled technology) General appearance: Alert, oriented, pleasant, in NAD :Yes Ill appearing :No Lethargic appearing :No Respiratory distress :No Coughing noted :No Audible wheezing noted :No Neuro: Speech clear and fluent. Good insight. No neuro deficits. ASSESSMENT/PLAN: 1. Encounter for follow-up surveillance of prostate cancer - ICD9: V67.59, V10.46, ICD10: Z08, Z85.46 (primary diagnosis) - PSA demonstrates nicely decline at 1.5 years out from seed implantation. - Doing well on tamsulosin 2 capsules, refill provided. - Follow up in July 2025 with a PSA level. 2. Prostate cancer (HCC) - ICD9: 185, ICD10: C61 - As above. - PROSTATE-SPECIFIC ANTIGEN DIAGNOSTIC Signed by: Bailee Houston APRN.PURCHASING OFFICER cc: Mitch Vaughan ([facility]) [address] [place] [address] [place] [address] Bailee Houston [address] [facility] [address] Referring Provider: BAILEE HOUSTON [[id number]] Allergies As of Date: 02/04/2025 Noted Allergy Reaction PENICILLINS 03/03/2023 16 - Unknown SULFAMETHOXAZOLE 11/29/2022 4 - Hives TRIMETHOPRIM 11/29/2022 4 - Hives Date Reviewed: 01/21/2025 Reviewed by: Bailee Houston APRN.TAPAN - Fully Assessed Reason for Visit: Established Patient [175] Primary Visit Diagnosis:Encounter for follow-up surveillance of prostate cancer [Z08, Z85.46] Other Visit Diagnosis:Prostate cancer (HCC) [C61] Order(s):tamsulosin (FLOMAX) 0.4 mgTake 2 capsules by mouth daily at bedtime.Disp: 60 capsuleRfl: 6 PROSTATE-SPECIFIC ANTIGEN DIAGNOSTIC [SQPSA] Order #: [id number] FUTURE Prescriptions as of 02/05/2025 - tamsulosin (FLOMAX) 0.4 mg Take 2 [...] 6 HOURS Problem List As Of Date 02/04/2025 Noted Resolved (more content not included)... NormalUniversity [facility] Panel InformationOrdered By: Outside Provider on 20-41-1837Gkemvwlf Specific Antigen0.25 ng/mL<2.60[facility] Barberton CampusComment on above:Total PSA test methodology used is the Electrochemiluminescence Immunoassay by [employer]. Total PSA values by differing methodologies cannot be interchanged.PSA SerPl-mCncon 01-21-2025 Prostate specific Ag [Mass/Vol]0.25 ng/mLNormal<2.60[facility] Comment on above:Order Comment: Specimen Type: BLOOD SPECIMEN Ordering Facility: [facility] Address: [address] [place], [place] [address]Result Comment: Total PSA test methodology used is the Electrochemiluminescence Immunoassay by [employer]. Total PSA values by differing methodologies cannot be interchanged. Performed By: #### 2857-1 #### [facility] CLIA [id number] [address] [place], [place] [address] [address] [place] OF AMERICABasophils Auto (Bld) [#/Vol] Ordered By: Mitch Vaughan on 51-66-8231Jankmywlk (Bld) [#/Vol]0.0 10 3/uL0.0-0.1 [facility] CampusBasophils/100 WBC Auto (Bld)Ordered By: Mitch Vaughan on 27-63-9231Cghczcmbj/100 WBC (Bld)0.7 %0.2-2.0[facility] CampusCholesterol in LDL Calc [Mass/Vol]Ordered By: Mitch Vaughan on 57-90-2029Xrnfsajluhm in LDL [Mass/Vol]24.0 mg/dLSumma Health Barberton CampusComment on above:<100 mg/dl JSCEJVE419-119 mg/dl NEAR OR ABOVE OEUULQJ405- 159 mg/dl BORDERLINE GLKD791-917 mg/dl HIGH>190 mg/dl VERY HIGHCholesterol in VLDL Calc [Mass/Vol]Ordered By: Mitch Vaughan on 05-86-9042Yucrvxaaeja in VLDL [Mass/Vol]18.2 mg/dLSumma Health Barberton CampusEosinophils/100 WBC Auto (Bld)Ordered By: Mitch Vaughan on 12-61-7474Unyfsghdlye/100 WBC (Bld)6.3 % 0.9-7.0[facility] CampusErythrocyte distribution width Auto (RBC) [Ratio]Ordered By: Mitch Vaughan on 66-14-4324Vbyswqkubvv distribution width (RBC) [Ratio]14.0 %11.0-15.0[facility] CampusGlobulin Calc (S) [Mass/Vol]Ordered By: Mitch Vaughan on 30-94-9007Uuofjiij (S) [Mass/Vol]3.2 g/dLSumma Health Barberton CampusGlomerular filtration rate (GFR) estimation in non- AmericanOrdered By: Mitch Vaughan on 12-03-2024 GFR/1.73 sq M.predicted among non-blacks MDRD (S/P/Bld) [Vol rate/Area] mL/min/{1.73_m2}>=60 mL/min/1.73m 2FAvita Health System Galion HospitalHematocrit Auto (Bld) [Volume fraction]Ordered By: Mitch Vaughan on 33-91-6450Hyplyxsdaj (Bld) [Volume fraction]45.5 %42.0-54.0[facility] Hemoglobin [Mass/volume] in BloodOrdered By: Mitch Vaughan on 12-03-2024 Hemoglobin (Bld) [Mass/Vol]15.7 g/dL14.0-18.0[facility] Laboratory - Chemistry and Chemistry - challengeOrdered By: Mitch Vaughan on 77-29-5480Xilkvsk [Mass/Vol]3.9 g/dL3.4-5.0[facility] CampusALP [Catalytic activity/Vol]102 U/L25-858UiwewxywlSumma Health Barberton CampusALT [Catalytic activity/Vol]40 U/J55-30GzmugjqzySumma Health Barberton CampusAST [Catalytic activity/Vol]25 U/X40-68UkyyxpflaSumma Health Barberton CampusBilirubin [Mass/Vol]1.8 mg/dLHigh0.2-1.0[facility] CampusCalcium [Mass/Vol]9.5 mg/dL8.5-10.1FAvita Health System Galion HospitalChloride [Moles/Vol] 103 mmol/R05-702FeglyesrhSumma Health Barberton CampusCholesterol [Mass/Vol]132 mg/dL <=200[facility] CampusCholesterol in HDL [Mass/Vol]90 mg/dLHigh 40-60[facility] CampusComment on above:> or =60 mg/dl - LOW CARDIOVASCULAR RISK<40 mg/dl - HIGH CARDIOVASCULAR RISKCO2 [Moles/Vol]30.8 mmol/L21.0-32.0[facility] CampusCreatinine [Mass/Vol]0.85 mg/dL 0.70-1.30[facility] CampusGFR/1.73 sq M.predicted MDRD (S/P/Bld) [Vol rate/Area]mL/min/{1.73_m2}>=60 mL/min/1.73m 2FAvita Health System Galion HospitalGlucose [Mass/Vol]106 mg/gH20-095ZtqjtgbkhSumma Health Barberton Campus Potassium [Moles/Vol]4.1 mmol/L3.5-5.1FAvita Health System Galion HospitalProtein [Mass/Vol]7.1 g/dL6.4-8.2FMetroHealth Cleveland Heights Medical Centerodium [Moles/Vol]140 mmol/L782-941ImdiqphzuSumma Health Barberton CampusTriglyceride [Mass/Vol]91 mg/dL <=150[facility] CampusUrea nitrogen [Mass/Vol]12.0 mg/dL7.0-18.0 [facility] CampusUrea nitrogen/Creatinine [Mass ratio]14.1 mg/mg [facility] CampusLaboratory - Hematology and Cell countsOrdered By: Mitch Vaughan on 25-91-2016Fjmmkecx granulocytes/100 WBC (Bld)0.2 %0.0-0.5 [facility] CampusLeukocytes [#/volume] corrected for nucleated erythrocytes in Blood by Automated counOrdered By: Mitch Vaughan on 12-03-2024 WBC corrected for nucl RBC Auto (Bld) [#/Vol]5.7 10 3/uL4.0-11.0[facility] CampusLymphocytes Auto (Bld) [#/Vol]Ordered By: Mitch Vaughan on 22-01-2213Rywcyhjavzs (Bld) [#/Vol]1.8 10 3/uL1.2-3.8[facility] Barber[facility] CampusLymphocytes/100 WBC Auto (Bld)Ordered By: Mitch Vaughan on 72-90-2588Tuhmmivlzvi/100 WBC (Bld)31.1 %20.5-60.0[facility] Medical CenterH Auto (RBC) [Entitic mass]Ordered By: Mitch Vaughan on 23-15-0913IMF (RBC) [Entitic mass]34.1 rjIzcy45.9-34.0[facility] CampusMCHC Auto (RBC) [Mass/Vol]Ordered By: Mitch Vaughan on 19-34-7966GHOL (RBC) [Mass/Vol]34.5 g/dL29.9-35.2FAvita Health System Galion HospitalMCV Auto (RBC) [Entitic vol]Ordered By: Mitch Vaughan on 18-94-2990RJK (RBC) [Entitic vol]98.7 uSNsse92.0-94.0[facility] CampusMonocytes Auto (Bld) [#/Vol] Ordered By: Mitch Vaughan on 84-73-4967Ryqjmejev (Bld) [#/Vol]0.5 10 3/uL0.3-0.8 [facility] CampusMonocytes/100 WBC Auto (Bld)Ordered By: Mitch Vaughan on 60-17-2527Fardjggfo/100 WBC (Bld)8.8 %1.7-12.0[facility] CampusNeutrophils Auto (Bld) [#/Vol]Ordered By: Mitch Vaughan on 10-71-1116Btorberzrvk (Bld) [#/Vol]3.0 10 3/uL1.4-6.5FAvita Health System Galion HospitalNeutrophils/100 WBC Auto (Bld)Ordered By: Mitch Vaughan on 91-31-7163Wyeimdiijzt/100 WBC (Bld)52.9 %43.0-75.0[facility] CampusNo Panel InformationOrdered By: Mitch Vaughan on 22-86-7348Amvppjrumsz # (Auto)0.4 10 3/uL0.0-0.7FAvita Health System Galion HospitalImmature Granulocyte # (Auto)0.01 10 3/uL0.00-0.03[facility] Barber[facility] CampusPlatelet mean volume Auto (Bld) [Entitic vol]Ordered By: Mitch Vaughan on 30-18-7090Suwbdywp mean volume (Bld) [Entitic vol]8.7 fLLow9.5-13.5FAvita Health System Galion Hospital Platelets Auto (Bld) [#/Vol]Ordered By: Mitch Vaughan on 24-85-9701Fnaoivdkb (Bld) [#/Vol]216 10 3/fB769-639LnzctnxdsSumma Health Barberton CampusRBC Auto (Bld) [#/Vol]Ordered By: Mitch Vaughan on 61-06-4613YSW (Bld) [#/Vol]4.61 10 6/uLLow 4.70-6.10St. Rita's Hospitalerum or plasma albumin/globulin mass ratioOrdered By: Mitch Vaughan on 59-16-9201Aqctqgw/Globulin [Mass ratio]1.2 {ratio}St. Rita's Hospitalerum or plasma anion gap determination Ordered By: Mitch Vaughan on 57-11-2198Xvttu gap [Moles/Vol]10.3 mmol/LFMetroHealth Cleveland Heights Medical Centererum or plasma total cholesterol/high density lipoprotein (HDL) cholesterol mass ratOrdered By: Mitch Vaughan on 12-03-2024 Cholesterol.total/Cholesterol in HDL [Mass ratio]1.5 {ratio}[facility] CampusComment on above:3.3 - 4.4 LOW RISK4.4 - 7.1 AVERAGE RISK7.1 - 11.0 MODERATE RISK>11.0 HIGH RISKNo Panel Informationon 53-25-2821Biwjqhio Specific Antigen0.33 ng/mL<2.60[facility] CampusComment on above:Total PSA test methodology used is the Electrochemiluminescence Immunoassay by [employer]. Total PSA values by differing methodologies cannot be interchanged.PSA SerPl-mCncon 59-13-3187Erbtaamj specific Ag [Mass/Vol]0.33 ng/mLNormal<2.60[facility] Shelby HospitalComment on above:Order Comment: Specimen Type: BLOOD SPECIMEN Ordering Facility: [facility] Address: [address] [place], [place] [address]Result Comment: Total PSA test methodology used is the Electrochemiluminescence Immunoassay by [employer]. Total PSA values by differing methodologies cannot be interchanged. Performed By: #### 2857-1 #### [facility] CLIA [id number] [address] [place] [address] Panel Informationon 32-91-9002Fbyxksmk Specific Antigen0.55 ng/mL<2.60[facility] CampusComment on above:Total PSA test methodology used is the Electrochemiluminescence Immunoassay by [employer]. Total PSA values by differing methodologies cannot be interchanged.Basophils Auto (Bld) [#/Vol]on 13-02-4048Bxgunfmla (Bld) [#/Vol]0.0 10 3/uL0.0-0.1FAvita Health System Galion HospitalBasophils/100 WBC Auto (Bld)on 93-95-0605Vnsfztavp/100 WBC (Bld)0.7 % 0.2-2.0[facility] CampusCholesterol in LDL Calc [Mass/Vol]on 34-66-1127Nkayyjigqqk in LDL [Mass/Vol]35.0 mg/dLSumma Health Barberton CampusComment on above:<100 mg/dl MLCNGJT146-719 mg/dl NEAR OR ABOVE ZTOJEFA045- 159 mg/dl BORDERLINE DSAA476-890 mg/dl HIGH>190 mg/dl VERY HIGHCholesterol in VLDL Calc [Mass/Vol]on 01-81-2753Qyipenslqhg in VLDL [Mass/Vol]18.4 mg/dL [facility] CampusEosinophils/100 WBC Auto (Bld)on 11-30-2023 Eosinophils/100 WBC (Bld)6.9 %0.9-7.0[facility] Erythrocyte distribution width Auto (RBC) [Ratio]on 73-75-1511Skxclzavsao distribution width (RBC) [Ratio]13.6 %11.0-15.0[facility] Estimated glomerular filtration rate (GFR) non- Americanon 11-30-2023 GFR/1.73 sq M.predicted among non-blacks MDRD (S/P/Bld) [Vol rate/Area] mL/min/{1.73_m2}>=60[facility] CampusGlobulin Calc (S) [Mass/Vol]on 74-61-6666Nxogrvwd (S) [Mass/Vol]3.0 g/dLSumma Health Barberton CampusHematocrit Auto (Bld) [Volume fraction]on 00-68-2471Lacajgopny (Bld) [Volume fraction]45.1 %42.0-54.0[facility] CampusHemoglobin [Mass/volume] in Bloodon 28-06-1862Vzovralltr (Bld) [Mass/Vol]15.6 g/dL14.0-18.0 [facility] CampusLaboratory - Chemistry and Chemistry - challengeon 64-84-6171Mhfnnyj [Mass/Vol]3.7 g/dL3.4-5.0[facility] CampusALP [Catalytic activity/Vol]88 U/F36-959IsorjrxvfSumma Health Barberton CampusALT [Catalytic activity/Vol]37 U/O36-88VdikdhvfvSumma Health Barberton Campus AST [Catalytic activity/Vol]26 U/W26-17MtqerinuySumma Health Barberton Campus Bilirubin [Mass/Vol]1.9 mg/dLHigh0.2-1.0[facility] CampusCalcium [Mass/Vol]9.2 mg/dL8.5-10.1FAvita Health System Galion HospitalChloride [Moles/Vol]105 mmol/U66-967ZwtnmvevcSumma Health Barberton CampusCholesterol [Mass/Vol]120 mg/dL<=200[facility] CampusCholesterol in HDL [Mass/Vol]67 mg/jOEest03-13QtywzolkiSumma Health Barberton CampusComment on above:> or =60 mg/dl - LOW CARDIOVASCULAR RISK<40 mg/dl - HIGH CARDIOVASCULAR RISKCO2 [Moles/Vol]28.2 mmol/L21.0-32.0[facility] CampusCreatinine [Mass/Vol]0.94 mg/dL0.70-1.30[facility] CampusGFR/1.73 sq M.predicted MDRD (S/P/Bld) [Vol rate/Area]mL/min/{1.73_m2}>=60[facility] CampusGlucose [Mass/Vol]103 mg/fJ64-600LapqvjsnvSumma Health Barberton Campus Potassium [Moles/Vol]4.0 mmol/L3.5-5.1FAvita Health System Galion HospitalProtein [Mass/Vol]6.7 g/dL6.4-8.2FMetroHealth Cleveland Heights Medical Centerodium [Moles/Vol]142 mmol/Y301-889AwyjwgfibSumma Health Barberton CampusTriglyceride [Mass/Vol]92 mg/dL <=150[facility] CampusUrea nitrogen [Mass/Vol]9.0 mg/dL7.0-18.0 [facility] CampusUrea nitrogen/Creatinine [Mass ratio]9.6 mg/mg [facility] CampusLaboratory - Hematology and Cell countson 34-76-2314Cxutxdsl granulocytes/100 WBC (Bld)0.2 %0.0-0.5FAvita Health System Galion HospitalLeukocytes [#/volume] corrected for nucleated erythrocytes in Blood by Automated counon 26-63-0553TRE corrected for nucl RBC Auto (Bld) [#/Vol]4.5 10 3/uL4.0-11.0[facility] CampusLymphocytes Auto (Bld) [#/Vol]on 48-40-1837Sttpevtlziv (Bld) [#/Vol]1.7 10 3/uL1.2-3.8[facility] CampusLymphocytes/100 WBC Auto (Bld)on 11-30-2023 Lymphocytes/100 WBC (Bld)38.6 %20.5-60.0[facility] Regional Medical CenterH Auto (RBC) [Entitic mass]on 04-85-1549YKX (RBC) [Entitic mass]33.9 pg25.9-34.0 [facility] CampusMCHC Auto (RBC) [Mass/Vol]on 49-01-6694IRAV (RBC) [Mass/Vol]34.6 g/dL29.9-35.2FAvita Health System Galion HospitalMCV Auto (RBC) [Entitic vol]on 78-74-4372ELD (RBC) [Entitic vol]98.0 eRKnhc38.0-94.0 [facility] CampusMonocytes Auto (Bld) [#/Vol]on 11-30-2023 Monocytes (Bld) [#/Vol]0.5 10 3/uL0.3-0.8[facility] Monocytes/100 WBC Auto (Bld)on 28-93-5001Pjaqbutop/100 WBC (Bld)10.3 %1.7-12.0 [facility] CampusNeutrophils Auto (Bld) [#/Vol]on 11-30-2023 Neutrophils (Bld) [#/Vol]1.9 10 3/uL1.4-6.5FAvita Health System Galion Hospital Neutrophils/100 WBC Auto (Bld)on 52-34-0037Klrpzktiqzn/100 WBC (Bld)43.3 % 43.0-75.0[facility] CampusNo Panel Informationon 11-30-2023 Eosinophils # (Auto)0.3 10 3/uL0.0-0.7FAvita Health System Galion HospitalImmature Granulocyte # (Auto)0.01 10 3/uL0.00-0.03[facility] Platelet mean volume Auto (Bld) [Entitic vol]on 51-86-9051Mwblafdv mean volume (Bld) [Entitic vol]8.6 fLLow9.5-13.5FAvita Health System Galion HospitalPlatelets Auto (Bld) [#/Vol]on 27-71-5905Furrikchv (Bld) [#/Vol]211 10 3/rV946-263 [facility] CampusRBC Auto (Bld) [#/Vol]on 11-87-8327KGW (Bld) [#/Vol]4.60 10 6/uLLow4.70-6.10St. Rita's Hospitalerum or plasma albumin/globulin mass ratioon 91-78-3496Ezwkoms/Globulin [Mass ratio]1.2 {ratio} [facility]'s Hospitalerum or plasma anion gap determinationon 28-22-0635Yhxev gap [Moles/Vol]12.8 mmol/LFMetroHealth Cleveland Heights Medical Centererum or plasma total cholesterol/high density lipoprotein (HDL) cholesterol mass rat on 71-08-0452Kdullwdlhfx.total/Cholesterol in HDL [Mass ratio]1.8 {ratio} [facility] CampusComment on above:3.3 - 4.4 LOW RISK4.4 - 7.1 AVERAGE RISK7.1 - 11.0 MODERATE RISK>11.0 HIGH RISKALLIED HEALTHon 06-20-2023 ALLIED HEALTHHNO ID: [id number] Author: VALENTINA HALL RT(R) Service: Radiology Author [...] PATIENT PRESENTS WITH AN IMPLANTABLE OR ATTACHED ACO COORDINATOR: No RADIOLOGY DEPARTMENT: General X-ray: Exam(s) Completed: Pelvis X-Ray: Pelvis General AP PERIPHERAL IV DATA: Not applicable SIGNED BY: RT Mary(R) June 20, 2023 1:34 [facility] POSTPROC EVALon 68-41-5377AXGT POSTPROC EVALHNO ID: [id number] Author: CHERIE PETERSEN MD Service: Critical Care [...] June 20, 2023 TIME: 2:15 PM CSN: [id number]st Medical Center PRE-OPon 06-20-2023 ANES PRE-OPHNO ID: [id number] Author: CHERIE PETERSEN MD Service: Critical Care [...] results: No results found for this basename: HCT,HEMATOCRIT,K,POTASSIUM Relevant Problems CARDIO (+) HTN (hypertension) NEURO-PSYCH [...] and consent discussed: yes. Patient / Responsible Libertarian agrees to proceed: yes Patient / Surrogate [...] Blu Kuo DATE: June 20, 2023 TIME: 11:58 AM CSN: [id number] HospitalHISTORY PHYSICALon 02-85-4003XMOQLZA PHYSICALHNO ID: [id number] Author: LIU HILL PA-C Service: Urology Author Type: Physician Ruby Engineer Type: H&P Filed: 06/20/2023 10:56 Note Text: [...] RADIOELEMENT APPLICATION Medication reconciliation list reviewed in [employer]. Past medical history, past surgical history, social history and family history reviewed and updated in [employer]. ALLERGIES Allergen Reactions Penicillins Unknown Sulfamethoxazole Hives [...] PA SIGNATURE: Liu Hill PA-C PATIENT NAME: lBu Kuo DATE: June 20, 2023 TIME: 10:18 [facility] HospitalOPERATIVE NOon [id number] NOHNO ID: [id number] Author: CAIN NOVA MD Service: Radiation Oncology Author Type: Physician Type: Operative Report Filed: 06/20/2023 13:05 Note Text: [place] [address] [place] OUTPATIENT OPERATIVE REPORT NAME: Blu Kuo [facility] #: [id number] DATE: June 20, 2023 AGE: [age] year old SURGEON 1: Cain Nova M.D. SURGEON 2: Arnav Marti M.D. START TIME: 1228 FINISH TIME: 1:03 PM OPERATION: I-125 seed implant of the prostate. ANESTHESIA: General PREOPERATIVE DIAGNOSIS: Adenocarcinoma of the prostate, initial PSA of 9.3 ng/mL, Lefors of 3+3=6. POSTOPERATIVE DIAGNOSIS: same OPERATIVE INDICATIONS: [...] the urologist, physicist and special procedure brachytherapy coordinate measuring machine technician for: volume determination, needle placement, treatment planning, seed preparation (stranded and single) and seed insertion. ESTIMATED BLOOD LOSS: 10 cc. DRAINS: None. SPECIMENS: None. COMPLICATIONS: None. ATTESTATION: I was present and involved in all aspects of the treatment planning and execution of the treatment plan. Electronically signed on June 20, 2023 at 1:04 PM by Cain Nova M.D.[facility] HospitalOPERATIVE NOHNO ID: [id number] Author: ARNAV MARTI MD Service: Urology Author [...] computer where the radiation oncologist and radiation coordinate measuring machine technician calculated location of each seed within the prostate gland. I assisted the radiation oncologist in placing the needles and seeds. Ultrasound probe was removed the patient tolerated the procedure well and left the operating in satisfactory condition.[facility] HospitalXR PELVIS 1V APon 45-94-2211KC PELVIS 1V AP* * *Final Report* * * DATE OF EXAM: Jun 20 2023 1:33PM SPR 5239 - XR PELVIS 1V AP / [...] MD on Jun 20 2023 1:44PM EST [id number]_IDCSIACNNHannibal Regional HospitalXR wrist LT 2Von 11-17-7492XO wrist LT 2[facility] Main [place] [id number] XRay Report Signed Patient: Blu Kuo MR#: [id number] 1 : 1950 Acct:[id number] Age/Sex: 72 / M ADM Date: 03/14/23 Loc: [facility] Room: Type: [facility] Attending Dr: Amando Thompson MD Copies [...] Arnav Cleveland M.D.03/14/2023 2:19 PM Dictation Location: [place] [address] Transcribed By: [facility] 03/14/23 1419 Dictated By: Arnav Cleveland DO 03/14/23 141 Signed By: 03/14/23 1419NoMarietta Memorial HospitalXR wrist LT 2Von 01-24-2023 XR wrist LT 2[facility]WVUMEDICINE [facility] Main [address] [address] XRay Report Signed Patient: Blu Kuo MR#: [id number] 1 : 1950 Acct:[id number] Age/Sex: 72 / M ADM Date: 01/24/23 Loc: [facility] Room: Type: [facility] Attending Dr: Amando Thompson MD Copies [...] Jam Osorio M.D.01/24/2023 1:42 PM Dictation Location: [place] [address] Transcribed By: [facility] 01/24/23 1342 Dictated By: Jam Osorio II, MD 01/24/23 1341 Signed By: 01/24/23 1342[facility] ClinicXR [facility] [employer] Other XR wrist LT 2VP[facility] [employer] Other xr wrist LT 1O9894 [facility] [employer] Other xr wrist LT [address] [employer] Other xr wrist LT 2VXRStarr Regional Medical Center [employer] Other xr wrist LT 2VSJohn J. Pershing [facility] [employer] Other XR wrist LT 2VPatient: Blu Kuo MR#: [id number] [place] [employer] Other XR wrist LT 1V1Zfajm [employer] Other XR wrist LT 2VDOB: 1950 Acct:[id number] [employer] Other XR wrist LT 2VAge/Sex: 72 / M ADM Date: 01/24/23[place] [employer] Other XR wrist LT 2VLoc: SOXD Room: Type: [facility] [employer] Other XR wrist LT 2VAttending Dr: Amando Thompson [facility] [employer] Other XR wrist LT 2VCopies to: Amando Thompson MDRipley [employer] Other xr wrist LT 2VOrdering Provider: Amando Thompson MD [place] [employer] Other XR wrist LT 2VDate of Service: 01/24/23[place] [employer] Other XR wrist LT 2VAccession #: ([id number]) XR/XR wrist LT 2V: Other fractures of lower end of left radius,[employer] Other XR wrist LT 2Vsubsequent [facility] [employer] Other XR wrist LT 2VXR wrist LT 2V 01/24/2023 10:03 [facility] [employer] Other xr wrist LT 2VSIGNS AND SYMPTOMS:[employer] Other xr wrist LT 2VOther fractures of lower end of left radius, subsequent [facility] [employer] Other xr wrist LT 2VPROTOCOL: Frontal and lateral radiograph of the left wristRipley grab[employer] Other xr wrist LT 2VCOMPARISON: 01/03/2023[place] [employer] Other xr wrist LT 2VFINDINGS:[employer] Other xr wrist LT 2VThere is volar plate and screw fixation of a distal radius fracture. There is also a transverselyRipley [employer] Other xr wrist LT 2Voriented minimally displaced ulnar side fracture. No hardware complication or malalignment. HealingRipley [employer] Other XR wrist LT 2Vremains incomplete. There is diffuse osteopenia.[employer] Other XR wrist LT 2VORDER #: [id number] XR/XR wrist LT 2V [employer] Other xr wrist LT 2VIMPRESSION:[employer] Other xr wrist LT 2VUnchanged volar plate and screw fixation of a distal radius fracture.[employer] Other xr wrist LT 2VUnchanged distal radius and ulnar fractures with healing.[employer] Other xr wrist LT 2VImpression dictated by: Jam Osorio M.D.01/24/2023 1:42 PMNsalem [facility] hospital [employer] Other xr wrist LT 2VDictation Location: [address] [employer] Other xr wrist LT 2VTranscribed By: SILVINO 01/24/[address] [place] [address] [employer] Other xr wrist LT 2VDictated By: Jam Osorio II, MD 01/24/[address] [place] [address] [employer] Other xr wrist LT 2VSigned By:[employer] Other xr wrist LT 2V01/24/23 [facility] KirkwoodTrovaGene Other xr wrist LT 2Von 76-07-2500YV wrist LT 2[place] [id number] XRay Report Signed Patient: Blu Kuo MR#: [id number] 1 : 1950 Acct:[id number] Age/Sex: 72 / M ADM Date: 01/03/23 Loc: [facility] Room: Type: [facility] CLI Attending Dr: Amando Thompson MD Copies [...] Arnav Cleveland M.D.01/03/2023 2:46 PM Dictation Location: [place] [address] Transcribed By: [facility] 01/03/23 1446 Dictated By: Arnav Cleveland DO 01/03/23 1442 Signed By: 01/03/23 1446[facility] ClinicXR wrist LT 2Von 12-08-2022 XR wrist LT 2VSyd[place] [id number] XRay Report Signed Patient: Blu Kuo MR#: [id number] 1 : 1950 Acct:[id number] Age/Sex: 72 / M ADM Date: 12/08/22 Loc: [facility] Room: Type: REG CLI Attending Dr: Amando [...] FRACTURE. Impression dictated by: Bienvenido Moe Jr., D.O.12/08/2022 12:18 PM Dictation Location: [facility]12 Transcribed By: [facility] 12/08/22 1218 Dictated By: Bienvenido Moe Jr, DO 12/08/22 1217 Signed By: 12/08/22 1218[facility] ClinicXR wrist LT min 3V*on 92-23-7635NF wrist LT min 3V*[facility] [place] [address] XRay Report Signed Patient: Blu Kuo MR#: [id number] 1 : 1950 Acct:[id number] Age/Sex: 72 / M ADM Date: 11/30/22 Loc: [place] Room: Type: [facility] Attending Dr: Amando Thompson MD Copies to: [...] Jam Osorio M.D.11/30/2022 1:58 PM Dictation Location: [place] [address] Transcribed By: [facility] 11/30/22 1358 Dictated By: Jam Osorio II, MD 11/30/22 1357 Signed By: 11/30/22 1358[facility] ClinicBasic Metabolic Panelon [id number] gap [Moles/Vol]11.9 mmol/LNormal6.0-15.0[facility] Barber[facility] CampusComment on above:Performed By: #### BMP, CBC #### [facility] [address] [place] [address] USACalcium [Mass/Vol]9.7 mg/dLNormal8.6-10.3FAvita Health System Galion HospitalComment on above:Result Comment: PERFORMED BY: [place] [address] PATHOLOGIST [employer]IS[employer]TERER JULIANA BUI M.D.Performed By: #### BMP, CBC #### [facility] [address] [place] [address] USAChloride [Moles/Vol]102 mmol/VNroobc93-854LwsftcuyoSumma Health Barberton CampusComment on above:Performed By: #### BMP, CBC #### [facility] [facility] [address] [place] [address] USACO2 [Moles/Vol]28.3 mmol/STwyfht44.0-31.0Sum[facility] Health Barberton CampusComment on above:Performed By: #### BMP, CBC #### [facility] [address] [place] [address] USACreatinine [Mass/Vol]0.83 mg/dLNormal0.70-1.30Sum[facility] Barberton CampusComment on above:Performed By: #### BMP, CBC #### [facility] [address] [place] [address] USAGFR/1.73 sq M.predicted MDRD (S/P/Bld) [Vol rate/Area] mL/min/{1.73_m2}NormalSumma Health Barberton CampusComment on above: Performed By: #### BMP, CBC #### [facility] [address] [place] [address] USAGlucose [Mass/Vol]98 mg/uUNhtdod12-477KpxvmxgzaSumma Health Barberton CampusComment on above:Result Comment: Random Glucose Reference Range is dependent on time and content of last meal. Glucose of more than 200 mg/dL in a nonstressed, ambulatory subject supports the diagnosis of Diabetes Mellitus. ADA recommended reference rangePerformed By: #### BMP, CBC #### [facility] [address] [place] [id number] USAPotassium [Moles/Vol]4.2 mmol/LNormal3.5-5.1FAvita Health System Galion HospitalComment on above:Performed By: #### BMP, CBC #### [facility] [address] [place] [address] USASodium [Moles/Vol]138 mmol/HRfbbsf122-308YiqedjylbSumma Health Barberton CampusComment on above:Performed By: #### BMP, CBC #### [facility] [address] [place] [id number] USAUrea nitrogen [Mass/Vol]10 mg/dLNormal-[facility] Barber[facility] CampusComment on above:Performed By: #### BMP, CBC #### [facility] [address] [place] [id number] USABasophils Auto (Bld) [#/Vol]Ordered By: Amando Thompson on 14-65-1835Gcwhqiosp (Bld) [#/Vol]0.0 10*3/uL0.0-0.2FAvita Health System Galion HospitalBasophils/100 WBC Auto (Bld)Ordered By: Amando Thompson on 11-29-2022 Basophils/100 WBC (Bld)0.3 %.[facility] CampusCalcium [Mass/volume] in Serum or PlasmaOrdered By: Amando Thompson on 34-53-2576Wqcjhir [Mass/Vol]9.7 mg/dL8.6-10.3FAvita Health System Galion HospitalCarbon dioxide, total [Moles/volume] in Serum or PlasmaOrdered By: Amando Sotoxa on 08-47-0658NE2 [Moles/Vol]28.3 mmol/L21.0-31.0Sum[facility] Barberton CampusChloride [Moles/volume] in Serum or PlasmaOrdered By: Amando Thompson on 52-78-3978Cxhjubei [Moles/Vol]102 mmol/L29-865NwuazvybfSumma Health Barberton CampusComplete Blood Count Auto Diffon 48-39-4965Ewjrqcrct (Bld) [#/Vol]0.0 10*3/uLNormal0.0-0.2FAvita Health System Galion HospitalComment on above:Result Comment: PERFORMED BY: [place] [address] PATHOLOGIST WHISKEY FILTERER JULIANA BUI M.D.Performed By: #### BMP, CBC #### [place] [address] USABasophils/100 WBC (Bld)0.3 %Normal.[facility] Barberton CampusComment on above:Performed By: #### BMP, CBC #### [place] [address] USAEosinophils (Bld) [#/Vol]0.1 10*3/uLNormal0.0-0.45 [facility] Barber[facility] CampusComment on above:Performed By: #### BMP, CBC #### [place] [address] USAEosinophils/100 WBC (Bld)0.7 %Normal.[facility] Barber[facility] CampusComment on above:Performed By: #### BMP, CBC #### [place] [address] USAErythrocyte distribution width (RBC) [Ratio]14.8 %Normal 12.0-14.8Sum[facility] Barberton CampusComment on above:Performed By: #### BMP, CBC #### [place] [address] USAHematocrit (Bld) [Volume fraction]43.1 %Oztlvq32.8-50.0 [facility] CampusComment on above:Performed By: #### BMP, CBC #### [place] [address] USAHemoglobin (Bld) [Mass/Vol]14.7 g/aFQkbkca12.0-17.0 [facility] CampusComment on above:Performed By: #### BMP, CBC #### [place] [address] USALymphocytes (Bld) [#/Vol]1.5 10*3/uLNormal1.00-4.8 [facility] Barber[facility] CampusComment on above:Performed By: #### BMP, CBC #### [facility] [address] [place] [id number] USALymphocytes/100 WBC (Bld)16.6 %Normal.[facility] Barber[facility] CampusComment on above:Performed By: #### BMP, CBC #### [facility] [address] [place] [address] USAMCH (RBC) [Entitic mass]35.2 gcVjlryr33.5-35.2FAvita Health System Galion HospitalComment on above:Performed By: #### BMP, CBC #### [facility] [address] [place] [address] USAMCV (RBC) [Entitic vol]102.8 aPAtem61.5-101Sum[facility] Barber[facility] CampusComment on above:Performed By: #### BMP, CBC #### [facility] [address] [place] [address] USAMean Corpuscular HGB Conc34.2 g/nCWcbgdk17.5-35.6FAvita Health System Galion HospitalComment on above:Performed By: #### BMP, CBC #### [facility] [address] [place] [address] USAMonocytes (Bld) [#/Vol]0.6 10*3/uLNormal0.0-0.8[facility] CampusComselect specialty hospital-[facility] on above:Performed By: #### BMP, CBC #### [facility] [address] [place] [address] USAMonocytes/100 WBC (Bld)7.2 %Normal.[facility] Barber[facility] CampusComment on above:Performed By: #### BMP, CBC #### [facility] [address] [place] [address] USANeutrophils (Bld) [#/Vol]6.6 10*3/uLNormal1.8-7.7FAvita Health System Galion HospitalComment on above:Performed By: #### BMP, CBC #### [facility] [address] [place] [address] USANeutrophils/100 WBC (Bld)75.2 %Normal.[facility] Barber[facility] CampusComment on above:Performed By: #### BMP, CBC #### [facility] [address] [place] [address] USANRBC%0.0 /100{WBC}Normal0-0.5FAvita Health System Galion HospitalComment on above:Performed By: #### BMP, CBC #### [facility] [address] [place] [address] USAPlatelet mean volume (Bld) [Entitic vol]7.1 fLNormal 6.6-10.1FAvita Health System Galion HospitalComment on above:Performed By: #### BMP, CBC #### [facility] [address] [place] [address] USAPlatelets (Bld) [#/Vol]237 10*3/oHWpvmst311-301LmdvmyxqoSumma Health Barberton CampusComment on above:Performed By: #### BMP, CBC #### [facility] [address] [place] [address] USARBC (Bld) [#/Vol]4.19 10*6/uLNormal3.90-5.60[facility] CampusComment on above:Performed By: #### BMP, CBC #### [facility] [address] [place] [address] USAWBC (Bld) [#/Vol]8.8 10*3/uLNormal4.1-10.5FAvita Health System Galion HospitalComment on above:Performed By: #### BMP, CBC #### [facility] [address] [place] [address] USACreatinine [Mass/volume] in Serum or PlasmaOrdered By: Amando Thompson on 46-97-0814Cssizxexeu [Mass/Vol]0.83 mg/dL0.70-1.30Sum[facility] Barber[facility] CampusECG 12 lead ECGon 89-76-5114OIO 12 lead ECGWVUMEDICINE HARRISON [facility] Main [place] [address] [place] [address] Electrocardiograph Report Signed Patient: Blu Kuo MR#: [id number] 1 : 1950 Acct:[id number] Age/Sex: 72 / M ADM Date: 11/29/22 Loc: PS Room: Type: [facility] Attending Dr: Amando Thompson MD Ordering Provider: [...] change was found Confirmed by [facility] SIM[facility] HOSPITALMAYCOL ([id number]) on 12/01/2022 11:54:09 AM Referred By: DR THOMPSON Electronically Signed By:MAYCOL MEDRANO MD FAC Transcribed By: MUS Signed By Ang Medrano MD 12/01/22 1154NormalSumma Health Barberton CampusEosinophils Auto (Bld) [#/Vol]Ordered By: Amando Thompson on 84-10-4242Apcakpkdwln (Bld) [#/Vol]0.1 10*3/uL0.0-0.45Sum[facility] Barberton CampusEosinophils/100 WBC Auto (Bld) Ordered By: Amando Thopmson on 31-66-7370Lwgfhyowbms/100 WBC (Bld)0.7 %.[facility] CampusErythrocyte distribution width Auto (RBC) [Ratio]Ordered By: Amando Thompson on 76-79-8927Zwxnkljucqm distribution width (RBC) [Ratio]14.8 % 12.0-14.8Sum[facility] Barber[facility] CampusGlucose [Mass/volume] in Serum or PlasmaOrdered By: Amando Thompson on 75-34-5290Bbnupsg [Mass/Vol]98 mg/yG77-285 [facility] CampusComment on above:ADA recommended reference rangeRandom Glucose Reference Range is dependent on time and content of last meal. Glucose of more than 200 mg/dL in a nonstressed, ambulatory subject supports the diagnosisof Diabetes Mellitus.Hematocrit Auto (Bld) [Volume fraction]Ordered By: Amando Thompson on 87-65-6410Oxlbjgfjmi (Bld) [Volume fraction]43.1 %38.8-50.0[facility] CampusHemoglobin [Mass/volume] in BloodOrdered By: Amando Thompson on 00-38-7353Ugbvmzyrbd (Bld) [Mass/Vol]14.7 g/dL13.0-17.0[facility] CampusLeukocytes [#/volume] corrected for nucleated erythrocytes in Blood by Automated coun Ordered By: Amando Thompson on 96-41-7726ZVO corrected for nucl RBC Auto (Bld) [#/Vol]8.8 10*3/uL4.1-10.5FAvita Health System Galion HospitalLymphocytes Auto (Bld) [#/Vol]Ordered By: Amando Thompson on 05-58-0733Trlqrqbomqp (Bld) [#/Vol]1.5 10*3/uL1.00-4.8Sum[facility] Barberton CampusLymphocytes/100 WBC Auto (Bld) Ordered By: Amando Thompson on 68-90-9309Tgckbknffcq/100 WBC (Bld)16.6 %.[facility] Auto (RBC) [Entitic mass]Ordered By: Amando Thompson on 45-98-7673NBB (RBC) [Entitic mass]35.2 pg27.5-35.2FAvita Health System Galion HospitalMCHC Auto (RBC) [Mass/Vol]Ordered By: Amando Thompson on 46-54-1040NNTZ (RBC) [Mass/Vol]34.2 g/dL32.5-35.6FAvita Health System Galion HospitalMCV Auto (RBC) [Entitic vol]Ordered By: Amando Thompson on 43-04-5393IWZ (RBC) [Entitic vol]102.8 fL83.5-101Sum[facility] Barber[facility] CampusMonocytes Auto (Bld) [#/Vol]Ordered By: Amando Thompson on 38-43-5465Ikbrubdfa (Bld) [#/Vol]0.6 10*3/uL0.0-0.8[facility] CampusMonocytes/100 WBC Auto (Bld)Ordered By: Amando Thompson on 09-25-2731Ctjcoondb/100 WBC (Bld)7.2 %.[facility] Neutrophils Auto (Bld) [#/Vol]Ordered By: Amando Thompson on 54-76-3322Mhgqxasogkg (Bld) [#/Vol]6.6 10*3/uL1.8-7.7FAvita Health System Galion HospitalNeutrophils/100 WBC Auto (Bld)Ordered By: Amando Thompson on 45-23-5808Lqrvzqaiyfc/100 WBC (Bld) 75.2 %.[facility] CampusNo Panel InformationOrdered By: Amando Thompson on 96-18-6735Wvrnokgoh GFR (CKD-EPI)> 60.0 mL/MinSumma Health Barberton CampusPharmacy Creatinine Clearance (ChemN/AFAvita Health System Galion HospitalNucleated erythrocytes [Presence] in Blood by Automated countOrdered By: Amando Thompson on 73-22-4481Vsaqvtolj RBC Auto Ql (Bld)0.0 /100{WBC}0-0.5FAvita Health System Galion HospitalPlatelet mean volume Auto (Bld) [Entitic vol]Ordered By: Amando Thompson on 41-62-8362Nvwromjg mean volume (Bld) [Entitic vol]7.1 fL6.6-10.1 [facility] CampusPlatelets Auto (Bld) [#/Vol]Ordered By: Amando Thompson on 25-82-4252Twxgvqxcl (Bld) [#/Vol]237 10*3/hM006-812HicwrjpudSumma Health Barberton CampusPotassium [Moles/volume] in Serum or PlasmaOrdered By: Amando Thompson on 17-95-8487Mdqibtdbf [Moles/Vol]4.2 mmol/L3.5-5.1FAvita Health System Galion HospitalRBC Auto (Bld) [#/Vol]Ordered By: Amando Thompson on 63-04-6052ZPC (Bld) [#/Vol]4.19 10*6/uL3.90-5.60St. Rita's Hospitalerum or plasma anion gap determinationOrdered By: Amando Thompson on 60-57-6829Jkacp gap [Moles/Vol]11.9 mmol/L6.0-15.0St[facility] Rita's Hospitalodium [Moles/volume] in Serum or PlasmaOrdered By: Amando Thompson on 51-08-9795Crnias [Moles/Vol]138 mmol/X896-616IklifbgifSumma Health Barberton CampusUrea nitrogen [Mass/volume] in Serum or PlasmaOrdered By: Amando Thompson on 03-71-4157Atny nitrogen [Mass/Vol]10 mg/dL7Sum[facility] Barberton CampusWBC Auto (Bld) [#/Vol]Ordered By: Amando Thompson on 35-71-3295TPG (Bld) [#/Vol]8.8 10*3/uL 4.1-10.5FAvita Health System Galion HospitalXR wrist LT min 3V*on 01-13-0007IU wrist LT min 3V*[facility] [place] [address] XRay Report Signed Patient: Blu Kuo MR#: [id number] 1 : 1950 Acct:[id number] Age/Sex: 72 / M ADM Date: 11/29/22 Loc: ER Room: Type: [facility] ER Attending Dr: Copies to: [...] Arnav Cleveland M.D.11/29/2022 9:39 AM Dictation Location: [place] [address] Transcribed By: [facility] 11/29/22 0939 Dictated By: Arnav Cleveland DO 11/29/22 0938 Signed By: 11/29/22 0939NoMarietta Memorial HospitalCBC AUTO DIFFon 04-15-2022 BASO #0.0 103/ulNormal0.0-0.1[facility] Brent[facility] HospitalComment on above:Performed By: #### BMP, ALT, LIPID #### [facility] [address] [place] [address] Dr. Marco Antonio PedrozaBasophils/100 WBC (Bld)0.6 %Normal0.2-2.0The [facility] on above:Performed By: #### BMP, ALT, LIPID #### [facility] [address] [place] [address] Dr. Marco Antonio Stokes #0.4 103/ulNormal0.0-0.7The Regional Medical CenterComment on above: Performed By: #### BMP, ALT, LIPID #### [facility] [address] [place] [address] Dr. Marco Antonio Hwangosinophils/100 WBC (Bld)7.4 %Critically high0.9-7.0The [facility] Medical CenterComment on above:Performed By: #### BMP, ALT, LIPID #### [facility] [address] [place] [address] Dr. Marco Antonio Hwangrythrocyte distribution width (RBC) [Ratio]12.6 %Otubet13.0-15.0 The [facility] Medical CenterComment on above:Performed By: #### BMP, ALT, LIPID #### [facility] [address] [place] [address] Dr. Marco Antonio PedrozaHematocrit (Bld) [Volume fraction]39.4 %Critically low42.0-54.0 The [facility] Hospitalment on above:Performed By: #### BMP, ALT, LIPID #### [facility] [address] [place] [address] Dr. Marco Antonio PedrozaHemoglobin (Bld) [Mass/Vol]13.8 g/dLCritically low14.0-18.0The [facility] Medical CenterComment on above:Performed By: #### BMP, ALT, LIPID #### [facility] [address] [place] [address] Dr. Marco Antonio Stevenson #0.01 10e3/ulNormal0.00-0.03The [facility] Medical CenterComment on above:Performed By: #### BMP, ALT, LIPID #### [facility] [address] [place] [address] [address] Marco Antonio Stevenson %0.2 %Normal0.0-0.5The [facility] Medical CenterComment on above: Performed By: #### BMP, ALT, LIPID #### [facility] [address] [place] [address] Dr. Marco Antonio Chawla #2.1 103/ulNormal1.2-3.8The [facility] Medical CenterComment on above:Performed By: #### BMP, ALT, LIPID #### [facility] [address] [place] [address] Dr. Marco Antonio Keithhocytes/100 WBC (Bld)44.3 %Trgosp41.5-60.0The [facility] Medical CenterComment on above:Performed By: #### BMP, ALT, LIPID #### [facility] [address] [place] [address] Dr. Marco Antonio LeonardoUAL DIFF REQNONormalThe Regional Medical CenterComment on above: Performed By: #### BMP, ALT, LIPID #### [facility] [address] [place] [address] Dr. Marco Antonio Bertrand (RBC) [Entitic mass]34.0 ztMxiedu94.9-34.0The [facility] Medical CenterComment on above:Performed By: #### BMP, ALT, LIPID #### [facility] [address] [place] [address] Dr. Marco Antonio Bertrand (RBC) [Mass/Vol]35.0 g/zCWealkf97.9-35.2The [facility] Medical CenterComment on above:Performed By: #### BMP, ALT, LIPID #### [facility] [address] [place] [address] Dr. Marco Antonio Bertrand (RBC) [Entitic vol]97.0 fLCritically high80.0-94.0The [facility] Medical CenterComment on above:Performed By: #### BMP, ALT, LIPID #### [facility] [address] [place] [address] Dr. Marco Antonio Fall #0.6 103/ulNormal0.3-0.8The [facility] Medical CenterComment on above:Performed By: #### BMP, ALT, LIPID #### [facility] [address] [place] [address] Dr. Marco Antonio Suazoocytes/100 WBC (Bld)12.0 %Normal1.7-12.0The [facility] Comment on above:Performed By: #### BMP, ALT, LIPID #### [facility] [address] [place] [address] Dr. Marco Antonio MimsUT #1.7 103/ulNormal1.4-6.5The [facility] Medical CenterComment on above:Performed By: #### BMP, ALT, LIPID #### [facility] [address] [place] [address] Dr. Marco Antonio Mimsutrophils/100 WBC (Bld)35.5 %Critically low43.0-75.0The [facility] Medical CenterComment on above:Performed By: #### BMP, ALT, LIPID #### [facility] [address] [place] [address] Dr. Marco Antonio PedrozaPlatelet mean volume (Bld) [Entitic vol]8.7 fLCritically low 9.5-13.5The [facility] Medical CenterComment on above:Performed By: #### BMP, ALT, LIPID #### [facility] [address] [place] [address] Dr. Marco Antonio PedrozaPLT310 103/nkLuxlgh937-953Kvc [facility] Medical CenterComment on above: Performed By: #### BMP, ALT, LIPID #### [facility] [address] [place] [address] Dr. Marco Antonio PedrozaRBC4.06 106/ulCritically low4.70-6.10The [facility] Medical CenterComment on above:Performed By: #### BMP, ALT, LIPID #### [facility] [address] [place] [address] Dr. Marco Antonio PedrozaWBC4.8 103/ulNormal4.0-11.0The [facility] Medical CenterComment on above: Performed By: #### BMP, ALT, LIPID #### [facility] [address] [place] [address] Dr. Marco Antonio PedrozaPROF CHEM 8 (BAS METB)on 86-03-9393Cixwj gap [Moles/Vol]12.7 mmol/LNormalThe Regional Medical CenterComment on above:Performed By: #### BMP, ALT, LIPID #### [facility] [address] [place] [address] Dr. Marco Antonio PedrozaCalcium [Mass/Vol]9.3 mg/dLNormal8.5-10.1The [facility] Comment on above:Performed By: #### BMP, ALT, LIPID #### [facility] [address] [place] [address] Dr. Marco Antonio PedrozaChloride [Moles/Vol]104 mmol/FZquvdj30-290Fcm [facility] Comment on above:Performed By: #### BMP, ALT, LIPID #### [facility] [address] [place] [address] Dr. Marco Antonio PedrozaCO2 [Moles/Vol]26.0 mmol/BTllzxs31.0-32.0[facility] Comment on above:Performed By: #### BMP, ALT, LIPID #### [facility] [address] [place] [address] Dr. Marco Antonio PedrozaCreatinine [Mass/Vol]1.60 mg/dLCritically high0.70-1.30The [facility] CenterComment on above:Performed By: #### BMP, ALT, LIPID #### [facility] [address] [place] [address] Dr. Marco Antonio HwangGFR-AF OOSZHYXD27 mL/min/1.51m9Rqetvzfbmp low>=60The [facility] Medical CenterComment on above:Performed By: #### BMP, ALT, LIPID #### [facility] [address] [place] [address] Dr. Marco Antonio HwangGFR-NON AF YHCPDBWQ47 mL/min/1.74c7Czvbizexlu low>=60The [facility] CenterComment on above:Performed By: #### BMP, ALT, LIPID #### [facility] [address] [place] [address] Dr. Marco Antonio PedorzaGlucose [Mass/Vol]105 mg/iZSlqtoq26-925LlcSuburban Community Hospital & [facility] Comment on above:Performed By: #### BMP, ALT, LIPID #### [facility] [address] [place] [address] Dr. Marco Antonio PedrozaPotassium [Moles/Vol]4.7 mmol/LNormal3.5-5.1The [facility] Comment on above:Performed By: #### BMP, ALT, LIPID #### [facility] [address] [place] [address] Dr. Marco Antonio PedrozaSodium [Moles/Vol]138 mmol/MWaftip685-997Gzv [facility] Comment on above:Performed By: #### BMP, ALT, LIPID #### [facility] [address] [place] [address] Dr. Marco Antonio PedrozaUrea nitrogen [Mass/Vol]21.0 mg/dLCritically high7.0-18.0The [facility] Medical CenterComment on above:Performed By: #### BMP, ALT, LIPID #### [facility] [address] [place] [address] Dr. Marco Antonio Cook nitrogen/Creatinine [Mass ratio]13.1 mg/mgNormalThe Regional Medical CenterComment on above:Performed By: #### BMP, ALT, LIPID #### [facility] [address] [place] [address] Dr. Marco Antonio Dorantes AUTO DIFFon 43-02-2290KTHW #0.0 103/ulNormal0.0-0.1The [facility] Medical CenterComment on above:Performed By: #### CBC #### [facility] [address] [place] [address] Dr. Marco Antonio PedrozaBasophils/100 WBC (Bld)0.2 %Normal0.2-2.0The [facility] Comment on above:Performed By: #### CBC #### [facility] [address] [place] [address] Dr. Bernard ChangEO #0.2 103/ulNormal0.0-0.7The [facility] Medical CenterComment on above: Performed By: #### CBC #### [facility] [address] [place] [address] [address] Marco Antonio Hwangosinophils/100 WBC (Bld)2.3 %Normal0.9-7.0The [facility] on above:Performed By: #### CBC #### [facility] [address] [place] [address] Dr. Marco Antonio Hwangrythrocyte distribution width (RBC) [Ratio]13.2 %Aelxls84.0-15.0 [facility] HospitalComment on above:Performed By: #### CBC #### [facility] [address] [place] [address] Dr. Marco Antonio PedrozaHematocrit (Bld) [Volume fraction]39.4 %Critically low42.0-54.0 The [facility] Medical CenterComment on above:Performed By: #### CBC #### [facility] [address] [place] [address] Dr. Marco Antonio PedrozaHemoglobin (Bld) [Mass/Vol]13.7 g/dLCritically low14.0-18.0The [facility] Medical CenterComment on above:Performed By: #### CBC #### [facility] [address] [place] [address] Dr. Marco Antonio Stevenson #0.03 10e3/ulNormal0.00-0.03The [facility] Hospitalment on above:Performed By: #### CBC #### [facility] [address] [place] [address] Dr. Marco Antonio PedrozaIG %0.3 %Normal0.0-0.5The [facility] Hospitalment on above: Performed By: #### CBC #### [facility] [address] [place] [address] Dr. Marco Antonio KeithH #1.9 103/ulNormal1.2-3.8The [facility] Medical CenterComment on above:Performed By: #### CBC #### [facility] [address] [place] [address] Dr. Marco Antonio Chackomphocytes/100 WBC (Bld)20.6 %Oxxpvu89.5-60.0The [facility] Medical CenterComment on above:Performed By: #### CBC #### [facility] [address] [place] [address] Dr. Marco Antonio Anderson DIFF REQNONormalThe Regional Medical CenterComment on above: Performed By: #### CBC #### [facility] [address] [place] [address] Dr. Marco Antonio Bertrand (RBC) [Entitic mass]34.3 pgCritically high25.9-34.0The [facility] HospitalComment on above:Performed By: #### CBC #### [facility] [address] [place] [address] Dr. Marco Antonio Bertrand (RBC) [Mass/Vol]34.8 g/aTZtbueh36.9-35.2The [facility] Medical CenterComment on above:Performed By: #### CBC #### [facility] [address] [place] [address] Dr. Marco Antonio Bertrand (RBC) [Entitic vol]98.5 fLCritically high80.0-94.0The [facility] Medical CenterComment on above:Performed By: #### CBC #### [facility] [address] [place] [address] Dr. Marco Antonio Fall #0.6 103/ulNormal0.3-0.8The [facility] Medical CenterComment on above:Performed By: #### CBC #### [facility] [address] [place] [address] Dr. Marco Antonio Suazoocytes/100 WBC (Bld)6.8 %Normal1.7-12.0The [facility] Comment on above:Performed By: #### CBC #### [facility] [address] [place] [address] Dr. Marco Antonio Chavez #6.5 103/ulNormal1.4-6.5The [facility] Medical CenterComment on above:Performed By: #### CBC #### [facility] [address] [place] [address] Dr. Marco Antonio Mimsutrophils/100 WBC (Bld)69.8 %Gkhrcw15.0-75.0The [facility] Medical CenterComment on above:Performed By: #### CBC #### [facility] [address] [place] [address] Dr. Marco Antonio Guillenlet mean volume (Bld) [Entitic vol]8.9 fLCritically low 9.5-13.5The [facility] Medical CenterComment on above:Performed By: #### CBC #### [facility] [address] [place] [address] Dr. Marco Antonio PedrozaPLT171 103/pgOrokzi456-872Bpa [facility] Medical CenterComment on above: Performed By: #### CBC #### [facility] [address] [place] [address] Dr. Marco Antonio PedrozaRBC4.00 106/ulCritically low4.70-6.10The [facility] Medical CenterComment on above:Performed By: #### CBC #### [facility] [address] [place] [address] Dr. Marco Antonio PedrozaWBC9.3 103/ulNormal4.0-11.0The Regional Medical CenterComment on above: Performed By: #### CBC #### [facility] [address] [place] [address] Dr. Marco Antonio Waters 14(COMP METB)on [id number] [Mass/Vol]2.3 g/dL Critically low3.4-5.0The Regional Medical CenterComment on above:Performed By: #### BMP, ALT, LIPID #### [facility] [address] [place] [address] Dr. Marco Antonio PedrozaAlbumin/Globulin [Mass ratio]0.6 {ratio}NormalThe Regional Medical CenterComment on above:Performed By: #### BMP, ALT, LIPID #### [facility] [address] [place] [address] Dr. Marco Antonio Hernandez [Catalytic activity/Vol]73 U/ZJohgrc60-334Tek Regional Medical CenterComment on above:Performed By: #### BMP, ALT, LIPID #### [facility] [address] [place] [address] Dr. Marco Antonio RamosT [Catalytic activity/Vol]15 U/LCritically zjy03-77Jod Regional Medical CenterComment on above:Performed By: #### BMP, ALT, LIPID #### [facility] [address] [address] [address] Marco Antonio PedrozaAnion gap [Moles/Vol]9.2 mmol/LNormalThe Regional Medical CenterComment on above:Performed By: #### BMP, ALT, LIPID #### [facility] [address] [address] [address] Marco Antonio PedrozaAST [Catalytic activity/Vol]15 U/GIlzdnz88-03Hwm Regional Medical CenterComment on above:Performed By: #### BMP, ALT, LIPID #### [facility] [address] [place] [address] Dr. Marco Antonio PedrozaBilirubin [Mass/Vol]1.7 mg/dLCritically high0.2-1.0The Regional Medical CenterComment on above:Performed By: #### BMP, ALT, LIPID #### [facility] [address] [place] [address] Dr. Marco Antonio PedrozaCalcium [Mass/Vol]8.6 mg/dLNormal8.5-10.1[facility] Comment on above:Performed By: #### BMP, ALT, LIPID #### [facility] [address] [place] [address] Dr. Marco Antonio PedrozaChloride [Moles/Vol]104 mmol/QVhvlgh89-834Rhp [facility] Comment on above:Performed By: #### BMP, ALT, LIPID #### [facility] [address] [place] [address] Dr. Marco Antonio PedrozaCO2 [Moles/Vol]27.4 mmol/PRgprnr61.0-32.0[facility] Comment on above:Performed By: #### BMP, ALT, LIPID #### [facility] [address] [place] [address] Dr. Marco Antonio PedrozaCreatinine [Mass/Vol]0.86 mg/dLNormal0.70-1.30The Regional Medical CenterComment on above:Performed By: #### BMP, ALT, LIPID #### [facility] [address] [address] [address] Marco Antonio HwangGFR-AF BHUTANESE>60Normal>=60The Regional Medical CenterComment on above:Performed By: #### BMP, ALT, LIPID #### [facility] [address] [address] [address] Marco Antonio HwangGFR-NON AF BHUTANESE>60Normal>=60The Regional Medical CenterComment on above:Performed By: #### BMP, ALT, LIPID #### [facility] [address] [address] [address] Marco Antonio PedrozaGlobulin (S) [Mass/Vol]3.6 g/dLNormalThe Regional Medical CenterComment on above:Performed By: #### BMP, ALT, LIPID #### [facility] [address] [place] [address] Dr. Marco Antonio PedrozaGlucose [Mass/Vol]99 mg/dHPsvwzy94-456UtuSuburban [facility] Comment on above:Performed By: #### BMP, ALT, LIPID #### [facility] [address] [address] [address] Marco Antonio PedrozaPotassium [Moles/Vol]3.6 mmol/LNormal3.5-5.1[facility] Comment on above:Performed By: #### BMP, ALT, LIPID #### [facility] [address] [address] [address] Marco Antonio PedrozaProtein [Mass/Vol]5.9 g/dLCritically low6.4-8.2The Regional Medical CenterComment on above:Performed By: #### BMP, ALT, LIPID #### [facility] [address] [address] [address] Marco Antonio PedrozaSodium [Moles/Vol]137 mmol/IEhyrmm176-939Qyt [facility] Comment on above:Performed By: #### BMP, ALT, LIPID #### [facility] [address] [address] [address] Marco Antonio PedrozaUrea nitrogen [Mass/Vol]10.0 mg/dLNormal7.0-18.0The [facility] Hospitalment on above:Performed By: #### BMP, ALT, LIPID #### [facility] [address] [place] [address] Dr. Marco Antonio Cook nitrogen/Creatinine [Mass ratio]11.6 mg/mgNormalThe Regional Medical CenterComment on above:Performed By: #### BMP, ALT, LIPID #### [facility] [address] [place] [address] Dr. Marco Antonio Bull 22-59-0430Deevcmcwjuo peptide B (Bld) [Mass/Vol]302.0 pg/mL Normal<=900.0The Regional Medical CenterComment on above:Performed By: #### CMP, CMADM, BNP #### [facility] [address] [place] [address] Dr. Marco Antonio Mckenna JAM ADMITon [id number] [Catalytic activity/Vol]177 U/L Nfwipb89-690Psb [facility] Medical CenterComment on above:Performed By: #### CMP, CMADM, BNP #### [facility] [address] [place] [address] Dr. Marco Antonio Alberto.MB [Mass/Vol]2.10 ng/mLNormal<=3.60[facility] Comment on above:Performed By: #### CMP, CMADM, BNP #### [facility] [address] [place] [address] Dr. Marco Antonio PedrozaHSTROP8.1 pg/mLNormal4.0-76.1The [facility] on above:Result Comment: CUT-OFF POINTS HAVE BEEN ESTABLISHED BASED ON THE FOURTH UNIVERSAL DEFINITIONS OF MYOCARDIAL INFARCTION. THE UPPER REFERENCE LIMIT (URL) OF TROPONIN, DEFINED THE 99TH PERCENTILE OF cTnI DISTRIBUTION IN A REFERENCE POPULATION, HAS BEEN CONFIRMED THE DECISION THRESHOLD FOR [place] DIAGNOSIS.Performed By: #### CMP, CMADM, BNP #### [facility] [address] [place] [address] Dr. Marco Antonio LeonO97 ng/mLCritically pvgh63-31Fhc [facility] Hospitalment on above:Performed By: #### CMP, CMADM, BNP #### [facility] [address] [address] [address] Marco Antonio Dorantes AUTO DIFFon 92-61-1100QEJV #0.1 103/ulNormal0.0-0.1The [facility] Hospitalment on above:Performed By: #### CBC #### [facility] [address] [address] [address] Marco Antonio PedrozaBasophils/100 WBC (Bld)0.4 %Normal0.2-2.0[facility] Comment on above:Performed By: #### CBC #### [facility] [address] [place] [address] Dr. Marco Antonio Stokes #0.1 103/ulNormal0.0-0.7The Regional Medical CenterComment on above: Performed By: #### CBC #### [facility] [address] [place] [address] Dr. Marco Antonio Hwangosinophils/100 WBC (Bld)0.8 %Critically low0.9-7.0The Regional Medical CenterComment on above:Performed By: #### CBC #### [facility] [address] [place] [address] Dr. Marco Antonio Hwangrythrocyte distribution width (RBC) [Ratio]13.2 %Mqeear16.0-15.0 [facility] Rehabilitationment on above:Performed By: #### CBC #### [facility] [address] [place] [address] Dr. Marco Antonio PedrozaHematocrit (Bld) [Volume fraction]46.4 %Rssjtx83.0-54.0The [facility] Hospitalment on above:Performed By: #### CBC #### [facility] [address] [place] [address] Dr. Marco Antonio PedrozaHemoglobin (Bld) [Mass/Vol]16.4 g/cXFdukzo88.0-18.0The [facility] Hospitalment on above:Performed By: #### CBC #### [facility] [address] [place] [address] Dr. Marco Antonio Stevenson #0.04 10e3/ulCritically high0.00-0.03The [facility] Comment on above:Performed By: #### CBC #### [facility] [address] [address] [address] Marco Antonio Stevenson %0.3 %Normal0.0-0.5The [facility] Medical CenterComment on above: Performed By: #### CBC #### [facility] [address] [address] [address] Marco Antonio Chawla #2.4 103/ulNormal1.2-3.8The Regional Medical CenterComment on above:Performed By: #### CBC #### [facility] [address] [address] [address] Marco Antonio Keithhocytes/100 WBC (Bld)19.6 %Critically low20.5-60.0The Regional Medical CenterComment on above:Performed By: #### CBC #### [facility] [address] [address] [address] Marco Antonio Anderson DIFF REQNONormalThe Regional Medical CenterComment on above: Performed By: #### CBC #### [facility] [address] [address] [address] Marco Antonio Osborne (RBC) [Entitic mass]34.4 pgCritically high25.9-34.0The Regional Medical CenterComment on above:Performed By: #### CBC #### [facility] [address] [address] [address] Marco Antonio Bertrand (RBC) [Mass/Vol]35.3 g/dLCritically high29.9-35.2The Regional Medical CenterComment on above:Performed By: #### CBC #### [facility] [address] [place] [address] Dr. Marco Antonio Moreno (RBC) [Entitic vol]97.3 fLCritically high80.0-94.0[facility] HospitalComment on above:Performed By: #### CBC #### [facility] [address] [address] [address] Marco Antonio Fall #0.9 103/ulCritically high0.3-0.8[facility] Comment on above:Performed By: #### CBC #### [facility] [address] [place] [address] Dr. Marco Antonio Suazoocytes/100 WBC (Bld)7.3 %Normal1.7-12.0[facility] Comment on above:Performed By: #### CBC #### [facility] [address] [place] [address] Dr. Marco Antonio Chavez #8.8 103/ulCritically high1.4-6.5[facility] Comment on above:Performed By: #### CBC #### [facility] [address] [place] [address] Dr. Marco Antonio Mimsutrophils/100 WBC (Bld)71.6 %Thjady53.0-75.0The Regional Medical CenterComment on above:Performed By: #### CBC #### [facility] [address] [place] [address] Dr. Marco Antonio Guillenlet mean volume (Bld) [Entitic vol]9.2 fLCritically low 9.5-13.5The Regional Medical CenterComment on above:Performed By: #### CBC #### [facility] [address] [place] [address] Dr. Marco Antonio PedrozaPLT220 103/iuEwyxyf800-502Lkb [facility] Medical CenterComment on above: Performed By: #### CBC #### [facility] [address] [place] [address] Dr. Marco Antonio PedrozaRBC4.77 106/ulNormal4.70-6.10The [facility] Medical CenterComment on above:Performed By: #### CBC #### [facility] [address] [place] [address] Dr. Marco Antonio PedrozaWBC12.3 103/ulCritically high4.0-11.0The [facility] Medical CenterComment on above:Performed By: #### CBC #### [facility] [address] [place] [address] Dr. Marco Antonio PedrozaCT ABD/PELVIS WO CONon [id number] ABD/PELVIS WO CONEXAMINATION: CT ABD/PELVIS WO CON, 03/31/2022 1:27 PM [...] 3. Prior herniorrhaphy at the umbilicus. 4. Ahdnw-sx-civwryvh hiatal hernia. Electronically authenticated by: EMI DELUCA Date: 2022-03-31 14:42OhioHealthCovid-19 PCR ([facility])on [id number]-CoV-2 (COVID-19) RNA DEMETRICE+probe Ql (Unsp spec)Not detectedNormalNOT DETECTEDThe [facility] Comment on above:Result Comment: When diagnostic testing is negative, the [...] for this test is supported by the Store Coordinator of Health and Human Service's declaration that circumstances exist to justify the emergency use of in vitro diagnostics for the detection and/or diagnosis of the virus that causes COVID-19. This EUA will remain in effect for the duration of the COVID-19 declaration justifying emergency of IVDs, unless it is terminated or revoked by the FDA (after which the test may no longer be used).Performed By: #### CVDTBH #### [facility] [address] [place] [address] Dr. Marco Antonio LimCTATE/LACTIC ACIDon 53-22-5992Nwdspud [Moles/Vol]0.9 mmol/L Normal0.4-1.9The [facility] Medical CenterComment on above:Performed By: #### BMP, ALT, LIPID #### [facility] [address] [address] [address] Marco Antonio Limctate [Moles/Vol]1.3 mmol/LNormal0.4-1.9[facility] Comment on above:Performed By: #### BMP, ALT, LIPID #### [facility] [address] [address] [address] Marco Antonio PedrozaOCC BLD IMMUNO SCREENon 03-98-7246PGSIDC BLOODPositiveAbnormal NEGATIVEThe Regional Medical CenterComment on above:Performed By: #### BMP, ALT, LIPID #### [facility] [address] [place] [address] Dr. Marco Antonio PedrozaPROF 14(COMP METB)on 62-28-2929Zosaexk [Mass/Vol]4.1 g/dLNormal 3.4-5.0The [facility] Medical CenterComment on above:Performed By: #### CMP, CMADM, BNP #### [facility] [address] [place] [address] Dr. Marco Antonio PedrozaAlbumin/Globulin [Mass ratio]1.2 {ratio}NormalThe Regional Medical CenterComment on above:Performed By: #### CMP, CMADM, BNP #### [facility] [address] [place] [address] Dr. Marco Antonio Hernandez [Catalytic activity/Vol]94 U/EIfritv53-662Guw [facility] Medical CenterComment on above:Performed By: #### CMP, CMADM, BNP #### [facility] [address] [place] [address] Dr. Marco Antonio Casey [Catalytic activity/Vol]20 U/BDxcwjx60-19Fmj [facility] CenterComment on above:Performed By: #### CMP, CMADM, BNP #### [facility] [address] [place] [address] Dr. Marco Antonio Marx gap [Moles/Vol]12.1 mmol/LNormalThe [facility] Comment on above:Performed By: #### CMP, CMADM, BNP #### [facility] [address] [place] [address] Dr. Marco Antonio PedrozaAST [Catalytic activity/Vol]17 U/FXinajn09-98Saj [facility] CenterComment on above:Performed By: #### CMP, CMADM, BNP #### [facility] [address] [place] [address] Dr. Marco Antonio PedrozaBilirubin [Mass/Vol]1.9 mg/dLCritically high0.2-1.0The [facility] Medical CenterComment on above:Performed By: #### CMP, CMADM, BNP #### [facility] [address] [place] [address] Dr. Marco Antonio PedrozaCalcium [Mass/Vol]9.5 mg/dLNormal8.5-10.1[facility] Comment on above:Performed By: #### CMP, CMADM, BNP #### [facility] [address] [address] [address] Marco Antonio PedrozaChloride [Moles/Vol]99 mmol/DWlyvyk82-795Rjj [facility] Comment on above:Performed By: #### CMP, CMADM, BNP #### [facility] [address] [address] [address] Marco Antonio PedrozaCO2 [Moles/Vol]28.5 mmol/KMvkpmy46.0-32.0[facility] Comment on above:Performed By: #### CMP, CMADM, BNP #### [facility] [address] [address] [address] Marco Antonio PedrozaCreatinine [Mass/Vol]1.09 mg/dLNormal0.70-1.30The [facility] Medical CenterComment on above:Performed By: #### CMP, CMADM, BNP #### [facility] [address] [place] [address] Dr. Bernard ChangEGFR-AF BHUTANESE>60Normal>=60The [facility] Medical CenterComment on above:Performed By: #### CMP, CMADM, BNP #### [facility] [address] [address] [address] Marco Antonio HwangGFR-NON AF BHUTANESE>60Normal>=60The [facility] Medical CenterComment on above:Performed By: #### CMP, CMADM, BNP #### [facility] [address] [address] [address] Marco Antonio PedrozaGlobulin (S) [Mass/Vol]3.5 g/dLNormalThe Regional Medical CenterComment on above:Performed By: #### CMP, CMADM, BNP #### [facility] [address] [address] [address] Marco Antonio PedrozaGlucose [Mass/Vol]107 mg/dLCritically hyny18-537Jnu [facility] CenterComment on above:Performed By: #### CMP, CMADM, BNP #### [facility] [address] [place] [address] Dr. Marco Antonio PedrozaPotassium [Moles/Vol]3.6 mmol/LNormal3.5-5.1[facility] Comment on above:Performed By: #### CMP, CMADM, BNP #### [facility] [address] [address] [address] Marco Antonio PedrozaProtein [Mass/Vol]7.6 g/dLNormal6.4-8.2[facility] Comment on above:Performed By: #### CMP, CMADM, BNP #### [facility] [address] [address] [address] Marco Antonio PedrozaSodium [Moles/Vol]136 mmol/OHqwcky035-192Nxw [facility] Comment on above:Performed By: #### CMP, CMADM, BNP #### [facility] [address] [place] [address] Dr. Marco Antonio Cook nitrogen [Mass/Vol]14.0 mg/dLNormal7.0-18.0[facility] Brent[facility] HospitalComment on above:Performed By: #### CMP, CMADM, BNP #### [facility] [address] [place] [address] Dr. Marco Antonio Cook nitrogen/Creatinine [Mass ratio]12.8 mg/mgNormOhioHealthComment on above:Performed By: #### CMP, CMADM, BNP #### [facility] [address] [place] [address] Dr. Marco Antonio Blandon 70-31-6693YYF Coag (PPP) [Relative time]0.96 {INR} NormalSuburban Community Hospital & Brentwood HospitalComment on above:Performed By: #### BMP, ALT, LIPID #### [facility] [address] [place] [address] Dr. Marco Antonio Fairchild GUIDELINESSEE BELOWOhioHealthComment on above:Result Comment: DESIRED INR: 2.0 - 3.0 CONDITIONS NOT LISTED BELOW 2.5 - 3.5 FOR PROSTHETIC HEART VALVE REPLACEMENT 2.5 - 3.5 RECURRENT THROMBOSIS Performed By: #### BMP, ALT, LIPID #### [facility] [address] [place] [address] Dr. Marco Antonio PedrozaPT Coag (PPP) [Time]10.4 sNormal9.0-11.6The [facility] Comment on above:Performed By: #### BMP, ALT, LIPID #### [facility] [address] [address] [address] Marco Antonio Bonner [id number] Coag (Bld) [Time]27.7 xEdodwb05.3-36.2[facility] Brent[facility] HospitalComment on above:Performed By: #### BMP, ALT, LIPID #### [facility] [address] [place] [address] Dr. Marco Antonio PedrozaTYPE AND SCREENon 52-61-6751HKRJ AND SCREENNegativeNormOhioHealthComment on above:Performed By: #### BMP, ALT, LIPID #### [facility] [address] [place] [address] Dr. Marco Antonio PedrozaXR ABD FLAT UP_PA Charisse [id number] ABD FLAT UP_PA CHEXAM: XR ABD FLAT UP_PA CH HISTORY: CHEST PAIN, UNSPECIFIED abdominal pain [...] Electronically authenticated by: EMI DELUCA Date: 2022-03-31 14:00NoClermont County HospitalCB AUTO DIFFon [id number] #0.0 103/ulNormal0.0-0.1[facility] Brentwood HospitalComment on above:Performed By: #### CBC #### [facility] [address] [place] [address] Dr. Marco Antonio PedrozaBasophils/100 WBC (Bld)0.5 %Normal0.2-2.0[facility] Comment on above:Performed By: #### CBC #### [facility] [address] [place] [address] Dr. Marco Antonio Stokes #0.2 103/ulNormal0.0-0.7The Regional Medical CenterComment on above: Performed By: #### CBC #### [facility] [address] [place] [address] Dr. Marco Antonio Hwangosinophils/100 WBC (Bld)4.4 %Normal0.9-7.0[facility] Comment on above:Performed By: #### CBC #### [facility] [address] [place] [address] Dr. Marco Antonio Hwangrythrocyte distribution width (RBC) [Ratio]14.9 %Yempym80.0-15.0 The Regional Medical CenterComment on above:Performed By: #### CBC #### [facility] [address] [place] [address] Dr. Marco Antonio PedrozaHematocrit (Bld) [Volume fraction]42.5 %Udwbog55.0-54.0The [facility] Medical CenterComment on above:Performed By: #### CBC #### [facility] [address] [place] [address] Dr. Marco Antonio PedrozaHemoglobin (Bld) [Mass/Vol]14.6 g/hETvoxff56.0-18.0The [facility] Medical CenterComment on above:Performed By: #### CBC #### [facility] [address] [place] [address] Dr. Marco Antonio Stevenson #0.01 10e3/ulNormal0.00-0.03The [facility] Medical CenterComment on above:Performed By: #### CBC #### [facility] [address] [place] [address] Dr. Marco Antonio Stevenson %0.2 %Normal0.0-0.5The [facility] Medical CenterComment on above: Performed By: #### CBC #### [facility] [address] [place] [address] Dr. Marco Antonio Keith #2.0 103/ulNormal1.2-3.8The [facility] Medical CenterComment on above:Performed By: #### CBC #### [facility] [address] [place] [address] Dr. Marco Antonio Chackomphocytes/100 WBC (Bld)36.3 %Texrho50.5-60.0The [facility] Medical CenterComment on above:Performed By: #### CBC #### [facility] [address] [place] [address] Dr. Marco Antonio Anderson DIFF REQNONormalThe Regional Medical CenterComment on above: Performed By: #### CBC #### [facility] [address] [place] [address] Dr. Marco Antonio Bertrand (RBC) [Entitic mass]35.0 pgCritically high25.9-34.0The [facility] Medical CenterComment on above:Performed By: #### CBC #### [facility] [address] [place] [address] Dr. Marco Antonio Bertrand (RBC) [Mass/Vol]34.4 g/rKKmglvc33.9-35.2The [facility] Medical CenterComment on above:Performed By: #### CBC #### [facility] [address] [place] [address] Dr. Marco Antonio Moreno (RBC) [Entitic vol]101.9 fLCritically high80.0-94.0The [facility] Medical CenterComment on above:Performed By: #### CBC #### [facility] [address] [place] [address] Dr. Marco Antonio Fall #0.5 103/ulNormal0.3-0.8The [facility] Medical CenterComment on above:Performed By: #### CBC #### [facility] [address] [place] [address] Dr. Marco Antonio Suazoocytes/100 WBC (Bld)9.3 %Normal1.7-12.0[facility] Comment on above:Performed By: #### CBC #### [facility] [address] [place] [address] Dr. Marco Antonio Chavez #2.7 103/ulNormal1.4-6.5The [facility] Medical CenterComment on above:Performed By: #### CBC #### [facility] [address] [place] [address] Dr. Marco Antonio Mimsutrophils/100 WBC (Bld)49.3 %Qgengi06.0-75.0[facility] HospitalComment on above:Performed By: #### CBC #### [facility] [address] [place] [address] Dr. Marco Antonio PedrozaPlatelet mean volume (Bld) [Entitic vol]9.0 fLCritically low 9.5-13.5The [facility] Medical CenterComment on above:Performed By: #### CBC #### [facility] [address] [place] [address] Dr. Marco Antonio PedrozaPLT213 103/lhXshjwk109-231Wdm [facility] CenterComment on above: Performed By: #### CBC #### [facility] [address] [place] [address] Dr. Marco Antonio PedrozaRBC4.17 106/ulCritically low4.70-6.10The [facility] Medical CenterComment on above:Performed By: #### CBC #### [facility] [address] [place] [address] Dr. Marco Antonio PedrozaWBC5.5 103/ulNormal4.0-11.0The [facility] Medical CenterComment on above: Performed By: #### CBC #### [facility] [address] [place] [address] Dr. Marco Antonio PedrozaLIPID PROFILEon [id number]-HDL RATIO NORMSParma Community General HospitalComment on above:Result Comment: 3.3 - 4.4 LOW RISK 4.4 - 7.1 AVERAGE RISK 7.1 - 11.0 MODERATE RISK >11.0 HIGH RISKPerformed By: #### BMP, ALT, LIPID #### [facility] [address] [place] [address] Dr. Marco Antonio PedrozaCholesterol [Mass/Vol]140 mg/dLNormal<=200The [facility] Comment on above:Performed By: #### BMP, ALT, LIPID #### [facility] [address] [address] [address] Marco Antonio Welleresterol in HDL [Mass/Vol]84 mg/dLCritically sgas91-84Bcs [facility] CenterComselect specialty [facility] on above:Performed By: #### BMP, ALT, LIPID #### [facility] [address] [address] [address] Marco Antonio PedrozaCholesterol in LDL [Mass/Vol]49.2 mg/dLNoClermont County HospitalComment on above:Performed By: #### BMP, ALT, LIPID #### [facility] [address] [place] [address] Dr. Marco Antonio Dewey.total/Cholesterol in HDL [Mass ratio]1.7 {ratio} NormalThe Regional Medical CenterComment on above:Performed By: #### BMP, ALT, LIPID #### [facility] [address] [place] [address] Dr. Marco Antonio Gonzalez NORMAL> or = 60 mg/dl - LOW CARDIOVASCULAR RISK <40 mg/dl - HIGH CARDIOVASCULAR RISKOhioHealthComment on above:Performed By: #### BMP, ALT, LIPID #### [facility] [address] [place] [address] Dr. Marco Antonio Weber CALC NORMALSEE BELOWOhioHealthComment on above:Result Comment: <100 mg/dl OPTIMAL 100 - 129 mg/dl NEAR OR ABOVE OPTIMAL 130 - 159 mg/dl BORDERLINE HIGH 160 - 189 mg/dl HIGH >190 mg/dl VERY HIGH Performed By: #### BMP, ALT, LIPID #### [facility] [address] [place] [address] Dr. Marco Antonio PedrozaTriglyceride [Mass/Vol]34 mg/dLNormal<=150[facility] Comment on above:Performed By: #### BMP, ALT, LIPID #### [facility] [address] [address] [address] Marco Antonio SinghLDL CALC6.8 mg/dLNoClermont County HospitalComment on above: Performed By: #### BMP, ALT, LIPID #### [facility] [address] [address] [address] Marco Antonio PedrozaPROF CHEM 8 (BAS METB)on 81-43-6074Emfvl gap [Moles/Vol]7.6 mmol/LNormalThe Regional Medical CenterComment on above:Performed By: #### BMP, ALT, LIPID #### [facility] [address] [place] [address] Dr. Marco Antonio PedrozaCalcium [Mass/Vol]9.1 mg/dLNormal8.5-10.1[facility] Comment on above:Performed By: #### BMP, ALT, LIPID #### [facility] [address] [place] [address] Dr. Marco Antonio PedrozaChloride [Moles/Vol]104 mmol/RMfyrgd01-860Lfa [facility] Comment on above:Performed By: #### BMP, ALT, LIPID #### [facility] [address] [place] [address] Dr. Marco Antonio PedrozaCO2 [Moles/Vol]31.4 mmol/NKpassv61.0-32.0[facility] Comment on above:Performed By: #### BMP, ALT, LIPID #### [facility] [address] [place] [address] Dr. Marco Antonio PedrozaCreatinine [Mass/Vol]0.77 mg/dLNormal0.70-1.30The Regional Medical CenterComment on above:Performed By: #### BMP, ALT, LIPID #### [facility] [address] [place] [address] Dr. Marco Antonio HwangGFR-AF BHUTANESE>60Normal>=60The Regional Medical CenterComment on above:Performed By: #### BMP, ALT, LIPID #### [facility] [address] [place] [address] Dr. Marco Antonio HwangGFR-NON AF BHUTANESE>60Normal>=60The Regional Medical CenterComment on above:Performed By: #### BMP, ALT, LIPID #### [facility] [address] [place] [address] Dr. Marco Antonio PedrozaGlucose [Mass/Vol]97 mg/wAUdyfiz23-728D[facility] Comment on above:Performed By: #### BMP, ALT, LIPID #### [facility] [address] [place] [address] Dr. Marco Antonio PedrozaPotassium [Moles/Vol]4.0 mmol/LNormal3.5-5.1[facility] Comment on above:Performed By: #### BMP, ALT, LIPID #### [facility] [address] [place] [address] Dr. Marco Antonio PedrozaSodium [Moles/Vol]139 mmol/PVjjejx666-893CqmSuburban Community Hospital & [facility] Comment on above:Performed By: #### BMP, ALT, LIPID #### [facility] [address] [place] [address] Dr. Marco Antonio PedrozaUrea nitrogen [Mass/Vol]7.0 mg/dLNormal7.0-18.0[facility] Brent[facility] HospitalComment on above:Performed By: #### BMP, ALT, LIPID #### [facility] [address] [place] [address] Dr. Marco Antonio Cook nitrogen/Creatinine [Mass ratio]9.1 mg/mgNormalThe Regional Medical CenterComment on above:Performed By: #### BMP, ALT, LIPID #### [facility] [address] [place] [address] Dr. Marco Antonio Rangel 95-69-2413NRD [Catalytic activity/Vol]45 U/OHwdinz36-30FztSuburban Community Hospital & Brentwood HospitalComment on above:Performed By: #### BMP, ALT, LIPID #### [facility] [address] [place] [address] Dr. Marco Antonio Messina LUNG CANCER SCREENINGon 95-48-8704MW LUNG CANCER SCREENING EXAMINATION: CT LUNG CANCER [...] Electronically authenticated by: JACKLYN LUIS Date: 2021-10-20 16:04OhioHealthPatient Correspondenceon 20-26-1043Xsshoki Correspondence [id number]:127Mansfield HospitalProvider Letteron 91-51-3470Pxyndneg Letter August 09, 2021 BLU KUO [address] [place] [address] BLU KUO 1950 Dear Mr. Kuo, This letter is to inform you that the providers of [facility] at [facility], [facility] will no longer be responsible for your routine medical care. Emergency care only will be provided for the thirty (30) days following this letter. During this time period we suggest that you find another physician for your medical needs. A listing of area physicians can be found on [facility]'s website at [email or web address] or you may contact your health plan. We will be glad to forward your records to your new physician as long as we receive a signed release of records form. Sincerely, Dr. Victorino Stahl [address] [place] [address]AoduopJhpvolMansfield HospitalUroVysion Fish and Urine Cyto ([facility])on 51-30-4498JJFMHL & UCDiagnosis InfoInvalid Interpretation [facility] HospitalComment on above:Result Comment: A:Urine,Urine:Voided Diagnosis Summary - Diagnosis Summary - The UroVysion FISH study detected normal copy numbers for chromosomes 3, 7, 17,and 9p21. No evidence of aneuploidy for chromosomes [...] vial. Electronically signed by : on: 05/26/2021 13:09:07Performed By: #### [id number] #### [facility] [address] [place], [place] [address]Hdmhjnmpc Referralon 40-01-5725Julwwltav Referral [id number]:127NoProtestant Deaconess HospitalAmbulatory Clinical Summaryon 22-08-6129Jxmnlylvmf Clinical Summary {47-41-d3-hl-oa-10-3g-29-8z-7q-9e-94-35-2f-3a-69}CD:082206HmcvqgYmncutProtestant Deaconess HospitalPatient Educationon 12-39-2974Gsuytet EducationNutrition BMI for Adults Body mass index (BMI) [...] problems. It is used to check whether aperson is obese, overweight, healthy weight, or underweight. How is BMI calculated? BMI measures your weight and compares it to your height. This can be done either in [place] ([place] or metric measurements. Note that charts are available to help you find your BMI quickly and easily without having to do these calculations yourself. To calculate your BMI in [place] ([place] measurements, your health care provider will: [...] meters squared number. In this example: 70 ?3.1 = 22.6. This is your BMI. How [...] a medical condition, or that may increase therisk for medical problems. ? Promoting lifestyle and [...] problems. ? BMI can be measured using [place] measurements or metric measurements. ? To interpret [...] 01/03/2005 Document Revised: 04/06/2018 Document Reviewed: 03/07/2018 [employer] Patient Education ? 2020 [employer]. Urology Benign Prostatic Hyperplasia Benign prostatic hyperplasia (BPH) is an enlarged prostate gland that is caused by the normal agingprocess and not by cancer. The prostate is [...] the signs or symp (more content not included)...NormalOhiohealth Mansfield HospitalUroVysion Fish and Urine Cyto ([facility])on 63-47-0294UWAJ Method of ExtractionVoidedNormalOhiohealth Mansfield HospitalComment on above:Performed By: #### [id number] #### [facility] [address] [place], [place] [address]NLTL Number of Bzeb8Hhyxxnr Interpretation CodeOhiohealth Mansfield HospitalComment on above:Performed By: #### [id number] #### [facility] [address] [place], [place] [address]AVJN SpecimenUrineMansfield HospitalComment on above:Performed By: #### [id number] #### [facility] [address] [place], [place] [address]CGZW Type of ServiceGlobalNMemorial Health System Comment on above:Performed By: #### [id number] #### [facility] [address] [place], [place] [address]Xntukyx Office/Clinic Noteon 04-49-0452Ckrxecz Office/Clinic NoteChief Complaint Patient in office for elevated PSA This patient is a 70-year-old male with a history of an elevated and fluctuating PSA. He also has microscopic hematuria. He is a cigarette smoker and is on Plavix because of a previous CVA. He is here today to establish urologic care. HPI Staff New patient in office due to elevated PSA. Patient was referred by Dr. Vaughan. States Dr. Vaughan was previously monitoring his PSA levels. Patient had PSA done 10/26/20 w/a result of 5.58, and PSA done 03/24/21 w/a result of 4.92. States he has not had any recent PSA labs done. States he is taking waterpills, unsure of the name of medication. States [...] denies hematuria, denies discharge, denies urinary frequency, deniesurinary hesitancy, denies nocturia, denies incontinence, denies genital [...] procedures, risk, alternatives and potential complications have b een discussed with the patient. Preop antibiotics have [...] Urnls Dip Stick Auto w/o Microscopy POC 97299 2. BPH without urinary obstruction (N40.0: Benign prostatic hyperplasia without lower urinary tractsymptoms) Mild frequency Denies nocturia Patient not on [...] cystoscopy have bee (more content not included)... Mansfield HospitalComment on above:Result Comment: Electronically Signed By: Favio Ashraf MD, Victorino Becker\.br\Date and Time Signed: 05/17/2207:48 EST\.br\Electronically Co-Signed By: Claire Vaughan MA\.br\Date and Time Co-Signed: 05/17/21 08:45 EST Vital Signs Date TimeVital SignValuePerforming TtrnzkubwOkldfmzn99-42-2500 11:140400Body acgomp523.8 cmBenjamin Mango-Mate DO Work Phone: [facility]10-21-2025 11:14-0400 Body mass index (BMI) [Ratio]24 kg/z7Jwemfbyl Mango-Mate DO Work Phone: [facility]10-21-2025 11:14040 Body gfmmyp56.2 kgBenlori Mango-Mate DO Work Phone: [facility]10-21-2025 11:14-0400 Diastolic blood mm[Hg]Mitch Ball DO Work Phone: [phone] [place], [place] 7766010-21-2025 11:14-0400 Heart rate58 /minBenjamin Ball DO Work Phone: [phone] [place], [place] 7766010-21-2025 11:14-0400 Respiratory rate12 /minBenjamin Ball DO Work Phone: [phone] [place], [place] 7766010-21-2025 11:14-0400 Systolic blood ozqvijui729 mm[Hg]Mitch Ball DO Work Phone: [phone] [place], [place] 7766007-21-2025 10:13-0400 Body epvcrd090.8 cmBenjamin Ball DO Work Phone: [phone] [place], [place] 7766007-21-2025 10:13-0400 Body mass index (BMI) [Ratio]25.1 kg/w6Cjjfnajp Ball DO Work Phone: [phone] [place], [place] 7766007-21-2025 10:13-0400 Body zpadmz79.37 kgBenjamin Ball DO Work Phone: [phone] [place], [place] 7766007-21-2025 10:13-0400 Diastolic blood tdbymerg32 mm[Hg]Mitch Ball DO Work Phone: [phone])[address] [place], [place] 7766007-21-2025 10:13-0400 Heart rate76 /minBenjamin Ball DO Work Phone: [phone])[address] [place], [place] 7766007-21-2025 10:13-0400 Respiratory rate12 /minBenjamin Ball DO Work Phone: [phone] [place], [place] 7766007-21-2025 10:13-0400 Systolic blood pzcpdezi666 mm[Hg]Mitch Ball DO Work Phone: [phone])[address] [place], [place] 7766004-24-2025 10:12-0400 Body hozxis054.8 cmSum[facility]04-24-2025 10:12-0400Body mass index (BMI) [Ratio]23.9 kg/p5NcexnvkmeSumma Health [facility] Campus04-24-2025 10:12-0400Body .74 kgSumma Health [facility]04-24-2025 10:12-0400Diastolic blood zyavqmst03 mm[Hg][facility] 08-29-2024 10:12-0400Heart rate64 /[facility] 08-29-2024 10:12-0400Respiratory rate12 /[facility] 08-29-2024 10:12-0400Systolic blood mm[Hg][facility]01-07-2025 09:52-0500Body ehkdxt803.8 cmSum[facility] 05-14-2024 09:52-0500Body mass index (BMI) [Ratio]24.7 kg/n5EowiffnlnSumma Health [facility] Campus01-07-2025 09:52-0500Body .13 kgSumma Health [facility]01-07-2025 09:52-0500Diastolic blood jtxaolpk44 mm[Hg][facility]01-07-2025 09:52-0500Heart rate61 /[facility]01-07-2025 09:52-0500Respiratory rate12 /[facility]01-07-2025 09:52-0500Systolic blood mm[Hg][facility]10-07-2024 09:47-0400Body fjowbt223.8 cmSumma Health [facility]10-07-2024 09:47-0400Body mass index (BMI) [Ratio]23.7 kg/g9BhdvszklmSumma Health Barberton Campus10-07-2024 09:47-0400Body xnceyg18.06 kgSumma Health [facility] Campus10-07-2024 09:47-0400Diastolic blood mm[Hg] [facility]10-07-2024 09:47-0400Heart rate65 /[facility]10-07-2024 09:47-0400Respiratory rate12 /[facility]10-07-2024 09:47-0400Systolic blood dkwqjtxe866 mm[Hg] [facility]09-18-2024 09:09-0400Body mass index (BMI) [Ratio]23.76 kg/o5Vplalcz Thousand OPERATIONS REPRESENTATIVE.PURCHASING OFFICER Work Phone: [phone]09-18-2024 09:09-0400Body adewap30.12 kgRichcandice Thousand OPERATIONS REPRESENTATIVE.PURCHASING OFFICER Work Phone: [facility]09-18-2024 09:09-0400Diastolic blood vdudoznj43 mm[Hg]Helga Thousand OPERATIONS REPRESENTATIVE.PURCHASING OFFICER Work Phone: [facility]09-18-2024 09:09-0400Heart rate66 /min Helga Thousand OPERATIONS REPRESENTATIVE.PURCHASING OFFICER Work Phone: [facility]09-18-2024 09:09-0400Respiratory rate 18 /minRichcandice Thousand OPERATIONS REPRESENTATIVE.[facility] Work Phone: [facility]09-18-2024 09:09-1264DlL1% (BldA) [Mass fraction]100 %Helga Thousand OPERATIONS REPRESENTATIVE.PURCHASING OFFICER Work Phone: [facility]09-18-2024 09:09-0400Systolic blood ehkhskwp658 mm[Hg]Helga Thousand OPERATIONS REPRESENTATIVE.PURCHASING OFFICER Work Phone: [facility]07-08-2024 09:29-0400Body .8 cmSum[facility]07-08-2024 09:29-0400Body mass index (BMI) [Ratio]24.2 kg/u9FeitmuyumSumma Health Barberton Campus07-08-2024 09:29-0400Body tkbeyi94.65 kgSumma Health [facility]07-08-2024 09:29-0400Diastolic blood ytgxudxe25 mm[Hg][facility]07-08-2024 09:29-0400 Heart rate66 /[facility]07-08-2024 09:29-0400 Respiratory rate12 /[facility]07-08-2024 09:29-0400 Systolic blood psawfdwl489 mm[Hg][facility]04-03-2024 10:00-0400Body yvfvsl241.8 cmSumma [facility]04-03-2024 10:00-0400Body mass index (BMI) [Ratio]24.2 kg/d4CpasnofndSumma Health Barberton Campus04-03-2024 10:00-0400Body qweqrw56.65 kgSum[facility] 08-09-2023 10:00-0400Diastolic blood zsakmmae31 mm[Hg][facility]04-03-2024 10:00-0400Heart rate68 /minSumma Health Barberton Campus 08-09-2023 10:00-0400Respiratory rate12 /[facility] 08-09-2023 10:00-0400Systolic blood qwtfpunu019 mm[Hg][facility]03-18-2024 09:40-0400Body .48 kgCain Nova MD Work Phone: [facility]03-18-2024 09:40-0400Diastolic blood xjyadnxu06 mm[Hg]Cain Nova MD Work Phone: [facility]03-18-2024 09:40-0400Heart rate74 /min Cain Nova MD Work Phone: [facility]03-18-2024 09:40-0400Respiratory rate 16 /minCain Nova MD Work Phone: [facility]03-18-2024 09:40-2167PuH3% (BldA) [Mass fraction]100 %Cain Nova MD Work Phone: [facility]03-18-2024 09:40-0400Systolic blood vdawgljs856 mm[Hg]Cain Nova MD Work Phone: [facility]01-03-2024 10:00-0500Body qukkvz549.8 cmBendonnellmin Ball Other [employer] Other 01-03-2024 10:00-0500Body mass index (BMI) [Ratio] 23.16 kg/k2Nygiofge Ball Other [employer] Other 01-03-2024 10:00-0500Body .21 kgBenjamin Ball Other [employer] Other 01-03-2024 10:00-0500Diastolic blood kwyisyuo94 mm[Hg] Mitch Ball Other [employer] Other 01-03-2024 10:00-0500Respiratory rate12 /minBenjamin Ball Other [employer] [facility] [employer] Other 01-03-2024 10:00-0500Systolic blood mbyzxmit538 mm[Hg] Mitch Ball Other [employer] Other 10-03-2023 10:30-0400Body aoldew156.8 cmBenjamin Ball Other [employer] [facility] [employer] Other 10-03-2023 10:30-0400Body mass index (BMI) [Ratio] 22.01 kg/m0Gbzgtxys Ball Other [employer] Other 10-03-2023 10:30-0400Body utrnnj77.58 kgBenjamin Ball Other [employer] Other 10-03-2023 10:30-0400Diastolic blood gpidthtv19 mm[Hg] Mitch Ball Other [employer] Other 10-03-2023 10:30-0400Respiratory rate12 /minBenjamin Ball Other [employer] Other 10-03-2023 10:30-0400Systolic blood ugdcafdk753 mm[Hg] Mitch Ball Other [employer] Other 08-03-2023 09:45-0400Body ihjsmr763.8 cmTammy Rivas Other [facility] [employer] Other 08-03-2023 09:45-0400Body mass index (BMI) [Ratio] 22.24 kg/w5EgsndgruTammy Rivas Other [facility] [employer] Other 08-03-2023 09:45-0400Body .31 kgTammy Rivas Other [employer] [facility] [employer] Other 07-27-2023 13:55-0400Body .8 cmDO [employer] Work Phone: [phone]07-27-2023 13:55-0400 Body mass index (BMI) [Ratio]22 kg/m2DO Mitch Mango-Mate Work Phone: [phone]07-27-2023 13:55-0400 Body iriuds97.7 kgDO Mitch Ball Work Phone: [phone]07-26-2023 13:27-0400 Diastolic blood bokjppot36 mm[Hg]DO Mitch Ball Work Phone: [phone]07-26-2023 13:27-0400 Heart rate73 /minDO Mitch Ball Work Phone: [phone]07-26-2023 13:27-0400 Respiratory rate14 /minDO Mitch Ball Work Phone: [phone]07-26-2023 13:27-0400 SaO2% (BldA) [Mass fraction]90 %DO Mitch Ball Work Phone: [phone]07-26-2023 13:27-0400 Systolic blood xrtxeqhk379 mm[Hg]DO Mitch Ball Work Phone: [phone]07-26-2023 12:04-0400 Body xaqdfmgjyun32 [degF]DO Mitch Ball Work Phone: [phone]07-26-2023 11:34-0400 Inhaled oxygen flow rate3 L/minDO Mitch Ball Work Phone: [phone]07-25-2023 08:30-0400 Body jheiez668.8 cmThomas Olexa Other [facility] [employer] Other 07-25-2023 06:18-0400Diastolic blood voxfktop15 mm[Hg] DO Mitch Ball Work Phone: [facility]07-25-2023 06:18-0400 Heart rate71 /minDO Mitch Ball Work Phone: [phone]07-25-2023 06:18-0400 Respiratory rate21 /minDO Mitch Ball Work Phone: [phone]07-25-2023 06:18-0400 SaO2% (BldA) [Mass fraction]99 %DO Mitch Ball Work Phone: [phone]07-25-2023 06:18-0400 Systolic blood azjccpjd579 mm[Hg]DO Mitch Ball Work Phone: [phone]07-25-2023 03:05-0400 Body gphjap060.88 cmDO Mitch Ball Work Phone: [phone]07-25-2023 03:05-0400 Body kglimrvfrip31.4 [degF]DO Mitch Ball Work Phone: [phone]07-25-2023 03:05-0400 Body yneyhk69 kgDO Mitch Ball Work Phone: [phone]04-03-2023 10:30-0400 Body .8 cmBenjamin Ball Other [employer] Other 04-03-2023 10:30-0400Body mass index (BMI) [Ratio] 22.87 kg/h0Hqqbkicq Ball Other [employer] Other 04-03-2023 10:30-0400Body trcnav96.3 kgBenjamin Ball Other [employer] Other 04-03-2023 10:30-0400Diastolic blood qdmxhlpe64 mm[Hg] Mitch Ball Other [employer] Other 04-03-2023 10:30-0400Respiratory rate12 /minBenjamin Ball Other [employer] Other 04-03-2023 10:30-0400Systolic blood hwteqbov021 mm[Hg] Mitch Ball Other [employer] Other 01-03-2023 16:00-0500Body aujaag399.8 cmBenjamin Ball Other [employer] Other 01-03-2023 16:00-0500Body mass index (BMI) [Ratio] 22.61 kg/a8Hqgrusmv Ball Other [employer] Other 01-03-2023 16:00-0500Body .49 kgBenjamin Ball Other [employer] Other 01-03-2023 16:00-0500Diastolic blood sjansuan09 mm[Hg] Mitch Ball Other [employer] Other 01-03-2023 16:00-0500Respiratory rate12 /minBenjamin Ball Other [employer] Other 01-03-2023 16:00-0500Systolic blood knypjgoo093 mm[Hg] Mitch Ball Other [employer] Other Encounters Encounter DateEncounter TypeCare ProviderFacilityStart: 02-25-2025 End: 40-54-0993jfpvluhdyxAlpthsqf Ball DO Work Phone: [facility]: 02-25-2025 End: 50-16-9125Ronlsyo encounter procedureBenlori Vaughan DO-[facility] Work Phone: Start: 66-20-8945Fso-patient / Non-visitOutside Provider-[facility] [employer] Work Phone: Start: 01-21-2025 End: 23-82-2497Qynsph Quang Houston APRN.CNP Work Phone: radiation OncologyComment on above:Encounter for follow-up surveillance of prostate cancer (Primary Dx); Prostate cancer (HCC)Start: 13-67-9094Klv-patient / Non-visitBenlori Vaughan DO- [employer] [facility] Work Phone: Start: 11-25-2024 End: 06-61-0746whcazdrbvdTogwiaim Ball DO Work Phone: [facility] Work Phone: Start: 11-25-2024 End: 04-45-7506Xmrwndr encounter procedureBegibran Vaughan DO-[facility] Work Phone: Start: 08-29-2024 End: 47-83-0650bdvrqsfhumQgiwrxobiSelect Medical [facility] Work Phone: Start: 08-29-2024 End: 31-74-2729Kjizvzr encounter procedureYadkin [facility] Work Phone: Start: 08-05-2024 End: 72-55-2073cpcihikytyOAHJFYP THOUSANDFacility:[facility] Start: 08-05-2024 End: 88-78-0732Skwhaw-up encounterHelga Bundy APRN.CNP Work Phone: Radiation OncologyComment on above:Encounter for follow-up surveillance of prostate cancer (Primary Dx)Start: 08-05-2024 End: 27-69-0923Ursqxopaxkzq consultation with Megan Bundy APRN.CNP Work Phone: Radiation OncologyStart: 07-22-2024 End: 28-61-6075wvgucgzpftWUKFFKS THOUSANDFacility:[facility] Start: 61-20-3274Yzw-patient / Non-visitFirsentara princess anne hospital Physician GroupWaldo Hospital [facility] Work Phone: Start: 05-14-2024 End: 57-10-6067eamxmghmhhFrrgrnrlaBucyrus Community Hospital Work Phone: Start: 05-14-2024 End: 57-27-0748Prqocky encounter procedureYadkin [facility] Physician [facility] Work Phone: Start: 02-12-2024 End: 67-36-3641duhdhlqvcpItvibfoveBucyrus Community Hospital Work Phone: Start: 02-12-2024 End: 71-38-8347Mrfkbyu encounter procedureYadkin [facility] Physician [facility] Work Phone: Start: 01-24-2024 End: 54-73-8428Yfrhjby encounter procedureHelga Bundy APRN.CNP Work Phone: Radiation OncologyComment on above:Encounter for follow-up surveillance of prostate cancer (Primary Dx)Start: 92-93-8955Gxe- patient / Non-visitFirsentara princess anne hospital Physician GroupWaldo Hospital Professional Co Work Phone: Start: 01-15-2024 End: 08-62-0816Uiyhdl Goran Nova MD Work Phone: Radiation OncologyComment on above:Prostate cancer (HCC) (Primary Dx)Start: 37-09-6770Hch-patient / Non-visitFirwichitas Physician GroupWaldo Hospital Professional Co Work Phone: Start: 11-13-2023 End: 96-23-3806vrzygifnucGlcrwyyrfBucyrus Community Hospital Work Phone: Start: 11-13-2023 End: 55-26-5724Pgkxaas encounter procedureYadkin Valley [facility] Physician GroupUK Healthcare Work Phone: Start: 08-09-2023 End: 40-74-6821wcwbabtqnoCwtjnuajgSelect Medical [facility] Work Phone: Start: 08-09-2023 End: 77-85-4257Dmtfwmh encounter procedureYadkin Valley [facility]ician [facility] Work Phone: Start: 07-24-2023 End: 27-97-0595Ipbbgcw encounter procedureCain Nova MD Work Phone: Radiation OncologyComment on above:Prostate cancer (HCC) (Primary Dx)Start: 85-32-9885Coojwrgxq Oncology NoteCain Nova MD Work Phone: Radiation OncologyComment on above:Simulation Note Start: 78-33-1688Umo-patient / Non-visitY[facility] Work Phone: Start: 04-48-1808Ulrxrki encounter procedureCain Nova MD Work Phone: [facility] MAINStart: 00-79-1200Cykcyutbq Oncology Casey Nova MD Work Phone: Radiation OncologyComment on above:Simulation Note Completion NoteTreatment PlanningStart: 10-19-9018Smcwctnhn encounterDarryl Jorgensen MD Work Phone: [facility]inary SurgeonsStart: 06-20-2023 End: 01-31-0402fpoowiqqecDYUWCPB [facility] CENTERFacility:[facility]tart: 68-87-3738Izvspv Goran Nova MD Work Phone: Radiation OncologyComment on above:Prostate cancer (HCC) (Primary Dx)Start: 98-78-4600Myywwnopz encounterDarryl Jorgensen MD Work Phone: [facility]ito-Urinary SurgeonsStart: 05-15-2023 End: 79-53-3903ivpzslevwwMqnhxjpe Ball Other noTrovaGene Other Start: 34-09-8777Hxdiekeqq encounterBenjamin BallWAGNERG [facility] ClinicStart: 05-10-2023 End: 03-79-4227fynntrfnpxNcgkpeiq Ball Other [employer]TrovaGene Other Start: 24-16-3143Onupdj outpatient visit 25 minutes Mitch SamanthaG [facility] ClinicStart: 04-13-2023 End: 66-32-6400iaxjnelyhwLzftdhsy Ball Other noTrovaGene Other Start: 20-14-9286Mokcyetcn encounterBenjamin BallWAGNERG [facility] Medical ClinicComment on above:Patient UpdateStart: 03-20-2023 End: 88-30-0248felexesbjzSexhxqls Ball Other noFitbay grabHalo Other Start: 42-44-9264Avezradqi encounterBenjamin BallFPG [facility] ClinicStart: 03-14-2023 End: 51-31-2632xntvnfugmoUutmxu OlexaFacility:[facility] Start: 03-14-2023 End: 71-69-7515rohreoiadnQE Mitch Ball Work Phone: [facility] Work Phone: Start: 03-14-2023 End: 81-91-7256Viiqbfq encounter procedureDO Mitch Ball Work Phone: [facility] Start: 03-13-2023 End: 59-40-5177kpjnremtrkWpnewmed Ball Other noTrovaGene Other Start: 49-86-4467Dqriatzzv encounterBenjamin BallFPG [facility] ClinicStart: 09-86-2236omayhszukgMbozrt Graves LPNRadiation OncologyComment on above:Patient EducationStart: 02-22-2023 End: 54-37-8214msesjdsiwdCjkdkpxh Ball Other [facility] grabHalo Other Start: 83-26-1352Gdfqxhjoc encounterBenjamin BallFPG [facility] ClinicStart: 02-21-2023 End: 81-82-4963xelicotguvRloyzmwl Ball Other [facility] grabHalo Other Start: 63-14-7941Aahkkpfnh encounterBenjamin BallFPG [facility] ClinicStart: 02-09-2023 End: 33-56-8121aguhxkpfvzGjepgtzd Ball Other [facility] grabHalo Other Start: 21-17-7680Lybotemss encounterBenjamin BallFPG [facility] ClinicStart: 02-07-2023 End: 06-18-5732ofjlcaxpdgQaluryqv Ball Other [facility] grabHalo Other Start: 66-63-1831Sbanni outpatient visit 25 minutes Mitch VaughanFPG [facility] ClinicStart: 56-30-4392Gqvslrata encounterBenjamin BallFPG [facility] ClinicStart: 59-92-7946Fxmlfz follow up visit related to original pxJennifer MisaeldustyFPG [facility]icsStart: 01-24-2023 End: 12-37-2572upuysmotsoBO Mitch Vaughan Work Phone: [facility] Work Phone: Start: 01-24-2023 End: 43-54-4491Rhdbipi encounter procedureDO Mitch Ball Work Phone: [facility] Start: 01-19-2023 End: 24-76-3395uyzecizbaxGupfunrk Ball Other [employer]EnergyUSA [employer]ane Other Start: 59-59-1739Aphhdsubr encounterBenjamin BallFPG [facility] ClinicStart: 01-10-2023 End: 63-58-5033razsnkzebbDelqsqtu Ball Other [facility] grabHalo Other Start: 24-23-5399Iuqsqmizj encounterBenjamin BallFPG [facility] ClinicStart: 61-21-5983Zziryd follow up visit related to original pxThomas OlexaFPG [facility]icsStart: 01-03-2023 End: 54-19-6734epgqsjnhgaWD Mitch Ball Work Phone: [facility] grabHalo Other Start: 01-03-2023 End: 29-01-7716Dbzllvs encounter procedureDO Mitch Clement Work Phone: [facility] Start: 12-26-2022 End: 95-13-1037umgsubdoojWdmywq Olexa Other [employer] Healthcaremiss[facility] grabHalo Other Start: 83-35-6789Evmrvyrtl encounterThomas OlexaFPG [facility] ClinicStart: 12-19-2022 End: 76-08-0587xfbnswbjlqNfwjhf Olexa Other [facility] grabHalo Other Start: 92-08-3654Sbtywtfwo encounterThomas OlexaFPG [facility] ClinicStart: 12-09-2022 End: 74-22-4536qdzfmcztsyHzicyupw Ball Other [facility] grabHalo Other Start: 34-00-5302Zxemdlsdq encounterBenjamin BallFPG [facility] ClinicStart: 19-54-8025Yyphey follow up visit related to original pxJennifer KearneyFPG [facility]icsStart: 12-08-2022 End: 91-12-4597xcljstsugnSE Mitch Vaughan Work Phone: [facility] Work Phone: Start: 12-08-2022 End: 91-90-9163Xkemddy encounter procedureDO Mitch Vaughan Work Phone: [facility] Start: 12-01-2022 End: 59-73-6596itbfdszwecLyvjdv Olexa Other [employer] Other Start: 13-50-6116Bqaobssyx encounterThomas OlexaWAGNERKerri DeTar Healthcare Systemtart: 11-30-2022 End: 40-98-9094yoiadattndWuebwavs BallFacility:[facility] Start: 11-30-2022 End: 11-64-8822Trynmelel to same day surgery centerDO Mitch Vaughan Work Phone: [facility] Main CampusStart: 67-41-1415Fnnobokia for other preprocedural examinationThomas Olexa FPG [facility]icsStart: 52-17-0971Gedwci outpatient new 45 minutesThomas OlexaFPG [facility]icsStart: 11-29-2022 End: 82-05-0168mepefyrdtvLdbasd OlexaNort grabHalo Other Start: 11-29-2022 End: 77-10-5750Zmukhtw encounter procedureDO Mitch Vaughan Work Phone: [facility]-Pre-Surgical Testing Work Phone: Start: 11-29-2022 End: 89-34-5485Lnswcruxn department patient visitThamy Torres Jr Facility:[facility]art: 11-29-2022 End: 63-04-0094Mllszfcym department patient visitDO Mitch Vaughan Work Phone: [facility]-Emergency Room Work Phone: Start: 10-06-2022 End: 23-82-9431moaqxliexsJmjxgxfz Ball Other [employer]TrovaGene Other Start: 21-18-0989Vlqfhphyf encounterBenjamin BallFPG [facility] ClinicStart: 09-05-2022 End: 71-38-2308vvyodshkhjVzijobsx Ball Other [employer]Gene Other Start: 06-52-3914Eqrjthrmb encounterBenjamin BallFPG [facility] ClinicStart: 08-08-2022 End: 85-94-1587pxnbwykavoSykxxrzx Ball Other [employer]vaGene Other Start: 61-64-9996Zywffm outpatient visit 25 minutes Mitch BallFPG [facility] ClinicStart: 08-04-2022 End: 05-51-8763ogukuiphflDvyfcnzi Ball Other noFitbay grabHalo Other Start: 48-21-3672Couihsfqd encounterBenjamin BallFPG [facility] ClinicStart: 07-27-2022 End: 31-58-2134tqvbsfpmxkYyqzmsvq Ball Other noFitbay grabHalo Other Start: 88-91-0851Glftxfkhz encounterBenjamin BallFPG [facility] ClinicStart: 06-20-2022 End: 04-65-5976pqlojwzfvoXgktlwko Ball Other [employer]Gene Other Start: 78-96-5555Lbfrjkfvd encounterBenjamin BallFPG [facility] ClinicStart: 06-03-2022 End: 02-25-5862mnwraehltoWhngupob Ball Other [employer]vaGene Other Start: 88-23-2784Nectcpmgp encounterBenjamin BallFPG [facility] ClinicStart: 05-31-2022 End: 29-97-2240ppkdndrgusSyhtsmzd Ball Other nort grabHalo Other Start: 95-64-9729Hbpxptxii encounterBenjamin BallFPG [facility] ClinicStart: 05-23-2022 End: 20-04-7423ycjgtnthbfMihsuoai Ball Other [facility] [employer]Halo Other Start: 88-95-4283Aafzltxvw encounterBenjamin BallFPG [facility] ClinicStart: 05-10-2022 End: 11-81-5898qzidormawtPttuqnhc Ball Other [facility] grabHalo Other Start: 18-79-4958Ldkrwi outpatient visit 25 minutes Mitch BallFPG [facility] ClinicStart: 04-15-2022 End: 01-14-2971hoaefdruisTR MITCH BALLFacility:D8Qhnbu: 03-31-2022 End: 37-78-3511zcppciitgyUO AMIRA A NADERERFacility:B5Uhvwg: 10-23-2021 End: 89-19-0410kmltrpcdvgEZ MITCH BALLFacility:H6Etrea: 10-20-2021 End: 75-45-0013bwupmmsxfgNI MITCH BALLFacility:W9Sbcyr: 87-73-4217Zcnor health examinationThomas Olexa Other [place] grabHalo Other Procedures DateProcedureProcedure DetailPerforming ClinicianStart: 44-55-9401Zmvfr X-ray of left wristDO Mitch Ball Work Phone: Start: 31-45-4379Ymaat X-ray of left wristDO Mitch Ball Work Phone: Start: 49-13-5803Qsvzr X-ray of left wristDO Mitch Ball Work Phone: Start: 99-58-1173Vieoe X-ray of left wristDO Mitch Ball Work Phone: Start: 72-60-0091Utju reduction of fracture with internal fixationDO [facility] Phone: Start: 11-29-2022 End: 50-56-2357Soqcn X-ray of left wristDO [facility] Phone: Start: 96-81-7180OEP screeningDR MITCH anydooRComment on above:Performed By: #### BMP, ALT, LIPID #### [facility] [address] [place] [address] Dr. Marco Antonio PedrozaStart: 17-21-8926Vydwpwwtw for malignant neoplasm of colonThomas Olexa Other Depression screeningThomas Olexa Other Hyperlipidemia screeningThomas Olexa Other Screening for malignant neoplasm of prostateThomas Olexa Other Screening for malignant neoplasm of prostateThomas Olexa Other Plan of Treatment DateCare ActivityDetailAuthorStart: 55-03-4210Iaxlf microalbumin profile DTaP,Tdap,Td Vaccine (3 - Td or Tdap)[facility]: 54-29-0202PTN Vaccine (1 - 1-dose 75+ series)RSV Vaccine (1 - 1-dose 75+ series)[facility]: 01-06-2026 End: 52-34-3686Auiygcpp specific Ag [Mass/volume] in Serum or PlasmaPROSTATE- SPECIFIC ANTIGEN DIAGNOSTIC Lab Routine Encounter for follow-up surveillance of prostate cancer Expected: 01/06/2026, Expires: 04/07/2026[facility] Work Phone: Comment on above:Expected: 01/06/2026, Expires: 04/07/2026Start: 99-51-5747Ipkluwwf ScreeningDiabetes ScreeningGalion Hospital Start: 02-04-2025 End: 46-71-0917Hhzzwfs encounter yubjoezar14/30/2025 10:30 AM EDT Office Visit Radiation Oncology [address] [address] Bailee Houston APRN.PURCHASING OFFICER [address] [place] [address] Per WQ, F/U telephone visitRadiation OncologyComment on above:Per WQ, F/U telephone visitStart: 01-21-2025 End: 77-46-1420Soilzdac specific Ag [Mass/volume] in Serum or PlasmaJoint Township District Memorial [facility] Work Phone: comment on above:Expected: 01/21/2025, Expires: 04/22/2025Start: 78-94-2009Nchqvpuri for malignant neoplasm of colonNewark Hospitaltart: 09-87-9053Cizaaguep vaccinationInfluenza Vaccine (#1)[facility]: 06-08-2024 End: 67-80-3200Csxsoaap specific Ag [Mass/volume] in Serum or PlasmaPROSTATE- SPECIFIC ANTIGEN DIAGNOSTIC Lab Routine Encounter for follow-up surveillance of prostate cancer Expected: 06/08/2024, Expires: 09/07/2024[facility] Work Phone: Comment on above:Expected: 06/08/2024, Expires: 09/07/2024Start: 15-18-7335Uwcqhxd Directive DiscussionAdvance Directive DiscussionNewark Hospitaltart: 87-80-2269Vhaninp CounselingTobacco Counseling [facility]: 01-24-2024 End: 11-40-8541Wviepbo encounter qtmjalicy51/18/2024 9:00 AM EDT Office Visit Radiation Oncology [address] [place] [address] Helga Bundy APRN.PURCHASING OFFICER [address] [place] [address] SURVIVORSHIPRadiation OncologyComment on above:SURVIVORSHIP Start: 01-17-2024 End: 15-69-9019rssjturqnp96/11/2024 1:00 PM EDT Results Only [place] [address] [place] [address] PSANortVibra Hospital of [facility] LaboratoryComment on above: PSAStart: 62-35-0580Bllak-19 Vaccine ( season)Covid-19 Vaccine ()[facility]: 44-34-4385Hhlms-19 Vaccine ()Covid-19 Vaccine ()[facility]: 01-07-2024 Influenza vaccinationInfluenza Vaccine (#1)[facility]: 11-29-2023 Adult BMI ScreeningAdult BMI ScreeningThe [facility] Hospitaltart: 11-29-2023 Tobacco ScreeningTobacco ScreeningThe [facility] Hospitaltart: 05-08-2023 Advance Directive DiscussionAdvance Directive DiscussionNew[facility] Hospitaltart: 92-32-8924Vfaufenvow AssessmentDepression AssessmentNewark Hospitaltart: 39-64-4969Mljep-19 Vaccine ( season)Covid-19 Vaccine ()[facility]: 29-64-7727Tgwligish vaccinationGalion Hospital Start: 70-51-9917TucwwqvjySt. Rita's Hospitaltart: 35-95-4872Tzwgfuo Directive DiscussionAdvance Directive DiscussionNewark Hospitaltart: 56-60-4137Ehsovxlzha AssessmentDepression AssessmentNewark Hospitaltart: 88-15-9920Srnl Risk ScreeningFall Risk ScreeningThe [facility]er [facility] Hospitaltart: 50-86-0530GBI Vaccine (1 - 1-dose 60+ series)RSV Vaccine (1 - 1-dose 60+ series) [facility]: 07-01-2011Medicare Annual Wellness VisitMedicare Annual Wellness VisitNewark Hospitaltart: 25-11-6545Obdkisvfr vaccinationLung Cancer ScreeningNewark Hospitaltart: 64-08-7174Lpbnzxess for malignant neoplasm of lungLung Cancer ScreeningNewark Hospitaltart: 20-23-7652Lznyugqo Vaccine (1 of 2)Shingrix Vaccine (1 of 2)[facility]: 23-51-8992Gclrmhppu (FIT-DNA) Cologuard (FIT-DNA)[facility]: 32-51-6254TvbayctkwctCpcdfxdmcng [facility]: 10-59-6086Kztybzdubo Cancer ScreeningColorectal Cancer ScreeningNewark Hospitaltart: 35-44-9852FZ ColonographyCT Colonography [facility]: 21-58-0771Vodxdksp ScreeningDiabetes ScreeningNew[facility] Hospitaltart: 03-08-1310Ghihn Occult BloodFecal Occult BloodGalion Hospital Start: 88-65-2237Ssfsdngpc for malignant neoplasm of colonNewark Hospitaltart: 23-50-1682XsqcrxoxrghreOmewemsxevmwhElfmamhny ClinicStart: 36-18-5235Ffkqk 1996 panel - Serum or PlasmaLipid ScreeningNewark Hospitaltart: 98-91-9404Votyt panelLipid ScreeningNewark Hospitaltart: 80-96-5818Hwtmuydebdbovt of varicella zoster vaccineZoster (Shingles) Vaccine (1 of 2)[facility]: 29-81-8740YPaP,Tdap and Td Vaccines (1 - Tdap)DTaP,Tdap and Td Vaccines (1 - Tdap)[facility]: 01-68-7520Xmnmdx PCP Team Chronic Disease VisitAnnual PCP Team Chronic Disease VisitNewark Hospitaltart: 1970 Anxiety ScreeningAnxiety ScreeningNewark Hospitaltart: 81-39-8953SA Controlled (<130/80)BP Controlled (<130/80)[facility]: 92-51-5888Kfmcdtnvbj ScreeningDepression ScreeningNew[facility] Hospitaltart: 74-31-6127Dmmshpmiu C ScreeningHepatitis C ScreeningNewark Hospitaltart: 47-43-6861Mtoodukze C screeningHepatitis C ScreeningNewark Hospitaltart: 85-60-4167Fpjhdhynxh ScreeningDepression ScreeningThe [facility] Hospitalt[facility]: 11-05-5532Taidi-19 Vaccine (#1)Covid-19 Vaccine (#1)[facility]: 31-95-8996Nuzillksr Aortic Aneurysm ScreeningAbdominal Aortic Aneurysm ScreeningGalion Hospital Start: 43-08-5893Lpqahveao aortic aneurysm screeningAbdominal Aortic Aneurysm ScreeningNewark Hospitaltart: 02-17-1953Medicare Annual Wellness VisitMedicare Annual Wellness VisitFisher-Titus Medical CenterComprehensive metabolic 2000 panel - Serum or PlasmaSumma Health Barberton CampusComprehensive metabolic 2000 panel - Serum or PlasmaSumma Health Barberton CampusPatient EducationSkin Abrasions Forearm and Wrist Fractures ED Spl[facility] EDSt[facility] Work Phone: Patient referralSt. [facility]'S Hospital [facility] Work Phone: End: 52-65-5922Diicjwwn specific Ag [Mass/volume] in Serum or Plasma PSA/PROSTSPECAG DIAG Lab Routine Prostate cancer (HCC) Every 6 months for 30 Occurrences starting 07/24/2023 until 5CWV[facility] Work Phone: Comment on above:Every 6 months for 30 Occurrences starting 07/24/2023 until 07/23/2024[facility] Immunizations Immunization DateImmunizationNotesCare YvlqkscwYuxqznjn01-69-8288dtxmuzgcg virus vaccine, unspecified formulationSumma Health Barberton Campus01-03-2024 influenza, high dose seasonal, preservative-freeBenjashaniqua Vaughan Other [employer] Other [id number] toxoid, reduced diphtheria toxoid, and acellular pertussis vaccine, adsorbedDO Mitch Clement Work Phone: [facility]12-02-2020influenza virus vaccine, split virus (incl. purified surface antigen)Amando Olexa Other [employer] Other [id number] virus vaccine, unspecified formulationAriana Hardik [facility]09-20-2020 pneumococcal polysaccharide vaccine, 23 valentThomas Olexa Other [facility]09-02-2020 pneumococcal polysaccharide vaccine, 23 valentThomas Olexa Other [facility]05-30-2019 pneumococcal conjugate vaccine, 13 valentThomas Olexa Other [facility]05-30-2019 pneumococcal Conjugate, unspecified formulation; Translations: [Need for prophylactic vaccination against Streptococcus pneumoniae (pneumococcus)]Amando Thompson Other [facility] [employer] Other [id number], tetanus toxoids and acellular pertussis vaccine, unspecified formulationAmando Thompson Other [facility] Payers DatePayer CategoryPayerPolicy ID2023Self-pay2011Medicare [id number] [id number] 1953 [id number] [id number] 2.840.1.982569.3.57[id number] 2..840.1.699463.3.57[id number] 2.16.840.1.525691.3.579.2.593MedicareMedicare [id number] 2.16.840.1.9[id number] 2.16.840.1.328453.3.579.2.531 [id number] 2.16.840.1.2[id number] 2.16.840.1.3[id number] 2.16.840.1.753052.3.579.2.531 [id number] 2.16.840.1.9[id number] 2.16.840.1.352076.3.579.2.531 Social History DateTypeDetailFacilityStart: 03-03-2023 End: 77-70-3746Fjc [facility] 12-01-2022 End: 69-08-9549Edsaqka smoking status NHISSmoker (finding)[facility]: 27-48-3726Wpm Assigned At [facility]villeMalSelect [facility]ontart: 12-01-2022 End: 86-13-0789Eowcptl smoking status NHISSmokes tobacco dailyGalion Hospital History of tobacco useCigarette SmokerNewark Hospitaltart: 03-03-2023 End: 17-56-6465Fnmrqhtueg smoked current (pack per day) - Reported1.5Cparkview health bryan hospital ClinicStart: 05-17-2022 End: 40-67-1907Itcztxu use and exposureSmokeless tobacco non-userNewark Hospitaltart: 03-03-2023 End: 40-51-6322Gozhrxu intakeCurrent drinker of alcohol (finding)[facility]: 59-31-3619Nvwygqxl Score (1-100), lower number is lower risk96 [facility]: 97-73-0933Qaorznc CommentoccNewark Hospitaltart: 48-92-4132Blc Assigned At BirthNot on fileNewark Hospitaltart: 06-02-2023 Alcohol Commentcouple drinks a week.[facility]: 05-14-2024 End: 38-22-4300CxzVlom (finding)[facility]: 42-89-4826Zrdcifs CommentocccaCJW Medical Center Medical Equipment Procedure CodeEquipment CodeEquipment Original TextEquipment IdentifierDates ORIF, fracture, wristOrthopaedic fixation plate, non-bioabsorbable, sterile ()[id number] FDAStart: 19-00-2511OEFI, fracture, wristOrthopaedic bone screw, non-bioabsorbable, non-sterile()[id number] FDAStart: 11-30-2022 ORIF, fracture, wristOrthopaedic bone screw, non-bioabsorbable, non-sterile ()[id number] FDAStart: 41-15-6076AXHH, fracture, wristOrthopaedic bone screw, non-bioabsorbable, non-sterile()[id number] FDAStart: 11-30-2022 ORIF, fracture, wristOrthopaedic bone wire()[id number] FDAStart: 70-12-5226Rhdb Brachysource Iodine-125 Brachytherapy Loose Prostate - [id number]: 47-01-7111Phfygdv on above:Description: Sources: [address] [place]: 28 Goals DatePatient GoalDesired Activity/State Clinical Notes 05-10-2022 to 02-04-2025 Note Date & VhajVcofEhosqlre76-38-8974 NoteHNO ID: [id number] Author: BAILEE HOUSTON APRN.PURCHASING OFFICER Service: ? Author Type: Nurse Practitioner Type: Progress Notes Filed: 02/05/2025 16:02 Note Text: DISTANCE HEALTH VISIT I have communicated my name and active licensure. The patient?s identity and physical location were verified at the time of this visit. Blu Kuo or their legal primary care sales representative has been informed of the risks and benefits of -- and alternatives to -- treatment through a remote evaluation and consents to proceed with the evaluation remotely. This visit is a Audio-only encounter which required patient-provider interaction for the medical decision making as documented below. Total Time Spent: 15 minutes on this telephone encounter PATIENT NAME: Blu Kuo PATIENT DIAGNOSIS: 74 yo gentleman with hx of adenocarcinoma of the prostate, initial PSA of 9.3 ng/mL, Carmela of 3+3=6. Status post I-125 seed implantation on 06/20/2023 INTERVAL HISTORY: The patient presents for routine follow-up 6 months after having last been seen. Reports minor LUTS, on tamsulosin 2 capsules. Walking 6 miles per day Watches his diet Down to 165 lbs, intentionally Follows with PCP routinely PSA HISTORY: PSA (ng/mL) Date Value 01/21/2025 0.25 07/22/2024 0.33 01/17/2024 0.55 ALLERGIES Allergen Reactions Penicillins Unknown [...] 6 HOURS REVIEW OF SYSTEMS: D/N = 5-6/ Hematuria: none Dysuria: none Incontinence: none Urgency: mild Medications to aid urination: tamsulosin 2 capsules Bowel movement frequency: 1-2/day Bowel movement quality: normal Blood per rectum: none Cologard: 2024, never had colonoscopy Sexual activity: Fully potent Video Exam (Examination performed via Video enabled technology) General appearance: Alert, oriented, pleasant, in NAD :Yes Ill appearing :No Lethargic appearing :No Respiratory distress :No Coughing noted :No Audible wheezing noted :No Neuro: Speech clear and fluent. Good insight. No neuro deficits. ASSESSMENT/PLAN: 1. Encounter for follow-up surveillance of prostate cancer - ICD9: V67.59, V10.46, ICD10: Z08, Z85.46 (primary diagnosis) - PSA demonstrates nicely decline at 1.5 years out from seed implantation. - Doing well on tamsulosin 2 capsules, refill provided. - Follow up in July 2025 with a PSA level. 2. Prostate cancer (HCC) - ICD9: 185, ICD10: C61 - As above. - PROSTATE-SPECIFIC ANTIGEN DIAGNOSTIC Signed by: Bailee Houston APRN.PURCHASING OFFICER cc: Mitch Vaughan (Barber) [address] [place] [address] Bailee Houston [address] [facility] [address]VfjpknijlOhiohealth Shelby Hospital09-16-2025 NoteHNO ID: [id number] Author: BAILEE HOUSTON APRN.CNP Service: ? Author Type: Nurse Practitioner Type: Progress Notes Filed: 01/21/2025 10:11 Note Text: PSA order placed. Bailee Houston APRN.CNPOhiohealth Shelby Hospital09-16-2025 History of Present illness Narrative* Bailee Houston APRN.CNP - 01/21/2025 10:09 AM EDT PSA order placed. Bailee Houston APRN.CNP documented in this encounterGalion Hospital04-24-2025 Evaluation note* Diagnosis Onset Date Resolution Status Admit Date Cerebral atherosclerosis acuteApril 2024 10:00amDermatitis, dyshidroticacuteApril 2024 10:00amGoutacuteApril 2024 10:00amHTN (hypertension)acuteApril 2024 10:00amHx of TIA (transient ischemic attack) and strokeacuteApril 2024 10:00amLumbar spondylosisacuteApril 2024 10:00amNicotine dependenceacute August 29, 2024 10:00amOpiate analgesic use agreement existsacuteApril 2024 10:00amProstate canceracuteApril 2024 10:00amHigh cholesteroldeleted August 29, 2024 10:00amCerebral atherosclerosisacuteJuly 2024 9:53amGout acuteJuly 2024 9:53amHTN (hypertension)acuteJuly 2024 9:53amHx of TIA (transient ischemic attack) and strokeacuteJuly 2024 9:53am HypercholesterolemiaacuteJuly 2024 9:53amLumbar spondylosisacuteJuly 2024 9:53amNicotine dependenceacuteJuly 2024 9:53amOpiate analgesic use agreement existsacuteJuly 2024 9:53amProstate canceracuteJuly 2024 9:53amMedicare annual wellness visit, subsequentnoneactiveJuly 2024 9:53am Screening for colon cancernonealy 2024 9:53am [facility] Work Phone: [phone] History of Present illness Narrative* Helga Bundy APRN.CNP - 08/05/2024 7:00 AM EDT Radiation Oncology - Follow Up Note Patient has been identified by name and date of : Yes, Provider Helga Bundy APRN.PURCHASING OFFICER Date August 05, 2024 Time 09:00 In lieu of a Virtual Visit, I spoke with Blu Kuo on August 05, 2024 by telephone. PATIENT NAME: Blu Kuo PATIENT DIAGNOSIS: 74 yo gentleman with hx of adenocarcinoma of the prostate, initial PSA of 9.3 ng/mL, Carmela of 3+3=6. Status post I-125 seed implantation on 06/20/2023 INTERVAL HISTORY: Blu lima jayna presents, via phone encounter for routine surveillance of prostate cancer follow-up 6 months after having last been seen. Call went to [employer] message PSA HISTORY: PSA (ng/mL) Date Value 07/22/2024 0.33 01/17/2024 0.55 ALLERGIES Allergen Reactions Penicillins Unknown [...] 6 HOURS REVIEW OF SYSTEMS: D/N = 5-6/0 Hematuria: No Dysuria: No Incontinence: No Urgency: moderate Catheter use: No Medications to aid urination: Tamsulosin - AUA Questionnaire (symptoms within the past 1 month) Incomplete emptyin (less than 1 time in 5) Frequency (within 2 hours): 0 (not at all) Intermittency: 0 (not at all) Urgency: 0 (not at all) Weak stream: 4 (more than half the time) Strainin (not at all) Nocturia: 0 (none) - Total AUA Score: 5 Bowel movement frequency: 1-2/day Bowel movement quality: normal Blood per rectum: No Last colonoscopy: none Sexual activity: Fully potent Androgen deprivation: Never. KPS: 90 Per Phone encounter: Alert and oriented. No acute distress. Rectal exam is deferred. ASSESSMENT Blu continues to experience nocturia 0 x. His PSA continues to drop nicely. I spent a total of 20 minutes on the date of the service which included preparing to see the patient, completing clinical documentation, obtaining and/or reviewing separately obtained history, ordering medications, tests, or procedures, and communicating results to the patient/family/caregiver. and discussion of his ongoing post radiation follow up. We reviewed current medications for update. We discussed exercise/diet recommendations for increased aerobic fitness and weight control. He does smoke cigarettes and does moderately drink alcohol. All questions answered at this appointment. Parts of Progress Note were copied from Progress note dated 07/24/2023 but woods elements reviewed, confirmed, and\or updated by me (Miles Bundy CNP/KASSANDRA ) on August 05, 2024 PLAN: F/U via phone encounter in with a PSA Signed by: Helga Bundy APRN.CNP cc: Mitch Vaughan ([facility]) [address] [place] [id number] Helga Bundy [id number] [facility] [id number] documented in this encounterGalion Hospital03-31-2025 NoteHNO ID: [id number] Author: HELGA BUNDY APRN.CNP Service: ? Author Type: Nurse Practitioner Type: Progress Notes Filed: 08/05/2024 09:23 Note Text: Radiation Oncology - Follow Up Note Patient has been identified by name and date of : Yes, Provider Helga Bundy APRN.CNP Date August 05, 2024 Time 09:00 In lieu of a Virtual Visit, I spoke with Blu Kuo on August 05, 2024 by telephone. PATIENT NAME: Blu Kuo PATIENT DIAGNOSIS: 74 yo gentleman with hx of adenocarcinoma of the prostate, initial PSA of 9.3 ng/mL, Carmela of 3+3=6. Status post I-125 seed implantation on 06/20/2023 INTERVAL HISTORY: Blu dorantes presents, via phone encounter for routine surveillance of prostate cancer follow-up 6 months after having last been seen. Call went to [employer] message PSA HISTORY: PSA (ng/mL) Date Value 07/22/2024 0.33 01/17/2024 0.55 ALLERGIES Allergen Reactions Penicillins Unknown [...] 6 HOURS REVIEW OF SYSTEMS: D/N = 5-6/0 Hematuria: No Dysuria: No Incontinence: No Urgency: moderate Catheter use: No Medications to aid urination: Tamsulosin - AUA Questionnaire (symptoms within the past 1 month) Incomplete emptyin (less than 1 time in 5) Frequency (within 2 hours): 0 (not at all) Intermittency: 0 (not at all) Urgency: 0 (not at all) Weak stream: 4 (more than half the time) Strainin (not at all) Nocturia: 0 (none) - Total AUA Score: 5 Bowel movement frequency: 1-2/day Bowel movement quality: normal Blood per rectum: No Last colonoscopy: none Sexual activity: Fully potent Androgen deprivation: Never. KPS: 90 Per Phone encounter: Alert and oriented. No acute distress. Rectal exam is deferred. ASSESSMENT Blu continues to experience nocturia 0 x. His PSA continues to drop nicely. I spent a total of 20 minutes on the date of the service which included preparing to see the patient, completing clinical documentation, obtaining and/or reviewing separately obtained history, ordering medications, tests, or procedures, and communicating results to the patient/family/caregiver. and discussion of his ongoing post radiation follow up. We reviewed current medications for update. We discussed exercise/diet recommendations for increased aerobic fitness and weight control. He does smoke cigarettes and does moderately drink alcohol. All questions answered at this appointment. Parts of Progress Note were copied from Progress note dated 07/24/2023 but woods elements reviewed, confirmed, andor updated by me (Miles Bundy CNP/KASSANDRA ) on August 05, 2024 PLAN: F/U via phone encounter in with a PSA Signed by: Helga Bundy APRN.TAPAN cc: Mitch Vaughan ([facility]) [address] [place] [id number] Helga Bundy [id number] [facility] [id number] History of Present illness Narrative* Helga Bundy APRN.TAPAN - 01/24/2024 9:00 AM EDT Radiation Oncology - Follow Up Note PATIENT [...] which included preparing to see the patient, [id number] patient care, completing clinical documentation, obtaining and/or [...] by: Helga Bundy APRN.TAPAN cc: Mitch Vaughan ([facility]) [address] [place] [address] Cain Nova [address] [facility] [address] documented in this encounterGalion Hospital03-18-2024 History of Present illness Narrative* Cain Nova MD - 07/24/2023 9:45 AM EDT [facility] [place] CLINICAL NOTE Radiation Oncology PATIENT NAME: Blu Kuo CLINIC NO.: [id number] ATTENDING PHYSICIAN: Cain Nova M.D. DATE OF SERVICE: July 24, 2023 HPI: Blu Kuo is a gentleman with adenocarcinoma of the prostate, initial PSA of 9.3 ng/mL, Lefors of 3+3=6. Status post I-125 seed implantation [...] months for survivorship visit, and with Dr. Rebolledo in 1 year, with PSA prior to each visit. This note has been electronically signed. July 24, 2023 Cain Nova M.D. cc: Mitch Vaughan DO [address] [facility] [id number] documented in this encounterGalion Hospital03-18-2024 History of Present illness Narrative* Cain Nova MD - 07/24/2023 12:00 AM EDT Patient: Blu Kuo Date:07/24/2023 [facility] Department of Radiation Oncology [facility] RADIATION ONCOLOGY POST SEED IMPLANT SIMULATION [...] simulator for prostate post-brachytherapy seed implant planning. personnel quality assurance auditor planning for the permanent seed prostate brachytherapy procedure will commence following simulation. Electronically Signed CAIN NOVA M.D. 49:43 AM documented in this encounterGalion Hospital02-13-2024 Miscellaneous Notes* Telephone Encounter - Darryl Jorgensen Jr., MD - 06/20/2023 4:32 PM EST Excellent. Thank you for your work. w All Conversations on this Encounter Alycia Toth LPN routed conversation to You; JOSELIN VelásquezA18 minutes ago (4:12 PM) ELIAS Ibarra8 minutes ago (4:12 PM) SH Pt returned called. All points below were addressed. Pt states the [facility] is who he sees now. I read pt the note from Dr. Francis MD, verbatim and he states at this time, he agrees, he does not need to be seen by our office. He also states if this changes he will call and let us know. Pt will inform [facility] that there is no need to forward any copies of reports to our officeat this time. He states he apologizes for any confusion and appreciates the attention to this matter. documented in this encounterFisher-[facility]02-13-[facility] Telephone encounter Note* Telephone Encounter - Darryl Jorgensen Jr., MD - 06/20/2023 4:32 PM EST Excellent. Thank you for your work. w All Conversations on this Encounter Alycia Toth LPN routed conversation to You; Marcia Rabago, RMA18 minutes ago (4:12 PM) Alycia Toth LPN18 minutes ago (4:12 PM) SH Pt returned called. All points below were addressed. Pt states the [facility] is who he sees now. I read pt the note from Dr. Francis MD, verbatim and he states at this time, he agrees, he does not need to be seen by our office. He also states if this changes he will call and let us know. Pt will inform [facility] that there is no need to forward any copies of reports to our officeat this time. He states he apologizes for any confusion and appreciates the attention to this matter. [facility]02-13-[facility]24 NoteHNO ID: [id number] Author: CAIN NOVA MD Service: Radiation Oncology Author Type: Physician Type: Progress Notes Filed: 06/20/2023 13:06 Note Text: [facility] CLINICAL NOTE Radiation Oncology PATIENT NAME: Blu Kuo [facility] NO.: [id number] ATTENDING PHYSICIAN: Cain Nova M.D. DATE OF [...] electronically signed. June 20, 2023 cc: Mitch Vaughan, [facility]02-13-2024 NoteHNO ID: [id number] Author: KWAKU CASILLAS DO Service: Anesthesiology Author Type: Resident Type: Anesthesia Procedure Notes Filed: 06/20/2023 12:30 Note Text: ANESTHESIOLOGY PROCEDURE NOTE Airway General Information Procedure Start Time/Medication Administration: 06/20/2023 12:22 PM Patient location during procedure: OR Timeout Performed Pre-procedure: timeout performed Consent Obtained: Yes Patient identity confirmed: arm band, care head orthopedic team physician and patient sedated or unresponsive Staffing Resident: [...] June 20, 2023 TIME: 12:30 PM CSN: [id number] NoteHNO ID: [id number] Author: WILLA SANTACRUZ RN Service: ? Author Type: Registered Nurse Type: Nursing Progress Note Filed: 06/20/2023 10:56 Note Text: Other: patient did enema at home prior to arrival.[facility]02-13-2024 Miscellaneous Notes* Telephone Encounter - Darryl Jorgensen Jr., MD - 06/20/2023 10:50 AM EST Please contact the patient and do the followin. Review with him that he had previously been under care of Dr. Zac Stevenson at our office 2. Review that Dr. Zac Stevenson and his partner Dr. Jorgensen were sent copies of prostate biopsy performed at [facility], which demonstrated additional prostate cancer 3. Record review indicates patient has no further appointment scheduled through our office but doeshave appointment scheduled at [facility]. 4. Please confirm with patient that he is now getting his follow-up care at [facility] and therefore we do not need to schedule him for any further follow-ups at our office. We are certainly happy to help as desired, and that is obviously fine if he wants to get his care at [facility], but we just want to make sure he is getting the follow through he needs and that we do not have any responsibility for scheduling any further appointments through our office. Also, if that is the case, he could tell the [facility] it no longer needs to send us copies of his reports, because itdoes prompt us to question whether we need to get the patient back here for further care. Thank you. * Telephone Encounter - SUNSHINE Velásquez - 06/20/2023 10:50 AM EST Left message to return call * Telephone Encounter - Alycia Toth LPN - 06/20/2023 10:50 AM EST Pt returned called. All points below were addressed. Pt states the [facility] is who he sees now. I read pt the note from Dr. Francis MD, verbatim and he states at this time, he agrees, he does not need to be seen by our office. He also states if this changes he will call and let us know. Pt will inform [facility] that there is no need to forward any copies of reports to our officeat this time. He states he apologizes for any confusion and appreciates the attention to this matter. documented in this encounterFisher-[facility]02-13-2024 Telephone encounter Note* Telephone Encounter - Darryl Jorgensen Jr., MD - 06/20/2023 10:50 AM EST Please contact the patient and do the followin. Review with him that he had previously been under care of Dr. Zac Stevenson at our office 2. Review that Dr. Zac Stevenson and his partner Dr. Jorgensen were sent copies of prostate biopsy performed at [facility], which demonstrated additional prostate cancer 3. Record review indicates patient has no further appointment scheduled through our office but doeshave appointment scheduled at [facility]. 4. Please confirm with patient that he is now getting his follow-up care at [facility] and therefore we do not need to schedule him for any further follow-ups at our office. We are certainly happy to help as desired, and that is obviously fine if he wants to get his care at [facility], but we just want to make sure he is getting the follow through he needs and that we do not have any responsibility for scheduling any further appointments through our office. Also, if that is the case, he could tell the [facility] it no longer needs to send us copies of his reports, because itdoes prompt us to question whether we need to get the patient back here for further care. Thank you. [facility]02-13-[facility] Telephone encounter Note* Telephone Encounter - SUNSHINE Velásquez - 06/20/2023 10:50 AM EST Left message to return call [facility]02-13-[facility] Telephone encounter Note* Telephone Encounter - Alycia Toth LPN - 06/20/2023 10:50 AM EST Pt returned called. All points below were addressed. Pt states the [facility] is who he sees now. I read pt the note from Dr. Francis MD, verbatim and he states at this time, he agrees, he does not need to be seen by our office. He also states if this changes he will call and let us know. Pt will inform [facility] that there is no need to forward any copies of reports to our officeat this time. He states he apologizes for any confusion and appreciates the attention to this matter. [employer] [id number] History of Present illness Narrative* Cain Nova MD - 06/20/2023 12:00 AM EST AYAAN BLU Becker [id number] 06/20/2023 [facility] Department of Radiation Oncology [facility] RADIATION ONCOLOGY SIMULATION NOTE DATE OF SIMULATION: 06/20/2023 MACHINE: Getting-in Diagnosis: C61 (Prostate Gland) AREA:prostate PATIENT POSITION: Supine. CONTRAST: None PROTOCOL: None CONCURRENT THERAPY: None FIXATION DEVICE: Capigami UTS Stabilization device by [employer]. PROCEDURE: Patient was simulated in the OR in exaggerated dorsal lithotomy position. Serial images of the prostate were taken using TRUS. Color flow Doppler UTS was also reviewed. These images were imported into a [employer] treatment planning system where a plan was generated. ASSESSMENT/PLAN: Patient tolerated simulation procedure well. Electronically Signed Cain Nova M.D. / 41:07 PM documented in this encounterGalion Hospital02-13-2024 History of Present illness Narrative* Cain Nova MD - 06/20/2023 12:00 AM EST BLU KUO. [id number] 06/20/2023 [facility] Department of Radiation Oncology [facility] RADIATION ONCOLOGY - COMPLETION NOTE PATIENT NAME: Blu Kuo [facility] NO.: [id number] ATTENDING PHYSICIAN: Cain Nova M.D. DATE OF SERVICE: June 20, 2023 FINISH NOTE SITE: Prostate. ISOTOPE: I-125. DISEASE: Adenocarcinoma of the prostate, initial PSA of 9.3 ng/mL, Lefors of 3+3=6. DELIVERED DOSE: The prostate, through [...] cc: Mitch Vaughan DO documented in this encounterGalion Hospital02-13-2024 History of Present illness Narrative* Cain Nova MD - 06/20/2023 12:00 AM EST BLU KUO [id number] 06/20/2023 [facility] Department of Radiation Oncology [facility] RADIATION ONCOLOGY BRACHYTHERAPY TREATMENT PLANNING NOTE [...] M.D. / 41:07 PM documented in this encounterGalion Hospital02-08-2024 Miscellaneous Notes* Telephone Encounter - Darryl Jorgensen Jr., MD - 06/15/2023 4:38 PM EST Patient is prostate biopsy results apparently from [facility] sent to [place]. Patient is known ceci. Looks like he might be following up at [facility], but I am not sure. * Telephone Encounter - Zac Stevenson MD - 06/15/2023 4:38 PM EST I agree, Looks like his care is at [facility] documented in this encounterFisher-[facility]02-08-2024 Telephone encounter Note* Telephone Encounter - Darryl Jorgensen Jr., MD - 06/15/2023 4:38 PM EST Patient is prostate biopsy results apparently from [facility] sent to [place]. Patient is known ceci. Looks like he might be following up at [facility], but I am not sure. 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 They are also encouraged to continue exercise to achieve/maintain a normal BMI. Patient is instructed on home BP measurements: - rest for 5 minutes w/o talking- positioned w/ feeton floor and arm supported- average best 2/3 readings w/ goal < 135/85 Keep log of home BP readings and bring to OV May,Elevated cholesterol (ICD-10 - E78.00)Instructed on diet and exercise with continued statin therapy.Discussed the beneficial effects of lo wering cholesterol in reducing the risk for cerebrovascular and cardiovascular disease. May,igarette nicotine dependence without complication (ICD-10 - F17.210)LDCT: 10/2021This patient has been encouraged to quit tobacco use immediately. They are aware of the hazards associated with tobacco use, including but not limited to respiratory infections, vascular disease and c ancers. May,rostate cancer (ICD-10 - C61)06/2022: Carmela 3+3, group 1Grp 1 w/ carmela score 3 + 3 Has been counseled w/ treatment options by , radiation oncology. He recently self referred to [facility] and is scheduled for brachytherapy. 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 They are to use intermittent heat and ice as needed. They may schedule a massage or gentle manipulation. They may safely use Tylenol as needed. 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 He was instructed to seek evaluation urgently for any suspicious symptoms. Instructed to continue secondary prevention measures. [employer] Other [id number] Miscellaneous Notes* Telephone Encounter - Lyly Johns - 04/20/2023 2:55 PM EST Hi, thank you! Patient Is scheduled 05/03 I called left message and mailed appt to patient. * Telephone Encounter - Lyly Johns - 04/20/2023 2:12 PM EST Can anyone help with getting him scheduled? Or direct me in the right direction. * Telephone Encounter - Yolanda Dye LPN - 04/20/2023 2:03 PM EST Lyly: Will you please schedule a consult with Dr. Nova for prostate brachytherapy per previousmessage? Dr. Rebolledo rad onc consult pending your approval. Thanks Yolanda Dye RN * Telephone Encounter - Yolanda Dye LPN - 04/13/2023 3:51 PM EST Blu called stating he has decided he would like to have radiation seed implant. He states he was referred for a surgical opinion but was told patients with a carmela score of 6 don't typically have a prostatectomy. He would like to know if Dr. Rebolledo can treat him with prostate seed implant. I explained that Dr. Rebolledo does treat prostate cancer with radiation seeds. I notified Blu that one of the local urologists assist with the seed implant. He said he is a former patient of Dr. Stahl's with [facility] but does not want to work that group of physicians. Blu said esdras just work with [facility] and the team in [place] to have a seed implant scheduled. 04/04/23 He saw Adore Lechuga CNP, [facility] urology, who referred patient to Dr. Neves to discuss RALP. MRI prostate order also placed. Blu has a consult with Dr. Neves 05/02/23. He denies further questions at this time. I encouraged him to call back if he needs help facilitating future appointments. 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 Was approved? 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 Feb,rimary hypertension (ICD-10 - I10)This patient is instructed to consume a healthy, low-fat, low-salt diet. They are also encouraged to continue exercise to achieve/maintain a normal BMI. Feb,Mucopurulent chronic bronchitis (ICD-10 - J41.1)Denies ER/hosp visits for AE COPD. He is not using inhalers. Feb,igarette nicotine dependence without complication (ICD-10 - F17.210)LDCT: 10/2021This patient has been encouraged to quit tobacco use immediately. They are aware of the hazards associated with tobacco use, including but not limited to respiratory infections, vascular disease and c ancers. 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 They are to use intermittent heat and ice as needed. They may schedule a massage or gentle manipulation. They may safely use Tylenol as needed. Feb,erebral atherosclerosis (ICD-10 - I67.2)No new focal neurologic deficits. Feb,rostate cancer (ICD-10 - C61)06/2022: Carmela 3+3, group 1Known cancer w/ increased risk of progression. Recommended radiation therapy over active Surveillance. He is instructed to reschedule his appt w/ Radiation Onc [employer] Other 09-19-2023 Evaluation note* Encounter Date Diagnosis Assessment Notes Treatment Notes Treatment Clinical Notes Jan, Other specified postprocedural s tates (ICD-10 - Z98.890) Jan,Other fractures of lower end of left radius, subsequent encounter for closed fracture with routine healing (ICD-10 - S52.592D)Instructed on gentle motion exercises. Formal therapy order provided. Progress as tolerated. Call [facility] questions/concerns. Examination and assessment of this patient was performed by Tammy Rivas NP and patient will continue with the treatment plan per , who initiated this treatment plan. Dr. Thompson is present in the office today and providing supervision. 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 Instructed on progressive motion exercises. Stressed the importance of moving the hand and fingers, start passively if not able to actively yet. May consider formaltherapy at next appt if needed. Instructed on application of moisturizer and massage of the incision to help soften. 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 Use of intraoperative fluoroscopy. Patient is progressing and healing routinely. Incision siteremains clean and dry, no signs of erythema or infection noted. Patient placed in wrist splint today and advised to ice and elevate. He may use pain medication as needed. We will follow up in 4 weekstime. Patient voices understanding and is agreeable to treatment plan. Examination and assessment of this patient was performed by Tammy Rivas NP and patient will continue with the treatment plan per Dr. Thompson who initiated this treatment plan. Dr. Thompson is present in the office today and providing supervision. [employer] Other 07-25-2023 Evaluation note* Encounter Date Diagnosis Assessment Notes Treatment Notes Treatment Clinical Notes Nov, Other closed fractur e of distal end [...] pain for many months and potentially cause fci pain and stiffness. We have discussed the many potential complications of surgery including respiratory, cardiac, and patient positioning during anesthesia. The risks of DVT, scarring, intermission coordinator pain, nonunion, hardware failure, development of arthritis and need for future surgery were all discussed. Patient is aware and would like to proceed. Post op prescriptions provided with instructions on use. 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 They are also encouraged to continue exercise to achieve/maintain a normal BMI. Aug,erebral atherosclerosis (ICD-10 - I67.2)Continue secondary prevention measures. - antiplatelent therapy - control BP and LDL - smoking cessation reviewed and encouraged Aug,Elevated cholesterol (ICD-10 - E78.00)Diet and exercise with continued statin therapy. Aug,igarette nicotine dependence without complication (ICD-10 - F17.210)This patient has been encouraged to quit tobacco use immediately. They are aware of the hazards associated with tobacco use, including but not limited to respiratory infections, vascular disease and cancers. Aug,rostate cancer (ICD-10 - C61)06/2022: Carmela 3+3, group 1Referral to Radiation Oncologist. 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 They are to use intermittent heat and ice as needed. They may schedule a massage or gentle manipulation. They may safely use Tylenol as needed. 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 Aug,Hx of diverticulitis of colon (ICD-10 - Z87.19)Recommend colonoscopy this year. Postponed at this time due to prostate cancer dx. 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) [employer] Other 03-22-2023 Evaluation note* Encounter Date Diagnosis Assessment Notes Treatment Notes Treatment Clinical Notes Jul, Pure hypercholesterolemia (ICD-1 0 - E78.00) [employer] Other 02-13-2023 Evaluation note* Encounter Date Diagnosis Assessment Notes Treatment Notes Treatment Clinical Notes Jun, Prostate cancer (ICD-10 - C61) 06/2022: Gl yamel 3+3, group 1 [employer] Other 01-27-2023 Evaluation note* Encounter Date Diagnosis Assessment Notes Treatment Notes Treatment Clinical Notes May, 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 They are also encouraged to continue exercise to achieve/maintain a normal BMI. May,ure hypercholesterolemia (ICD-10 - E78.00)Diet and exercise with continued statin therapy. May,rostate nodule (ICD-10 - N40.2)Encouraged to f/u w/ Urology and reschedule MRI guided bx if needed. Stressed importance of obtaining accurate dx for ongoing treatment May,cute lower gastrointestinal bleeding (ICD-10 - K92.2)No s/s ongoing bleeding. Plan colonoscopy in near future. May,erebral atherosclerosis (ICD-10 - I67.2)Continue secondary prevention: - control BP, Lipids and stressed smoking cessation May,igarette nicotine dependence without complication (ICD-10 - F17.210)This patient has been encouraged to quit tobacco use immediately. They are aware of the hazards associated with tobacco use, including but not limited to respiratory infections, vascular disease and cancers. 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), and cerebral infarction without residual deficits (ICD-10 - Z86.73)No s/s recurrent focal neurologic deficits [employer] Other Evaluation noteNo InformationNortCrichton Rehabilitation Center [employer] Other Evaluation noteNo assessment information available [facility] Work Phone: Evaluation note* Diagnosis Prostate cancer (HCC)- Primary Malignant [facility]oplasm of [facility] (HCC)- Primary Malignant neoplasm of prostate Malignant neoplasm of prostate (HCC) Malignant neoplasm of prostate [facility] Prostate cancer (HCC)- Primary Malignant neoplasm of prostate [facility]* Diagnosis Onset Date Resolution Status Cerebral atherosclerosis acuteHigh cholesterolacuteHTN (hypertension)acuteHx of TIA (transient ischemic attack) and strokeacuteLumbar spondylosisacuteNicotine dependenceacuteProstate canceracute [facility] Work Phone: Evaluation note* Diagnosis Onset Date Resolution Status Cerebral atherosclerosis acuteHigh cholesterolacuteHTN (hypertension)acuteHx of TIA (transient ischemic attack) and strokeacuteLumbar spondylosisacuteNicotine dependenceacuteOpiate analgesic use agreement existsWomen [facility] canceracuteMedicare annual wellness visit, [facility] Work Phone: Evaluation note* Diagnosis Pre-op evaluation- Primary Preoperative examination, unspecified Primary hypertension Unspecified essential hypertension Hypercholesteremia Pure hypercholesterolemia Cerebrovascular accident (CVA), unspecified mechanism (HCC) Mucopurulent chronic bronchitis (HCC) Mucopurulent chronic bronchitis Prostate cancer (HCC)- Primary Malignant neoplasm of prostate [facility] Diagnosis Pre-op evaluation- Primary Preoperative examination, unspecified Primary hypertension Unspecified essential hypertension Hypercholesteremia Pure hypercholesterolemia Cerebrovascular accident (CVA), unspecified mechanism (HCC) Mucopurulent chronic bronchitis (HCC) Mucopurulent chronic bronchitis Encounter for follow-up surveillance of prostate cancer- Primary Unspecified follow-up examination [facility]* Diagnosis Onset Date Resolution Status Cerebral atherosclerosis acuteHigh cholesterolacuteHTN (hypertension)acuteHx of TIA (transient ischemic attack) and strokeacuteLumbar spondylosisacuteNicotine dependenceacuteOpiate analgesic use agreement [facility] Work Phone: Evaluation note* Diagnosis Onset Date Resolution Status Admit Date Cerebral atherosclerosis acuteJanuary 2024 9:41amHigh cholesterolacuteJanuary 2024 9:41amHTN (hypertension)acuteJanuary 2024 9:41amHx of TIA (transient ischemic attack) and strokeacuteJanuary 2024 9:41amLumbar spondylosisacuteJanuary 2024 9:41amNicotine dependenceacuteJanuary 2024 9:41amOpiate analgesic use agreement existsacuteJanuary 2024 9:41amProstate canceracuteJanuary 2024 9:41am [facility] Work Phone: Evaluation note* Diagnosis Pre-op evaluation- Primary Preoperative examination, unspecified Primary hypertension Unspecified essential hypertension Hypercholesteremia Pure hypercholesterolemia Cerebrovascular accident (CVA), unspecified mechanism (HCC) Mucopurulent chronic bronchitis (HCC) Mucopurulent chronic bronchitis Encounter for follow-up surveillance of prostate cancer- Primary Unspecified follow-up examination documented [facility]* Diagnosis Onset Date Resolution Status Admit Date Cerebral atherosclerosis acuteApril 2024 10:00amHigh cholesterolacuteApril 2024 10:00amHTN (hypertension)acuteApril 2024 10:00amHx of TIA (transient ischemic attack) and strokeacuteApril 2024 10:00amLumbar spondylosisacuteApril 2024 10:00amNicotine dependenceacuteApril 2024 10:00amOpiate analgesic use agreement existsacuteApril 2024 10:00amProstate canceracuteApril 2024 10:00am [facility] Work Phone: Evaluation note* Diagnosis Pre-op evaluation- Primary Preoperative examination, unspecified Primary hypertension Unspecified essential hypertension Hypercholesteremia Pure hypercholesterolemia Cerebrovascular accident (CVA), unspecified mechanism (HCC) Mucopurulent chronic bronchitis (HCC) Mucopurulent chronic bronchitis Encounter for follow-up surveillance of prostate cancer- Primary Unspecified follow-up examination Prostate cancer (HCC) Malignant neoplasm of prostate documented in this encounter [facility] note* Diagnosis Onset Date Resolution Status Admit Date Cerebral atherosclerosis acuteOctober 2024 10:48amGoutacuteOctober 2024 10:48amHTN (hypertension)acuteOctober 2024 10:48amHx of TIA (transient ischemic attack) and strokeacuteOctober 2024 10:48amHypercholesterolemiaacute February 25, 2025 10:48amLumbar spondylosisacuteOctober 2024 10:48am Nicotine dependenceacuteOctober 2024 10:48amOpiate analgesic use agreement existsacuteOctober 2024 10:48amProstate canceracuteOctober 2024 10:48am [facility] Work Phone: History general Narrative - Reported* Type Description Date Medical History Acute kidney injury Medical HistoryCigarette nicotine dependenceMedical HistoryProstate nodule Medical HistoryArthritis of facet joint of lumbar spineMedical History Bronchitis, mucopurulent recurrentMedical HistoryHyperlipidemia type IIMedical HistoryAsymptomatic stenosis of intracranial arteryMedical HistoryEssential hypertensionMedical HistoryAcute gouty arthritisMedical HistoryBenign localized hyperplasia of prostate with urinary retentionMedical HistoryAcute allergic rhinitis due to pollenMedical HistoryH/O: strokeSurgical Historyplantar fascia release, left [id number] Historylumbar laminectomy/discectomy [id number] Surgical Historyumbilical hernia [id number] Historybilateral cataract [id number] HistoryMRI fusion prostate biopsy05/31/22Hospitalization Historysee surgical history [employer] Other History general Narrative - Reported* Type Description Date Medical History Acute kidney injury Medical HistoryCigarette nicotine dependenceMedical HistoryProstate nodule Medical HistoryArthritis of facet joint of lumbar spineMedical History Bronchitis, mucopurulent recurrentMedical HistoryHyperlipidemia type IIMedical HistoryAsymptomatic stenosis of intracranial arteryMedical HistoryEssential hypertensionMedical HistoryAcute gouty arthritisMedical HistoryBenign localized hyperplasia of prostate with urinary retentionMedical HistoryAcute allergic rhinitis due to pollenMedical HistoryH/O: strokeSurgical Historyplantar fascia release, left [id number] Historylumbar laminectomy/discectomy [id number] Surgical Historyumbilical hernia [id number] Historybilateral cataract [id number] HistoryMRI fusion prostate biopsy05/31/22Surgical History ORIF left distal radial fracture11/2022Hospitalization Historysee surgical history [employer] Other InstructionsNot on filedocumented in this encounter [facility]Not on filedocumented in this encounter [facility] SystemInstructionsNot on filedocumented in this encounter [facility] SystemReason for referral (narrative)No reason for referral information availableCleveland Clinic Foundation Work Phone: Summary Purpose Family History Relationship Condition 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 Not Specified Renal failure Unknown fatherCerebrovascular accident (CVA)Unknown Relationship Condition 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 Not Specified Renal failure Unknown fatherCerebrovascular accident (CVA)UnknownfatherHistory of strokeUnknown Relationship Condition 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 mother Renal failure Unknown fatherCerebrovascular accident (CVA)UnknownfatherHistory of strokeUnknown Advance Directives Advance Directive Response Recorded Date/ Time Advance Directives No November 29 3:50am Advance Directive Response Recorded Date/ Time Advance Directives No November 29 2:50am Chief Complaint and Reason for Visit Chief Complaint wrist injury Fracture Fracture Chief Complaint wrist injury Fracture Fracture Z98.890 Chief Complaint wrist injury Fracture Fracture Z98.890 Z98.890 Chief Complaint Z98.890 S52.592D Chief Complaint Amb Documentation 3 monthReason for VisitCerebral atherosclerosis High cholesterol HTN (hypertension) Hx of TIA [...] Opiate analgesic use agreement exists Prostate cancer Chief Complaint Admit Date 3 month f/u May 14, 2024 9: 41am Reason for Visit Admit Date Cerebral atherosclerosis May 14 9:41am High cholesterol May 14, 2024 9: 41am HTN (hypertension) May 14, 2024 9: 41am Hx of TIA (transient ischemic attack) an d stroke May 14, 2024 9:41am Lumbar spondylosis May 14, 2024 9: 41am Nicotine dependence May 14, 2024 9: 41am Opiate analgesic use agreement exists Donnell cooper 2024 9:41am Prostate cancer May 14, 2024 9: 41am Chief Complaint Admit Date 3 month f/u August 29, 2024 10: 00am Reason for Visit Admit Date Cerebral atherosclerosis August 29 10:00am High cholesterol August 29, 2024 10: 00am HTN (hypertension) August 29, 2024 10: 00am Hx of TIA (transient ischemic attack) an d stroke August 29, 2024 10:00am Lumbar spondylosis August 29, 2024 10: 00am Nicotine dependence August 29, 2024 10: 00am Opiate analgesic use agreement exists Ap ril 2024 10:00am Prostate cancer August 29, 2024 10: 00am Chief Complaint Admit Date 3 month f/u August 29, 2024 10: 00am Wellness/LVM to R/S KM30 November 25, 2 025 9:53am Reason for Visit Admit Date Cerebral atherosclerosis August 29 10:00am Dermatitis, dyshidrotic August 29, 2024 10:00am Gout August 29, 2024 10: 00am HTN (hypertension) August 29, 2024 10: 00am Hx of TIA (transient ischemic attack) an d stroke August 29, 2024 10:00am Lumbar spondylosis August 29, 2024 10: 00am Nicotine dependence August 29, 2024 10: 00am Opiate analgesic use agreement exists Ap ril 2024 10:00am Prostate cancer August 29, 2024 10: 00am High cholesterol August 29, 2024 10: 00am Cerebral atherosclerosis November 25, 2024 9:53am Gout November 25, 2024 9:53 am HTN (hypertension) November 25, 2024 9:53 am Hx of TIA (transient ischemic attack) an d stroke November 25, 2024 9:53am Hypercholesterolemia November 25, 2024 9:5 3am Lumbar spondylosis November 25, 2024 9:53 am Nicotine dependence November 25, 2024 9:53 am Opiate analgesic use agreement exists Ju ly 2024 9:53am Prostate cancer November 25, 2024 9:53 am Medicare annual wellness visit, subseque nt November 25, 2024 9:53am Screening for colon cancer November 25 9:53am Chief Complaint Admit Date 3 mo f/u [...] Prostate cancer February 25, 2025 1 0:48am Reason for Referral SpecialtyDiagnoses / ProceduresReferred By ContactReferred To ContactRadiation Oncology Diagnoses Prostate cancer (HCC) Procedures RAD/ONC CONSULT OFFICE/OUTPATIENT [facility] 60-74 MINUTES Kerri Rebolledo MD [address] [place] [address] [place] [address] Referral IDStatusReasonStart DateExpiration DateVisits RequestedVisits [id number] PCP Requested Referral Additional Source Comments (unrecognized sect ion and content) No Status Records FoundNo Status Records FoundNo Status Records FoundNo Status Records FoundNo Status Records Found INFORMATION SOURCE (unrecogn ized section and content) DATE CREATED AUTHOR 10/27/2021 [facility] DATE CREATED AUTHOR AUTHOR'S ORGANIZ ATION 04/27/2022 [facility] DATE CREATED AUTHOR AUTHOR'S ORGANIZ ATION 03/19/2023 [facility] DATE CREATED AUTHOR AUTHOR'S ORGANIZ ATION 06/21/2023 [facility] DATE CREATED AUTHOR AUTHOR'S ORGANIZ ATION 02/10/2025 [facility] REASON FOR VISIT (unrecogniz ed section and content) ReasonCommentsPatient EducationReasonCommentsPatient UpdateReasonComments Established PatientReasonCommentsDistance Health Care Teams (unrecognized sec tion and content) Team Status: Active Member Role Status Dates Mitch Vaughan DO Primary Care Provider Active Team Status: Inactive Member Role Status Dates Mitch Vaughan DO Primary Care Provider Active Start: August 29, 2024 End: August 29Nan Aldrich ProviderActiveStart: August 29, 2024 End: August 29, 2024 Team Status: Inactive Member Role Status Dates Mitch Vaughan DO Primary Care Provider Active Start: November 25, 2024 End: November 25Nan Aldrich ProviderActiveStart: November 25, 2024 End: November 25, 2024 Team Status: Active Member Role Status Dates Mitch Vaughan DO Primary Care Provider Active Start: July 22, 2024 Helga A ThousandAttending ProviderActiveStart: July 22, 2024 Team Status: Inactive Member Role Status Dates Mitch Vaughan , DO Primary Care Provide r, Attending Provider Active Start: August 29, 2024 End: August 29, 2024 Team Status: Inactive Member Role Status Dates Mitch Vaughan , DO Primary Care Provide r, Attending Provider Active Start: May 14, 2024 End: May 14, 2024 Team Status: Active Member Role Status Dates Mtich Vaughan , DO Primary Care Provide r, Attending Provider Active Start: November 30, 2023 Team Status: Active Member Role Status Dates Mitch Vaughan , DO Primary Care Provider Active Start: January 17, 2024 Cain Mcdonald ProviderActiveStart: January 17, 2024 Team Status: Inactive Member Role Status Dates Mitch Vaguhan , DO Primary Care Provide r, Attending Provider Active Start: February 12, 2024 End: February 12, 2024 Team Status: Inactive Member Role Status Dates Mitch Vaughan , DO Primary Care Provide r, Attending Provider Active Start: November 13, 2023 End: November 13, 2023 Team Status: Active Member Role Status Dates Mitch Vaughan , Primary Care Provider Active Start: July 17, 2023 JOSELIN SesayAAtdulce ProviderActiveStart: July 17, 2023 Team Status: Inactive Member Role Status Dates Mitch Vaughan , DO Primary Care Provide r, Attending Provider Active Start: August 09, 2023 End: August 09, 2023 Team Status: Inactive Member Role Status Dates Mitch Vaughan , Primary Care Provider Active Regis Guzmán Jr ProviderActive Team Status: Inactive Member Role Status Dates Mitch Vaughan , DO Primary Care Provider Active Vance Vergara ProviderActiveTeam MemberRelationshipSpecialtyStart DateEnd Date Mitch Vaughan DO [address] [place] [address] PCP - GeneralInternal Zsmibmyb57/27/23Team MemberRelationshipSpecialtyStart Date End Date Mitch Vaughan DO [address] [place] [address] PCP - GeneralInternal Sqexilzt21/27/23Team MemberRelationshipSpecialtyStart Date End Date Mitch Vaughan DO [address] [facility] [place] [address] PCP - GeneralInternal Wwhehehi45/27/23Team MemberRelationshipSpecialtyStart Date End Date Mitch Vaughan, DO [address] [facility] [place] [address] PCP - GeneralInternal Qrkjywcj89/27/23Team MemberRelationshipSpecialtyStart Date End Date Mitch Vaughan, DO [address] [facility] [place] [address] PCP - GeneralInternal Xgvoymon10/27/23Team MemberRelationshipSpecialtyStart Date End Date Mitch Vaughan, DO [address] [facility] [place] [address] PCP - GeneralInternal Ozdqdykd04/27/23Team MemberRelationshipSpecialtyStart Date End Date Mitch Vaughan DO [address] [facility] [place] [address] PCP - GeneralInternal Hjpytlrf94/27/23Team MemberRelationshipSpecialtyStart Date End Date Mitch Vaughan, DO [address] [facility] [place] [address] PCP - GeneralInternal Irhoitho53/27/23Team MemberRelationshipSpecialtyStart Date End Date Mitch Vaughan, DO [address] [facility] [place] [address] PCP - GeneralInternal Medicine11/24/21Team MemberRelationshipSpecialtyStart Date End Date Mitch Vaughan, DO [address] [facility] [place] [address] PCP - GeneralInternal Medicine11/24/21Team MemberRelationshipSpecialtyStart Date End Date Mitch Vaughan DO [address] [facility] [place] [address] PCP - GeneralInternal Medicine11/24/21Team MemberRelationshipSpecialtyStart Date End Date Mitch Vaughan DO [address] [facility] [place] [address] PCP - GeneralInternal Oyhpefcu11/27/23Team MemberRelationshipSpecialtyStart Date End Date Mitch Vaughan DO [address] [place] [address] PCP - GeneralInternal Gehiqmfm23/27/23 Team Status: Active Member Role/Relationship Status Dates Mitch Clement Primary Care Provider Active Team Status: Active Member Role/Relationship Status Dates Mitch Clement DO Primary Care Provider Active Start: December 03, 2024 Mitch Vaughan DOAttending ProviderActiveStart: December 03, 2024 Team Status: Active Member Role/Relationship Status Dates Mitch Clement DO Primary Care Provider Active Start: January 21, 2025 Outside ProviderAttending ProviderActiveStart: January 21, 2025 Team Status: Inactive Member Role/Relationship Status Dates Mitch Vaughan DO Primary Care Provider Active Start: February 25, 2025 End: February 25endonnellshaniqua Vaughan DOAttending ProviderActiveStart: February 25, 2025 End: February 25, 2025 Source Comments (unrecognize d section and content) In the event this informatio n is protected by the Federal Confidentiality of Alcohol and Drug Abuse Patient Records regulations: The Federal rules restrict any use of the information to criminally investigate or prosecute any alcohol or drug abuse patient.[facility]In the event this information is protected by the Federal Confidentiality of Alcohol and Drug Abuse Patient Records regulations: The Federal rules restrict any use of the information to criminally investigate or prosecute any alcohol or drug abuse patient.[facility]In the event this information is protected by the Federal Confidentiality of Alcohol and Drug Abuse Patient Records regulations: The Federal rules restrict any use of the information to criminally investigate or prosecute any alcohol or drug abuse patient.[facility]In the event this information is protected by the Federal Confidentiality of Alcohol and Drug Abuse Patient Records regulations: The Federal rules restrict any use of the information to criminally investigate or prosecute any alcohol or drug abuse patient.[facility] HospitalIn the event this information is protected by the Federal Confidentiality of Alcohol and Drug Abuse Patient Records regulations: The Federal rules restrict any use of the information to criminally investigate or prosecute any alcohol or drug abuse patient.[facility] HospitalIn the event this information is protected by the Federal Confidentiality of Alcohol and Drug Abuse Patient Records regulations: The Federal rules restrict any use of the information to criminally investigate or prosecute any alcohol or drug abuse patient.[facility] HospitalIn the event this information is protected by the Federal Confidentiality of Alcohol and Drug Abuse Patient Records regulations: The Federal rules restrict any use of the information to criminally investigate or prosecute any alcohol or drug abuse patient.[facility] HospitalIn the event this information is protected by the Federal Confidentiality of Alcohol and Drug Abuse Patient Records regulations: The Federal rules restrict any use of the information to criminally investigate or prosecute any alcohol or drug abuse patient.[facility] HospitalIn the event this information is protected by the Federal Confidentiality of Alcohol and Drug Abuse Patient Records regulations: The Federal rules restrict any use of the information to criminally investigate or prosecute any alcohol or drug abuse patient.[facility] HospitalIn the event this information is protected by the Federal Confidentiality of Alcohol and Drug Abuse Patient Records regulations: The Federal rules restrict any use of the information to criminally investigate or prosecute any alcohol or drug abuse patient.[facility] HospitalIn the event this information is protected by the Federal Confidentiality of Alcohol and Drug Abuse Patient Records regulations: The Federal rules restrict any use of the information to criminally investigate or prosecute any alcohol or drug abuse patient.[facility] HospitalIn the event this information is protected by the Federal Confidentiality of Alcohol and Drug Abuse Patient Records regulations: The Federal rules restrict any use of the information to criminally investigate or prosecute any alcohol or drug abuse patient.[facility] Goals (unrecognized section and content) Goals [...] BE BASED ON THE PRIMARY CLINICAL RECORDS. [facility]. provides no warranty or guarantee of the accuracy or completeness of information in this document.
== END 2025-02-28 13:37 | disposition home or self-care (01) ==
LOC: CT 13:36
PROVIDERS: PCP Internal Medicine; Visit Provider Internal Medicine
DX: K44.9 Diaphragmatic hernia without obstruction or gangrene (principal); F17.210 Nicotine dependence, cigarettes, uncomplicated
CPT/HCPCS: 71271